=== PATIENT | female | born 1960 | race Caucasian/White ===

== ENCOUNTER 2017-02-09 02:59 | Inpatient (IN) | payer OTHER, SELFPAY ==
[2017-02-09] MEDS ORDERED: Iohexol 240 (50 ml) PO ONE (03:15)
--- NOTE | 2017-02-09 03:17 | ED PDOC ---
HPI: Abdomen Time Seen by Provider: 02/09/17 03:07 Chief Complaint (Nursing): Abdominal Pain Chief Complaint (Provider): abdominal pain History Per: Patient, Family History/Exam Limitations: no limitations Onset/Duration Of Symptoms: Days (2) Current Symptoms Are (Timing): Still Present Location Of Pain/Discomfort: Diffuse Quality Of Discomfort: Sharp, "Pain" Associated Symptoms: Nausea, Vomiting Additional History Per: Patient, Family Additional Complaint(s): 56 y/o female presents for eval of diffuse abdominal pain x 2 days. Associated nausea, vomiting, left lower back pain. Daughter notes pain to have worsened today, with bloating of stomach. Denies fever, chest pain, shortness of breath , palpitations, changes in bowel movements, dysuria, hematuria. Past Medical History Reviewed: Historical Data, Nursing Documentation, Vital Signs Vital Signs: Last Vital Signs Temp 98.1 F 02/09/17 03:05 Pulse 81 02/09/17 05:48 Resp 18 02/09/17 05:48 BP 101/59 L 02/09/17 05:48 Pulse Ox 99 02/09/17 05:53 - Medical History PMH: Asthma Denies: HIV, Chronic Kidney Disease - Family History Family History: States: Unknown Family Hx - Home Medications Home Medications: Ambulatory Orders Medication Instructions Recorded Ciprofloxacin HCl [Cipro] 500 mg PO Q12 #14 tablet 09/11/16 Levothyroxine [Synthroid] 25 mcg PO DAILY #30 tab 09/11/16 Metronidazole [Flagyl] 500 mg PO Q8 #21 tablet 09/11/16 - Allergies Allergies/Adverse Reactions: Allergies Allergy/AdvReac Type Severity Reaction Status Date / Time No Known Allergies Allergy Verified 09/07/15 15:13 Review of Systems ROS Statement: Except As Marked, All Systems Reviewed And Found Negative Gastrointestinal: Positive for: Nausea, Vomiting, Abdominal Pain Physical Exam - Reviewed Nursing Documentation Reviewed: Yes Vital Signs Reviewed: Yes - Physical Exam Appears: Positive for: Well, Non-toxic, No Acute Distress Head Exam: Positive for: ATRAUMATIC, NORMAL INSPECTION, NORMOCEPHALIC Skin: Positive for: Normal Color Eye Exam: Positive for: Normal appearance ENT: Positive for: Normal ENT Inspection Cardiovascular/Chest: Positive for: Regular Rate, Rhythm Respiratory: Positive for: Normal Breath Sounds Gastrointestinal/Abdominal: Positive for: Normal Exam, Bowel Sounds, Soft (firm) , Tenderness (diffuse), Distended, Guarding, Asicites Back: Positive for: L CVA Tenderness. Negative for: R CVA Tenderness, Vertebral Tenderness, Muscle Spasm Extremity: Positive for: Normal ROM Neurologic/Psych: Positive for: Alert, Oriented - Laboratory Results Result Diagrams: 02/09/17 03:24 02/09/17 03:24 - ECG O2 Sat by Pulse Oximetry: 99 - Radiology X-Ray: Viewed By Me X-Ray Interpretation: No Acute Disease - Progress ED Course And Treament: labs, urine, chest xray, CT abd/pelvis, IV morphine, IV zofran Patient given another zofran dose for persistent vomiting. 4:40 Patient unable to tolerate PO contrast. Will do CT abd/pelvis with IV contrast only EXAM: CT Abdomen and Pelvis With Intravenous Contrast CLINICAL HISTORY: 56 years old, female; Pain; Abdominal pain; Epigastric; Additional info: Abd pain, vomiting TECHNIQUE: Axial computed tomography images of the abdomen and pelvis with intravenous contrast. This CT exam was performed using one or more of the following dose reduction techniques : automated exposure control, adjustment of the mA and/or kV according to patient size, and/ or use of iterative reconstruction technique. Coronal and sagittal reformatted images were created and reviewed. CONTRAST: 100 mL of OMNIPAQUE 300 administered intravenously. EXAM DATE/TIME: 02/09/2017 4:41 AM COMPARISON: CT - ABD PELVIS PO IV CONTRAST 09/07/2015 9:15:08 PM FINDINGS: The liver is nodular supportive of cirrhosis similar to prior. There is slight mass effect on the right kidney by the enlarged liver. There is extensive ascites throughout the abdomen and pelvis since prior. There is nodular soft tissue density throughout the anterior abdomen new since prior study that could be related to edema. Omental caking would have a similar appearance. Primary mesenteric inflammatory process would be possible as well. Numerous small small periaortic lymph nodes are present. The spleen is normal. The pancreas is normal. No gallstones. Again seen is a large left renal cyst increased slightly in size now measuring 4.3 cm in diameter. There is mild left hydronephrosis and mild left hydroureter. There is a small amount of perinephric fluid most notably surrounding the pelvis. There is a 3 mm calculi along the posterior wall of the urinary bladder at the left UVJ. The wall of the transverse colon appears thickened and irregular however it is decompressed limiting evaluation. Heterogeneous calcification in the deep left pelvis similar to prior possibly ovarian in origin or possibly an exophytic uterine fibroid. IMPRESSION: Obstructing calculi left UVJ. Cirrhotic liver. Ascites. Nodular soft tissue density along the anterior abdominal wall as discussed above. Case discussed with ED attending Dr. Sanches; will admit for further evaluation of findings. IV fluids, PO flomax ordered CAse discussed with FP resident on-call for admission. Disposition - Clinical Impression Clinical Impression: Ascites, Cirrhosis, Ureteral calculus, left - Disposition Disposition Time: 05:58 Condition: FAIR - Pt Status Changed To: Hospital Disposition Of: Inpatient - Admit Certification Admit to Inpatient:: After my assessment, the patient will require hospitalization for at least two midnights. This is because of the severity of symptoms shown, intensity of services needed, and/or the medical risk in this patient being treated as an outpatient.
[2017-02-09] MEDS ORDERED: Iohexol 240 (50 ml) ONE (03:20)
[2017-02-09 03:36] LABS: ALKALINE PHOSPHATASE 92 U/L (38-126); ALT/SGPT 61 U/L (9-52); AST/SGOT 53 U/L (14-36); BILIRUBIN,TOTAL 0.8 mg/dl (0.2-1.3); BLOOD UREA NITROGEN 15 mg/dl (7-17); CALCIUM 8.4 mg/dL (8.4-10.2); CARBON DIOXIDE 26 mmol/L (22-30); CHLORIDE 106 mmol/L (98-107); GFR AFRICAN-AMERICAN > 60; GLUCOSE,RANDOM 120 mg/dL (65-105); LIPASE 261 U/L (23-300); POTASSIUM 3.6 MMOL/L (3.6-5.0); SODIUM 143 mmol/l (132-148); TOTAL PROTEIN 6.4 G/DL (6.3-8.2)
[2017-02-09 03:45] LABS: ALB/GLOB RATIO 0.9 (1.0-2.1)
[2017-02-09 03:52] LABS: BASO % 0.4 % (0.0-2.0); EOS # 0.3 K/uL (0.0-0.7); LYMPH # 3.3 K/uL (1.0-4.3); MEAN CELL VOLUME 85.5 fl (81.0-99.0); MEAN CORPUSCULAR HEMOGLOBIN 28.9 pg (27.0-31.0); MEAN CORPUSCULAR HGB CONC 33.8 g/dL (33.0-37.0); MEAN PLATELET VOLUME 9.1 fl (7.2-11.7); MONO # 0.9 K/uL (0.0-0.8); MONO % 11.2 % (0.0-10.0); NEUT # 3.8 K/uL (1.8-7.0); NEUT % 45.4 % (50.0-75.0); NRBC % 0.2 % (0.0-0.0); WHITE BLOOD COUNT 8.4 K/uL (4.8-10.8)
[2017-02-09] MEDS ORDERED: Iohexol 300 100 ML IJ ONE (04:42)
[2017-02-09] MEDS ORDERED: Sodium Chloride 0.9% 50 ML IV ONE (04:42)
[2017-02-09] MEDS ORDERED: Sodium Chloride 0.9% 1,000 ML IV STA (05:21)
--- NOTE | 2017-02-09 05:48 | CT ---
EXAM: CT Abdomen and Pelvis With Intravenous Contrast CLINICAL HISTORY: 56 years old, female; Pain; Abdominal pain; Epigastric; Additional info: Abd pain, vomiting TECHNIQUE: Axial computed tomography images of the abdomen and pelvis with intravenous contrast. This CT exam was performed using one or more of the following dose reduction techniques: automated exposure control, adjustment of the mA and/or kV according to patient size, and/or use of iterative reconstruction technique. Coronal and sagittal reformatted images were created and reviewed. CONTRAST: 100 mL of OMNIPAQUE 300 administered intravenously. EXAM DATE/TIME: 02/09/2017 4:41 AM COMPARISON: CT - ABD PELVIS PO IV CONTRAST 09/07/2015 9:15:08 PM FINDINGS: The liver is nodular supportive of cirrhosis similar to prior. There is slight mass effect on the right kidney by the enlarged liver. There is extensive ascites throughout the abdomen and pelvis since prior. There is nodular soft tissue density throughout the anterior abdomen new since prior study that could be related to edema. Omental caking would have a similar appearance. Primary mesenteric inflammatory process would be possible as well. Numerous small small periaortic lymph nodes are present. The spleen is normal. The pancreas is normal. No gallstones. Again seen is a large left renal cyst increased slightly in size now measuring 4.3 cm in diameter. There is mild left hydronephrosis and mild left hydroureter. There is a small amount of perinephric fluid most notably surrounding the pelvis. There is a 3 mm calculi along the posterior wall of the urinary bladder at the left UVJ. The wall of the transverse colon appears thickened and irregular however it is decompressed limiting evaluation. Heterogeneous calcification in the deep left pelvis similar to prior possibly ovarian in origin or possibly an exophytic uterine fibroid. IMPRESSION: Obstructing calculi left UVJ. Cirrhotic liver. Ascites. Nodular soft tissue density along the anterior abdominal wall as discussed above.
[2017-02-09] MEDS ORDERED: DiphenhydrAMINE 50 mg/ml Inj IV STA (06:18)
--- NOTE | 2017-02-09 08:56 | CP.PCM.HP ---
History of Present Illness - History of Present Illness History of Present Illness: CC: abdominal pain HPI: The patient is a 56 y/o woman w/ PMH of mild persistent asthma and hypothyroidism (diagnosed on 10/10/2016 but not currently taking any synthroid) presents with abdominal pain. The patient reports pain for the past 2 days with enlarging abdomen, 7-8 episodes of non-bloody/non-bilious vomit, and left lower back pain. The patient also reports dizziness and yellowing skin. The patient has been having neck pain for 1 week and dysuria without hematuria for the past 2-3 days. The daughter is at bedside for additional history. The patient denies chest pain, dyspnea, and diarrhea. The patient was last admitted in the hospital on 09/10/2016 and discharged on 09/11/2016 for colitis. Patient was last seen in the [facility] on 10/10/2016 with a follow up visit scheduled for 02/14/2017. The patient was found to be positive for Hepatitis C but patient and daughter are unaware. PMD: [facility] Allergies: NKDA Meds: salbutamol/beclomethasone inhaler prn PMH: mild persistent asthma, hypothyroidism (not taking synthroid), Hepatitis C (patient and family unaware) PSH: none Soc: denies smoking, alcohol, and drugs ROS: negative except HPI ED course vitals: 98.1 F, 79 beats/min, 122/69 mmHg, 16 breaths/min, O2 99% room air - CBC, coags, CMP, troponin, lipase, lactic acid - CXR, CT abdomen/pelvis / IV contrast (patient could not tolerate PO contrast) - given IV zofran, IV morphine, tamsulosin 0.4 mg and 0.8 mg PO, NS 1L, Benadryl 25 mg IV, and Promethazine 25 mg IV - admit Present on Admission - Present on Admission Any Indicators Present on Admission: No Review of Systems - Review of Systems All systems: reviewed and no additional remarkable complaints except Past Patient History - Past Medical History & Family History Past Medical History?: Yes - Past Social History Smoking Status: Never Smoked - CARDIAC Hx Cardiac Disorders: No - PULMONARY Hx Asthma: Yes - NEUROLOGICAL Hx Neurological Disorder: No - HEENT Hx HEENT Problems: No - RENAL Hx Chronic Kidney Disease: No - ENDOCRINE/METABOLIC Hx Endocrine Disorders: No - HEMATOLOGICAL/ONCOLOGICAL Hx Human Immunodeficiency Virus (HIV): No - INTEGUMENTARY Hx Dermatological Problems: No - MUSCULOSKELETAL/RHEUMATOLOGICAL Hx Musculoskeletal Disorders: No - GASTROINTESTINAL Hx Gastrointestinal Disorders: No - GENITOURINARY/GYNECOLOGICAL Hx Genitourinary Disorders: No - PSYCHIATRIC Hx Psychophysiologic Disorder: No Hx Substance Use: No - SURGICAL HISTORY Hx Surgeries: No Other/Comment: triconomas - ANESTHESIA Hx Anesthesia: No (unknown) Hx Anesthesia Reactions: No Hx Malignant Hyperthermia: No Meds Allergies/Adverse Reactions: Allergies Allergy/AdvReac Type Severity Reaction Status Date / Time No Known Allergies Allergy Verified 02/09/17 07:31 Physical Exam - Constitutional Appears: No Acute Distress - Head Exam Head Exam: ATRAUMATIC, NORMOCEPHALIC - Eye Exam Eye Exam: EOMI Pupil Exam: PERRL Additional comments: non-icteric sclera - ENT Exam ENT Exam: Mucous Membranes Dry - Respiratory Exam Respiratory Exam: Decreased Breath Sounds, Clear to Auscultation Bilateral. absent: Prolonged Expiratory Phase, Rales, Rhonchi, Wheezes, Respiratory Distress, Stridor - Cardiovascular Exam Cardiovascular Exam: REGULAR RHYTHM. absent: Tachycardia - GI/Abdominal Exam GI & Abdominal Exam: Distended, Firm, Normal Bowel Sounds. absent: Guarding, Rigid, Tenderness Additional comments: no fluid wave appreciated; however, remarkably distended abdomen with no abnormal skin lesions - Extremities Exam Extremities exam: Negative for: calf tenderness, pedal edema, tenderness - Neurological Exam Neurological exam: Alert, Oriented x3 - Skin Skin Exam: Dry, Intact, Pallor, Warm Additional comments: mild jaundice more noticeable on face, non-pruritic Results - Vital Signs Recent Vital Signs: Last Vital Signs Temp 98.1 F 02/09/17 03:05 Pulse 79 02/09/17 07:38 Resp 17 02/09/17 07:38 BP 114/83 02/09/17 07:38 Pulse Ox 98 02/09/17 07:38 - Labs Result Diagrams: 02/09/17 03:24 02/09/17 03:24 Assessment & Plan - Assessment and Plan (Free Text) Assessment: The patient is a 56 y/o woman w/ PMH of mild persistent asthma and hypothyroidism (diagnosed on 10/10/2016 but not currently taking any synthroid) presents with abdominal pain. Plan: 1. Abdominal pain - admit to [facility] - GI consulted, Dr. 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 Ascites - Hep C cirrhosis vs portal venous thrombosis vs Budd Chiari - spironolactone 50 mg PO BID - lasix 40 mg IV daily (hold if BP systolic <90) - Ultrasound doppler of portal vein - IR paracentesis (diagnostic and therapeutic) today in afternoon - follow up paracentesis fluid studies - follow up Hepatitis A, B, and C studies - follow up ammonia - strict I&Os - daily weights 3. Dysuria - no CVA tenderness - 3mm obstructing calculi in left UVJ - Ceftriaxone 1 gm IV daily - tamsulosin 0.4 mg PO daily - follow up UA and urine culture - 24 hour urine collection - urology consult, Dr. Teague 4. Mild persistent asthma - home medication: salbutamol/beclomethasone inhaler prn - duoneb 3 mL Inh Q6h prn 5. Hypothyroidism - not on medication (was started on synthroid 25 mcg PO daily but not taking) - TSH 10/10/2016: 13.40 6. DVT prophylaxis - lovenox 40 mg SC daily (on hold until after ultrasound)
[2017-02-09] MEDS ORDERED: Albuterol-Ipratrop 3 mg / 0.5 (3 ml) UD INH PRN (09:25)
[2017-02-09] MEDS ORDERED: cefTRIAXone 2 GM in Sodium Chloride 0.9% 100 ML IVPB SCH (09:30)
[2017-02-09] MEDS: Enoxaparin 40 mg Syringe SC SCH (09:55)
--- NOTE | 2017-02-09 10:44 | RAD ---
HISTORY: Abdominal pain COMPARISON: 09/10/2016 FINDINGS: LUNGS: The lungs are clear. PLEURA: No significant pleural effusion identified, no pneumothorax apparent. CARDIOVASCULAR: Normal. OSSEOUS STRUCTURES: No significant abnormalities. VISUALIZED UPPER ABDOMEN: Normal. OTHER FINDINGS: None. IMPRESSION: No active pulmonary disease.
--- NOTE | 2017-02-09 14:06 | US ---
HISTORY: Hepatitis C cirrhosis, ascites;r/o portal vein thrombus COMPARISON: None. TECHNIQUE: Grayscale and duplex Doppler imaging was performed. FINDINGS: LIVER: Measures 14.6 cm. Normal echogenicity of the liver parenchyma. The liver has nodular contour. . No intrahepatic bile duct dilatation. There is normal direction of flow in the hepatic vein, hepatic artery and portal vein. GALLBLADDER: Unremarkable. No gallstones. COMMON BILE DUCT: Measures 3.0 mm. No stones. No dilatation. PANCREAS: Unremarkable as visualized. No mass. No ductal dilatation. RIGHT KIDNEY: Measures 10.2cm. Normal echogenicity. No calculus, mass, or hydronephrosis. LEFT KIDNEY: Measures 11.6cm. Normal echogenicity. No calculus, mass, or hydronephrosis. There is a 4.7 x 4.1 x 4.9 cm simple cyst in the lower pole. SPLEEN: There is borderline splenomegaly. No mass. There is normal flow in the splenic vein. AORTA: No aneurysmal dilatation. IVC: Unremarkable. OTHER FINDINGS: Moderate abdominal ascites. IMPRESSION: 1. Cirrhosis of liver and borderline splenomegaly. 2. Normal direction of flow in the hepatic and portal veins. Patent splenic vein. 3. Moderate abdominal ascites.
[2017-02-09] MEDS ORDERED: Lidocaine 1% Inj (20ml) ONE (14:43)
--- NOTE | 2017-02-09 15:13 | PCM.SURG1 ---
Surgeon's Initial Post Op Note - Surgeon's Notes Surgeon: Jr Arango MD Bending Press Operator: NONE Type of Anesthesia: Local Pre-Operative Diagnosis: Ascites Operative Findings: US showed a moderate amount of fluid Post-Operative Diagnosis: Ascites Operation Performed: US guided paracentesis. Specimen/Specimens Removed: 2.8 liters of straw colored fluid Estimated Blood Loss: EBL {In ML}: 0 Blood Products Given: N/A Drains Used: No Drains Post-Op Condition: Fair Date of Surgery/Procedure: 02/09/17 Time of Surgery/Procedure: 15:05
--- NOTE | 2017-02-09 15:52 | US ---
Date of Procedure: 02/09/2017 PROCEDURE: Ultrasound-guided paracentesis, CPT 92622 Medications: 6 cc 1% Lidocaine HISTORY: Ascites, abdominal pain, cirrhosis TECHNIQUE: Following informed consent , the patient was placed supine on the stretcher and the site was marked. A limited abdominal ultrasound was performed that showed a large amount of intra-abdominal fluid. Procedural time out was called and the Pt's abdomen was marked and prepped and draped in the usual sterile fashion. Ultrasound-guided large volume paracentesis performed. A total of 2.8 liters of straw colored fluid was removed without complication. Fluid specimen was sent for culture, sensitivity, cytology and chemistries. IMPRESSION: Ultrasound-guided large volume paracentesis.
--- NOTE | 2017-02-09 16:32 | CT ---
PROCEDURE: CT scan of the brain dated 02/09/2017 HISTORY: headache x 1 month; confusion COMPARISON: No prior study available for comparison TECHNIQUE: Axial computed tomography images were obtained through the head/brain without intravenous contrast. Radiation dose: Total exam DLP = 769.52 mGy-cm. This CT exam was performed using one or more of the following dose reduction techniques: Automated exposure control, adjustment of the mA and/or kV according to patient size, and/or use of iterative reconstruction technique. FINDINGS: HEMORRHAGE: No acute parenchymal, subarachnoid or extra-axial . Questionable minimal chronic periventricular white matter ischemic changes. The ventricles are slightly prominent which could be due to central volume loss. Mild vascular calcifications are present. VENTRICLES: No evidence of obstructive hydrocephalus CALVARIUM: Calvarium appears unremarkable. PARANASAL SINUSES: Minor mucosal thickening noted within several ethmoid air cells. On mild mucosal thickening left chamber sphenoid sinus. Tiny fluid level not excluded. MASTOID AIR CELLS: Unremarkable as visualized. No inflammatory changes. OTHER FINDINGS: None. IMPRESSION: No acute intracranial hemorrhage. . Questionable minimal chronic periventricular white matter ischemic changes. Mildly prominent ventricles possibly due to central volume loss however there is no evidence of obstructive hydrocephalus.
--- NOTE | 2017-02-09 18:17 | CP.PCM.CON ---
History of Present Illness - History of Present Illness History of Present Illness: 56 yo female admitted with abdominal swelling and pain. Has h/o HCV but not under treatment. Also with hypothyroidism. Review of Systems - Constitutional Constitutional: absent: Chills - EENT Eyes: absent: Blurred Vision Ears: absent: Ear Discharge Nose/Mouth/Throat: absent: Epistaxis - Cardiovascular Cardiovascular: absent: Chest Pain - Respiratory Respiratory: absent: Cough - Gastrointestinal Gastrointestinal: As Per HPI Past Patient History - Past Medical History & Family History Past Medical History?: Yes - Past Social History Smoking Status: Never Smoked - CARDIAC Hx Cardiac Disorders: No - PULMONARY Hx Asthma: Yes - NEUROLOGICAL Hx Neurological Disorder: No - HEENT Hx HEENT Problems: No - RENAL Hx Chronic Kidney Disease: No - ENDOCRINE/METABOLIC Hx Endocrine Disorders: No - HEMATOLOGICAL/ONCOLOGICAL Hx Human Immunodeficiency Virus (HIV): No - INTEGUMENTARY Hx Dermatological Problems: No - MUSCULOSKELETAL/RHEUMATOLOGICAL Hx Musculoskeletal Disorders: No - GASTROINTESTINAL Hx Gastrointestinal Disorders: No - GENITOURINARY/GYNECOLOGICAL Hx Genitourinary Disorders: No - PSYCHIATRIC Hx Psychophysiologic Disorder: No Hx Substance Use: No - SURGICAL HISTORY Hx Surgeries: No Other/Comment: triconomas - ANESTHESIA Hx Anesthesia: No (unknown) Hx Anesthesia Reactions: No Hx Malignant Hyperthermia: No Meds Allergies/Adverse Reactions: Allergies Allergy/AdvReac Type Severity Reaction Status Date / Time No Known Allergies Allergy Verified 02/09/17 07:31 - Medications Medications: Current Medications Albuterol/Ipratropium (Duoneb 3 Mg/0.5 Mg (3 Ml) Ud) 3 ml INH RQ6 PRN PRN Reason: Shortness of Breath Enoxaparin Sodium (Lovenox) 40 mg SC DAILY [facility] PRN Reason: Protocol Last Admin: 02/09/17 09:55 Dose: Not Given Furosemide (Lasix) 40 mg IVP DAILY [facility] Last Admin: 02/09/17 11:14 Dose: 40 mg Ceftriaxone Sodium 1 gm/ (Sodium Chloride) 100 mls @ 100 mls/hr IVPB DAILY [facility] Morphine Sulfate (Morphine) 2 mg IVP Q4 PRN PRN Reason: Pain, moderate (4-7) Ondansetron HCl (Zofran Inj) 4 mg IVP Q4 PRN PRN Reason: Nausea/Vomiting Spironolactone (Aldactone) 50 mg PO BID [facility] Last Admin: 02/09/17 10:44 Dose: 50 mg Tamsulosin HCl (Flomax) 0.4 mg PO DAILY [facility] Physical Exam - Constitutional Appears: Chronically Ill - Head Exam Head Exam: ATRAUMATIC - Eye Exam Eye Exam: Normal appearance - Respiratory Exam Respiratory Exam: Clear to Auscultation Bilateral - Cardiovascular Exam Cardiovascular Exam: +S1, +S2 - GI/Abdominal Exam GI & Abdominal Exam: Distended, Normal Bowel Sounds, Soft. absent: Tenderness Results - Vital Signs Recent Vital Signs: Last Vital Signs Temp 99.1 F 02/09/17 14:57 Pulse 72 02/09/17 14:57 Resp 20 02/09/17 14:57 BP 117/59 L 02/09/17 14:57 Pulse Ox 96 02/09/17 14:57 - Labs Result Diagrams: 02/09/17 03:24 02/09/17 03:24 Labs: Laboratory Results - last 24 hr 02/09/17 02/09/17 15:25 16:50 Ammonia < 9 L Fluid Glucose 121 - Imaging and Cardiology CT scan - abdomen Status: Report reviewed by me Assessment & Plan (1) Cirrhosis Assessment and Plan: Patient despite ascites has relatively preserved liver synthetic function. Salt and water restriction and low dose diuretics as long as BP systolic above 95. Schistosoma serology. May stop antibiotics if parascentesis is negative. Possible upper endoscopy to evaluate for varices Sunday. Status: Acute
--- NOTE | 2017-02-09 19:36 | CON ---
DATE: 02/09/2017 TIME OF CONSULTATION: Roughly 6:35 p.m. BRIEF HISTORY: The patient is a 56-year-old female from [place] with a history of hepatitis C and liver cirrhosis with abdominal ascites, who presents to [facility] (Former[facility] ER with acute onset of abdominal pain which is now currently relieved, and was also found to have a 3 mm stone at the left UVJ with mild left hydroureter. The patient was started on IV Rocephin and is currently completely pain free. She does have abdominal distention secondary to the ascites. She denies any prior history of kidney stones or kidney disease. Her only past medical history is that of asthma, for which she uses an inhaler periodically, but not all the time. GYNECOLOGICAL HISTORY: She is 5, para 5, with no abortions, and all normal vaginal deliveries. No past surgical history. She has no known allergies to medications. She has no history of any alcohol or tobacco use. A followup ultrasound during this admission after the original CAT scan showed no kidney stones, hydronephrosis, or renal masses, indicating resolution of the original hydronephrosis and possible passage of the left UVJ stone since the patient is currently completely pain free at this time. PHYSICAL EXAMINATION: She is a well-developed, well-nourished female. HENT EXAMINATION: Grossly within normal limits. NECK: Supple. Thyroid not palpable. ABDOMEN: Currently soft, slightly distended. No CVA tenderness. No suprapubic tenderness. Her laboratory evaluation today, 02/09/2017, shows a CBC with a WBC count of 8.4 , hemoglobin of 12.8, and hematocrit of 38.0. Platelet count was 165,000. Her coag profile shows a PT of 12.4, INR of 1.19, and a PTT of 31.0. A chem profile shows a sodium of 143, potassium 3.6, chloride 106, CO2 of 26, BUN and creatinine of 15 and 0.7 respectively, with a GFR of greater than 60. A random glucose was 120. Lactic acid was 1.1, calcium 8.4, total bilirubin 0.8. AST was 53, ALT 61, alk phos 92, ammonia level was less than 9. Lipase was 261. The patient recently just started voiding large amounts of urine, and a urine analysis was just recently sent. Diagnostic impression for this patient is a 3 mm left ureterovesical junction stone with mild left hydronephrosis and hydroureter, which may be resolved at this time since a post-CT ultrasound shows no hydronephrosis, stones, or renal masses, and only a renal cyst. Plan for this patient is just observation at this time regarding urology, and the patient can be continued on her IV antibiotics, which currently include Rocephin IV, and also Flomax 0.4 mg daily. The patient can be seen in office followup in about 2 weeks. Derick Teague MD cc: [id number] TT: 02/09/2017 19:36:26 Confirmation # [id number] Dictation # [id number] MTDD
[2017-02-10 02:47] LABS: RBC URINE 26 /hpf (0-3); URINE BACTERIA RARE (<OCC); URINE BILIRUBIN NEGATIVE (NEGATIVE); URINE COLOR YELLOW (YELLOW); URINE GLUCOSE (UA) NEG (Normal); URINE KETONE NEGATIVE (NEGATIVE); URINE LEUKOCYTE ESTERASE NEG Leu/uL (Negative); URINE PROTEIN 30 mg/dL (NEGATIVE); URINE UROBILINOGEN 0.2-1.0 mg/dL (0.2-1.0); WBC URINE 3 /hpf (0-5)
[2017-02-10 02:48] LABS: URINE BLOOD LARGE (NEGATIVE)
[2017-02-10 07:37] LABS: ALB/GLOB RATIO 0.9 (1.0-2.1); ALKALINE PHOSPHATASE 70 U/L (38-126); ALT/SGPT 54 U/L (9-52); AST/SGOT 49 U/L (14-36); BILIRUBIN,TOTAL 0.5 mg/dl (0.2-1.3); BLOOD UREA NITROGEN 15 mg/dl (7-17); CALCIUM 8.1 mg/dL (8.4-10.2); CARBON DIOXIDE 25 mmol/L (22-30); CHLORIDE 109 mmol/L (98-107); GFR AFRICAN-AMERICAN > 60; GLUCOSE,RANDOM 89 mg/dL (65-105); POTASSIUM 3.7 MMOL/L (3.6-5.0); SODIUM 146 mmol/l (132-148); TOTAL PROTEIN 5.7 G/DL (6.3-8.2)
[2017-02-10 07:59] LABS: BASO % 0.6 % (0.0-2.0); EOS # 0.2 K/uL (0.0-0.7); EOS % 3.7 % (0.0-4.0); HEMATOCRIT 37.2 % (34.0-47.0); LYMPH # 1.6 K/uL (1.0-4.3); LYMPH % 32.8 % (20.0-40.0); MEAN CELL VOLUME 87.1 fl (81.0-99.0); MEAN CORPUSCULAR HEMOGLOBIN 29.2 pg (27.0-31.0); MEAN CORPUSCULAR HGB CONC 33.6 g/dL (33.0-37.0); MEAN PLATELET VOLUME 9.9 fl (7.2-11.7); MONO # 0.4 K/uL (0.0-0.8); MONO % 8.1 % (0.0-10.0); NEUT # 2.7 K/uL (1.8-7.0); NEUT % 54.8 % (50.0-75.0); NRBC % 0.2 % (0.0-0.0); RED CELL DISTRIBUTION WIDTH 13.3 % (11.5-14.5); WHITE BLOOD COUNT 4.9 K/uL (4.8-10.8)
[2017-02-10 08:06] LABS: THYROID STIMULATING HORMONE 4.25 mIU/ML (0.46-4.68)
[2017-02-10] MEDS: Enoxaparin 40 mg Syringe SC SCH (09:12)
--- NOTE | 2017-02-10 09:24 | CP.PCM.PN ---
Subjective - Date & Time of Evaluation Date of Evaluation: 02/10/17 Time of Evaluation: 08:15 - Subjective Subjective: The patient is a 56 y/o woman w/ PMH of mild persistent asthma and hypothyroidism (diagnosed on 10/10/2016 but not currently taking any synthroid) presents with abdominal pain. The patient was seen this morning. There are no acute events overnight. The patient is not in acute distress. The patient is laying in bed. The patient reports improvement of abdominal pain. The patient tolerated the paracentesis with no complications. The patient reported relief from the removal of fluid, which allowed her to have enough of an appetite to eat dinner. The patient reports that the dysuria is resolved but has hematuria. The patient report bilateral calf pain. The patient also reports that the dizziness is improved which now occurs if she is ambulating. The patient wanted to know about her current condition and was counseled about having Hepatitis C. Patient is aware of what Hep C is but unsure of how she contracted it; denied blood transfusion while in [place] and did not have it. Patient has good insight and asked appropriate questions regarding severity and treatment options. The patient appreciated the discussion. Objective - Vital Signs/Intake and Output Vital Signs (last 24 hours): Temp Pulse Resp BP Pulse Ox 98.5 F 69 20 103/65 94 L 02/10/17 08:09 02/10/17 08:09 02/10/17 08:09 02/10/17 08:09 02/10/17 08:09 Intake and Output: 02/10/17 02/10/17 06:59 18:59 Intake Total 50 Output Total 150 Balance -100 - Medications Medications: Current Medications Albuterol/Ipratropium (Duoneb 3 Mg/0.5 Mg (3 Ml) Ud) 3 ml INH RQ6 PRN PRN Reason: Shortness of Breath Enoxaparin Sodium (Lovenox) 40 mg SC DAILY [facility] PRN Reason: Protocol Last Admin: 02/09/17 09:55 Dose: Not Given Furosemide (Lasix) 40 mg IVP DAILY [facility] Ceftriaxone Sodium 1 gm/ (Sodium Chloride) 100 mls @ 100 mls/hr IVPB DAILY [facility] Last Admin: 02/10/17 09:08 Dose: 100 mls/hr Morphine Sulfate (Morphine) 2 mg IVP Q4 PRN PRN Reason: Pain, moderate (4-7) Ondansetron HCl (Zofran Inj) 4 mg IVP Q4 PRN PRN Reason: Nausea/Vomiting Spironolactone (Aldactone) 50 mg PO BID [facility] Last Admin: 02/10/17 09:08 Dose: 50 mg Tamsulosin HCl (Flomax) 0.4 mg PO DAILY [facility] - Labs Labs: 02/10/17 05:30 02/10/17 05:30 PT 12.0 SECONDS (9.6-11.2) H 02/10/17 05:30 INR 1.15 (0.92-1.08) H 02/10/17 05:30 APTT 31.0 SECONDS (23.3-32.5) 02/09/17 03:34 - Constitutional Appears: No Acute Distress - Head Exam Head Exam: ATRAUMATIC, NORMOCEPHALIC - ENT Exam ENT Exam: Mucous Membranes Moist - Respiratory Exam Respiratory Exam: Decreased Breath Sounds, Clear to Ausculation Bilateral. absent: Accessory Muscle Use, Chest Wall Tenderness, Prolonged Expiratory Phase , Rales, Rhonchi, Wheezes, Respiratory Distress, Stridor Additional comments: diffuse clear but decreased breaths sounds - Cardiovascular Exam Cardiovascular Exam: REGULAR RHYTHM. absent: Tachycardia - GI/Abdominal Exam GI & Abdominal Exam: Distended, Soft, Tenderness, Hyperactive Bowel Sounds Additional comments: Patient has mild diffuse tenderness on auscultation and palpation. Abdomen less tense and distended s/p paracentesis. Dressing in RLQ from paracentesis, clean dry, and intact. - Extremities Exam Extremities Exam: Calf Tenderness. absent: Pedal Edema Additional comments: patient reports bilateral calf pain and tenderness, no erythema, no edema, no warmth, negative Liam's sign - Neurological Exam Neurological Exam: Alert, Awake, Oriented x3 - Skin Skin Exam: Dry, Intact, Normal Color, Warm Assessment and Plan - Assessment and Plan (Free Text) Assessment: The patient is a 56 y/o woman w/ PMH of mild persistent asthma and hypothyroidism (diagnosed on 10/10/2016 but not currently taking any synthroid) presents with abdominal pain. Plan: 1. Abdominal pain - GI consulted, Dr. Love; recommendations appreciated - CT: obstructing 3 mm calculi in left UVJ, cirrhotic liver, extensive ascites throughout abdomen and pelvis, nodular soft tissue density along anterior abdominal wall - CBC: 4.9>12.5/37.2<135 - coags: PT 12.0, INR 1.15, aPTT 31.0 - CMP: 146/3.7, 109/25, 15/0.7, glucose 89, Ca2+ 8.1 (corrected Ca2+ 9.2), AST 49, ALT 54, alk phos 92, albumin 2.6 - troponin: negative <0.0120 - lipase: 261 - morphine 2 mg IV Q4h prn - follow up schistosoma serology - possible upper endoscopy to evaluate for varices on Sunday02/12/2017 - construction controller referral - soft, low fiber, 2g Na, 1500mL fluid restriction, 6 small meal, Halal diet 2. Ascites - Hep C cirrhosis vs portal venous thrombosis vs Budd Chiari - spironolactone 50 mg PO BID - lasix 40 mg IV daily (hold if BP systolic <90) - Ultrasound Abdomen 02/09/2017: normal direction of flow in hepatic and portal veins, patent splenic vein, liver cirrhosis, ascites - s/p IR paracentesis (diagnostic and therapeutic): 2.8 L straw colored fluid removed - follow up paracentesis fluid studies - follow up Hepatitis A, B, and C studies - Ammonia: <9 - AFP: 12.2 - follow up MRI abdomen w/wo contrast - strict I&Os: -100 mL - daily weights: 130 lb 3. Hematuria, resolution of Dysuria - no CVA tenderness - 3mm obstructing calculi in left UVJ - Ceftriaxone 1 gm IV daily - tamsulosin 0.4 mg PO daily - UA: negative nitrate and leukocyte esterase, rare bacteria, large blood - follow up urine culture - urology consult, Dr. Teague; recommendations appreciated (continue present management, see as outpatient) 4. Calf pain - negative Liam's sign, no erythema, no edema, no warmth - follow up bilateral venous duplex ultrasound 5. Mild persistent asthma - home medication: salbutamol/beclomethasone inhaler prn - duoneb 3 mL Inh Q6h prn 6. Hypothyroidism - not on medication (was started on synthroid 25 mcg PO daily but not taking) - TSH 4.25 7. DVT prophylaxis - lovenox 40 mg SC daily
--- NOTE | 2017-02-10 13:39 | US ---
PROCEDURE: Bilateral lower extremity venous duplex Doppler. HISTORY: Bilateral calf pain COMPARISON: None available. TECHNIQUE: Bilateral common femoral, superficial femoral, popliteal and posterior tibial veins were evaluated. Flow was assessed with color Doppler, compressibility, assessment of phasic flow and augmentation response. FINDINGS: COMMON FEMORAL VEIN: Right CFV: Normal color flow, compressibility and augmentation response. Left CFV: Normal color flow, compressibility and augmentation response. SUPERFICIAL FEMORAL VEIN: Right SFV: Normal color flow, compressibility and augmentation response. Left SFV: Normal color flow, compressibility and augmentation response. POPLITEAL VEIN: Right Popliteal: Normal color flow, compressibility and augmentation response. Left Popliteal: Normal color flow, compressibility and augmentation response. POSTERIOR TIBIAL VEIN: Right PTV: Normal color flow, compressibility and augmentation response. Left PTV: Normal color flow, compressibility and augmentation response. OTHER FINDINGS: None. IMPRESSION: No evidence of deep venous thrombosis.
[2017-02-11] MEDS: Enoxaparin 40 mg Syringe SC SCH (08:41)
--- NOTE | 2017-02-11 10:19 | CP.PCM.PN ---
Subjective - Date & Time of Evaluation Date of Evaluation: 02/11/17 Time of Evaluation: 08:15 - Subjective Subjective: Pt lying comfortably in bed. States that yesterday, later in the day, her urine had been more yellow/clear, however, upon waking this morning, noted to be red again. Denies dysuria, urinary frequency or urgency. Denies fever, chills, N/V/D. States appetite is slightly improved, but has generalized weakness. Reports abdominal pain has improved since yesterday. Pt asking if any results are back and asking severity of Hep C and when treatment will begin. Pt reports no recollection of exposure to Hep C. Denies tattoos or transfusions. Objective - Vital Signs/Intake and Output Vital Signs (last 24 hours): Temp Pulse Resp BP Pulse Ox 98.6 F 72 20 117/68 94 L 02/11/17 07:53 02/11/17 07:53 02/11/17 07:53 02/11/17 08:44 02/11/17 07:53 - Medications Medications: Current Medications Albuterol/Ipratropium (Duoneb 3 Mg/0.5 Mg (3 Ml) Ud) 3 ml INH RQ6 PRN PRN Reason: Shortness of Breath Enoxaparin Sodium (Lovenox) 40 mg SC DAILY [facility] PRN Reason: Protocol Last Admin: 02/11/17 08:41 Dose: 40 mg Furosemide (Lasix) 40 mg IVP DAILY [facility] Last Admin: 02/11/17 08:44 Dose: 40 mg Ceftriaxone Sodium 1 gm/ (Sodium Chloride) 100 mls @ 100 mls/hr IVPB DAILY [facility] Last Admin: 02/11/17 08:43 Dose: 100 mls/hr Morphine Sulfate (Morphine) 2 mg IVP Q4 PRN PRN Reason: Pain, moderate (4-7) Last Admin: 02/10/17 17:25 Dose: 2 mg Ondansetron HCl (Zofran Inj) 4 mg IVP Q4 PRN PRN Reason: Nausea/Vomiting Spironolactone (Aldactone) 50 mg PO BID [facility] Last Admin: 02/11/17 08:42 Dose: 50 mg Tamsulosin HCl (Flomax) 0.4 mg PO DAILY [facility] Last Admin: 02/11/17 08:42 Dose: 0.4 mg - Labs Labs: 02/10/17 05:30 02/10/17 05:30 PT 12.0 SECONDS (9.6-11.2) H 02/10/17 05:30 INR 1.15 (0.92-1.08) H 02/10/17 05:30 APTT 31.0 SECONDS (23.3-32.5) 02/09/17 03:34 - Constitutional Appears: No Acute Distress - Head Exam Head Exam: NORMAL INSPECTION - Eye Exam Eye Exam: Normal appearance - ENT Exam ENT Exam: Mucous Membranes Moist - Respiratory Exam Respiratory Exam: Decreased Breath Sounds (diffusely), Clear to Ausculation Bilateral, NORMAL BREATHING PATTERN. absent: Rales, Rhonchi, Wheezes, Respiratory Distress - Cardiovascular Exam Cardiovascular Exam: REGULAR RHYTHM, +S1, +S2 - GI/Abdominal Exam GI & Abdominal Exam: Distended, Soft, Normal Bowel Sounds. absent: Tenderness ( no tenderness on today's exam) Additional comments: dressing from paracentesis in Right mid/lower quad - C/D/I - Extremities Exam Extremities Exam: Full ROM. absent: Calf Tenderness, Pedal Edema - Back Exam Back Exam: absent: CVA tenderness (L), CVA tenderness (R) - Neurological Exam Neurological Exam: Alert, Oriented x3 - Skin Skin Exam: Dry, Intact, Normal Color, Warm Assessment and Plan - Assessment and Plan (Free Text) Assessment: 1. Ascites, likely 2/2 chronic Hepatitis C - s/p paracentesis by IR, with 2.8L of fluid removed - peritoneal fluid labs pending; called lab but was told this is a send out and may take 2-3 days from collection - follow up schistosoma serology - spironolactone 50 mg PO BID - lasix 40 mg IV daily (hold if BP systolic <90) - strict I&Os - daily weights - GI consulted, Dr. Love; recommendations appreciated - possible upper endoscopy to evaluate for varices on Sunday02/12/2017; attempted to call Dr. Love for clarification if EGD will happen tomorrow; message left - cut roll machine offbearer referral - SBP prophylaxis for now with IV ceftriaxone; may dc if peritoneal fluid cultures come back neg - soft, low fiber, 2g Na, 1500mL fluid restriction, 6 small meal, Halal diet - Ammonia: <9 - AFP: 12.2 (elevated) - follow up MRI abdomen w/wo contrast 2. Chronic Hep C - follow up Hepatitis A, B, and C studies - prior viral load: >2 million in 08/2016 - will need outpatient GI follow up 3. Nephrolithiasis - CT: obstructing 3 mm calculi in left UVJ, cirrhotic liver, extensive ascites throughout abdomen and pelvis, nodular soft tissue density along anterior abdominal wall - urology consult appreciated - flomax - strain urine - 24 hr urine collection for stone risk eval - pain control - urine culture shows no growth 4. Hematuria, resolution of Dysuria - no CVA tenderness - 3mm obstructing calculi in left UVJ - Ceftriaxone 1 gm IV daily - tamsulosin 0.4 mg PO daily - UA: negative nitrate and leukocyte esterase, rare bacteria, large blood - follow up urine culture - urology consult, Dr. Teague; recommendations appreciated (continue present management, see as outpatient) 5. Calf pain - resolved - Duplex negative for dvt b/l 6. Mild persistent asthma - home medication: salbutamol/beclomethasone inhaler prn - duoneb 3 mL Inh Q6h prn 7. Prior elevated TSH - not on medication (was started on synthroid 25 mcg PO daily but not taking) - TSH now normal 4.25 (previously elevated TSH's; pt with no symptoms) 8. DVT prophylaxis - lovenox 40 mg SC daily
[2017-02-11] MEDS: Docusate-Senna 50 mg-8.6 mg Tab PO SCH (21:30)
--- NOTE | 2017-02-12 07:43 | CP.PCM.PN ---
Subjective - Date & Time of Evaluation Date of Evaluation: 02/12/17 Time of Evaluation: 07:00 - Subjective Subjective: The patient is a 56 y/o woman w/ PMH of mild persistent asthma and hypothyroidism (diagnosed on 10/10/2016 but not currently taking any synthroid) presents with abdominal pain. The patient was seen this morning. There are no acute events overnight. The patient is not in acute distress. The patient is laying in bed. The patient reports similar previous mild epigastric abdominal pain and lower extremity weakness (bilateral LE ultrasound showed no DVT). Patient is NPO for endoscopy and MRI abdomen today. The patient has no other complaints, afebrile, and ambulating. Objective - Vital Signs/Intake and Output Vital Signs (last 24 hours): Temp Pulse Resp BP Pulse Ox 98.7 F 89 19 124/76 95 02/12/17 01:00 02/12/17 01:00 02/12/17 01:00 02/12/17 01:00 02/12/17 01:00 Intake and Output: 02/12/17 02/12/17 06:59 18:59 Intake Total 120 Balance 120 - Medications Medications: Current Medications Albuterol/Ipratropium (Duoneb 3 Mg/0.5 Mg (3 Ml) Ud) 3 ml INH RQ6 PRN PRN Reason: Shortness of Breath Docusate Sodium (Colace) 100 mg PO DAILY [facility] Last Admin: 02/11/17 17:15 Dose: 100 mg Enoxaparin Sodium (Lovenox) 40 mg SC DAILY [facility] PRN Reason: Protocol Last Admin: 02/11/17 08:41 Dose: 40 mg Furosemide (Lasix) 40 mg IVP DAILY [facility] Last Admin: 02/11/17 08:44 Dose: 40 mg Ceftriaxone Sodium 1 gm/ (Sodium Chloride) 100 mls @ 100 mls/hr IVPB DAILY [facility] Last Admin: 02/11/17 08:43 Dose: 100 mls/hr Morphine Sulfate (Morphine) 2 mg IVP Q4 PRN PRN Reason: Pain, moderate (4-7) Last Admin: 02/10/17 17:25 Dose: 2 mg Ondansetron HCl (Zofran Inj) 4 mg IVP Q4 PRN PRN Reason: Nausea/Vomiting Senna/Docusate Sodium (Senokot S 50 Mg-8.6 Mg) 2 tab PO [facility] Last Admin: 02/11/17 21:30 Dose: 2 tab Spironolactone (Aldactone) 50 mg PO BID [facility] Last Admin: 02/11/17 17:15 Dose: 50 mg Tamsulosin HCl (Flomax) 0.4 mg PO DAILY [facility] Last Admin: 02/11/17 08:42 Dose: 0.4 mg - Labs Labs: 02/10/17 05:30 02/10/17 05:30 PT 12.0 SECONDS (9.6-11.2) H 02/10/17 05:30 INR 1.15 (0.92-1.08) H 02/10/17 05:30 APTT 31.0 SECONDS (23.3-32.5) 02/09/17 03:34 - Constitutional Appears: No Acute Distress - Head Exam Head Exam: ATRAUMATIC, NORMOCEPHALIC - ENT Exam ENT Exam: Mucous Membranes Moist - Respiratory Exam Respiratory Exam: Decreased Breath Sounds, Clear to Ausculation Bilateral. absent: Accessory Muscle Use, Chest Wall Tenderness, Prolonged Expiratory Phase , Rales, Rhonchi, Wheezes, Respiratory Distress, Stridor Additional comments: diffuse clear but decreased breaths sounds - Cardiovascular Exam Cardiovascular Exam: REGULAR RHYTHM. absent: Tachycardia - GI/Abdominal Exam GI & Abdominal Exam: Distended, Soft, Tenderness, Hyperactive Bowel Sounds Additional comments: Patient has mild epigastric tenderness on palpation. Abdomen less tense and distended. Dressing in RLQ from paracentesis, clean dry, and intact. - Extremities Exam Extremities Exam: Calf Tenderness, Normal Inspection, Tenderness. absent: Pedal Edema Additional comments: patient reports bilateral calf pain and tenderness, no erythema, no edema, no warmth, negative Liam's sign - Neurological Exam Neurological Exam: Alert, Awake, Oriented x3 - Skin Skin Exam: Dry, Intact, Normal Color, Warm Assessment and Plan - Assessment and Plan (Free Text) Assessment: The patient is a 56 y/o woman w/ PMH of mild persistent asthma and hypothyroidism (diagnosed on 10/10/2016 but not currently taking any synthroid) presents with abdominal pain. Plan: 1. Abdominal pain - GI consulted, Dr. Love; recommendations appreciated - CT: obstructing 3 mm calculi in left UVJ, cirrhotic liver, extensive ascites throughout abdomen and pelvis, nodular soft tissue density along anterior abdominal wall - morphine 2 mg IV Q4h prn - Pepcid 20 mg PO BID - follow up schistosoma serology - upper endoscopy to evaluate for varices on Sunday02/12/2017 @ noon - soft, low fiber, 2g Na, 1500mL fluid restriction, 6 small meal, Halal diet - SBP prophylaxis for now with IV ceftriaxone; may DC if peritoneal fluid cultures come back neg - follow up MRI abdomen w/wo contrast 2. Ascites - most likely Hep C cirrhosis - spironolactone 50 mg PO BID - lasix 40 mg IV daily (hold if BP systolic <90) - Ultrasound Abdomen 02/09/2017: normal direction of flow in hepatic and portal veins, patent splenic vein, liver cirrhosis, ascites - s/p IR paracentesis (diagnostic and therapeutic): 2.8 L straw colored fluid removed - follow up paracentesis fluid studies - follow up Hepatitis C studies - Ammonia: <9 - AFP: 12.2 - follow up MRI abdomen w/wo contrast - strict I&Os: -160 mL - daily weights: 128 lb 6.4 oz 3. Chronic Hep C - follow up Hepatitis C studies - prior viral load: >2 million in 08/2016 - Hep A and B negative - will need outpatient GI follow up 4. Nephrolithiasis - no CVA tenderness - CT: obstructing 3 mm calculi in left UVJ, cirrhotic liver, extensive ascites throughout abdomen and pelvis, nodular soft tissue density along anterior abdominal wall - urology consult, Dr. Teague; recommendations appreciated (continue present management, see as outpatient) - tamsulosin 0.4 mg PO daily - strain urine - 24 hr urine collection for stone risk eval - UA: negative nitrate and leukocyte esterase, rare bacteria, large blood - pain control - urine culture shows no growth 5. Calf pain - negative Liam's sign, no erythema, no edema, no warmth - bilateral venous duplex ultrasound: negative for DVT - on lovenox 40 mg SC daily 6. Mild persistent asthma - home medication: salbutamol/beclomethasone inhaler prn - duoneb 3 mL Inh Q6h prn 7. Hypothyroidism - not on medication (was started on synthroid 25 mcg PO daily but not taking) - TSH 4.25 8. DVT prophylaxis - lovenox 40 mg SC daily
[2017-02-12] MEDS ORDERED: Lactated Ringer's 500 ML IV ONE (12:06)
[2017-02-12] MEDS ORDERED: Propofol 10 mg/ml Inj (20 ML) ONE (12:56)
[2017-02-12] MEDS ORDERED: Gadodiamide 287 MG/ML VIAL (15ML) IV ONE (16:37)
[2017-02-12] MEDS ORDERED: Sodium Chloride 0.9% 50 ML IV ONE (16:38)
--- NOTE | 2017-02-12 19:35 | MRI ---
EXAM: MR Abdomen Without and With Intravenous Contrast CLINICAL HISTORY: 56 years old, female; Signs and symptoms; Other: Hep c/corrhosis; Additional info: Hep c cirrhosis, elevated afp, rule out hcc TECHNIQUE: Multiplanar magnetic resonance images of the abdomen without and with intravenous contrast. CONTRAST: 13 mL of omniscan administered intravenously. EXAM DATE/TIME: 02/12/2017 11:35 AM COMPARISON: Prior CT abdomen and pelvis of 02/09/2017 FINDINGS: LIMITATIONS: Exam is limited by moderate streak/motion artifact. LIVER: Liver is cirrhotic in appearance. Multiple abdominal collateral vessels are seen, compatible with portal hypertension due to chronic liver disease. No liver lesions are visualized. Specifically, there are no hypervascular lesions seen to suggest hepatocellular carcinoma, allowing for motion artifact. GALLBLADDER AND BILE DUCTS: No gallstones seen. No evidence of significant biliary ductal dilatation. PANCREAS: No pancreatic lesions visualized. No evidence of pancreatitis. SPLEEN: Spleen is enlarged, measuring 13 cm in length. ADRENALS: No focal adrenal lesions visualized. KIDNEYS AND URETERS: 5 cm simple-appearing cystic lesion in the left kidney. INTRAPERITONEAL SPACE: Moderate amount of abdominal free fluid, also seen on the recent abdominal CT. As seen on the recent abdominal CT, there is enhancing, infiltrative soft tissue in the omentum. IMPRESSION: - Cirrhotic liver. No focal liver lesions seen, allowing for motion artifact. - Enhancing, infiltrative soft tissue in the omentum, also seen on a recent abdominal CT. This finding can be seen with chronic liver disease, however, it can also be a sign of omental/peritoneal metastases. - Moderate to large amount of abdominal and pelvic free fluid/ascites. - Mild splenomegaly. - See above for remaining findings.
[2017-02-12] MEDS: Docusate-Senna 50 mg-8.6 mg Tab PO SCH (21:29)
--- NOTE | 2017-02-13 08:25 | CP.PCM.PN ---
Subjective - Date & Time of Evaluation Date of Evaluation: 02/13/17 Time of Evaluation: 07:35 - Subjective Subjective: The patient is a 56 y/o woman w/ PMH of mild persistent asthma and hypothyroidism (diagnosed on 10/10/2016 but not currently taking any synthroid) presents with abdominal pain. The patient was seen this morning. There are no acute events overnight. The patient is not in acute distress. The patient is laying in bed. The patient reports that the abdominal pain is better. The patient still reports bilateral leg pain while in bed but improves when ambulating. Patient tolerated sodium restricted, heart healthy, Halal diet yesterday. The patient has no other complaints, afebrile, and ambulating. Objective - Vital Signs/Intake and Output Vital Signs (last 24 hours): Temp Pulse Resp BP Pulse Ox 98.6 F 78 18 95/64 L 97 02/13/17 07:48 02/13/17 07:48 02/13/17 07:48 02/13/17 07:48 02/13/17 07:48 Intake and Output: 02/13/17 02/13/17 06:59 18:59 Intake Total 200 Balance 200 - Medications Medications: Current Medications Albuterol/Ipratropium (Duoneb 3 Mg/0.5 Mg (3 Ml) Ud) 3 ml INH RQ6 PRN PRN Reason: Shortness of Breath Docusate Sodium (Colace) 100 mg PO DAILY [facility] Last Admin: 02/12/17 12:00 Dose: 100 mg Enoxaparin Sodium (Lovenox) 40 mg SC DAILY [facility] PRN Reason: Protocol Last Admin: 02/11/17 08:41 Dose: 40 mg Famotidine (Pepcid) 20 mg PO BID [facility] Last Admin: 02/12/17 14:00 Dose: 20 mg Furosemide (Lasix) 40 mg IVP DAILY [facility] Last Admin: 02/12/17 09:00 Dose: Not Given Ceftriaxone Sodium 1 gm/ (Sodium Chloride) 100 mls @ 100 mls/hr IVPB DAILY [facility] Last Admin: 02/12/17 09:00 Dose: 100 mls/hr Lactulose (Enulose) 20 gm PO DAILY [facility] Last Admin: 02/12/17 18:03 Dose: 20 gm Morphine Sulfate (Morphine) 2 mg IVP Q4 PRN PRN Reason: Pain, moderate (4-7) Last Admin: 02/12/17 09:07 Dose: 2 mg Ondansetron HCl (Zofran Inj) 4 mg IVP Q4 PRN PRN Reason: Nausea/Vomiting Last Admin: 02/12/17 18:54 Dose: 4 mg Senna/Docusate Sodium (Senokot S 50 Mg-8.6 Mg) 2 tab PO HS [facility] Last Admin: 02/12/17 21:29 Dose: Not Given Spironolactone (Aldactone) 50 mg PO BID [facility] Last Admin: 02/12/17 18:06 Dose: 50 mg Tamsulosin HCl (Flomax) 0.4 mg PO DAILY [facility] Last Admin: 02/12/17 12:00 Dose: 0.4 mg - Labs Labs: 02/10/17 05:30 02/10/17 05:30 PT 11.7 SECONDS (9.6-11.2) H 02/12/17 05:30 INR 1.13 (0.92-1.08) H 02/12/17 05:30 APTT 31.0 SECONDS (23.3-32.5) 02/09/17 03:34 - Constitutional Appears: No Acute Distress, Older Than Stated Age - Head Exam Head Exam: ATRAUMATIC, NORMOCEPHALIC - ENT Exam ENT Exam: Mucous Membranes Moist - Respiratory Exam Respiratory Exam: Decreased Breath Sounds, Clear to Ausculation Bilateral. absent: Accessory Muscle Use, Chest Wall Tenderness, Prolonged Expiratory Phase , Rales, Rhonchi, Wheezes, Respiratory Distress, Stridor Additional comments: breath sounds more audible, not as decreased - Cardiovascular Exam Cardiovascular Exam: REGULAR RHYTHM. absent: Tachycardia - GI/Abdominal Exam GI & Abdominal Exam: Distended, Soft, Hyperactive Bowel Sounds. absent: Guarding, Rigid, Tenderness, Rebound Additional comments: The patient had no tenderness on palpation, abdomen softer as well - Extremities Exam Extremities Exam: Calf Tenderness, Tenderness Additional comments: patient reports the same calf tenderness but is improved with ambulation - Neurological Exam Neurological Exam: Alert, Awake, Oriented x3 - Skin Skin Exam: Dry, Intact, Normal Color, Warm Assessment and Plan - Assessment and Plan (Free Text) Assessment: The patient is a 56 y/o woman w/ PMH of mild persistent asthma and hypothyroidism (diagnosed on 10/10/2016 but not currently taking any synthroid) presents with abdominal pain. Plan: 1. Abdominal pain - CBC: 5.1>12.9/38.3<141 - CMP: 140/4.1, 101/28, 17/0.7, glucose 139, Ca2+ 8.2 (corrected Ca2+ 9.1), AST 47, ALT 45, albumin 2.9 - PTH: 54 - GI consulted, Dr. Love; recommendations appreciated - CT: obstructing 3 mm calculi in left UVJ, cirrhotic liver, extensive ascites throughout abdomen and pelvis, nodular soft tissue density along anterior abdominal wall - morphine 2 mg IV Q4h prn - Pepcid 20 mg PO BID - follow up schistosoma serology - soft, low fiber, 2g Na, 1500mL fluid restriction, 6 small meal, Halal diet - SBP prophylaxis for now with IV ceftriaxone; may DC if peritoneal fluid cultures come back neg - MRI abdomen w/wo contrast: cirrhotic liver, no focal liver lesion; infiltrative soft tissue in omentum; moderate to large amount of abdominal and pelvic fluid/ascites; mild splenomegaly - follow up upper endoscopy results 2. Ascites - most likely Hep C cirrhosis - spironolactone 50 mg PO BID - lasix 40 mg IV daily (hold if BP systolic <90) - Ultrasound Abdomen 02/09/2017: normal direction of flow in hepatic and portal veins, patent splenic vein, liver cirrhosis, ascites - s/p IR paracentesis (diagnostic and therapeutic): 2.8 L straw colored fluid removed - follow up paracentesis fluid studies - follow up Hepatitis C studies - Ammonia: <9 - AFP: 12.2 - follow up MRI abdomen w/wo contrast - strict I&Os: +30 mL - daily weights: 128 lb 6.4 oz 3. Chronic Hep C - follow up Hepatitis C studies - prior viral load: >2 million in 08/2016 - Hep A and B negative - will need outpatient GI follow up 4. Nephrolithiasis - no CVA tenderness - CT: obstructing 3 mm calculi in left UVJ, cirrhotic liver, extensive ascites throughout abdomen and pelvis, nodular soft tissue density along anterior abdominal wall - urology consult, Dr. Teague; recommendations appreciated (continue present management, see as outpatient) - tamsulosin 0.4 mg PO daily - strain urine - 24 hr urine collection for stone risk eval - UA: negative nitrate and leukocyte esterase, rare bacteria, large blood - pain control - urine culture shows no growth 5. Calf pain - negative Liam's sign, no erythema, no edema, no warmth - bilateral venous duplex ultrasound: negative for DVT - improved with ambulation - seen by PT yesterday - on lovenox 40 mg SC daily 6. Mild persistent asthma - home medication: salbutamol/beclomethasone inhaler prn - duoneb 3 mL Inh Q6h prn 7. Hypothyroidism - not on medication (was started on synthroid 25 mcg PO daily but not taking) - TSH 4.25 8. DVT prophylaxis - lovenox 40 mg SC daily
[2017-02-13 09:39] LABS: BODY FLUID TYPE PERITONEAL/ASCITES
[2017-02-13 10:13] LABS: HEMATOCRIT 38.3 % (34.0-47.0); MEAN CELL VOLUME 87.1 fl (81.0-99.0); MEAN CORPUSCULAR HEMOGLOBIN 29.4 pg (27.0-31.0); MEAN CORPUSCULAR HGB CONC 33.8 g/dL (33.0-37.0); WHITE BLOOD COUNT 5.1 K/uL (4.8-10.8)
[2017-02-13 10:26] LABS: ALB/GLOB RATIO 0.9 (1.0-2.1); ALKALINE PHOSPHATASE 59 U/L (38-126); ALT/SGPT 45 U/L (9-52); AST/SGOT 47 U/L (14-36); BILIRUBIN,TOTAL 0.7 mg/dl (0.2-1.3); BLOOD UREA NITROGEN 17 mg/dl (7-17); CALCIUM 8.2 mg/dL (8.4-10.2); CARBON DIOXIDE 28 mmol/L (22-30); CHLORIDE 101 mmol/L (98-107); GFR AFRICAN-AMERICAN > 60; GLUCOSE,RANDOM 139 mg/dL (65-105); POTASSIUM 4.1 MMOL/L (3.6-5.0); SODIUM 140 mmol/l (132-148); TOTAL PROTEIN 6.1 G/DL (6.3-8.2)
[2017-02-13 11:44] LABS: BF GROSS APPEARANCE CLEAR (CLEAR); BODY FLUID TOTAL COUNT 100 (0-0)
[2017-02-13] MEDS: Docusate-Senna 50 mg-8.6 mg Tab PO SCH (21:24)
[2017-02-14 00:42] LABS: SCHISTOSOMA AB <1.00
--- NOTE | 2017-02-14 08:09 | CP.PCM.PN ---
Subjective - Date & Time of Evaluation Date of Evaluation: 02/14/17 Time of Evaluation: 07:15 - Subjective Subjective: The patient is a 56 y/o woman w/ PMH of mild persistent asthma and hypothyroidism (diagnosed on 10/10/2016 but not currently taking any synthroid) presents with abdominal pain. The patient was seen this morning. There are no acute events overnight. The patient is not in acute distress. The patient is laying in bed. The patient reports that the abdominal pain is much improved. The patient denies leg pain and is ambulating without problem. Patient tolerated sodium restricted, heart healthy, Halal diet yesterday. The patient has no other complaints, afebrile, and ambulating. Objective - Vital Signs/Intake and Output Vital Signs (last 24 hours): Temp Pulse Resp BP Pulse Ox 98.1 F 68 18 108/69 95 02/14/17 08:00 02/14/17 08:00 02/14/17 08:00 02/14/17 08:00 02/14/17 08:00 Intake and Output: 02/14/17 02/14/17 06:59 18:59 Intake Total 100 Balance 100 - Medications Medications: Current Medications Albuterol/Ipratropium (Duoneb 3 Mg/0.5 Mg (3 Ml) Ud) 3 ml INH RQ6 PRN PRN Reason: Shortness of Breath Docusate Sodium (Colace) 100 mg PO DAILY [facility] Last Admin: 02/13/17 08:24 Dose: 100 mg Enoxaparin Sodium (Lovenox) 40 mg SC DAILY [facility] PRN Reason: Protocol Last Admin: 02/11/17 08:41 Dose: 40 mg Famotidine (Pepcid) 20 mg PO BID [facility] Last Admin: 02/13/17 17:28 Dose: 20 mg Furosemide (Lasix) 40 mg IVP DAILY [facility] Last Admin: 02/13/17 08:26 Dose: Not Given Ceftriaxone Sodium 1 gm/ (Sodium Chloride) 100 mls @ 100 mls/hr IVPB DAILY [facility] Last Admin: 02/13/17 08:22 Dose: 100 mls/hr Lactulose (Enulose) 20 gm PO DAILY [facility] Last Admin: 02/13/17 08:23 Dose: 20 gm Morphine Sulfate (Morphine) 2 mg IVP Q4 PRN PRN Reason: Pain, moderate (4-7) Last Admin: 02/12/17 09:07 Dose: 2 mg Ondansetron HCl (Zofran Inj) 4 mg IVP Q4 PRN PRN Reason: Nausea/Vomiting Last Admin: 02/12/17 18:54 Dose: 4 mg Senna/Docusate Sodium (Senokot S 50 Mg-8.6 Mg) 2 tab PO HS [facility] Last Admin: 02/13/17 21:24 Dose: 2 tab Spironolactone (Aldactone) 50 mg PO BID [facility] Last Admin: 02/13/17 17:28 Dose: 50 mg Tamsulosin HCl (Flomax) 0.4 mg PO DAILY [facility] Last Admin: 02/13/17 08:24 Dose: 0.4 mg - Labs Labs: 02/13/17 10:09 02/13/17 10:09 PT 11.7 SECONDS (9.6-11.2) H 02/12/17 05:30 INR 1.13 (0.92-1.08) H 02/12/17 05:30 APTT 31.0 SECONDS (23.3-32.5) 02/09/17 03:34 - Constitutional Appears: No Acute Distress, Older Than Stated Age - Head Exam Head Exam: ATRAUMATIC, NORMOCEPHALIC - ENT Exam ENT Exam: Mucous Membranes Moist - Respiratory Exam Respiratory Exam: Decreased Breath Sounds, Clear to Ausculation Bilateral. absent: Accessory Muscle Use, Chest Wall Tenderness, Prolonged Expiratory Phase , Rales, Rhonchi, Wheezes, Respiratory Distress, Stridor - Cardiovascular Exam Cardiovascular Exam: REGULAR RHYTHM. absent: Tachycardia - GI/Abdominal Exam GI & Abdominal Exam: Distended, Soft, Normal Bowel Sounds. absent: Firm, Guarding, Rigid, Tenderness, Rebound Additional comments: softer abdomen compared to previous, non-tender in all quadrants, no rebound, not rigid - Extremities Exam Extremities Exam: absent: Calf Tenderness, Pedal Edema, Tenderness - Neurological Exam Neurological Exam: Alert, Awake, Oriented x3 - Skin Skin Exam: Dry, Intact, Normal Color, Warm Assessment and Plan - Assessment and Plan (Free Text) Assessment: The patient is a 56 y/o woman w/ PMH of mild persistent asthma and hypothyroidism (diagnosed on 10/10/2016 but not currently taking any synthroid) presents with abdominal pain. Plan: 1. Abdominal pain - CBC: 5.1>12.9/38.3<141 - CMP: 140/4.1, 101/28, 17/0.7, glucose 139, Ca2+ 8.2 (corrected Ca2+ 9.1), AST 47, ALT 45, albumin 2.9 - PTH: 54 - Vitamin B12: 323 - folate: pending - follow up Vitamin D 25-OH - GI consulted, Dr. Love on board - CT: obstructing 3 mm calculi in left UVJ, cirrhotic liver, extensive ascites throughout abdomen and pelvis, nodular soft tissue density along anterior abdominal wall - Day 5: Ceftriaxone 1 gm IV daily - morphine 2 mg IV Q4h prn - Pepcid 20 mg PO BID - schistosoma serology: negative - soft, low fiber, 2g Na, 1500mL fluid restriction, 6 small meal, Halal diet - SBP prophylaxis for now with IV ceftriaxone; may DC if peritoneal fluid cultures come back neg - MRI abdomen w/wo contrast 02/12/2017: cirrhotic liver, no focal liver lesion; infiltrative soft tissue in omentum; moderate to large amount of abdominal and pelvic fluid/ascites; mild splenomegaly - Upper GI Endoscopy 02/12/2017: small hiatus hernia, small (<5mm) varices found in lower third of esophagus, largest was 3mm in diameter; normal duodenum and stomach; recommendations include resuming previous diet and repeat endoscopy in 1 year - consulted General Surgery, Dr. Matthew - consulted Hematology/Oncology, Dr. Magana - follow up serum CEA 2. Ascites - most likely Hep C cirrhosis - spironolactone 50 mg PO BID - lasix 40 mg IV daily (hold if BP systolic <90) - Ultrasound Abdomen 02/09/2017: normal direction of flow in hepatic and portal veins, patent splenic vein, liver cirrhosis, ascites - s/p IR paracentesis (diagnostic and therapeutic): 2.8 L straw colored fluid removed - follow up paracentesis fluid studies - clear, yellow - WBC 305 - RBC 366 - Total cell count 100 - Neutrophils 23.0 - Lymphocytes 71.0 - Monocyte/Macrophage 6 - Glucose 121 - Total Protein 3.2 - Triglycerides 23 - follow up Hepatitis C studies - Ammonia: <9 - AFP: 12.2 - MRI abdomen w/wo contrast 02/12/2017: cirrhotic liver, no focal liver lesion; infiltrative soft tissue in omentum; moderate to large amount of abdominal and pelvic fluid/ascites; mild splenomegaly - MELD score: 8 (1.9% 3-month mortality) 3. Chronic Hep C - follow up Hepatitis C studies - prior viral load: >2 million in 08/2016 - Hep A and B negative - will need outpatient GI follow up 4. Calf pain - resolved - negative Liam's sign, no erythema, no edema, no warmth - bilateral venous duplex ultrasound: negative for DVT - improved with ambulation - seen by PT yesterday afternoon - on lovenox 40 mg SC daily 5. Mild persistent asthma - home medication: salbutamol/beclomethasone inhaler prn - duoneb 3 mL Inh Q6h prn 6. Hypothyroidism - not on medication (was started on synthroid 25 mcg PO daily but not taking) - TSH 4.25 7. DVT prophylaxis - lovenox 40 mg SC daily
[2017-02-14] MEDS: Enoxaparin 40 mg Syringe SC SCH (09:22)
--- NOTE | 2017-02-14 11:51 | CP.PCM.CON ---
<Nickolas Weaver - Last Filed: 02/14/17 11:35> History of Present Illness - History of Present Illness History of Present Illness: GENERAL SURGERY CONSULT NOTE- Dr. Matthew 56 y/o female w/ PMH of mild persistent asthma, hypothyroidism, & Hep C for abdominal concerns. Patient was seen this morning, reporting no abdominal pain, or flank pain. Reports 1 bout of vomiting prior to arrival this morning. Pt reports no current nausea, and is denying anti-nausea medication. Pt is POD#5 for paracentesis for ascities. There are no acute events overnight. The patient is not in acute distress. The patient is laying in bed. The patient reports that the abdominal pain is much improved. Review of Systems - Review of Systems All systems: reviewed and no additional remarkable complaints except - Genitourinary Genitourinary: Hematuria (Hematouria ) Past Patient History - Past Medical History & Family History Past Medical History?: Yes - Past Social History Smoking Status: Never Smoked - CARDIAC Hx Cardiac Disorders: No - PULMONARY Hx Asthma: Yes - NEUROLOGICAL Hx Neurological Disorder: No - HEENT Hx HEENT Problems: No - RENAL Hx Chronic Kidney Disease: No - ENDOCRINE/METABOLIC Hx Endocrine Disorders: No - HEMATOLOGICAL/ONCOLOGICAL Hx Human Immunodeficiency Virus (HIV): No - INTEGUMENTARY Hx Dermatological Problems: No - MUSCULOSKELETAL/RHEUMATOLOGICAL Hx Musculoskeletal Disorders: No - GASTROINTESTINAL Hx Gastrointestinal Disorders: No - GENITOURINARY/GYNECOLOGICAL Hx Genitourinary Disorders: No - PSYCHIATRIC Hx Psychophysiologic Disorder: No Hx Substance Use: No - SURGICAL HISTORY Hx Surgeries: No Other/Comment: triconomas - ANESTHESIA Hx Anesthesia: No (unknown) Hx Anesthesia Reactions: No Hx Malignant Hyperthermia: No Meds Allergies/Adverse Reactions: Allergies Allergy/AdvReac Type Severity Reaction Status Date / Time No Known Allergies Allergy Verified 02/09/17 07:31 - Medications Medications: Current Medications Albuterol/Ipratropium (Duoneb 3 Mg/0.5 Mg (3 Ml) Ud) 3 ml INH RQ6 PRN PRN Reason: Shortness of Breath Docusate Sodium (Colace) 100 mg PO DAILY [facility] Last Admin: 02/14/17 09:21 Dose: 100 mg Enoxaparin Sodium (Lovenox) 40 mg SC DAILY [facility] PRN Reason: Protocol Last Admin: 02/14/17 09:22 Dose: 40 mg Famotidine (Pepcid) 20 mg PO BID [facility] Last Admin: 02/14/17 09:22 Dose: 20 mg Furosemide (Lasix) 40 mg IVP DAILY [facility] Last Admin: 02/14/17 09:22 Dose: 40 mg Ceftriaxone Sodium 1 gm/ (Sodium Chloride) 100 mls @ 100 mls/hr IVPB DAILY [facility] Last Admin: 02/14/17 09:23 Dose: 100 mls/hr Lactulose (Enulose) 20 gm PO DAILY [facility] Last Admin: 02/14/17 09:21 Dose: 20 gm Morphine Sulfate (Morphine) 2 mg IVP Q4 PRN PRN Reason: Pain, moderate (4-7) Last Admin: 02/12/17 09:07 Dose: 2 mg Ondansetron HCl (Zofran Inj) 4 mg IVP Q4 PRN PRN Reason: Nausea/Vomiting Last Admin: 02/12/17 18:54 Dose: 4 mg Senna/Docusate Sodium (Senokot S 50 Mg-8.6 Mg) 2 tab PO HS [facility] Last Admin: 02/13/17 21:24 Dose: 2 tab Spironolactone (Aldactone) 50 mg PO BID [facility] Last Admin: 02/14/17 09:21 Dose: 50 mg Tamsulosin HCl (Flomax) 0.4 mg PO DAILY [facility] Last Admin: 02/14/17 09:21 Dose: 0.4 mg Physical Exam - Constitutional Appears: Non-toxic, No Acute Distress - Head Exam Head Exam: ATRAUMATIC, NORMAL INSPECTION - Eye Exam Eye Exam: EOMI, Normal appearance - ENT Exam ENT Exam: Mucous Membranes Moist, Normal Exam - Neck Exam Neck exam: Positive for: Normal Inspection. Negative for: Tenderness - Respiratory Exam Respiratory Exam: NORMAL BREATHING PATTERN. absent: Chest Wall Tenderness, Decreased Breath Sounds - GI/Abdominal Exam GI & Abdominal Exam: Distended, Soft. absent: Firm, Guarding, Rebound, Rigid, Tenderness - Extremities Exam Extremities exam: Positive for: normal inspection. Negative for: calf tenderness, pedal edema, tenderness - Back Exam Back exam: NORMAL INSPECTION. absent: tenderness, vertebral tenderness - Neurological Exam Neurological exam: Alert, Oriented x3 - Psychiatric Exam Psychiatric exam: Normal Affect, Normal Mood - Skin Skin Exam: Intact, Normal Color, Warm Results - Vital Signs Recent Vital Signs: Last Vital Signs Temp 98.1 F 02/14/17 08:00 Pulse 68 02/14/17 08:00 Resp 18 02/14/17 08:00 BP 108/69 02/14/17 09:22 Pulse Ox 95 02/14/17 08:00 - Labs Result Diagrams: 02/13/17 10:09 02/13/17 10:09 Labs: Laboratory Results - last 24 hr 02/09/17 02/09/17 02/10/17 13:29 15:25 05:30 Vitamin B12 Fluid Appearance Clear Fluid WBC 305.0 H Fluid RBC 366.0 H Fluid Tot Cell Count 100 H Fluid Neutrophils 23.0 H Fluid Lymphocytes 71.0 H Fld Monocyte/Macrophag 6 H Fluid Comment Yellow Hepatitis C RNA [id number] H HCV RNA Quant (PCR) 6.14 H Schistosoma Detection <1.00 02/14/17 05:40 Vitamin B12 323 Fluid Appearance Fluid WBC Fluid RBC Fluid Tot Cell Count Fluid Neutrophils Fluid Lymphocytes Fld Monocyte/Macrophag Fluid Comment Hepatitis C RNA HCV RNA Quant (PCR) Schistosoma Detection Assessment & Plan - Assessment and Plan (Free Text) Assessment: 56 year old female with ascites and potential infiltrative mass of omentum Plan: Pt S&E. Charts labs and vitals reviewed. -Discussed with IR for potential biopsy and intervention. Radiology recommends repeat CT scan to r/o potential artifact. -CT scan w/ PO & IV contrast ordered. -f/u scan Will follow patient Discussed w/ Dr. Matthew. - Date & Time Date: 02/14/17 Time: 11:45 <Jeremi Matthew - Last Filed: 02/15/17 14:02> History of Present Illness - History of Present Illness History of Present Illness: Patient was seen and examined at the bedside. Agree with resident's note above. Meds - Medications Medications: Current Medications Albuterol/Ipratropium (Duoneb 3 Mg/0.5 Mg (3 Ml) Ud) 3 ml INH RQ6 PRN PRN Reason: Shortness of Breath Cholecalciferol (Vitamin D) 2,000 iu PO DAILY [facility] Last Admin: 02/15/17 09:11 Dose: 2,000 iu Enoxaparin Sodium (Lovenox) 40 mg SC DAILY [facility] PRN Reason: Protocol Last Admin: 02/15/17 09:12 Dose: 40 mg Famotidine (Pepcid) 20 mg PO BID [facility] Last Admin: 02/15/17 09:06 Dose: 20 mg Furosemide (Lasix) 40 mg PO DAILY [facility] Last Admin: 02/15/17 11:05 Dose: 40 mg Morphine Sulfate (Morphine) 2 mg IVP Q4 PRN PRN Reason: Pain, moderate (4-7) Last Admin: 02/12/17 09:07 Dose: 2 mg Ondansetron HCl (Zofran Inj) 4 mg IVP Q4 PRN PRN Reason: Nausea/Vomiting Last Admin: 02/12/17 18:54 Dose: 4 mg Senna/Docusate Sodium (Senokot S 50 Mg-8.6 Mg) 2 tab PO HS [facility] Last Admin: 02/14/17 21:24 Dose: 2 tab Spironolactone (Aldactone) 50 mg PO BID [facility] Last Admin: 02/15/17 09:16 Dose: 50 mg Tamsulosin HCl (Flomax) 0.4 mg PO DAILY [facility] Last Admin: 02/15/17 09:10 Dose: 0.4 mg Results - Vital Signs Recent Vital Signs: Last Vital Signs Temp 98 F 02/15/17 07:59 Pulse 77 02/15/17 10:33 Resp 20 02/15/17 07:59 BP 108/64 02/15/17 11:05 Pulse Ox 98 02/15/17 10:33 - Labs Result Diagrams: 02/13/17 10:09 02/13/17 10:09 Labs: Laboratory Results - last 24 hr 02/14/17 02/14/17 05:40 05:40 25-OH Vitamin D Total < 12.8 L Folate 12.2 - Imaging and Cardiology CT scan - abdomen Status: Image reviewed by me, Report reviewed by me
[2017-02-14] MEDS ORDERED: Diatriz Meglumine/Diatriz Sod 30 ML BOTTLE PO ONE (12:30)
[2017-02-14] MEDS ORDERED: Iohexol 240 (50 ml) PO ONE (13:45)
[2017-02-14 16:40] VITALS: RESP 20
[2017-02-14 17:36] LABS: FOLATE 12.2 ng/mL
[2017-02-14] MEDS ORDERED: Iohexol 300 100 ML IJ ONE (20:36)
[2017-02-14] MEDS ORDERED: Sodium Chloride 0.9% 50 ML IV ONE (20:36)
[2017-02-14] MEDS: Docusate-Senna 50 mg-8.6 mg Tab PO SCH (21:24)
--- NOTE | 2017-02-14 23:21 | CP.PCM.CON ---
History of Present Illness - History of Present Illness History of Present Illness: 56 year old female with hep c cirrhosis, admitted with increasing abdominal distention secondary to ascites, with imaging concerning for omental mass. Denies fevers and chills. Feels weak and is losing weight. Has poor appetite and energy level for several months. She report she has not had regular medication f/u and has not done her age recommended cancer surveillance. Past medical history: Hep c liver cirrhosis Past surgical history: None Family history: Denies hematologic and oncologic problems Social history: Denies tobacco, alcohol and illicit drug use. All: NKA Review of systems: All remaining review of systems including HEENT, cardiovascular, respiratory, gastrointestinal, genitourinary, musculoskeletal, dermatologic, neurologic, and psychiatric are negative unless mentioned in the HPI. Past Patient History - Past Medical History & Family History Past Medical History?: Yes - Past Social History Smoking Status: Never Smoked - CARDIAC Hx Cardiac Disorders: No - PULMONARY Hx Asthma: Yes - NEUROLOGICAL Hx Neurological Disorder: No - HEENT Hx HEENT Problems: No - RENAL Hx Chronic Kidney Disease: No - ENDOCRINE/METABOLIC Hx Endocrine Disorders: No - HEMATOLOGICAL/ONCOLOGICAL Hx Human Immunodeficiency Virus (HIV): No - INTEGUMENTARY Hx Dermatological Problems: No - MUSCULOSKELETAL/RHEUMATOLOGICAL Hx Musculoskeletal Disorders: No - GASTROINTESTINAL Hx Gastrointestinal Disorders: No - GENITOURINARY/GYNECOLOGICAL Hx Genitourinary Disorders: No - PSYCHIATRIC Hx Psychophysiologic Disorder: No Hx Substance Use: No - SURGICAL HISTORY Hx Surgeries: No Other/Comment: triconomas - ANESTHESIA Hx Anesthesia: No (unknown) Hx Anesthesia Reactions: No Hx Malignant Hyperthermia: No Meds Allergies/Adverse Reactions: Allergies Allergy/AdvReac Type Severity Reaction Status Date / Time No Known Allergies Allergy Verified 02/09/17 07:31 - Medications Medications: Current Medications Albuterol/Ipratropium (Duoneb 3 Mg/0.5 Mg (3 Ml) Ud) 3 ml INH RQ6 PRN PRN Reason: Shortness of Breath Cholecalciferol (Vitamin D) 2,000 iu PO DAILY [facility] Docusate Sodium (Colace) 100 mg PO DAILY [facility] Last Admin: 02/14/17 09:21 Dose: 100 mg Enoxaparin Sodium (Lovenox) 40 mg SC DAILY [facility] PRN Reason: Protocol Last Admin: 02/14/17 09:22 Dose: 40 mg Famotidine (Pepcid) 20 mg PO BID [facility] Last Admin: 02/14/17 21:24 Dose: 20 mg Furosemide (Lasix) 40 mg IVP DAILY [facility] Last Admin: 02/14/17 09:22 Dose: 40 mg Ceftriaxone Sodium 1 gm/ (Sodium Chloride) 100 mls @ 100 mls/hr IVPB DAILY [facility] Last Admin: 02/14/17 09:23 Dose: 100 mls/hr Lactulose (Enulose) 20 gm PO DAILY [facility] Last Admin: 02/14/17 09:21 Dose: 20 gm Morphine Sulfate (Morphine) 2 mg IVP Q4 PRN PRN Reason: Pain, moderate (4-7) Last Admin: 02/12/17 09:07 Dose: 2 mg Ondansetron HCl (Zofran Inj) 4 mg IVP Q4 PRN PRN Reason: Nausea/Vomiting Last Admin: 02/12/17 18:54 Dose: 4 mg Senna/Docusate Sodium (Senokot S 50 Mg-8.6 Mg) 2 tab PO [facility] Last Admin: 02/14/17 21:24 Dose: 2 tab Spironolactone (Aldactone) 50 mg PO BID [facility] Last Admin: 02/14/17 21:25 Dose: 50 mg Tamsulosin HCl (Flomax) 0.4 mg PO DAILY [facility] Last Admin: 02/14/17 09:21 Dose: 0.4 mg Physical Exam - Head Exam Head Exam: ATRAUMATIC - Eye Exam Eye Exam: Normal appearance - ENT Exam ENT Exam: Mucous Membranes Dry - Respiratory Exam Respiratory Exam: NORMAL BREATHING PATTERN - Cardiovascular Exam Cardiovascular Exam: +S1, +S2 - GI/Abdominal Exam GI & Abdominal Exam: Distended - Extremities Exam Extremities exam: Positive for: pedal edema - Neurological Exam Neurological exam: Oriented x3 - Psychiatric Exam Psychiatric exam: Normal Affect, Normal Mood - Skin Skin Exam: Warm Results - Vital Signs Recent Vital Signs: Last Vital Signs Temp 99.3 F 02/14/17 21:07 Pulse 84 02/14/17 21:07 Resp 20 02/14/17 21:07 BP 103/69 02/14/17 21:07 Pulse Ox 98 02/14/17 21:07 - Labs Result Diagrams: 02/13/17 10:09 02/13/17 10:09 Labs: Laboratory Results - last 24 hr 02/09/17 02/10/1702/14/17 13:29 05:30 05:40 Carcinoembryonic Ag Vitamin B12 323 25-OH Vitamin D Total Folate 12.2 Hepatitis C RNA [id number] H HCV RNA Quant (PCR) 6.14 H Schistosoma Detection <1.00 02/14/17 02/14/17 05:40 11:50 Carcinoembryonic Ag 1.0 Vitamin B12 25-OH Vitamin D Total < 12.8 L Folate Hepatitis C RNA HCV RNA Quant (PCR) Schistosoma Detection Assessment & Plan (1) Omental mass Assessment and Plan: For CT scan and possible biopsy may be related to cirrhosis Status: Acute (2) Splenomegaly Assessment and Plan: secondary to portal hypertension Thank you for this interesting consult. Status: Acute
--- NOTE | 2017-02-15 08:27 | CT ---
PROCEDURE: CT Chest without contrast HISTORY: omental nodularity; r/o lung nodule/mass COMPARISON: None. TECHNIQUE: Contiguous axial images were obtained through the chest without intravenous contrast enhancement. Sagittal and coronal reconstructions were performed. Radiation dose (DLP): 232.3 mGy-cm. This CT exam was performed using one or more of the following dose reduction techniques: Automated exposure control, adjustment of the mA and/or kV according to patient size, and/or use of iterative reconstruction technique. FINDINGS: LUNGS: There is 5 millimeter calcified nodule at the left lung base likely benign calcified granuloma. No evidence of suspicious nodule or mass in the lungs. Linear opacity seen at the right middle lobe and along the right lesser fissure likely atelectasis or scar tissue. Small linear opacities at the lung apices are also seen likely scar tissue. MEDIASTINUM: Mild aneurysmal changes at the origin and ascending thoracic aorta. Aortic arch is ectatic. Normal sized heart. Main pulmonary artery is slightly prominent. Slightly prominent mediastinal lymph nodes are seen. No evidence of axillary lymphadenopathy PLEURA: No pleural fluid. No pneumothorax. BONES: No fracture. No destructive lesion. UPPER ABDOMEN: Ascites is again noted in the upper abdomen. Cirrhotic changes of the liver are also seen. OTHER FINDINGS: None. IMPRESSION: No evidence of lung metastasis or lung mass. 5 millimeter calcified nodule at the left lung base likely calcified granuloma. Ectatic/mildly aneurysmal changes of the ascending thoracic aorta.
[2017-02-15] MEDS: Enoxaparin 40 mg Syringe SC SCH (09:12)
--- NOTE | 2017-02-15 09:24 | CT ---
PROCEDURE: CT Abdomen and Pelvis with contrast HISTORY: R/O Omentum mass COMPARISON: None. TECHNIQUE: Contrast dose: 80 mL Omnipaque 300 Radiation dose: Total exam DLP = 774.36 mGy-cm. This CT exam was performed using one or more of the following dose reduction techniques: Automated exposure control, adjustment of the mA and/or kV according to patient size, and/or use of iterative reconstruction technique. FINDINGS: LOWER THORAX: There is linear atelectasis/scarring in the right middle lobe and lingula. There is a calcified granuloma in the left lung base. LIVER: There is redemonstration of a nodular cirrhotic fatty liver. There is no intrahepatic biliary ductal dilatation. GALLBLADDER AND BILE DUCTS: There are no calcified gallstones. PANCREAS: The pancreas is normal in size and there is homogeneous enhancement without ductal dilatation or calcifications. SPLEEN: There is mild splenomegaly. No focal lesion. ADRENALS: Both adrenal glands are normal in size without discrete nodule. KIDNEYS AND URETERS: Both kidneys are normal in size and there is homogeneous enhancement without hydronephrosis or focal mass. There is a 4 cm simple cyst in the lower pole of the left kidney. VASCULATURE: No aortic aneurysm. There are large splenic, gastric and splenorenal varices. BOWEL: There is a small sliding hiatal hernia. There is mild mural thickening at the gastroesophageal junction and in the stomach wall. The small bowel loops are normal in caliber. There is mild circumferential mural thickening in the left hemicolon and rectum APPENDIX: Normal appendix. PERITONEUM: There is redemonstration of ill-defined enhancing soft tissue in the left mid abdomen mesentery not changed since the prior examination. There is large abdominal and pelvic ascites. LYMPH NODES: No enlarged lymph nodes. BLADDER: Decompressed. REPRODUCTIVE: The uterus is normal in size. There is redemonstration of 3.4 cm the cyst with coarse eccentric calcification in the left ovary. BONES: No acute fracture. OTHER FINDINGS: None. IMPRESSION: 1. Cirrhosis of liver, mild splenomegaly and large abdominal and pelvic ascites. 2. Abnormal ill-defined enhancing soft tissue in the left mid abdomen not significantly changed since the prior examination. Findings could be related to mesenteric panniculitis in the setting of chronic ascites. Neoplasm is a less likely consideration. 3. Apparent moderate mural thickening of the left hemicolon is nonspecific and could be related to wall edema however nonspecific colitis cannot be excluded. Clinical follow-up is advised. 4. 3.4 mm left ovarian cyst with eccentric coarse calcification. Further characterization with pelvic ultrasound would be helpful.
--- NOTE | 2017-02-15 10:41 | CP.PCM.PN ---
Subjective - Date & Time of Evaluation Date of Evaluation: 02/15/17 Time of Evaluation: 07:00 - Subjective Subjective: The patient is a 56 y/o woman w/ PMH of mild persistent asthma and hypothyroidism (diagnosed on 10/10/2016 but not currently taking any synthroid) presents with abdominal pain. The patient was seen this morning. There are no acute events overnight. The patient is not in acute distress. The patient is laying in bed. The patient reports that the abdominal pain is much improved. The patient denies leg pain and is ambulating without problem. Patient tolerated sodium restricted, heart healthy, Halal diet. The patient complained of x1 episode of non-bloody/non- bilious vomit after taking PO contrast yesterday but resolved with zofran. The patient also reported 3-4 loose stools s/p lactulose. The patient has no other complaints, afebrile, and ambulating. Objective - Vital Signs/Intake and Output Vital Signs (last 24 hours): Temp Pulse Resp BP Pulse Ox 98 F 63 20 103/66 95 02/15/17 07:59 02/15/17 07:59 02/15/17 07:59 02/15/17 07:59 02/15/17 07:59 Intake and Output: 02/15/17 02/15/17 06:59 18:59 Intake Total 100 Balance 100 - Medications Medications: Current Medications Albuterol/Ipratropium (Duoneb 3 Mg/0.5 Mg (3 Ml) Ud) 3 ml INH RQ6 PRN PRN Reason: Shortness of Breath Cholecalciferol (Vitamin D) 2,000 iu PO DAILY [facility] Last Admin: 02/15/17 09:11 Dose: 2,000 iu Enoxaparin Sodium (Lovenox) 40 mg SC DAILY [facility] PRN Reason: Protocol Last Admin: 02/15/17 09:12 Dose: 40 mg Famotidine (Pepcid) 20 mg PO BID [facility] Last Admin: 02/15/17 09:06 Dose: 20 mg Furosemide (Lasix) 40 mg IVP DAILY [facility] Last Admin: 02/15/17 09:10 Dose: Not Given Ceftriaxone Sodium 1 gm/ (Sodium Chloride) 100 mls @ 100 mls/hr IVPB DAILY [facility] Last Admin: 02/15/17 09:11 Dose: 100 mls/hr Lactulose (Enulose) 20 gm PO DAILY [facility] PRN Reason: Constipation Morphine Sulfate (Morphine) 2 mg IVP Q4 PRN PRN Reason: Pain, moderate (4-7) Last Admin: 02/12/17 09:07 Dose: 2 mg Ondansetron HCl (Zofran Inj) 4 mg IVP Q4 PRN PRN Reason: Nausea/Vomiting Last Admin: 02/12/17 18:54 Dose: 4 mg Senna/Docusate Sodium (Senokot S 50 Mg-8.6 Mg) 2 tab PO HS [facility] Last Admin: 02/14/17 21:24 Dose: 2 tab Spironolactone (Aldactone) 50 mg PO BID [facility] Last Admin: 02/15/17 09:16 Dose: 50 mg Tamsulosin HCl (Flomax) 0.4 mg PO DAILY [facility] Last Admin: 02/15/17 09:10 Dose: 0.4 mg - Labs Labs: 02/13/17 10:09 02/13/17 10:09 PT 11.7 SECONDS (9.6-11.2) H 02/12/17 05:30 INR 1.13 (0.92-1.08) H 02/12/17 05:30 APTT 31.0 SECONDS (23.3-32.5) 02/09/17 03:34 - Constitutional Appears: No Acute Distress - Head Exam Head Exam: ATRAUMATIC, NORMOCEPHALIC - ENT Exam ENT Exam: Mucous Membranes Moist - Respiratory Exam Respiratory Exam: Clear to Ausculation Bilateral. absent: Accessory Muscle Use , Chest Wall Tenderness, Decreased Breath Sounds, Prolonged Expiratory Phase, Rales, Rhonchi, Wheezes, Respiratory Distress, Stridor Additional comments: breath sounds are clear and not decreased sounding today - Cardiovascular Exam Cardiovascular Exam: REGULAR RHYTHM. absent: Tachycardia - GI/Abdominal Exam GI & Abdominal Exam: Distended, Soft, Tenderness, Normal Bowel Sounds. absent: Firm, Guarding, Rigid Additional comments: mildly distended, non-tender, no rebound, not rigid, no guarding - Extremities Exam Extremities Exam: absent: Calf Tenderness, Tenderness - Neurological Exam Neurological Exam: Alert, Awake, Oriented x3 - Skin Skin Exam: Dry, Intact, Normal Color, Warm Assessment and Plan - Assessment and Plan (Free Text) Assessment: The patient is a 56 y/o woman w/ PMH of mild persistent asthma and hypothyroidism (diagnosed on 10/10/2016 but not currently taking any synthroid) presents with abdominal pain. Plan: 1. Hep C cirrhosis - CEA: 1.0 - CBC: 5.1>12.9/38.3<141 - CMP: 140/4.1, 101/28, 17/0.7, glucose 139, Ca2+ 8.2 (corrected Ca2+ 9.1), AST 47, ALT 45, albumin 2.9 - PTH: 54 - Vitamin B12: 323 - folate: 12.2 - Vitamin D 25-OH: <12.8 - GI consulted, Dr. Love on board - Day 6: Ceftriaxone 1 gm IV daily - morphine 2 mg IV Q4h prn - Pepcid 20 mg PO BID - cholecalciferol 2000 IU PO daily - schistosoma serology: negative - soft, low fiber, 2g Na, 1500mL fluid restriction, 6 small meal, Halal diet - SBP prophylaxis for now with IV ceftriaxone; may DC if peritoneal fluid cultures come back neg - MRI abdomen w/wo contrast 02/12/2017: cirrhotic liver, no focal liver lesion; infiltrative soft tissue in omentum; moderate to large amount of abdominal and pelvic fluid/ascites; mild splenomegaly - Upper GI Endoscopy 02/12/2017: small hiatus hernia, small (<5mm) varices found in lower third of esophagus, largest was 3mm in diameter; normal duodenum and stomach; recommendations include resuming previous diet and repeat endoscopy in 1 year - Chest CT w/o Contrast 02/14/2017: no evidence of lung metastasis or lung mass , 5 mm calcified nodule at left lung base likely calcified granuloma. Ectatic/ mildly aneurysmal changes of the ascending thoracic aorta - Abdomen/Pelvis w/ PO and IV Contrast 02/14/2017: Liver cirrhosis, mild spelnomegaly, large abdominal and pelvic ascites; abnormal ill-defined enhancing soft tissue in left mid-abdomen not significantly changed since prior examination. Findings could be related to mesenteric panniculitis from chronic ascites. Neoplasm less likely consideration. - consulted General Surgery, Dr. Matthew; recommendations appreciated - consulted Hematology/Oncology, Dr. Magana; recommendations appreciated - Ascitic fluid cultures: (prelim) no growth, no fungal elements - follow up albumin, LDH, 2. Ascites - most likely Hep C cirrhosis - spironolactone 50 mg PO BID - lasix 40 mg IV daily (hold if BP systolic <90) - Ultrasound Abdomen 02/09/2017: normal direction of flow in hepatic and portal veins, patent splenic vein, liver cirrhosis, ascites - s/p IR paracentesis (diagnostic and therapeutic): 2.8 L straw colored fluid removed - follow up paracentesis fluid studies - clear, yellow - WBC 305 - RBC 366 - Total cell count 100 - Neutrophils 23.0 - Lymphocytes 71.0 - Monocyte/Macrophage 6 - Glucose 121 - Total Protein 3.2 - Triglycerides 23 - follow up Hepatitis C studies - Ammonia: <9 - AFP: 12.2 - MRI abdomen w/wo contrast 02/12/2017: cirrhotic liver, no focal liver lesion; infiltrative soft tissue in omentum; moderate to large amount of abdominal and pelvic fluid/ascites; mild splenomegaly - MELD score: 8 (1.9% 3-month mortality) 3. Chronic Hep C - Hep C viral load: [id number] - prior viral load: >2 million in 08/2016 - Hep A and B negative - will need outpatient GI follow up 4. Calf pain - resolved - negative Liam's sign, no erythema, no edema, no warmth - bilateral venous duplex ultrasound: negative for DVT - improved with ambulation - seen by PT yesterday afternoon - on lovenox 40 mg SC daily 5. Mild persistent asthma - home medication: salbutamol/beclomethasone inhaler prn - duoneb 3 mL Inh Q6h prn 6. Hypothyroidism - not on medication (was started on synthroid 25 mcg PO daily but not taking) - TSH 4.25 7. DVT prophylaxis - lovenox 40 mg SC daily
--- NOTE | 2017-02-15 12:30 | CP.PCM.PN ---
<Julisa Case - Last Filed: 02/15/17 12:30> Subjective - Date & Time of Evaluation Date of Evaluation: 02/15/17 Time of Evaluation: 12:28 - Subjective Subjective: General Surgery - Dr. Matthew Pt S&ERuth ROCHA. Pt denies any abdominal pain this morning. She is tolerating regular diet. She denies any complaints. No N/V, F/C, SOB/Cp. Objective - Vital Signs/Intake and Output Vital Signs (last 24 hours): Temp Pulse Resp BP Pulse Ox 98 F 77 20 108/64 98 02/15/17 07:59 02/15/17 10:33 02/15/17 07:59 02/15/17 11:05 02/15/17 10:33 Intake and Output: 02/15/17 02/15/17 06:59 18:59 Intake Total 100 Balance 100 - Medications Medications: Current Medications Albuterol/Ipratropium (Duoneb 3 Mg/0.5 Mg (3 Ml) Ud) 3 ml INH RQ6 PRN PRN Reason: Shortness of Breath Cholecalciferol (Vitamin D) 2,000 iu PO DAILY [facility] Last Admin: 02/15/17 09:11 Dose: 2,000 iu Enoxaparin Sodium (Lovenox) 40 mg SC DAILY [facility] PRN Reason: Protocol Last Admin: 02/15/17 09:12 Dose: 40 mg Famotidine (Pepcid) 20 mg PO BID [facility] Last Admin: 02/15/17 09:06 Dose: 20 mg Furosemide (Lasix) 40 mg PO DAILY [facility] Last Admin: 02/15/17 11:05 Dose: 40 mg Morphine Sulfate (Morphine) 2 mg IVP Q4 PRN PRN Reason: Pain, moderate (4-7) Last Admin: 02/12/17 09:07 Dose: 2 mg Ondansetron HCl (Zofran Inj) 4 mg IVP Q4 PRN PRN Reason: Nausea/Vomiting Last Admin: 02/12/17 18:54 Dose: 4 mg Senna/Docusate Sodium (Senokot S 50 Mg-8.6 Mg) 2 tab PO HS [facility] Last Admin: 02/14/17 21:24 Dose: 2 tab Spironolactone (Aldactone) 50 mg PO BID [facility] Last Admin: 02/15/17 09:16 Dose: 50 mg Tamsulosin HCl (Flomax) 0.4 mg PO DAILY [facility] Last Admin: 02/15/17 09:10 Dose: 0.4 mg - Labs Labs: 02/13/17 10:09 02/13/17 10:09 PT 11.7 SECONDS (9.6-11.2) H 02/12/17 05:30 INR 1.13 (0.92-1.08) H 02/12/17 05:30 APTT 31.0 SECONDS (23.3-32.5) 02/09/17 03:34 - Constitutional Appears: No Acute Distress - Head Exam Head Exam: ATRAUMATIC, NORMAL INSPECTION, NORMOCEPHALIC - Eye Exam Eye Exam: Normal appearance - Respiratory Exam Respiratory Exam: NORMAL BREATHING PATTERN. absent: Respiratory Distress - GI/Abdominal Exam GI & Abdominal Exam: Distended (baseline), Soft. absent: Guarding, Rigid, Tenderness, Rebound Additional comments: dressing from paracentesis, C/d/i - Neurological Exam Neurological Exam: Alert, Oriented x3 - Psychiatric Exam Psychiatric exam: Normal Affect, Normal Mood - Skin Skin Exam: Dry, Intact Assessment and Plan - Assessment and Plan (Free Text) Assessment: 56F w/ ascites and CT finding of questionable mass within the omentum Plan: -Repeat CT unchanged from prior DW Dr Tiff Case PGY2 <Jeremi Matthew - Last Filed: 02/15/17 14:19> Subjective - Subjective Subjective: Patient was seen and examined at the bedside. Agree with resident's note above. Objective - Vital Signs/Intake and Output Vital Signs (last 24 hours): Temp Pulse Resp BP Pulse Ox 98 F 77 20 108/64 98 02/15/17 07:59 02/15/17 10:33 02/15/17 07:59 02/15/17 11:05 02/15/17 10:33 Intake and Output: 02/15/17 02/15/17 06:59 18:59 Intake Total 100 Balance 100 - Medications Medications: Current Medications Albuterol/Ipratropium (Duoneb 3 Mg/0.5 Mg (3 Ml) Ud) 3 ml INH RQ6 PRN PRN Reason: Shortness of Breath Cholecalciferol (Vitamin D) 2,000 iu PO DAILY [facility] Last Admin: 02/15/17 09:11 Dose: 2,000 iu Enoxaparin Sodium (Lovenox) 40 mg SC DAILY [facility] PRN Reason: Protocol Last Admin: 02/15/17 09:12 Dose: 40 mg Famotidine (Pepcid) 20 mg PO BID [facility] Last Admin: 02/15/17 09:06 Dose: 20 mg Furosemide (Lasix) 40 mg PO DAILY [facility] Last Admin: 02/15/17 11:05 Dose: 40 mg Morphine Sulfate (Morphine) 2 mg IVP Q4 PRN PRN Reason: Pain, moderate (4-7) Last Admin: 02/12/17 09:07 Dose: 2 mg Ondansetron HCl (Zofran Inj) 4 mg IVP Q4 PRN PRN Reason: Nausea/Vomiting Last Admin: 02/12/17 18:54 Dose: 4 mg Senna/Docusate Sodium (Senokot S 50 Mg-8.6 Mg) 2 tab PO HS [facility] Last Admin: 02/14/17 21:24 Dose: 2 tab Spironolactone (Aldactone) 50 mg PO BID [facility] Last Admin: 02/15/17 09:16 Dose: 50 mg Tamsulosin HCl (Flomax) 0.4 mg PO DAILY [facility] Last Admin: 02/15/17 09:10 Dose: 0.4 mg - Labs Labs: 02/13/17 10:09 02/13/17 10:09 PT 11.7 SECONDS (9.6-11.2) H 02/12/17 05:30 INR 1.13 (0.92-1.08) H 02/12/17 05:30 APTT 31.0 SECONDS (23.3-32.5) 02/09/17 03:34 Assessment and Plan - Assessment and Plan (Free Text) Plan: - I had a discussion with a radiologist and the possibility of malignancy is very umlikely and likely the appearance of omentum on the CT scan is related to extensive ascites - No general surgery intervention at present time - Continue care as per medical team - No general surgery intervention at present time - Will sign off - Please re-consult as needed
--- NOTE | 2017-02-15 15:24 | CP.PCM.DIS ---
Provider - Provider Date of Admission: 02/09/17 05:53 Attending physician: Ivelisse Ramon MD Primary care physician: Marleen Sy MD Time Spent in preparation of Discharge (in minutes): 30 Diagnosis - Discharge Diagnosis (1) Hepatic cirrhosis due to chronic hepatitis C infection Status: Acute Hospital Course - Lab Results Lab Results: Micro Results 02/09/17 15:25 Ascitic Fluid Gram Stain - Final 02/09/17 15:25 Ascitic Fluid Anaerobic Culture - Final NO ANAEROBES ISOLATED. 02/09/17 15:25 Ascitic Fluid Body Fluid Culture - Final No growth. 02/09/17 15:25 Ascitic Fluid Fungal Culture - Preliminary 02/09/17 23:50 Urine,Clean Catch Urine Culture - Final No Growth (<1,000 CFU/ML) Most Recent Lab Values WBC 5.1 K/uL (4.8-10.8) 02/13/17 10:09 RBC 4.40 Mil/uL (3.80-5.20) 02/13/17 10:09 Hgb 12.9 g/dL (12.0-16.0) 02/13/17 10:09 Hct 38.3 % (34.0-47.0) 02/13/17 10:09 MCV 87.1 fl (81.0-99.0) 02/13/17 10:09 MCH 29.4 pg (27.0-31.0) 02/13/17 10:09 MCHC 33.8 g/dL (33.0-37.0) 02/13/17 10:09 RDW 13.0 % (11.5-14.5) 02/13/17 10:09 Plt Count 141 K/uL (130-400) 02/13/17 10:09 MPV 9.9 fl (7.2-11.7) 02/10/17 05:30 Neut % (Auto) 54.8 % (50.0-75.0) 02/10/17 05:30 Lymph % (Auto) 32.8 % (20.0-40.0) 02/10/17 05:30 [place] % (Auto) 8.1 % (0.0-10.0) 02/10/17 05:30 Eos % (Auto) 3.7 % (0.0-4.0) 02/10/17 05:30 Baso % (Auto) 0.6 % (0.0-2.0) 02/10/17 05:30 Neut # 2.7 K/uL (1.8-7.0) 02/10/17 05:30 Lymph # 1.6 K/uL (1.0-4.3) 02/10/17 05:30 [place] # 0.4 K/uL (0.0-0.8) 02/10/17 05:30 Eos # 0.2 K/uL (0.0-0.7) 02/10/17 05:30 Baso # 0.0 K/uL (0.0-0.2) 02/10/17 05:30 PT 11.7 SECONDS (9.6-11.2) H 02/12/17 05:30 INR 1.13 (0.92-1.08) H 02/12/17 05:30 APTT 31.0 SECONDS (23.3-32.5) 02/09/17 03:34 Sodium 140 mmol/l (132-148) 02/13/17 10:09 Potassium 4.1 MMOL/L (3.6-5.0) 02/13/17 10:09 Chloride 101 mmol/L (98-107) 02/13/17 10:09 Carbon Dioxide 28 mmol/L (22-30) 02/13/17 10:09 Anion Gap 15 (10-20) 02/13/17 10:09 BUN 17 mg/dl (7-17) 02/13/17 10:09 Creatinine 0.7 mg/dL (0.7-1.2) 02/13/17 10:09 Est GFR ( Amer) > 60 02/13/17 10:09 Est GFR (Non-Af Amer) > 60 02/13/17 10:09 Random Glucose 139 mg/dL (65-105) H 02/13/17 10:09 Lactic Acid 1.1 MMOL/L (0.7-2.1) 02/09/17 03:24 Calcium 8.2 mg/dL (8.4-10.2) L 02/13/17 10:09 Total Bilirubin 0.7 mg/dl (0.2-1.3) 02/13/17 10:09 AST 47 U/L (14-36) H 02/13/17 10:09 ALT 45 U/L (9-52) 02/13/17 10:09 Alkaline Phosphatase 59 U/L (38-126) 02/13/17 10:09 Ammonia < 9 umo/L (11-51) L 02/09/17 16:50 Troponin I < 0.0120 ng/mL (0.00-0.120) 02/09/17 03:24 Total Protein 6.1 G/DL (6.3-8.2) L 02/13/17 10:09 Albumin 2.9 g/dL (3.5-5.0) L 02/13/17 10:09 Globulin 3.2 gm/dL (2.2-3.9) 02/13/17 10:09 Albumin/Globulin Ratio 0.9 (1.0-2.1) L 02/13/17 10:09 Lipase 261 U/L (23-300) 02/09/17 03:24 Alpha Fetoprotein 12.2 IU/mL (0.0-7.22) H 02/10/17 05:30 Carcinoembryonic Ag 1.0 ng/mL (0-3.0) 02/14/17 11:50 Vitamin B12 323 pg/mL (239-931) 02/14/17 05:40 25-OH Vitamin D Total < 12.8 NG/ML (30.0-100.0) L 02/14/17 05:40 Folate 12.2 ng/mL 02/14/17 05:40 TSH 3rd Generation 4.25 mIU/ML (0.46-4.68) 02/10/17 05:30 PTH Intact Whole Molec 54 pg/mL (14-64) 02/10/17 11:53 Urine Color Yellow (YELLOW) 02/10/17 02:25 Urine Clarity Clear (Clear) 02/10/17 02:25 Urine pH 6.0 (5.0-8.0) 02/10/17 02:25 Ur Specific [place] 1.057 (1.003-1.030) H 02/10/17 02:25 Urine Protein 30 mg/dL (NEGATIVE) 02/10/17 02:25 Urine Glucose (UA) Neg mg/dL (Normal) 02/10/17 02:25 Urine Ketones Negative mg/dL (NEGATIVE) 02/10/17 02:25 Urine Blood Large (NEGATIVE) 02/10/17 02:25 Urine Nitrate Negative (NEGATIVE) 02/10/17 02:25 Urine Bilirubin Negative (NEGATIVE) 02/10/17 02:25 Urine Urobilinogen 0.2-1.0 mg/dL (0.2-1.0) 02/10/17 02:25 Ur Leukocyte Esterase Neg [place]irti/uL (Negative) 02/10/17 02:25 Urine RBC (Auto) 26 /hpf (0-3) H 02/10/17 02:25 Urine Microscopic WBC 3 /hpf (0-5) 02/10/17 02:25 Ur Squamous Epith Cells < 1 /hpf (0-5) 02/10/17 02:25 Urine Bacteria Rare (<OCC) 02/10/17 02:25 Fluid Source Peritoneal/ascites 02/09/17 15:25 Fluid Appearance Clear (CLEAR) 02/09/17 15:25 Fluid WBC 305.0 /mm3 (0.0-300.0) H 02/09/17 15:25 Fluid RBC 366.0 /mm3 (0.0-0.0) H 02/09/17 15:25 Fluid Tot Cell Count 100 (0-0) H 02/09/17 15:25 Fluid Neutrophils 23.0 % (0-0) H 02/09/17 15:25 Fluid Lymphocytes 71.0 % (0-0) H 02/09/17 15:25 Fld Monocyte/Macrophag 6 % (0-0) H 02/09/17 15:25 Fluid Glucose 121 mg/dL (NONE ESTABLISHED) 02/09/17 15:25 Fluid Total Protein 3.2 g/dL (NONE ESTABLISHED) 02/09/17 15:25 Fluid Triglycerides 23 mg/dL (NONE ESTABLISHED) 02/09/17 15:25 Fluid Comment Yellow 02/09/17 15:25 Hepatitis A IgM Ab Negative (NEGATIVE) 02/10/17 05:30 Hep Bs Antigen Negative (NEGATIVE) 02/10/17 05:30 Hep Bs Antibody Negative (NEGATIVE) 02/10/17 05:30 Hepatitis C RNA 3504137 IU/mL (<15) H 02/10/17 05:30 HCV RNA Quant (PCR) 6.14 log IU/mL (<1.18) H 02/10/17 05:30 Schistosoma Detection <1.00 02/09/17 13:29 - Hospital Course Hospital Course: The patient is a 56 y/o woman w/ PMH of mild persistent asthma and hypothyroidism (diagnosed on 10/10/2016 but not currently taking any synthroid) presents with abdominal pain. The patient went to ED due to worsening abdominal pain, nausea, vomiting, dysuria, and enlarging abdomen. The patient was given zofran, morphine, flomax, NS bolus, and benadryl. The patient was also started on IV rocephin for spontaneous bacterial peritonitis prophylaxis and possible UTI. The patient had CXR that was WNL. The CT abdomen obstructing 3 mm calculi in left UVJ, cirrhotic liver, extensive ascites throughout abdomen and pelvis, nodular soft tissue density along anterior abdominal wall. CBC, troponin, lipase, and lactic acid were WNL. The coags were slightly elevated and the CMP showed very slightly elevated liver enzymes but otherwise WNL. The patient had paracentesis which removed 2.8 L straw colored fluid, which was exudate. The patient was seen by GI, urology, general surgery, and hematology/oncology. The patient's kidney stone passed and dysuria and hematuria have resolved with flomax. The patient upper GI endoscopy which showed small hiatus hernia, small (<5mm) varices found in lower third of esophagus, largest was 3mm in diameter; normal duodenum and stomach. The patient had MRI abdomen which showed cirrhotic liver, no focal liver lesion ; infiltrative soft tissue in omentum; moderate to large amount of abdominal and pelvic fluid/ascites; mild splenomegaly. The patient had repeat CT abdomen which showed Liver cirrhosis, mild spelnomegaly, large abdominal and pelvic ascites; abnormal ill-defined enhancing soft tissue in left mid-abdomen not significantly changed since prior examination; findings could be related to mesenteric panniculitis from chronic ascites, neoplasm less likely consideration. The patient had additional studies which showed normal PTH, folate, Vitamin B12, and ammonia levels. The AFP was slightly elevated at 12.2 with a calculated MELD score of 8 and a Child-Spencer score of 8. The patient's hepatitis C was re-evaluated and was continued to be found positive for Hep C infection. The patient was counseled regarding Hep C infection and it's relation to the liver cirrhosis and ascites. The patient reported that she was unaware of having Hep C. The patient has improved each day. The patient is able to tolerate regular diet consisting of small meals. The patient has been seen, examined, anddeemed medically fit with no contraindication for discharge home. The patient is to follow up with Dr. Bhavesh PATINO in specialty clinic in [facility] on 02/26/2017 at 13:[address] Tomas in [facility] on 02/28/2017 at 09:00. The patient will be discharged on furosemide 20 mg PO daily and spironolactone 50 mg PO daily. The patient has been counseled to skip medication if feeling dizzy or faint. Discharge Exam - Head Exam Head Exam: ATRAUMATIC, NORMAL INSPECTION, NORMOCEPHALIC - Eye Exam Eye Exam: EOMI Pupil Exam: PERRL - ENT Exam ENT Exam: Mucous Membranes Moist - Respiratory Exam Respiratory Exam: Clear to PA & Lateral. absent: Accessory Muscle Use, Chest Wall Tenderness, Decreased Breath Sounds, Prolonged Expiratory Phase, Rales, Rhonchi, Wheezes, Respiratory Distress, Stridor - Cardiovascular Exam Cardiovascular Exam: REGULAR RHYTHM. absent: Tachycardia - GI/Abdominal Exam GI & Abdominal Exam: Distended, Normal Bowel Sounds, Soft. absent: Tenderness Additional comments: mildly distended, non-tender, no rebound, not rigid, no guarding - Extremities Exam Extremities exam: normal inspection, pedal pulses present - Neurological Exam Neurological exam: Alert, Oriented x3 - Skin Skin Exam: Dry, Intact, Normal Color, Warm Discharge Plan - Discharge Medications Prescriptions: Furosemide [Lasix] 20 mg PO DAILY #30 tablet Spironolactone [Aldactone] 50 mg PO DAILY #30 tablet - Follow Up Plan Condition: FAIR Disposition: HOME/ ROUTINE Additional Instructions: please follow up with Dr. Bhavesh PATINO in specialty clinic in [facility] on 02/26/2017 at 13:[address] up [address] Tomas in [facility] on 02/28/2017 at 09:00 If you feel dizzy or faint please skip furosemide and spironolactone dose for that day please maintain low sodium diet Referrals: Marleen Sy MD [Primary Care Provider] -
[2017-02-15 15:40] VITALS: BP 93/61; PULSE 90; TEMP 98.5; O2SAT 97
[2017-02-16 13:37] LABS: CEA PERITONEAL FLUID <2 ng/mL (<2.0)
== END 2017-02-15 19:30 | disposition home or self-care (01) | DRG 202 ==
LOC: H.ER 02:59 → H.ERHOLD 05:53 → H.MEDSURG1 08:52
PROVIDERS: ADMIT Family Medicine Geriatric Medicine; ATTEND Family Medicine Geriatric Medicine
PROC: 0W9G3ZZ Drainage of Peritoneal Cavity, Percutaneous Approach (ICD-10-PCS; principal; 2017-02-09)
PROC: 0DJ08ZZ Inspection of Upper Intestinal Tract, Via Natural or Artificial Opening Endoscopic (ICD-10-PCS; 2017-02-12)
DX: K74.60 Unspecified cirrhosis of liver (principal); R18.8 Other ascites; I85.10 Secondary esophageal varices without bleeding; B18.2 Chronic viral hepatitis C; N13.2 Hydronephrosis with renal and ureteral calculous obstruction; K76.6 Portal hypertension; E03.9 Hypothyroidism, unspecified; J45.30 Mild persistent asthma, uncomplicated; K44.9 Diaphragmatic hernia without obstruction or gangrene; R41.0 Disorientation, unspecified; R30.0 Dysuria; R31.9 Hematuria, unspecified; M79.662 Pain in left lower leg; M79.661 Pain in right lower leg; R19.00 Intra-abdominal and pelvic swelling, mass and lump, unspecified site; R16.1 Splenomegaly, not elsewhere classified

== ENCOUNTER 2017-03-09 15:11 | Inpatient (IN) | payer SELFPAY ==
[2017-03-09 17:08] LABS: BASO % 0.6 % (0.0-2.0); EOS # 0.3 K/uL (0.0-0.7); EOS % 3.2 % (0.0-4.0); LYMPH # 2.2 K/uL (1.0-4.3); LYMPH % 27.9 % (20.0-40.0); MEAN CELL VOLUME 86.7 fl (81.0-99.0); MEAN CORPUSCULAR HEMOGLOBIN 27.9 pg (27.0-31.0); MEAN CORPUSCULAR HGB CONC 32.3 g/dL (33.0-37.0); MEAN PLATELET VOLUME 9.3 fl (7.2-11.7); MONO # 0.9 K/uL (0.0-0.8); MONO % 11.2 % (0.0-10.0); NEUT # 4.4 K/uL (1.8-7.0); NEUT % 57.1 % (50.0-75.0); NRBC % 0.1 % (0.0-0.0); RED CELL DISTRIBUTION WIDTH 12.9 % (11.5-14.5); WHITE BLOOD COUNT 7.8 K/uL (4.8-10.8)
[2017-03-09 17:16] LABS: PARTIAL THROMBOPLASTIN TIME 33.3 SECONDS (23.3-32.5)
[2017-03-09 17:18] LABS: ALKALINE PHOSPHATASE 74 U/L (38-126); ALT/SGPT 43 U/L (9-52); AST/SGOT 42 U/L (14-36); BILIRUBIN,TOTAL 0.7 mg/dl (0.2-1.3); BLOOD UREA NITROGEN 16 mg/dl (7-17); CALCIUM 8.8 mg/dL (8.4-10.2); CARBON DIOXIDE 24 mmol/L (22-30); CHLORIDE 101 mmol/L (98-107); GFR AFRICAN-AMERICAN > 60; GLUCOSE,RANDOM 101 mg/dL (65-105); LIPASE 201 U/L (23-300); POTASSIUM 4.2 MMOL/L (3.6-5.0); SODIUM 135 mmol/l (132-148); TOTAL PROTEIN 7.4 G/DL (6.3-8.2)
--- NOTE | 2017-03-09 18:46 | US ---
PROCEDURE: HISTORY: ascites COMPARISON: TECHNIQUE: FINDINGS: Targeted imaging of the abdomen demonstrates abundant ascites for peritoneal drainage. IMPRESSION: As above.
--- NOTE | 2017-03-09 19:40 | ED PDOC ---
HPI: Abdomen Time Seen by Provider: 03/09/17 15:53 Chief Complaint (Nursing): Abdominal Pain Chief Complaint (Provider): Abdominal swelling - Sent by PMD for ascites History Per: Patient History/Exam Limitations: no limitations Onset/Duration Of Symptoms: Days (3 weeks ) Additional Complaint(s): Pt was seen by family clinic earlier today, was sent to ED for evaluation of worsening ascites. Past Medical History Vital Signs: Last Vital Signs Temp 99.6 F 03/12/17 12:50 Pulse 100 H 03/12/17 12:50 Resp 20 03/12/17 14:25 BP 110/78 03/12/17 14:25 Pulse Ox 99 03/12/17 12:50 - Medical History PMH: Asthma, Hepatitis (Hepatitis C) Denies: HIV, Chronic Kidney Disease - Family History Family History: States: Unknown Family Hx - Home Medications Home Medications: Ambulatory Orders Medication Instructions Recorded Levothyroxine [Synthroid] 25 mcg PO DAILY 03/09/17 Furosemide [Lasix] 40 mg PO DAILY #30 tablet 03/12/17 Spironolactone [Aldactone] 100 mg PO DAILY #30 tablet 03/12/17 - Allergies Allergies/Adverse Reactions: Allergies Allergy/AdvReac Type Severity Reaction Status Date / Time No Known Allergies Allergy Verified 02/09/17 07:31 Review of Systems Gastrointestinal: Positive for: Abdominal Pain (abdominal swelling due to worsening ascites) Physical Exam - Reviewed Nursing Documentation Reviewed: Yes Vital Signs Reviewed: Yes - Physical Exam Appears: Positive for: Non-toxic, No Acute Distress Head Exam: Positive for: ATRAUMATIC, NORMOCEPHALIC Skin: Positive for: Normal Color, Warm Eye Exam: Positive for: Normal appearance, EOMI, PERRL Neurologic/Psych: Positive for: Alert, Oriented - Laboratory Results Result Diagrams: 03/11/17 05:30 03/11/17 05:30 - ECG O2 Sat by Pulse Oximetry: 98 (RA) Pulse Ox Interpretation: Normal Medical Decision Making Medical Decision Making: Patient is to be admitted. Disposition - Clinical Impression Clinical Impression: Ascites - Patient ED Disposition Is Patient to be Admitted: Yes - Disposition Disposition Time: 19:39 Condition: GOOD
--- NOTE | 2017-03-09 20:21 | CP.PCM.HP ---
<Demetria Bishop - Last Filed: 03/10/17 05:56> History of Present Illness - History of Present Illness History of Present Illness: 56yo F with PMHx HepC, asthma, and hypothyroidism admitted for ascites. c/o abd distension x3 weeks, worse in the last few days after pt forgot to take her meds. Follows with GI Dr. Khan and last endosocpy 1 month ago WNL. Otherwise compliant with meds including lasix 20 daily and spironolactone 50mg daily. Denies fever, chills, nausea, vomiting, SOB, hematochezia, weakness, falls. No other complaints at this time. Denies chest pain, abd pain, LE edema. Pt evaluated in [facility] today and sent to ED for evaluation. chart review indicates the following on last admission: 02/09/17 paracentesis: 2.8 L exudate 02/13/17 endoscopy: small hiatus hernia, small (<5mm) varices found in lower third of esophagus, largest was 3mm in diameter PCP: Dr. Horton PMHx: as above FHx: denies SHx: denies Social hx: daughter lives with her, going overseas, and son will be nearby. Denies smoking, EtOH, drugs Allergies: NKDA Meds: reviewed with pt and ECW ED course: HR, otherwise VSS, afebrile CBC, no leukocytosis CMP lipase neg CXR EKG US abd: abundant ascites Present on Admission - Present on Admission Any Indicators Present on Admission: No Review of Systems - Constitutional Constitutional: absent: Chills, Fever - Cardiovascular Cardiovascular: absent: Chest Pain - Respiratory Respiratory: absent: Dyspnea - Gastrointestinal Gastrointestinal: Bloating. absent: Abdominal Pain, Diarrhea, Nausea, Vomiting - Genitourinary Genitourinary: absent: Dysuria, Hematuria - Musculoskeletal Musculoskeletal: absent: Back Pain - Neurological Neurological: absent: Headaches Past Patient History - Past Medical History & Family History Past Medical History?: Yes - Past Social History Smoking Status: Never Smoked Alcohol: None Drugs: Denies Home Situation {Lives}: With Family - CARDIAC Hx Cardiac Disorders: No - PULMONARY Hx Asthma: Yes - NEUROLOGICAL Hx Neurological Disorder: No - HEENT Hx HEENT Problems: No - RENAL Hx Chronic Kidney Disease: No - ENDOCRINE/METABOLIC Hx Endocrine Disorders: No - HEMATOLOGICAL/ONCOLOGICAL Hx Human Immunodeficiency Virus (HIV): No - INTEGUMENTARY Hx Dermatological Problems: No - MUSCULOSKELETAL/RHEUMATOLOGICAL Hx Musculoskeletal Disorders: No - GASTROINTESTINAL Hx Gastrointestinal Disorders: No Other/Comment: ascites - GENITOURINARY/GYNECOLOGICAL Hx Genitourinary Disorders: No - PSYCHIATRIC Hx Psychophysiologic Disorder: No Hx Substance Use: No - SURGICAL HISTORY Hx Surgeries: No Other/Comment: triconomas - ANESTHESIA Hx Anesthesia: No (unknown) Hx Anesthesia Reactions: No Hx Malignant Hyperthermia: No Meds Allergies/Adverse Reactions: Allergies Allergy/AdvReac Type Severity Reaction Status Date / Time No Known Allergies Allergy Verified 02/09/17 07:31 Physical Exam - Head Exam Head Exam: ATRAUMATIC, NORMAL INSPECTION - Eye Exam Eye Exam: Normal appearance - ENT Exam ENT Exam: Mucous Membranes Moist - Neck Exam Neck exam: Positive for: Normal Inspection - Respiratory Exam Respiratory Exam: Clear to Auscultation Bilateral - Cardiovascular Exam Cardiovascular Exam: REGULAR RHYTHM - GI/Abdominal Exam GI & Abdominal Exam: Distended, Soft, Tenderness. absent: Firm, Guarding - Extremities Exam Extremities exam: Positive for: normal inspection. Negative for: pedal edema, tenderness - Back Exam Back exam: NORMAL INSPECTION - Neurological Exam Neurological exam: Alert, Oriented x3 - Skin Skin Exam: Dry, Warm Results - Vital Signs Recent Vital Signs: Last Vital Signs Temp 98.3 F 03/09/17 15:41 Pulse 101 H 03/09/17 15:41 Resp 20 03/09/17 15:41 BP 134/81 03/09/17 15:41 Pulse Ox 98 03/09/17 19:39 - Labs Result Diagrams: 03/09/17 16:50 03/09/17 16:50 Labs: Laboratory Results - last 24 hr 03/09/17 03/09/17 03/09/17 16:50 16:50 16:50 WBC 7.8 RBC 4.84 Hgb 13.5 Hct 42.0 MCV 86.7 MCH 27.9 MCHC 32.3 L RDW 12.9 Plt Count 203 MPV 9.3 Neut % (Auto) 57.1 Lymph % (Auto) 27.9 [place] % (Auto) 11.2 H Eos % (Auto) 3.2 Baso % (Auto) 0.6 Neut # 4.4 Lymph # 2.2 Sac # 0.9 H Eos # 0.3 Baso # 0.0 PT 11.7 H INR 1.13 H APTT 33.3 H Sodium 135 Potassium 4.2 Chloride 101 Carbon Dioxide 24 Anion Gap 14 BUN 16 Creatinine 0.7 Est GFR ( Amer) > 60 Est GFR (Non-Af Amer) > 60 Random Glucose 101 Calcium 8.8 Total Bilirubin 0.7 AST 42 H ALT 43 Alkaline Phosphatase 74 Total Protein 7.4 Albumin 3.8 Globulin 3.6 Albumin/Globulin Ratio 1.0 Lipase 201 Assessment & Plan - Assessment and Plan (Free Text) Assessment: 56yo F with PMHx HepC and hypothyroidism admitted for ascites. ascites with h/o HepC and cirrhosis -MELD score: 8, 1.9% 3 month mortality -Child-Spencer score: 7, class B -afebrile, no leukocytosis -US abd: abundant ascites -02/09/17 paracentesis: 2.8 L exudate -02/13/17 endoscopy: small hiatus hernia, small (<5mm) varices found in lower third of esophagus, largest was 3mm in diameter -lasix 20mg PO daily -spironolactone 50mg PO daily -c/s IR or GI for therapeautic paracentesis hypothyroidism -synthroid asthma -albuterol prn DVT ppx -lovenox Decision To Admit - Pt Status Changed To: Hospital Disposition Of: Observation - . Bed Request Type: Med/Surg Admitting Physician: Audrey Zavala <Audrey Zavala - Last Filed: 03/10/17 09:18> Results - Vital Signs Recent Vital Signs: Last Vital Signs Temp 97.8 F 03/10/17 08:39 Pulse 79 03/10/17 08:39 Resp 20 03/10/17 08:39 BP 118/76 03/10/17 08:53 Pulse Ox 97 03/10/17 08:39 - Labs Result Diagrams: 03/10/17 05:30 03/10/17 05:30 Labs: Laboratory Results - last 24 hr 03/10/17 03/10/17 05:30 05:30 WBC 7.1 RBC 4.43 Hgb 12.7 Hct 37.9 MCV 85.6 MCH 28.7 MCHC 33.5 RDW 12.4 Plt Count 173 Sodium 138 Potassium 4.0 Chloride 102 Carbon Dioxide 27 Anion Gap 13 BUN 14 Creatinine 0.7 Est GFR ( Amer) > 60 Est GFR (Non-Af Amer) > 60 Random Glucose 102 Calcium 8.5 Total Bilirubin 0.8 AST 39 H ALT 32 Alkaline Phosphatase 62 Total Protein 6.4 Albumin 3.1 L Globulin 3.3 Albumin/Globulin Ratio 0.9 L Assessment & Plan - Assessment and Plan (Free Text) Assessment: ATTENDING NOTE/ATTESTATION STATEMENT Case discussed with resident. Chart reviewed. Admitted to [facility] status for treatment of increased ascites. Agree with plan.
[2017-03-09] MEDS ORDERED: Albuterol 0.083% Inhal Sol (2.5 mg/3 mL) UD INH PRN (20:53)
--- NOTE | 2017-03-09 22:33 | RAD ---
HISTORY: admission COMPARISON: Chest x-ray performed 02/09/17 CT chest without IV contrast performed 02/14/17 TECHNIQUE: Chest PA and lateral FINDINGS: LUNGS: No focal consolidation. Please note that chest x-ray has limited sensitivity for the detection of pulmonary masses. PLEURA: No significant pleural effusion identified. No definite pneumothorax . CARDIOVASCULAR: Heart size appears within normal limits. Ectatic aorta/aneurysmal dilatation as seen on CT of the chest without contrast performed 02/14/17. OSSEOUS STRUCTURES: No acute osseous abnormality identified. VISUALIZED UPPER ABDOMEN: Unremarkable. OTHER FINDINGS: None. IMPRESSION: No significant interval change ; findings as above.
[2017-03-10] MEDS: Levothyroxine 25 MCG TAB PO SCH (05:46)
[2017-03-10 08:10] LABS: HEMATOCRIT 37.9 % (34.0-47.0); MEAN CELL VOLUME 85.6 fl (81.0-99.0); MEAN CORPUSCULAR HEMOGLOBIN 28.7 pg (27.0-31.0); MEAN CORPUSCULAR HGB CONC 33.5 g/dL (33.0-37.0); RED CELL DISTRIBUTION WIDTH 12.4 % (11.5-14.5); WHITE BLOOD COUNT 7.1 K/uL (4.8-10.8)
[2017-03-10 08:26] LABS: ALB/GLOB RATIO 0.9 (1.0-2.1); ALKALINE PHOSPHATASE 62 U/L (38-126); ALT/SGPT 32 U/L (9-52); AST/SGOT 39 U/L (14-36); BILIRUBIN,TOTAL 0.8 mg/dl (0.2-1.3); BLOOD UREA NITROGEN 14 mg/dl (7-17); CALCIUM 8.5 mg/dL (8.4-10.2); CARBON DIOXIDE 27 mmol/L (22-30); CHLORIDE 102 mmol/L (98-107); GFR AFRICAN-AMERICAN > 60; GLUCOSE,RANDOM 102 mg/dL (65-105); SODIUM 138 mmol/l (132-148); TOTAL PROTEIN 6.4 G/DL (6.3-8.2)
[2017-03-10] MEDS: Enoxaparin 40 mg Syringe SC SCH (08:54)
[2017-03-10] MEDS ORDERED: Iohexol 300 100 ML IJ ONE (09:25)
[2017-03-10] MEDS ORDERED: Sodium Chloride 0.9% 50 ML IV ONE (09:26)
--- NOTE | 2017-03-10 11:56 | CP.PCM.CON ---
<Jose Stafford - Last Filed: 03/10/17 12:03> History of Present Illness - History of Present Illness History of Present Illness: PGY4 GI Fellow Consult Note Patient is a 56yo Kinyarwanda speaking female with PMHx significant for decompensated HCV cirrhosis [Treatment naive, GT 3, Viral load (02/10/17) 1,378,544] with prior episodes of ascites and known small esophageal varices, who presented to the ED with complaint of abdominal distention. Kinyarwanda historic interpreter via traffic enumerator phone utilized to obtain history, assist with physical examination and explain our plan. Two days prior to admission the patient began to notice worsening abdominal distention and increased abdominal girth. She saw her PCP who referred her to the ED for further evaluation and treatment. Patient states she has been adherent to medical therapy as prescribed as outpatient (PO Lasix/ Aldactone). She admits to RLQ abdominal pain and is very tender with palpation of the abdomen. Patient denies any fever, chills, SOB, nausea, vomiting, confusion, sleep/wake alteration, jaundice. She does not have a history of any EtOH use/abuse and continues to abstain from use. PMHx: See HPI PSHx: Denies FHx: Discussed with patient and denies any significant family history Social: Denies EtOH, tobacco or illicit drug use Endo: EGD - 02/13/17 - Small esophageal varices noted Review of Systems - Constitutional Constitutional: absent: Anorexia, Chills, Fever - EENT Eyes: absent: Change in Vision Nose/Mouth/Throat: absent: Sore Throat - Cardiovascular Cardiovascular: absent: Chest Pain, Diaphoresis, Dyspnea - Respiratory Respiratory: absent: Cough, Dyspnea, Excessive Mucous Production - Gastrointestinal Gastrointestinal: Abdominal Pain. absent: Constipation, Cramping, Diarrhea, Dyspepsia, Dysphagia, Hematemesis, Hematochezia, Loose Stools, Melena, Nausea, Vomiting - Genitourinary Genitourinary: absent: Dysuria, Urinary Frequency, Urinary Urgency - Musculoskeletal Musculoskeletal: absent: Back Pain, Neck Pain - Integumentary Integumentary: absent: New Lesions, Rash - Neurological Neurological: absent: Dizziness, Numbness, Focal Weakness - Psychiatric Psychiatric: absent: Anxiety, Depression - Endocrine Endocrine: absent: Polydipsia, Polyphagia, Polyuria - Hematologic/Lymphatic Hematologic: absent: Easy Bleeding, Easy Bruising, Lymphadenopathy Past Patient History - Past Medical History & Family History Past Medical History?: Yes - Past Social History Smoking Status: Never Smoked Alcohol: None Drugs: Denies Home Situation {Lives}: With Family - CARDIAC Hx Cardiac Disorders: No - PULMONARY Hx Asthma: Yes - NEUROLOGICAL Hx Neurological Disorder: No - HEENT Hx HEENT Problems: No - RENAL Hx Chronic Kidney Disease: No - ENDOCRINE/METABOLIC Hx Endocrine Disorders: No - HEMATOLOGICAL/ONCOLOGICAL Hx Human Immunodeficiency Virus (HIV): No - INTEGUMENTARY Hx Dermatological Problems: No - MUSCULOSKELETAL/RHEUMATOLOGICAL Hx Musculoskeletal Disorders: No - GASTROINTESTINAL Hx Gastrointestinal Disorders: No Other/Comment: ascites - GENITOURINARY/GYNECOLOGICAL Hx Genitourinary Disorders: No - PSYCHIATRIC Hx Psychophysiologic Disorder: No Hx Substance Use: No - SURGICAL HISTORY Hx Surgeries: No Other/Comment: triconomas - ANESTHESIA Hx Anesthesia: No (unknown) Hx Anesthesia Reactions: No Hx Malignant Hyperthermia: No Meds Allergies/Adverse Reactions: Allergies Allergy/AdvReac Type Severity Reaction Status Date / Time No Known Allergies Allergy Verified 02/09/17 07:31 - Medications Medications: Current Medications Albuterol Sulfate (Albuterol 0.083% Inhal Rosa (2.5 Mg/3 Ml) Ud) 2.5 mg INH RQ6 PRN PRN Reason: Shortness of Breath Enoxaparin Sodium (Lovenox) 40 mg SC DAILY [facility] PRN Reason: Protocol Last Admin: 03/10/17 08:54 Dose: 40 mg Furosemide (Lasix) 40 mg PO DAILY [facility] Levothyroxine Sodium (Synthroid) 25 mcg PO DAILY@0630 [facility] Last Admin: 03/10/17 05:46 Dose: 25 mcg Spironolactone (Aldactone) 100 mg PO DAILY [facility] Last Admin: 03/10/17 10:32 Dose: 100 mg Physical Exam - Constitutional Appears: No Acute Distress - Eye Exam Eye Exam: EOMI, PERRL - ENT Exam ENT Exam: Mucous Membranes Moist - Respiratory Exam Respiratory Exam: Clear to Auscultation Bilateral. absent: Rales, Rhonchi, Wheezes - Cardiovascular Exam Cardiovascular Exam: RRR, +S1, +S2 - GI/Abdominal Exam GI & Abdominal Exam: Distended, Normal Bowel Sounds, Soft, Tenderness. absent: Firm, Guarding, Organomegaly - Extremities Exam Extremities exam: Positive for: normal inspection. Negative for: pedal edema - Neurological Exam Neurological exam: Alert, Oriented x3 - Psychiatric Exam Psychiatric exam: Normal Affect, Normal Mood - Skin Skin Exam: Dry, Warm Results - Vital Signs Recent Vital Signs: Last Vital Signs Temp 97.8 F 03/10/17 08:39 Pulse 79 03/10/17 08:39 Resp 20 03/10/17 08:39 BP 118/76 03/10/17 08:53 Pulse Ox 97 03/10/17 08:39 - Labs Result Diagrams: 03/10/17 05:30 03/10/17 05:30 Labs: Laboratory Results - last 24 hr 03/10/17 03/10/17 05:30 05:30 WBC 7.1 RBC 4.43 Hgb 12.7 Hct 37.9 MCV 85.6 MCH 28.7 MCHC 33.5 RDW 12.4 Plt Count 173 Sodium 138 Potassium 4.0 Chloride 102 Carbon Dioxide 27 Anion Gap 13 BUN 14 Creatinine 0.7 Est GFR ( Amer) > 60 Est GFR (Non-Af Amer) > 60 Random Glucose 102 Calcium 8.5 Total Bilirubin 0.8 AST 39 H ALT 32 Alkaline Phosphatase 62 Total Protein 6.4 Albumin 3.1 L Globulin 3.3 Albumin/Globulin Ratio 0.9 L Assessment & Plan - Assessment and Plan (Free Text) Assessment: Patient is a 56yo Kinyarwanda speaking female with PMHx significant for decompensated HCV cirrhosis [GT 3, Viral load (02/10/17) 1,378,544] with prior episodes of ascites and known small esophageal varices, who presented to the ED with complaint of abdominal distention. -Decompensated cirrhosis 2/2 HCV -Ascites -HCV infection Plan: -Recommend paracentesis -Send fluid for analysis; Cell count, Culture -Patient has recently had MRI abdomen, does not require repeat liver imaging, thus order for triple phase CT was cancelled -Lasix 40mg PO QD -Aldactone 100mg PO QD -Monitor BMP, consider increasing diuretics if patient can tolerate -2g Na diet -Avoid maintenance IVF - Date & Time Date: 03/10/17 Time: 08:30 <Michoacano Brooks - Last Filed: 03/10/17 12:22> Meds - Medications Medications: Current Medications Albuterol Sulfate (Albuterol 0.083% Inhal Rosa (2.5 Mg/3 Ml) Ud) 2.5 mg INH RQ6 PRN PRN Reason: Shortness of Breath Enoxaparin Sodium (Lovenox) 40 mg SC DAILY [facility] PRN Reason: Protocol Last Admin: 03/10/17 08:54 Dose: 40 mg Furosemide (Lasix) 40 mg PO DAILY [facility] Levothyroxine Sodium (Synthroid) 25 mcg PO DAILY@0630 [facility] Last Admin: 03/10/17 05:46 Dose: 25 mcg Spironolactone (Aldactone) 100 mg PO DAILY [facility] Last Admin: 03/10/17 10:32 Dose: 100 mg Results - Vital Signs Recent Vital Signs: Last Vital Signs Temp 97.8 F 03/10/17 08:39 Pulse 79 03/10/17 08:39 Resp 20 03/10/17 08:39 BP 118/76 03/10/17 08:53 Pulse Ox 97 03/10/17 08:39 - Labs Result Diagrams: 03/10/17 05:30 03/10/17 05:30 Labs: Laboratory Results - last 24 hr 03/10/17 03/10/17 05:30 05:30 WBC 7.1 RBC 4.43 Hgb 12.7 Hct 37.9 MCV 85.6 MCH 28.7 MCHC 33.5 RDW 12.4 Plt Count 173 Sodium 138 Potassium 4.0 Chloride 102 Carbon Dioxide 27 Anion Gap 13 BUN 14 Creatinine 0.7 Est GFR ( Amer) > 60 Est GFR (Non-Af Amer) > 60 Random Glucose 102 Calcium 8.5 Total Bilirubin 0.8 AST 39 H ALT 32 Alkaline Phosphatase 62 Total Protein 6.4 Albumin 3.1 L Globulin 3.3 Albumin/Globulin Ratio 0.9 L Attending/Attestation - Attestation I have personally seen and examined this patient.: Yes I have fully participated in the care of the patient.: Yes I have reviewed all pertinent clinical information: Yes Notes (Text): Patient seen and examined with GI fellow. Agree with his note as documented above with the following additions/exceptions. This is a 56 year old female with h/o HCV cirrhosis (complicated by small esophageal varices, recurrent ascites) who presents with abdominal pain/increasing abdominal distension over the past several days. Last paracentesis ~1 mo ago, no SBP. She will need repeat paracentesis, r/o SBP, also resend fluid albumin (this was pending from last paracentesis). Her home diuretic regimen is lasix 40mg/aldactone 100mg, which will likely need to be increased after paracentesis. She is up to date with varices and HCC screening. She will ultimately need to follow up with Dr. Bhavesh howard: possible treatment of HCV. Continue low salt diet as tolerated. 03/10/17 12:19
--- NOTE | 2017-03-10 13:23 | CT ---
CT abdomen and pelvis without/with IV contrast Indication: cirrhosis, r/o HCC Technique: Contiguous axial images of the abdomen and pelvis without & with IV contrast utilizing liver protocol. Coronal and Sagittal reformats generated and reviewed. This CT exam was performed using 1 or more of the falling dose reduction techniques: Automated exposure control, adjustment of the MAA and/or kV according to patient size, and/or use of iterative reconstruction technique. Contrast:80 mL Omnipaque 300. Radiation dose: Total exam DLP = 1328.43 MGy-cm. Comparison CT abdomen and pelvis with contrast performed 02/14/17 Findings: 4 mm left lower lobe calcified granuloma. No visible consolidation, pleural effusion, or pneumothorax. Small hiatal hernia/distal esophageal wall thickening. Nodular hepatic contour. Hypoattenuation of the liver compatible with hepatic steatosis. No focal enhancing mass identified. 5.2 x 4.0 cm low-density lesion, left mid/ lower pole kidney compatible with a cyst. The kidneys enhance symmetrically. No hydronephrosis or obstructing calculus identified. Distended gallbladder. No calcified gallstones identified. Splenomegaly. The pancreas, and adrenal glands appear unremarkable. Re-identified nonspecific left abdominal soft tissue densities ; omental disease/metastases not excluded. Moderate abdominal and pelvic ascites. The stomach is nondistended. Lack of oral contrast limits evaluation for bowel pathology. The bowel loops appear within normal limits of caliber without evidence of intestinal obstruction. There is no definite free air. Uterus is present. Marked increased in left adnexal cystic lesion now measuring approximately 3.8 x 6.1 cm with associated calcification. The urinary bladder appears unremarkable. No acute osseous abnormality is detected. Impression: Nodular hepatic contour. Hepatic steatosis. No focal enhancing mass identified. Splenomegaly. Moderate abdominal and pelvis ascites. 5.2 x 4.0 cm left mid/ lower pole renal cyst. Distended gallbladder. No calcified gallstones identified. Re-identified nonspecific soft tissue densities ; omental disease/ metastases is not excluded. Correlate clinically. Increased size of left adnexal cystic lesion now measuring approximately 3.8 x 6.1 cm with associated calcification. Pelvic ultrasound may be considered for further evaluation. Additional findings as above.
--- NOTE | 2017-03-10 13:24 | CARD ---
APPROVED REPORT EKG Measurement Heart [id number] KS [id number] <Conclusion> Normal sinus rhythm Nonspecific T wave abnormality Prolonged QT Abnormal ECG
--- NOTE | 2017-03-10 14:51 | CP.PCM.PN ---
<Amber Olivares - Last Filed: 03/10/17 14:57> Subjective - Date & Time of Evaluation Date of Evaluation: 03/10/17 Time of Evaluation: 08:50 - Subjective Subjective: Patient was seen and examined at bedside this morning. Still complaining of mild diffuse abdominal pain, but denies chest pain, SOB, chills, nausea, vomiting or other complains. Denies Hematemesis or blood in stools. Objective - Vital Signs/Intake and Output Vital Signs (last 24 hours): Temp Pulse Resp BP Pulse Ox 97.8 F 79 20 118/76 97 03/10/17 08:39 03/10/17 08:39 03/10/17 08:39 03/10/17 08:53 03/10/17 08:39 - Medications Medications: Current Medications Albuterol Sulfate (Albuterol 0.083% Inhal Rosa (2.5 Mg/3 Ml) Ud) 2.5 mg INH RQ6 PRN PRN Reason: Shortness of Breath Enoxaparin Sodium (Lovenox) 40 mg SC DAILY [facility] PRN Reason: Protocol Last Admin: 03/10/17 08:54 Dose: 40 mg Furosemide (Lasix) 40 mg PO DAILY [facility] Levothyroxine Sodium (Synthroid) 25 mcg PO DAILY@0630 [facility] Last Admin: 03/10/17 05:46 Dose: 25 mcg Spironolactone (Aldactone) 100 mg PO DAILY [facility] Last Admin: 03/10/17 10:32 Dose: 100 mg - Labs Labs: PT 11.7 SECONDS (9.6-11.2) H 03/09/17 16:50 INR 1.13 (0.92-1.08) H 03/09/17 16:50 APTT 33.3 SECONDS (23.3-32.5) H 03/09/17 16:50 - Constitutional Appears: Non-toxic, No Acute Distress - ENT Exam ENT Exam: Mucous Membranes Moist - Respiratory Exam Respiratory Exam: Clear to Ausculation Bilateral, NORMAL BREATHING PATTERN - Cardiovascular Exam Cardiovascular Exam: REGULAR RHYTHM, +S1, +S2 - GI/Abdominal Exam GI & Abdominal Exam: Soft, Tenderness (mild tender to palpation, but no rebound tenderness, no rigidity or guarding), Normal Bowel Sounds. absent: Guarding, Rigid, Rebound - Extremities Exam Extremities Exam: Normal Inspection. absent: Calf Tenderness, Pedal Edema - Neurological Exam Neurological Exam: Alert, Awake, Oriented x3 - Psychiatric Exam Psychiatric exam: Normal Affect, Normal Mood - Skin Skin Exam: Dry, Intact, Normal Color Assessment and Plan - Assessment and Plan (Free Text) Assessment: 56yo F with PMHx HepC and hypothyroidism admitted for ascites. Plan: Ascites with h/o HepC and cirrhosis -MELD score: 8, 1.9% 3 month mortality -Child-Spencer score: 7, class B -afebrile, no leukocytosis -US abd: abundant ascites -02/09/17 paracentesis: 2.8 L exudate -02/13/17 endoscopy: small hiatus hernia, small (<5mm) varices found in lower third of esophagus, largest was 3mm in diameter -Increased Lasix to 40 mg daily PO -Lasix 40 mg IV once -spironolactone 50mg PO daily -CBC: WNL -CMP:unremarkable - IR for therapeautic paracentesis -Consider GI consult Hypothyroidism -synthroid Asthma -albuterol prn DVT ppx -lovenox 40 mg SC daily <Audrey Zavala - Last Filed: 03/11/17 08:30> Objective - Vital Signs/Intake and Output Vital Signs (last 24 hours): Temp Pulse Resp BP Pulse Ox 98.4 F 80 20 113/75 95 03/11/17 08:14 03/11/17 08:14 03/11/17 08:14 03/11/17 08:14 03/11/17 08:14 - Medications Medications: Current Medications Albuterol Sulfate (Albuterol 0.083% Inhal Rosa (2.5 Mg/3 Ml) Ud) 2.5 mg INH RQ6 PRN PRN Reason: Shortness of Breath Benzocaine/Menthol (Cepacol Sore Throat) 1 frederick PO Q2 PRN PRN Reason: Sore Throat Enoxaparin Sodium (Lovenox) 40 mg SC DAILY [facility] PRN Reason: Protocol Last Admin: 03/10/17 08:54 Dose: 40 mg Furosemide (Lasix) 40 mg PO DAILY [facility] Levothyroxine Sodium (Synthroid) 25 mcg PO DAILY@0630 [facility] Last Admin: 03/11/17 06:56 Dose: 25 mcg Spironolactone (Aldactone) 100 mg PO DAILY [facility] Last Admin: 03/10/17 10:32 Dose: 100 mg - Labs Labs: 03/11/17 05:30 03/11/17 05:30 PT 11.9 SECONDS (9.6-11.2) H 03/11/17 05:30 INR 1.14 (0.92-1.08) H 03/11/17 05:30 APTT 33.3 SECONDS (23.3-32.5) H 03/09/17 16:50 Assessment and Plan - Assessment and Plan (Free Text) Assessment: Patient seen and examined. Case discussed with resident. GI consult noted. Agree with plan.
[2017-03-10] MEDS ORDERED: Benzocaine/Menthol (Cepacol) Lozenge PO PRN (15:20)
[2017-03-11] MEDS: Levothyroxine 25 MCG TAB PO SCH (06:56)
[2017-03-11 07:47] LABS: BASO % 0.6 % (0.0-2.0); EOS # 0.4 K/uL (0.0-0.7); HEMATOCRIT 40.1 % (34.0-47.0); LYMPH # 2.1 K/uL (1.0-4.3); LYMPH % 26.8 % (20.0-40.0); MEAN CELL VOLUME 85.3 fl (81.0-99.0); MEAN CORPUSCULAR HEMOGLOBIN 28.6 pg (27.0-31.0); MEAN CORPUSCULAR HGB CONC 33.5 g/dL (33.0-37.0); MONO # 0.9 K/uL (0.0-0.8); MONO % 10.9 % (0.0-10.0); NEUT # 4.5 K/uL (1.8-7.0); NEUT % 56.7 % (50.0-75.0); RED CELL DISTRIBUTION WIDTH 12.5 % (11.5-14.5); WHITE BLOOD COUNT 7.9 K/uL (4.8-10.8)
[2017-03-11 07:58] LABS: ALB/GLOB RATIO 0.9 (1.0-2.1); ALKALINE PHOSPHATASE 65 U/L (38-126); ALT/SGPT 31 U/L (9-52); AST/SGOT 35 U/L (14-36); BILIRUBIN,TOTAL 0.7 mg/dl (0.2-1.3); BLOOD UREA NITROGEN 16 mg/dl (7-17); CALCIUM 8.6 mg/dL (8.4-10.2); CARBON DIOXIDE 28 mmol/L (22-30); CHLORIDE 100 mmol/L (98-107); GFR AFRICAN-AMERICAN > 60; GLUCOSE,RANDOM 109 mg/dL (65-105); SODIUM 137 mmol/l (132-148); TOTAL PROTEIN 6.9 G/DL (6.3-8.2)
[2017-03-11] MEDS: Enoxaparin 40 mg Syringe SC SCH (08:51)
--- NOTE | 2017-03-11 11:09 | CP.PCM.PN ---
<Jose Stafford - Last Filed: 03/11/17 11:07> Subjective - Date & Time of Evaluation Date of Evaluation: 03/11/17 Time of Evaluation: 10:45 - Subjective Subjective: PGY4 GI Fellow Progress Note Patient seen and examined bedside this morning. The patient complains of increased abdominal distention and continued RLQ abdominal pain. No nausea, vomiting. Tolerating diet though admits to early satiety, suspected related to ascites. No events overnight. 12 system ROS performed and negative except where stated. Objective - Vital Signs/Intake and Output Vital Signs (last 24 hours): Temp Pulse Resp BP Pulse Ox 98.4 F 80 20 113/75 95 03/11/17 08:14 03/11/17 08:14 03/11/17 08:14 03/11/17 08:50 03/11/17 08:14 - Medications Medications: Current Medications Albuterol Sulfate (Albuterol 0.083% Inhal Rosa (2.5 Mg/3 Ml) Ud) 2.5 mg INH RQ6 PRN PRN Reason: Shortness of Breath Benzocaine/Menthol (Cepacol Sore Throat) 1 frederick PO Q2 PRN PRN Reason: Sore Throat Last Admin: 03/11/17 09:20 Dose: 1 frederick Enoxaparin Sodium (Lovenox) 40 mg SC DAILY [facility] PRN Reason: Protocol Last Admin: 03/11/17 08:51 Dose: 40 mg Furosemide (Lasix) 40 mg PO DAILY [facility] Last Admin: 03/11/17 08:50 Dose: 40 mg Levothyroxine Sodium (Synthroid) 25 mcg PO DAILY@0630 [facility] Last Admin: 03/11/17 06:56 Dose: 25 mcg Spironolactone (Aldactone) 100 mg PO DAILY [facility] Last Admin: 03/10/17 10:32 Dose: 100 mg - Labs Labs: 03/11/17 05:30 03/11/17 05:30 PT 11.9 SECONDS (9.6-11.2) H 03/11/17 05:30 INR 1.14 (0.92-1.08) H 03/11/17 05:30 APTT 33.3 SECONDS (23.3-32.5) H 03/09/17 16:50 - Constitutional Appears: Non-toxic, No Acute Distress - Eye Exam Eye Exam: EOMI, PERRL - ENT Exam ENT Exam: Mucous Membranes Dry - Respiratory Exam Respiratory Exam: Clear to Ausculation Bilateral. absent: Rales, Rhonchi, Wheezes - Cardiovascular Exam Cardiovascular Exam: RRR, +S1, +S2 - GI/Abdominal Exam GI & Abdominal Exam: Distended, Soft, Tenderness (RLQ), Normal Bowel Sounds. absent: Firm, Guarding, Rigid, Organomegaly - Extremities Exam Extremities Exam: Normal Inspection. absent: Pedal Edema - Neurological Exam Neurological Exam: Alert, Awake, Oriented x3 - Psychiatric Exam Psychiatric exam: Normal Affect, Normal Mood - Skin Skin Exam: Dry, Warm Assessment and Plan - Assessment and Plan (Free Text) Assessment: Patient is a 56yo Tajik speaking female with PMHx significant for decompensated HCV cirrhosis [GT 3, Viral load (02/10/17) 1,378,544] with prior episodes of ascites and known small esophageal varices, who presented to the ED with complaint of abdominal distention. -Decompensated cirrhosis 2/2 HCV -Ascites -HCV infection Plan: -Recommend paracentesis, consult Dr Castro (IR) -Send fluid for analysis; Cell count, culture, albumin, cytology -Triple phase CT performed despite cancelling order; nodular liver with hepatic steatosis; no liver masses noted -Large left adnexal cystic lesion noted; consider BAR PILOT consultation -Can likely increase diuretic therapy to Lasix/Aldactone of 80/200mg as BUN/Cr stable; however as patient will have paracentesis tomorrow, will hold off on increase for now -2g Na diet <Michoacano Brooks - Last Filed: 03/11/17 13:27> Objective - Vital Signs/Intake and Output Vital Signs (last 24 hours): Temp Pulse Resp BP Pulse Ox 98.4 F 80 20 113/75 95 03/11/17 08:14 03/11/17 08:14 03/11/17 08:14 03/11/17 08:50 03/11/17 08:14 - Medications Medications: Current Medications Albuterol Sulfate (Albuterol 0.083% Inhal Rosa (2.5 Mg/3 Ml) Ud) 2.5 mg INH RQ6 PRN PRN Reason: Shortness of Breath Benzocaine/Menthol (Cepacol Sore Throat) 1 frederick PO Q2 PRN PRN Reason: Sore Throat Last Admin: 03/11/17 09:20 Dose: 1 frederick Enoxaparin Sodium (Lovenox) 40 mg SC DAILY [facility] PRN Reason: Protocol Last Admin: 03/11/17 08:51 Dose: 40 mg Furosemide (Lasix) 40 mg PO DAILY [facility] Last Admin: 03/11/17 08:50 Dose: 40 mg Levothyroxine Sodium (Synthroid) 25 mcg PO DAILY@0630 [facility] Last Admin: 03/11/17 06:56 Dose: 25 mcg Spironolactone (Aldactone) 100 mg PO DAILY [facility] Last Admin: 03/11/17 13:09 Dose: 100 mg - Labs Labs: 03/11/17 05:30 03/11/17 05:30 PT 11.9 SECONDS (9.6-11.2) H 03/11/17 05:30 INR 1.14 (0.92-1.08) H 03/11/17 05:30 APTT 33.3 SECONDS (23.3-32.5) H 03/09/17 16:50 Attending/Attestation - Attestation I have personally seen and examined this patient.: Yes I have fully participated in the care of the patient.: Yes I have reviewed all pertinent clinical information, including history, physical exam and plan: Yes Notes (Text): Patient seen and examined with GI fellow. Agree with his note as documented with the following additions/exceptions. This is a 56 year old female with h/o HCV cirrhosis complicated by small EV, recurrent ascites who is admitted with increasing abdominal distension. Triple phase CT with cirrhotic liver, enlarging L adnexal mass. She will need repeat paracentesis, IR consulted, send for cell count, cytology and albumin. Low salt diet as tolerated. Recommend BAR PILOT consultation and TVUS for evaluation of adnexal cyst/mass. 03/11/17 13:25
--- NOTE | 2017-03-11 12:07 | CP.PCM.PN ---
<Miriam Palm - Last Filed: 03/11/17 20:30> Subjective - Date & Time of Evaluation Date of Evaluation: 03/11/17 Time of Evaluation: 10:45 - Subjective Subjective: Patient seen and examined at bedside, feeling better, no overnight issues. Family at bedside. Afebrile, good appetite, no nauseas or vomiting. No signs of bleeding. No abdominal pain at this time. Objective - Vital Signs/Intake and Output Vital Signs (last 24 hours): Temp Pulse Resp BP Pulse Ox 98.4 F 80 20 113/75 95 03/11/17 08:14 03/11/17 08:14 03/11/17 08:14 03/11/17 08:50 03/11/17 08:14 - Medications Medications: Current Medications Albuterol Sulfate (Albuterol 0.083% Inhal Rosa (2.5 Mg/3 Ml) Ud) 2.5 mg INH RQ6 PRN PRN Reason: Shortness of Breath Benzocaine/Menthol (Cepacol Sore Throat) 1 frederick PO Q2 PRN PRN Reason: Sore Throat Last Admin: 03/11/17 09:20 Dose: 1 frederick Enoxaparin Sodium (Lovenox) 40 mg SC DAILY [facility] PRN Reason: Protocol Last Admin: 03/11/17 08:51 Dose: 40 mg Furosemide (Lasix) 40 mg PO DAILY [facility] Last Admin: 03/11/17 08:50 Dose: 40 mg Levothyroxine Sodium (Synthroid) 25 mcg PO DAILY@0630 [facility] Last Admin: 03/11/17 06:56 Dose: 25 mcg Spironolactone (Aldactone) 100 mg PO DAILY [facility] Last Admin: 03/10/17 10:32 Dose: 100 mg - Labs Labs: 03/11/17 05:30 03/11/17 05:30 PT 11.9 SECONDS (9.6-11.2) H 03/11/17 05:30 INR 1.14 (0.92-1.08) H 03/11/17 05:30 APTT 33.3 SECONDS (23.3-32.5) H 03/09/17 16:50 - Additional Findings Additional findings: Appears: Non-toxic, No Acute Distress - ENT Exam ENT Exam: Mucous Membranes Moist - Respiratory Exam Respiratory Exam: Clear to Ausculation Bilateral, NORMAL BREATHING PATTERN - Cardiovascular Exam Cardiovascular Exam: REGULAR RHYTHM, +S1, +S2 - GI/Abdominal Exam GI & Abdominal Exam: Soft, + fluid wave, mild diffuse Tenderness, Normal Bowel Sounds. absent: Guarding, Rigid, Rebound - Extremities Exam Extremities Exam: Normal Inspection. absent: Calf Tenderness, Pedal Edema - Neurological Exam Neurological Exam: Alert, Awake, Oriented x3 - Psychiatric Exam Psychiatric exam: Normal Affect, Normal Mood - Skin Skin Exam: Dry, Intact, Normal Color Assessment and Plan - Assessment and Plan (Free Text) Plan: 56 yo F with PMHx HepC and hypothyroidism admitted for ascites. Ascitis/Liver Cirrhosis etiology 2/2 hep C -MELD score: 8, 1.9% 3 month mortality -Child-Spencer score: 7, class B -afebrile, no leukocytosis -c/w Lasix to 40 mg daily PO -spironolactone 100mg PO daily -US abd: abundant ascites -02/13/17 endoscopy: small hiatus hernia, small (<5mm) varices found in lower third of esophagus, largest was 3mm in diameter abd CT: Nodular hepatic contour. Hepatic steatosis. No focal enhancing mass identified. - IR for therapeautic paracentesis for tomorrow - GI Dr. Ospina on Board. Hypothyroidism -c/w synthroid Asthma -albuterol prn DVT ppx -lovenox 40 mg SC daily will hold lovenox tomorrow for paracentesis <Audrey Zavala - Last Filed: 03/12/17 11:16> Subjective - Subjective Subjective: ATTENDING NOTE/ ATTESTATION PATIENT SEEN AND EXAMINED. COMPLAINED TO ME OF GENERALIZED ABDOMINAL PAIN. SEEN BY GI. LIVER CT ORDERED. DISCUSSED WITH RESIDENT. AGREE WITH PLAN OR PARACENTESIS TO BE DONE. Objective - Vital Signs/Intake and Output Vital Signs (last 24 hours): Temp Pulse Resp BP Pulse Ox 98.5 F 94 H 17 108/73 92 L 03/12/17 08:04 03/12/17 08:04 03/12/17 08:04 03/12/17 08:04 03/12/17 08:04 - Medications Medications: Current Medications Albuterol Sulfate (Albuterol 0.083% Inhal Rosa (2.5 Mg/3 Ml) Ud) 2.5 mg INH RQ6 PRN PRN Reason: Shortness of Breath Benzocaine/Menthol (Cepacol Sore Throat) 1 frederick PO Q2 PRN PRN Reason: Sore Throat Last Admin: 03/11/17 09:20 Dose: 1 frederick Furosemide (Lasix) 40 mg PO DAILY [facility] Last Admin: 03/11/17 08:50 Dose: 40 mg Levothyroxine Sodium (Synthroid) 25 mcg PO DAILY@0630 [facility] Last Admin: 03/12/17 06:26 Dose: Not Given Spironolactone (Aldactone) 100 mg PO DAILY [facility] Last Admin: 03/12/17 08:42 Dose: 100 mg - Labs Labs: 03/11/17 05:30 03/11/17 05:30 PT 11.9 SECONDS (9.6-11.2) H 03/11/17 05:30 INR 1.14 (0.92-1.08) H 03/11/17 05:30 APTT 33.3 SECONDS (23.3-32.5) H 03/09/17 16:50
[2017-03-12] MEDS: Levothyroxine 25 MCG TAB PO SCH (06:26)
--- NOTE | 2017-03-12 10:42 | CP.PCM.PN ---
Subjective - Date & Time of Evaluation Date of Evaluation: 03/12/17 Time of Evaluation: 08:00 - Subjective Subjective: Patient was seen and examined at bedside this morning. Patient had an eventful night. Still complaining of diffuse mild abdominal pain. Voiding well, and had a non blood bowel movement this morning. Denies chest pain, SOB, hematemesis, nausea, vomiting, diarrhea, or other complains. Objective - Vital Signs/Intake and Output Vital Signs (last 24 hours): Temp Pulse Resp BP Pulse Ox 98.5 F 94 H 17 108/73 92 L 03/12/17 08:04 03/12/17 08:04 03/12/17 08:04 03/12/17 08:04 03/12/17 08:04 - Medications Medications: Current Medications Albuterol Sulfate (Albuterol 0.083% Inhal Rosa (2.5 Mg/3 Ml) Ud) 2.5 mg INH RQ6 PRN PRN Reason: Shortness of Breath Benzocaine/Menthol (Cepacol Sore Throat) 1 frederick PO Q2 PRN PRN Reason: Sore Throat Last Admin: 03/11/17 09:20 Dose: 1 frederick Furosemide (Lasix) 40 mg PO DAILY [facility] Last Admin: 03/11/17 08:50 Dose: 40 mg Levothyroxine Sodium (Synthroid) 25 mcg PO DAILY@0630 [facility] Last Admin: 03/12/17 06:26 Dose: Not Given Spironolactone (Aldactone) 100 mg PO DAILY [facility] Last Admin: 03/12/17 08:42 Dose: 100 mg - Labs Labs: 03/11/17 05:30 03/11/17 05:30 PT 11.9 SECONDS (9.6-11.2) H 03/11/17 05:30 INR 1.14 (0.92-1.08) H 03/11/17 05:30 APTT 33.3 SECONDS (23.3-32.5) H 03/09/17 16:50 - Constitutional Appears: Non-toxic, No Acute Distress - ENT Exam ENT Exam: Mucous Membranes Moist - Respiratory Exam Respiratory Exam: Clear to Ausculation Bilateral, NORMAL BREATHING PATTERN - Cardiovascular Exam Cardiovascular Exam: REGULAR RHYTHM, +S1, +S2 - GI/Abdominal Exam GI & Abdominal Exam: Soft, Tenderness (diffuse, mild tender to palpation, but no rebound tenderness, no rigidity or guarding noted.), Diminished Bowel Sounds - Extremities Exam Extremities Exam: Normal Inspection. absent: Calf Tenderness, Pedal Edema - Neurological Exam Neurological Exam: Alert, Awake, Oriented x3 - Skin Skin Exam: Dry, Intact, Normal Color Assessment and Plan - Assessment and Plan (Free Text) Assessment: 56 yo F with PMHx HepC and hypothyroidism admitted for ascites. Plan: Ascitis/Liver Cirrhosis etiology 2/2 hep C -MELD score: 8, 1.9% 3 month mortality -Child-Spencer score: 7, class B -afebrile, no leukocytosis -c/w Lasix to 40 mg daily PO -spironolactone 100mg PO daily -US abd: abundant ascites -02/13/17 endoscopy: small hiatus hernia, small (<5mm) varices found in lower third of esophagus, largest was 3mm in diameter abd CT: Nodular hepatic contour. Hepatic steatosis. No focal enhancing mass identified. - IR for therapeautic paracentesis for today - GI Dr. Ospina on Board: - Will need albumin replacement if >5L removed (6-8g/L) -Pt can possibly be D/C pending results of paracentesis/cell count to rule out SBP -Please send fluid for analysis; Cell count, culture, albumin, cytology -Large left adnexal cystic lesion noted; consider LAYER OUT PLATE GLASS consultation -Eventually increase diuretic therapy to Lasix/Aldactone 80mg/200mg following paracentesis -2g Na diet Hypothyroidism -c/w synthroid Asthma -albuterol prn DVT ppx -Lovenox 40 mg SC daily Held Lovenox for paracentesis
--- NOTE | 2017-03-12 11:33 | CP.PCM.PN ---
<Jose Stafford - Last Filed: 03/12/17 16:44> Subjective - Date & Time of Evaluation Date of Evaluation: 03/12/17 Time of Evaluation: 12:00 - Subjective Subjective: PGY4 GI Fellow Progress Note Patient seen and examined bedside this afternoon. Patient's daughter at bedside to assist with translation. Patient denies any new complaints at this time. Persistent RLQ abdominal pain, now somewhat more diffuse with worsening ascites. No nausea, vomiting, fever, chills. 12 system ROS performed and negative except where stated. Objective - Vital Signs/Intake and Output Vital Signs (last 24 hours): Temp Pulse Resp BP Pulse Ox 98.5 F 94 H 17 108/73 92 L 03/12/17 08:04 03/12/17 08:04 03/12/17 08:04 03/12/17 08:04 03/12/17 08:04 - Medications Medications: Current Medications Albuterol Sulfate (Albuterol 0.083% Inhal Rosa (2.5 Mg/3 Ml) Ud) 2.5 mg INH RQ6 PRN PRN Reason: Shortness of Breath Benzocaine/Menthol (Cepacol Sore Throat) 1 frederick PO Q2 PRN PRN Reason: Sore Throat Last Admin: 03/11/17 09:20 Dose: 1 frederick Furosemide (Lasix) 40 mg PO DAILY [facility] Last Admin: 03/11/17 08:50 Dose: 40 mg Levothyroxine Sodium (Synthroid) 25 mcg PO DAILY@0630 [facility] Last Admin: 03/12/17 06:26 Dose: Not Given Spironolactone (Aldactone) 100 mg PO DAILY [facility] Last Admin: 03/12/17 08:42 Dose: 100 mg - Labs Labs: 03/11/17 05:30 03/11/17 05:30 PT 11.9 SECONDS (9.6-11.2) H 03/11/17 05:30 INR 1.14 (0.92-1.08) H 03/11/17 05:30 APTT 33.3 SECONDS (23.3-32.5) H 03/09/17 16:50 - Constitutional Appears: Non-toxic, No Acute Distress - Eye Exam Eye Exam: EOMI, PERRL - ENT Exam ENT Exam: Mucous Membranes Moist - Respiratory Exam Respiratory Exam: Clear to Ausculation Bilateral. absent: Rales, Rhonchi, Wheezes - Cardiovascular Exam Cardiovascular Exam: RRR, +S1, +S2 - GI/Abdominal Exam GI & Abdominal Exam: Distended, Soft, Tenderness (RLQ), Normal Bowel Sounds. absent: Firm, Guarding, Rigid, Organomegaly - Extremities Exam Extremities Exam: Normal Inspection. absent: Pedal Edema - Neurological Exam Neurological Exam: Alert, Awake, Oriented x3 - Psychiatric Exam Psychiatric exam: Normal Affect, Normal Mood - Skin Skin Exam: Dry, Warm Assessment and Plan - Assessment and Plan (Free Text) Assessment: Patient is a 56yo Setsw[place] speaking female with PMHx significant for decompensated HCV cirrhosis [GT 3, Viral load (02/10/17) 1,378,544] with prior episodes of ascites and known small esophageal varices, who presented to the ED with complaint of abdominal distention. -Decompensated cirrhosis 2/2 HCV -Ascites -HCV infection Plan: -Awaiting paracentesis -Will need albumin replacement if >5L removed (6-8g/L) -Pt can possibly be D/C pending results of paracentesis/cell count to rule out SBP -Please send fluid for analysis; Cell count, culture, albumin, cytology -Large left adnexal cystic lesion noted; consider FISHERIES MANAGER consultation -Continue on Lasix/Aldactone 40/100mg as patient was having cramping and do not wish to increase at this time -2g Na diet <Mary Kate Ospina MD - Last Filed: 03/12/17 17:05> Objective - Vital Signs/Intake and Output Vital Signs (last 24 hours): Temp Pulse Resp BP Pulse Ox 99.6 F 100 H 20 110/78 99 03/12/17 12:50 03/12/17 12:50 03/12/17 14:25 03/12/17 14:25 03/12/17 12:50 - Labs Labs: 03/11/17 05:30 03/11/17 05:30 PT 11.9 SECONDS (9.6-11.2) H 03/11/17 05:30 INR 1.14 (0.92-1.08) H 03/11/17 05:30 APTT 33.3 SECONDS (23.3-32.5) H 03/09/17 16:50 Attending/Attestation - Attestation I have personally seen and examined this patient.: Yes I have fully participated in the care of the patient.: Yes I have reviewed all pertinent clinical information, including history, physical exam and plan: Yes Notes (Text): 03/12/17 17:01 Patient seen at bedside with GI fellow. This is a 56yo Setsw[place] speaking female with PMHx significant for decompensated HCV cirrhosis [GT 3, Viral load (02/10/17 ) 1,378,544] with prior episodes of ascites and known small esophageal varices, who presented to the ED with complaint of abdominal distention and pain. Abdominal paracentesis shows SBP. Ascitic fluid culture pending. Needs IV albumin for SBP on day one and day three for HRS prevention and IV antibiotics. Also needs Surveillance Agent consult for large adnexal mass. Discussed with team
[2017-03-12] MEDS ORDERED: Lidocaine 1% Inj (20ml) ONE (12:42)
[2017-03-12 12:51] VITALS: PULSE 100; TEMP 99.6
--- NOTE | 2017-03-12 14:25 | PCM.SURG1 ---
Surgeon's Initial Post Op Note - Surgeon's Notes Surgeon: Jr Arango MD Business Center Representative: NONE Type of Anesthesia: Local Pre-Operative Diagnosis: Ascites Operative Findings: US showed a moderate amount of ascites Post-Operative Diagnosis: Ascites Operation Performed: US guided paracentesis. Specimen/Specimens Removed: 3800 cc of yellow fluid Estimated Blood Loss: EBL {In ML}: 0 Blood Products Given: N/A Drains Used: No Drains Post-Op Condition: Fair Date of Surgery/Procedure: 03/12/17 Time of Surgery/Procedure: 14:20
[2017-03-12 14:26] VITALS: BP 110/78; RESP 20
[2017-03-12 15:00] LABS: BODY FLUID TYPE PERITONEAL/ASCITES
[2017-03-12 16:03] LABS: BF GROSS APPEARANCE CLEAR (CLEAR); BODY FLUID TOTAL COUNT 100 (0-0)
--- NOTE | 2017-03-12 16:21 | CP.PCM.DIS ---
Provider - Provider Date of Admission: 03/10/17 13:11 Attending physician: Audrey Zavala MD Time Spent in preparation of Discharge (in minutes): 30 Diagnosis - Discharge Diagnosis (1) Ascites Status: Acute Priority: High Comment: Secondary to liver cirrhosis most likely secondary to Hepatitis C infection. Paracentesis done during admission. F/U removed fluid analysis. (2) Hepatic cirrhosis due to chronic hepatitis C infection Status: Chronic Priority: High Comment: F/U with GIDr. Ospina. (3) Hypothyroidism Status: Chronic Priority: Medium Comment: c/w with home medications. F/U with PMD. Hospital Course - Lab Results Lab Results: Most Recent Lab Values WBC 7.9 K/uL (4.8-10.8) 03/11/17 05:30 RBC 4.71 Mil/uL (3.80-5.20) 03/11/17 05:30 Hgb 13.4 g/dL (12.0-16.0) 03/11/17 05:30 Hct 40.1 % (34.0-47.0) 03/11/17 05:30 MCV 85.3 fl (81.0-99.0) 03/11/17 05:30 MCH 28.6 pg (27.0-31.0) 03/11/17 05:30 MCHC 33.5 g/dL (33.0-37.0) 03/11/17 05:30 RDW 12.5 % (11.5-14.5) 03/11/17 05:30 Plt Count 183 K/uL (130-400) 03/11/17 05:30 MPV 9.0 fl (7.2-11.7) 03/11/17 05:30 Neut % (Auto) 56.7 % (50.0-75.0) 03/11/17 05:30 Lymph % (Auto) 26.8 % (20.0-40.0) 03/11/17 05:30 Calloway % (Auto) 10.9 % (0.0-10.0) H 03/11/17 05:30 Eos % (Auto) 5.0 % (0.0-4.0) H 03/11/17 05:30 Baso % (Auto) 0.6 % (0.0-2.0) 03/11/17 05:30 Neut # 4.5 K/uL (1.8-7.0) 03/11/17 05:30 Lymph # 2.1 K/uL (1.0-4.3) 03/11/17 05:30 Calloway # 0.9 K/uL (0.0-0.8) H 03/11/17 05:30 Eos # 0.4 K/uL (0.0-0.7) 03/11/17 05:30 Baso # 0.0 K/uL (0.0-0.2) 03/11/17 05:30 PT 11.9 SECONDS (9.6-11.2) H 03/11/17 05:30 INR 1.14 (0.92-1.08) H 03/11/17 05:30 APTT 33.3 SECONDS (23.3-32.5) H 03/09/17 16:50 Sodium 137 mmol/l (132-148) 03/11/17 05:30 Potassium 4.0 MMOL/L (3.6-5.0) 03/11/17 05:30 Chloride 100 mmol/L (98-107) 03/11/17 05:30 Carbon Dioxide 28 mmol/L (22-30) 03/11/17 05:30 Anion Gap 12 (10-20) 03/11/17 05:30 BUN 16 mg/dl (7-17) 03/11/17 05:30 Creatinine 0.7 mg/dL (0.7-1.2) 03/11/17 05:30 Est GFR ( Amer) > 60 03/11/17 05:30 Est GFR (Non-Af Amer) > 60 03/11/17 05:30 Random Glucose 109 mg/dL (65-105) H 03/11/17 05:30 Calcium 8.6 mg/dL (8.4-10.2) 03/11/17 05:30 Total Bilirubin 0.7 mg/dl (0.2-1.3) 03/11/17 05:30 AST 35 U/L (14-36) 03/11/17 05:30 ALT 31 U/L (9-52) 03/11/17 05:30 Alkaline Phosphatase 65 U/L (38-126) 03/11/17 05:30 Total Protein 6.9 G/DL (6.3-8.2) 03/11/17 05:30 Albumin 3.3 g/dL (3.5-5.0) L 03/11/17 05:30 Globulin 3.6 gm/dL (2.2-3.9) 03/11/17 05:30 Albumin/Globulin Ratio 0.9 (1.0-2.1) L 03/11/17 05:30 Lipase 201 U/L (23-300) 03/09/17 16:50 Fluid Source Peritoneal/ascites 03/12/17 14:30 Fluid Appearance Clear (CLEAR) 03/12/17 14:30 Fluid WBC 837.0 /mm3 (0.0-300.0) H 03/12/17 14:30 Fluid RBC 1044.0 /mm3 (0.0-0.0) H 03/12/17 14:30 Fluid Tot Cell Count 100 (0-0) H 03/12/17 14:30 Fluid Neutrophils 51.0 % (0-0) H 03/12/17 14:30 Fluid Lymphocytes 39.0 % (0-0) H 03/12/17 14:30 Fld Monocyte/Macrophag 10 % (0-0) H 03/12/17 14:30 Fluid Comment Yellow 03/12/17 14:30 - Hospital Course Hospital Course: 56 yo F with PMHx HepC, asthma, and hypothyroidism, now complaining of abd distension x3 weeks,worsening in the last few days after patient forgot to take her meds admitted for ascitis. During admission patient was afebrile, with no leukocytosis in series CBC. GI was consulted and recommended paracentesis. IR was consulted and paracentesis was done today, 3800 cc of yellow fluid was removed and sent for analysis. Patient tolerated procedure well with stable vital signs. Patient will be discharge home and will follow up as outpatient with GI, Dr. Ospina in 2 weeks and PMD, Dr. Sales at [facility]. Will follow up paracentesis fluid analysis: cell count, cytology, albumin results. F/U BMP prescribed as outpatient. Home medications: Furosemide 40 mg daily PO Spironolactone 100 mg daily PO Synthroid 25 mcg daily PO - Date & Time of H&P Date of H&P: 03/10/17 Time of H&P: 00:20 Discharge Exam - Head Exam Head Exam: ATRAUMATIC, NORMAL INSPECTION - Additional Findings Additional findings: Constitutional Appears: Non-toxic, No Acute Distress - ENT Exam ENT Exam: Mucous Membranes Moist - Respiratory Exam Respiratory Exam: Clear to Ausculation Bilateral, NORMAL BREATHING PATTERN - Cardiovascular Exam Cardiovascular Exam: REGULAR RHYTHM, +S1, +S2 - GI/Abdominal Exam GI & Abdominal Exam: Soft, Tenderness (diffuse, mild tender to palpation, but no rebound tenderness, no rigidity or guarding noted.), Diminished Bowel Sounds - Extremities Exam Extremities Exam: Normal Inspection. absent: Calf Tenderness, Pedal Edema - Neurological Exam Neurological Exam: Alert, Awake, Oriented x3 - Skin Skin Exam: Dry, Intact, Normal Color Discharge Plan - Discharge Medications Prescriptions: Furosemide [Lasix] 40 mg PO DAILY #30 tablet Spironolactone [Aldactone] 100 mg PO DAILY #30 tablet - Follow Up Plan Condition: GOOD Disposition: HOME/ ROUTINE Instructions: Cirrhosis (DC), Abdominal Paracentesis (DC), Ascites (DC) Additional Instructions: No strenuous activity. Daily weight. Inform MD for weight gain or shortness of breath. follow up with Dr Ospina in 2 weeks. Follow up with Dr. Chery. Low sodium diet.
[2017-03-13 13:36] VITALS: O2SAT 98
--- NOTE | 2017-03-22 15:13 | US ---
Date of Procedure: 03/12/2017 PROCEDURE: Ultrasound-guided paracentesis, CPT 83150 Medications: 1% Lidocaine HISTORY: Ascites, abdominal pain, TECHNIQUE: Following informed consent , the patient was placed supine on the stretcher and the site was marked. A limited abdominal ultrasound was performed that showed a large amount of intra-abdominal fluid. Procedural time out was called and the Pt's abdomen was marked and prepped and draped in the usual sterile fashion. Ultrasound-guided large volume paracentesis performed. A total of 3.8 liters of straw colored fluid was removed without complication. Fluid specimen was sent for culture, sensitivity, cytology and chemistries. IMPRESSION: Ultrasound-guided large volume paracentesis.
== END 2017-03-12 16:15 | disposition home or self-care (01) | DRG 202 ==
LOC: H.ER 15:11 → H.ERHOLD 19:53 → H.MEDSURG1 22:00 → OBSVTOIN 03-10 13:11
PROVIDERS: ADMIT Emergency Medicine; ATTEND Emergency Medicine
PROC: 0W9G3ZZ Drainage of Peritoneal Cavity, Percutaneous Approach (ICD-10-PCS; principal; 2017-03-12)
DX: K74.60 Unspecified cirrhosis of liver (principal); R18.8 Other ascites; I85.00 Esophageal varices without bleeding; B18.2 Chronic viral hepatitis C; E03.9 Hypothyroidism, unspecified; J45.909 Unspecified asthma, uncomplicated; K44.9 Diaphragmatic hernia without obstruction or gangrene

== ENCOUNTER 2017-03-12 22:07 | Inpatient (IN) | payer SELFPAY ==
[2017-03-12] MEDS ORDERED: Cefepime 2 GM in Sodium Chloride 0.9% 100 ML IVPB STA (22:56)
[2017-03-12 23:00] LABS: BASO % 0.4 % (0.0-2.0); EOS # 0.1 K/uL (0.0-0.7); HEMATOCRIT 44.2 % (34.0-47.0); LYMPH # 2.2 K/uL (1.0-4.3); LYMPH % 22.6 % (20.0-40.0); MEAN CELL VOLUME 85.7 fl (81.0-99.0); MEAN CORPUSCULAR HEMOGLOBIN 28.3 pg (27.0-31.0); MEAN PLATELET VOLUME 8.7 fl (7.2-11.7); MONO # 0.8 K/uL (0.0-0.8); MONO % 8.8 % (0.0-10.0); NEUT # 6.4 K/uL (1.8-7.0); NEUT % 67.2 % (50.0-75.0); RED CELL DISTRIBUTION WIDTH 12.6 % (11.5-14.5); WHITE BLOOD COUNT 9.5 K/uL (4.8-10.8)
--- NOTE | 2017-03-12 23:00 | ED PDOC ---
HPI: Abdomen Time Seen by Provider: 03/12/17 22:28 Chief Complaint (Nursing): Abdominal Pain Chief Complaint (Provider): Referred for admission History Per: Patient History/Exam Limitations: no limitations Onset/Duration Of Symptoms: Hrs Outside of [place] travel?: No Current Symptoms Are (Timing): Still Present Associated Symptoms: denies: Fever, Nausea, Vomiting, Diarrhea Additional Complaint(s): Dilma Blake, [facility] 56 [facility], with a PMHx of liver cirrhosis and hepatitis C cirrhosis ascites is being referred to the ED for admission. The patient who was discharged a few hours prior to arrival was admitted for treatment of ascites. Upon discharge, she was called back by Dr. Ospina and informed that she should return and be admitted for spontaneous bacterial peritonitis, as was indicated by cell count ascitic fluid. The patient admits to generalized abdominal pain and complains of generalized weakness. Denies associated fever, nausea, vomiting and diarrhea. Past Medical History Reviewed: Historical Data (Liver Cirrhosis; Hepatitis C cirrhosis), Nursing Documentation, Vital Signs Vital Signs: Last Vital Signs Temp 99 F 03/13/17 00:55 Pulse 100 H 03/13/17 00:55 Resp 20 03/13/17 00:55 BP 114/76 03/13/17 00:55 Pulse Ox 100 03/13/17 01:14 - Medical History PMH: Asthma, Hyperthyroidism Denies: HIV, Chronic Kidney Disease - Family History Family History: States: Unknown Family Hx - Social History Current smoker - smoking cessation education provided: No Ex-Smoker (has not smoked in the last 12 months): No Alcohol: None Drugs: Denies - Home Medications Home Medications: Ambulatory Orders Medication Instructions Recorded Levothyroxine [Synthroid] 25 mcg PO DAILY 03/09/17 Furosemide [Lasix] 40 mg PO DAILY #30 tablet 03/12/17 Spironolactone [Aldactone] 100 mg PO DAILY #30 tablet 03/12/17 - Allergies Allergies/Adverse Reactions: Allergies Allergy/AdvReac Type Severity Reaction Status Date / Time No Known Allergies Allergy Verified 02/09/17 07:31 Review of Systems ROS Statement: Except As Marked, All Systems Reviewed And Found Negative Constitutional: Positive for: Weakness (Generalized weakness.). Negative for: Fever Gastrointestinal: Negative for: Nausea, Vomiting, Abdominal Pain (Generalized abdominal pain.) Physical Exam - Reviewed Nursing Documentation Reviewed: Yes Vital Signs Reviewed: Yes - Physical Exam Appears: Positive for: Non-toxic, No Acute Distress Head Exam: Positive for: ATRAUMATIC, NORMOCEPHALIC Skin: Positive for: Normal Color, Warm, Dry Eye Exam: Positive for: Normal appearance, EOMI, PERRL ENT: Positive for: Normal ENT Inspection Neck: Positive for: Normal, Painless ROM, Supple Cardiovascular/Chest: Positive for: Regular Rate, Rhythm, Chest Non Tender. Negative for: Tachycardia Respiratory: Positive for: Normal Breath Sounds. Negative for: Wheezing, Respiratory Distress Gastrointestinal/Abdominal: Positive for: Tenderness (diffuse abdominal tenderness.), Other (Mild ascites.) Back: Positive for: Normal Inspection. Negative for: L CVA Tenderness, R CVA Tenderness Extremity: Positive for: Normal ROM. Negative for: Tenderness, Deformity, Swelling Neurologic/Psych: Positive for: Alert, Oriented - Laboratory Results Result Diagrams: 03/12/17 22:58 03/12/17 22:58 - ECG O2 Sat by Pulse Oximetry: 100 (RA) Pulse Ox Interpretation: Normal Medical Decision Making Medical Decision Makin:28 Initial Impression: 56 female presenting with admission for spontaneous bacterial peritonitis. Initial Plan: * EKG * Ammonia * CMP * Lactic acid * CBC * PTT * Prothrombin time * Maxipime 2 gm NS 100ml * Blood culture * Admit 22:[address] Shaw who is covering Dr. Ospina. 22:58 Patient is to be admitted and started on IV cefepime. Case was referred to Dr. Silva family practice resident lion tamer. Condition: Fair Scribe Attestation Documented by Zabrina Reagan acting as a scribe for Dominguez Sanches MD. Provider Attestation All medical record entries made by the Scribe were at my direction and personally dictated by me. I have reviewed the chart and agree that the record accurately reflects my personal performance of the history, physical exam, medical decision making, and the department course for this patient. I have also personally directed, reviewed, and agree with the discharge instructions and disposition. Disposition - Clinical Impression Clinical Impression: Spontaneous bacterial peritonitis - Patient ED Disposition Is Patient to be Admitted: Yes Discussed With : Blanquita Gramajo Counseled Patient/Family Regarding: Studies Performed, Diagnosis - Disposition Disposition Time: 22:58 Condition: FAIR - Pt Status Changed To: Hospital Disposition Of: Observation
--- NOTE | 2017-03-12 23:19 | CP.PCM.HP ---
History of Present Illness - History of Present Illness History of Present Illness: 56yo F with PMHx HepC, asthma, and hypothyroidism being re-admitted for treatment for SBP and albumin replacement, pt was discharged earlier today prior to the results of paracentesis that was done during her last admission this past weekend (03/10/17). On 03/10/17 pt presented with c/o abd distension x3 weeks, worse in the last few days after pt forgot to take her meds. Follows with GI Dr. Khan and last endosocpy 1 month ago WNL. Denies fever, chills, nausea, vomiting, SOB, hematochezia, weakness, falls. No other complaints at this time. Denies chest pain, abd pain, LE edema. chart review indicates the following on last admission before the 03/10/17 admission was on 02/09/17. 02/09/17 paracentesis: 2.8 L exudate 02/13/17 endoscopy: small hiatus hernia, small (<5mm) varices found in lower third of esophagus, largest was 3mm in diameter PCP: Dr. Horton PMHx: as above FHx: denies SHx: denies Social hx: daughter lives with her, Denies smoking, EtOH, drugs Allergies: NKDA Meds: reviewed with pt and ECW Present on Admission - Present on Admission Any Indicators Present on Admission: No Review of Systems - Review of Systems All systems: reviewed and no additional remarkable complaints except Review of Systems: Per HPI Past Patient History - Past Medical History & Family History Past Medical History?: Yes - Past Social History Smoking Status: Never Smoked - CARDIAC Hx Cardiac Disorders: No - PULMONARY Hx Asthma: Yes - NEUROLOGICAL Hx Neurological Disorder: No - HEENT Hx HEENT Problems: No - RENAL Hx Chronic Kidney Disease: No - ENDOCRINE/METABOLIC Hx Hyperthyroidism: Yes - HEMATOLOGICAL/ONCOLOGICAL Hx Human Immunodeficiency Virus (HIV): No - INTEGUMENTARY Hx Dermatological Problems: No - MUSCULOSKELETAL/RHEUMATOLOGICAL Hx Musculoskeletal Disorders: No - GASTROINTESTINAL Hx Gastrointestinal Disorders: No Other/Comment: ascites - GENITOURINARY/GYNECOLOGICAL Hx Genitourinary Disorders: No - PSYCHIATRIC Hx Psychophysiologic Disorder: No Hx Substance Use: No - SURGICAL HISTORY Hx Surgeries: No Other/Comment: triconomas - ANESTHESIA Hx Anesthesia: No (unknown) Hx Anesthesia Reactions: No Hx Malignant Hyperthermia: No Meds Allergies/Adverse Reactions: Allergies Allergy/AdvReac Type Severity Reaction Status Date / Time No Known Allergies Allergy Verified 02/09/17 07:31 Physical Exam - Constitutional Appears: No Acute Distress - Head Exam Head Exam: NORMOCEPHALIC - ENT Exam ENT Exam: Mucous Membranes Moist - Respiratory Exam Respiratory Exam: Clear to Auscultation Bilateral, NORMAL BREATHING PATTERN. absent: Wheezes - Cardiovascular Exam Cardiovascular Exam: REGULAR RHYTHM, +S1, +S2 - GI/Abdominal Exam GI & Abdominal Exam: Normal Bowel Sounds, Soft. absent: Distended, Tenderness - Extremities Exam Extremities exam: Negative for: calf tenderness, pedal edema - Neurological Exam Neurological exam: Alert, CN II-XII Intact, Oriented x3 Results - Vital Signs Recent Vital Signs: Last Vital Signs Temp 98.2 F 03/12/17 22:19 Pulse 105 H 03/12/17 22:19 Resp 18 03/12/17 22:19 BP 128/83 03/12/17 22:19 Pulse Ox 100 03/12/17 23:00 - Labs Result Diagrams: 03/12/17 22:58 Assessment & Plan - Assessment and Plan (Free Text) Assessment: 56yo F with PMHx HepC, asthma, and hypothyroidism discharged earlier today being re-admitted for treatment SBP and albumin replacement. 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
[2017-03-12 23:23] LABS: ALKALINE PHOSPHATASE 77 U/L (38-126); ALT/SGPT 35 U/L (9-52); AST/SGOT 39 U/L (14-36); BILIRUBIN,TOTAL 1.2 mg/dl (0.2-1.3); BLOOD UREA NITROGEN 20 mg/dl (7-17); CALCIUM 9.2 mg/dL (8.4-10.2); CARBON DIOXIDE 28 mmol/L (22-30); CHLORIDE 94 mmol/L (98-107); GFR AFRICAN-AMERICAN > 60; GLUCOSE,RANDOM 115 mg/dL (65-105); POTASSIUM 4.1 MMOL/L (3.6-5.0); SODIUM 134 mmol/l (132-148); TOTAL PROTEIN 8.2 G/DL (6.3-8.2)
[2017-03-12 23:36] LABS: PARTIAL THROMBOPLASTIN TIME 31.2 SECONDS (23.3-32.5)
[2017-03-12] MEDS ORDERED: Albumin Human 25% (12.5 gm/50 ml) IV ONE (23:40)
[2017-03-13] MEDS: Levothyroxine 25 MCG TAB PO SCH (06:56)
[2017-03-13] MEDS: Cefepime 2 GM in Sodium Chloride 0.9% 100 ML IVPB SCH ×2 (09:23→20:52)
[2017-03-13] MEDS: Enoxaparin 40 mg Syringe SC SCH (09:25)
--- NOTE | 2017-03-13 09:39 | CP.PCM.PN ---
Subjective - Date & Time of Evaluation Date of Evaluation: 03/13/17 Time of Evaluation: 07:55 - Subjective Subjective: Patient was seen and examined at bedside this morning. Patient reports that diffuse abdominal pain has been improved since yesterday after paracentesis. Denies chills, chest pain, SOB, nausea, vomiting, diarrhea, blood in urine or stools. Patient had an uneventful night. Objective - Vital Signs/Intake and Output Vital Signs (last 24 hours): Temp Pulse Resp BP Pulse Ox 98.5 F 96 H 17 100/65 100 03/13/17 07:42 03/13/17 07:42 03/13/17 07:42 03/13/17 09:24 03/13/17 07:42 - Medications Medications: Current Medications Enoxaparin Sodium (Lovenox) 40 mg SC DAILY [facility] PRN Reason: Protocol Last Admin: 03/13/17 09:25 Dose: 40 mg Furosemide (Lasix) 40 mg PO DAILY [facility] Last Admin: 03/13/17 09:24 Dose: 40 mg Cefepime HCl 2 gm/ Sodium (Chloride) 100 mls @ 100 mls/hr IVPB Q12 [facility] Last Admin: 03/13/17 09:23 Dose: 100 mls/hr Levothyroxine Sodium (Synthroid) 25 mcg PO DAILY@0630 [facility] Last Admin: 03/13/17 06:56 Dose: 25 mcg Spironolactone (Aldactone) 100 mg PO DAILY [facility] Last Admin: 03/13/17 09:24 Dose: 100 mg - Labs Labs: PT 11.4 SECONDS (9.6-11.2) H 03/12/17 22:58 INR 1.10 (0.92-1.08) H 03/12/17 22:58 APTT 31.2 SECONDS (23.3-32.5) 03/12/17 22:58 - Constitutional Appears: Non-toxic, No Acute Distress - Eye Exam Eye Exam: Normal appearance. absent: Scleral icterus - ENT Exam ENT Exam: Mucous Membranes Moist - Respiratory Exam Respiratory Exam: Clear to Ausculation Bilateral, NORMAL BREATHING PATTERN - Cardiovascular Exam Cardiovascular Exam: RRR, +S1, +S2 - GI/Abdominal Exam GI & Abdominal Exam: Distended, Soft, Diminished Bowel Sounds. absent: Guarding , Rigid, Tenderness, Rebound Additional comments: Noted fluid wave, but improved - Extremities Exam Extremities Exam: Normal Inspection. absent: Calf Tenderness, Pedal Edema - Neurological Exam Neurological Exam: Alert, Awake, Oriented x3 - Psychiatric Exam Psychiatric exam: Normal Affect, Normal Mood - Skin Skin Exam: Dry, Intact, Normal Color Assessment and Plan - Assessment and Plan (Free Text) Assessment: 56 yo F with PMHx HepC, asthma, and hypothyroidism discharged earlier today being re-admitted for treatment SBP and albumin replacement. Plan: Spontaneous Bacterial peritonitis -Afebrile, improving -Started on Cefepime 2g Q12 day #1 (per GI fellow recommendation) -F/U peritoneal cultures. pending -F/U Peritoneal analysis: cell count, cytology, albumin -Monitor clinical status -GI consult appreciated. F/U GI recommendations S/P Paracentesis on Day 1 -Albumin WNL : 4.1 -Albumin 50 grams on day 1 -Repeat albumin level on day 3 Cirrhosis secondary to Hep C -C/w Lasix 40mg daily PO -C/w Spirinolactone 100 mg daily PO Hypothryoidism Synthroid Asthma (Mild Intermittent) -Controlled -C/w + Albuterol PRN Diet -2g Na restriction (Renal diet) DVT prophylaxis Lovenox 40 mg SC daily
[2017-03-13] MEDS ORDERED: Albuterol 0.083% Inhal Sol (2.5 mg/3 mL) UD INH PRN (09:52)
--- NOTE | 2017-03-13 20:09 | CP.PCM.CON ---
History of Present Illness - History of Present Illness History of Present Illness: Patient seen on request of FP physician- This is a 56 yo Georgian speaking female with PMHx significant for decompensated HCV cirrhosis [Treatment naive, GT 3, Viral load (02/10/17) [id number]] with prior episodes of ascites and known small esophageal varices, who presented to the ED with complaint of abdominal distention and was admitted for worsening ascites and readjusted diuretics. She had 3.5 lts ascitic fluid therapeutic tap 2 days ago that showed SBP. Patient states she has been adherent to medical therapy as prescribed as outpatient (PO Lasix/Aldactone). She admits to RLQ abdominal pain and is very tender with palpation of the abdomen. Patient denies any fever, chills, SOB, nausea, vomiting, confusion, sleep/wake alteration, jaundice. She does not have a history of any EtOH use/abuse and continues to abstain from use. Review of Systems - Review of Systems Review of Systems: 12 point ROS unremarkable except that documented in HPI Past Patient History - Past Medical History & Family History Past Medical History?: Yes - Past Social History Smoking Status: Never Smoked - CARDIAC Hx Cardiac Disorders: No - PULMONARY Hx Asthma: Yes - NEUROLOGICAL Hx Neurological Disorder: No - HEENT Hx HEENT Problems: No - RENAL Hx Chronic Kidney Disease: No - ENDOCRINE/METABOLIC Hx Hypothyroidism: Yes - HEMATOLOGICAL/ONCOLOGICAL Hx Hepatitis C: Yes Hx Human Immunodeficiency Virus (HIV): No - INTEGUMENTARY Hx Dermatological Problems: No - MUSCULOSKELETAL/RHEUMATOLOGICAL Hx Falls: No - GASTROINTESTINAL Hx Gastrointestinal Disorders: No Other/Comment: ascites - GENITOURINARY/GYNECOLOGICAL Hx Genitourinary Disorders: No - PSYCHIATRIC Hx Substance Use: No - SURGICAL HISTORY Hx Surgeries: No Other/Comment: triconomas - ANESTHESIA Hx Anesthesia: No (unknown) Hx Anesthesia Reactions: No Hx Malignant Hyperthermia: No Meds Allergies/Adverse Reactions: Allergies Allergy/AdvReac Type Severity Reaction Status Date / Time No Known Allergies Allergy Verified 02/09/17 07:31 - Medications Medications: Current Medications Albuterol Sulfate (Albuterol 0.083% Inhal Rosa (2.5 Mg/3 Ml) Ud) 2.5 mg INH RQ6 PRN PRN Reason: Shortness of Breath Enoxaparin Sodium (Lovenox) 40 mg SC DAILY [facility] PRN Reason: Protocol Last Admin: 03/13/17 09:25 Dose: 40 mg Furosemide (Lasix) 40 mg PO DAILY [facility] Last Admin: 03/13/17 09:24 Dose: 40 mg Cefepime HCl 2 gm/ Sodium (Chloride) 100 mls @ 100 mls/hr IVPB Q12 [facility] Last Admin: 03/13/17 09:23 Dose: 100 mls/hr Levothyroxine Sodium (Synthroid) 25 mcg PO DAILY@0630 [facility] Last Admin: 03/13/17 06:56 Dose: 25 mcg Spironolactone (Aldactone) 100 mg PO DAILY [facility] Last Admin: 03/13/17 09:24 Dose: 100 mg Physical Exam - Constitutional Appears: Non-toxic, No Acute Distress, Cachectic, Chronically Ill - Head Exam Head Exam: ATRAUMATIC, NORMAL INSPECTION, NORMOCEPHALIC Additional comments: Anicteric sclera - Eye Exam Eye Exam: EOMI, Normal appearance, PERRL - ENT Exam ENT Exam: Mucous Membranes Moist, Normal Exam - Respiratory Exam Respiratory Exam: Decreased Breath Sounds, Clear to Auscultation Bilateral, NORMAL BREATHING PATTERN - Cardiovascular Exam Cardiovascular Exam: REGULAR RHYTHM - GI/Abdominal Exam GI & Abdominal Exam: Distended, Normal Bowel Sounds, Soft. absent: Tenderness - Neurological Exam Neurological exam: Alert, CN II-XII Intact, Normal Gait, Oriented x3, Reflexes Normal - Psychiatric Exam Psychiatric exam: Normal Affect, Normal Mood - Skin Skin Exam: Dry, Intact, Normal Color, Warm Results - Vital Signs Recent Vital Signs: Last Vital Signs Temp 99.4 F 03/13/17 16:32 Pulse 90 03/13/17 16:32 Resp 20 03/13/17 16:32 BP 103/70 03/13/17 16:32 Pulse Ox 95 03/13/17 16:32 - Labs Result Diagrams: 03/12/17 22:58 03/12/17 22:58 Assessment & Plan - Assessment and Plan (Free Text) Assessment: This is a 56 year old female with h/o HCV cirrhosis (complicated by small esophageal varices, recurrent ascites) who presents with abdominal pain/ increasing abdominal distension over the past several days. Last paracentesis ~ 1 mo ago, no SBP. Her home diuretic regimen is lasix 40mg/aldactone 100mg, which will likely need to be increased after paracentesis. She is up to date with varices and HCC screening. Now she has SBP culture pending. Will need albumin 1gm/kg on day 1 of SBP and day 3. Discussed at length with son at bedside. Continue low salt diet as tolerated. Plan: - Continue antibiotic - Continue albumin for 72 hours - Low salt diet - high caloric diet, high protein - Continue lasix/ aldactone- 40/10 mgg daily - Will hold off on incraesing diuretics ins etting of SBP and high risk of HRS - Daily BMP, coag and CBC - Avoid PPI- high risk of infection in setting of ascites and SBP - Strict I/O - Will follow
[2017-03-14] MEDS: Levothyroxine 25 MCG TAB PO SCH (06:36)
[2017-03-14 07:48] LABS: HEMATOCRIT 39.7 % (34.0-47.0); MEAN CELL VOLUME 85.4 fl (81.0-99.0); MEAN CORPUSCULAR HEMOGLOBIN 28.6 pg (27.0-31.0); MEAN CORPUSCULAR HGB CONC 33.5 g/dL (33.0-37.0); RED CELL DISTRIBUTION WIDTH 12.2 % (11.5-14.5); WHITE BLOOD COUNT 7.6 K/uL (4.8-10.8)
[2017-03-14 08:05] LABS: ALB/GLOB RATIO 1.2 (1.0-2.1); ALKALINE PHOSPHATASE 51 U/L (38-126); ALT/SGPT 28 U/L (9-52); AST/SGOT 30 U/L (14-36); BILIRUBIN,TOTAL 1.1 mg/dl (0.2-1.3); BLOOD UREA NITROGEN 20 mg/dl (7-17); CALCIUM 8.7 mg/dL (8.4-10.2); CARBON DIOXIDE 27 mmol/L (22-30); CHLORIDE 98 mmol/L (98-107); GFR AFRICAN-AMERICAN > 60; GLUCOSE,RANDOM 106 mg/dL (65-105); POTASSIUM 3.8 MMOL/L (3.6-5.0); SODIUM 136 mmol/l (132-148); TOTAL PROTEIN 7.2 G/DL (6.3-8.2)
[2017-03-14] MEDS: Cefepime 2 GM in Sodium Chloride 0.9% 100 ML IVPB SCH ×2 (08:44→20:11)
[2017-03-14] MEDS: Enoxaparin 40 mg Syringe SC SCH (08:45)
--- NOTE | 2017-03-14 11:27 | CP.PCM.PN ---
Subjective - Date & Time of Evaluation Date of Evaluation: 03/14/17 Time of Evaluation: 07:15 - Subjective Subjective: Patient was seen and examined at bedside. Patient had an uneventful night. Denies nausea, vomiting, abdominal pain or diarrhea at this evaluation. Denies chest pain, SOB, cough, blood in urine or stools. Objective - Vital Signs/Intake and Output Vital Signs (last 24 hours): Temp Pulse Resp BP Pulse Ox 98.4 F 91 H 17 104/72 95 03/14/17 07:40 03/14/17 07:40 03/14/17 07:40 03/14/17 08:45 03/14/17 07:40 - Medications Medications: Current Medications Albuterol Sulfate (Albuterol 0.083% Inhal Rosa (2.5 Mg/3 Ml) Ud) 2.5 mg INH RQ6 PRN PRN Reason: Shortness of Breath Enoxaparin Sodium (Lovenox) 40 mg SC DAILY [facility] PRN Reason: Protocol Last Admin: 03/14/17 08:45 Dose: 40 mg Furosemide (Lasix) 40 mg PO DAILY [facility] Last Admin: 03/14/17 08:45 Dose: 40 mg Cefepime HCl 2 gm/ Sodium (Chloride) 100 mls @ 100 mls/hr IVPB Q12 [facility] Last Admin: 03/14/17 08:44 Dose: 100 mls/hr Levothyroxine Sodium (Synthroid) 25 mcg PO DAILY@0630 [facility] Last Admin: 03/14/17 06:36 Dose: 25 mcg Spironolactone (Aldactone) 100 mg PO DAILY [facility] Last Admin: 03/14/17 08:45 Dose: 100 mg - Labs Labs: 03/14/17 06:15 03/14/17 04:00 PT 11.4 SECONDS (9.6-11.2) H 03/12/17 22:58 INR 1.10 (0.92-1.08) H 03/12/17 22:58 APTT 31.2 SECONDS (23.3-32.5) 03/12/17 22:58 - Additional Findings Additional findings: Constitutional Appears: Non-toxic, No Acute Distress - Eye Exam Eye Exam: Normal appearance. absent: Scleral icterus - ENT Exam ENT Exam: Mucous Membranes Moist - Respiratory Exam Respiratory Exam: Clear to Ausculation Bilateral, NORMAL BREATHING PATTERN - Cardiovascular Exam Cardiovascular Exam: RRR, +S1, +S2 - GI/Abdominal Exam GI & Abdominal Exam: Distended, Soft, Diminished Bowel Sounds. absent: Guarding , Rigid, Tenderness, Rebound Additional comments: Noted fluid wave, but improved - Extremities Exam Extremities Exam: Normal Inspection. absent: Calf Tenderness, Pedal Edema - Neurological Exam Neurological Exam: Alert, Awake, Oriented x3 - Psychiatric Exam Psychiatric exam: Normal Affect, Normal Mood - Skin Skin Exam: Dry, Intact, Normal Color Assessment and Plan - Assessment and Plan (Free Text) Assessment: 56 yo F with PMHx HepC, asthma, and hypothyroidism discharged earlier today being re-admitted for treatment SBP and albumin replacement. Plan: Spontaneous Bacterial peritonitis -Afebrile, improving -Started on Cefepime 2g Q12 day #2 (per GI fellow recommendation) -F/U peritoneal cultures. pending -F/U Peritoneal analysis: cell count, cytology, albumin -Monitor clinical status -GI consult appreciated. F/U GI recommendations. Recommended lifelong SBP prophylaxis after completion of therapy for acute infection -Blood culture showed no growth for 24 hours S/P Paracentesis on Day 2 -Albumin WNL : 4.1 -s/p Albumin 1mg/kg (50 grams on day 1 ) as per GI recommendation -Albumin level on day 3 today Cirrhosis secondary to Hep C -C/w Lasix 40mg daily PO -C/w Spirinolactone 100 mg daily PO -c/w Low sodium diet Hypothryoidism Synthroid Asthma (Mild Intermittent) -Controlled -C/w + Albuterol PRN Diet -2g Na restriction (Renal diet) DVT prophylaxis Lovenox 40 mg SC daily
[2017-03-14] MEDS ORDERED: Albumin Human 25% (12.5 gm/50 ml) IV ONE (13:23)
--- NOTE | 2017-03-14 13:26 | CP.PCM.PN ---
Subjective - Date & Time of Evaluation Date of Evaluation: 03/14/17 Time of Evaluation: 13:21 - Subjective Subjective: RFV: SBP S: No acute events. Stable. Tolerating diet. Afebrile. Objective - Vital Signs/Intake and Output Vital Signs (last 24 hours): Temp Pulse Resp BP Pulse Ox 98.4 F 91 H 17 104/72 95 03/14/17 07:40 03/14/17 07:40 03/14/17 07:40 03/14/17 08:45 03/14/17 07:40 - Medications Medications: Current Medications Albuterol Sulfate (Albuterol 0.083% Inhal Rosa (2.5 Mg/3 Ml) Ud) 2.5 mg INH RQ6 PRN PRN Reason: Shortness of Breath Enoxaparin Sodium (Lovenox) 40 mg SC DAILY [facility] PRN Reason: Protocol Last Admin: 03/14/17 08:45 Dose: 40 mg Furosemide (Lasix) 40 mg PO DAILY [facility] Last Admin: 03/14/17 08:45 Dose: 40 mg Cefepime HCl 2 gm/ Sodium (Chloride) 100 mls @ 100 mls/hr IVPB Q12 [facility] Last Admin: 03/14/17 08:44 Dose: 100 mls/hr Levothyroxine Sodium (Synthroid) 25 mcg PO DAILY@0630 [facility] Last Admin: 03/14/17 06:36 Dose: 25 mcg Spironolactone (Aldactone) 100 mg PO DAILY [facility] Last Admin: 03/14/17 08:45 Dose: 100 mg - Labs Labs: 03/14/17 06:15 03/14/17 04:00 PT 11.4 SECONDS (9.6-11.2) H 03/12/17 22:58 INR 1.10 (0.92-1.08) H 03/12/17 22:58 APTT 31.2 SECONDS (23.3-32.5) 03/12/17 22:58 - Constitutional Appears: No Acute Distress - Head Exam Head Exam: ATRAUMATIC, NORMOCEPHALIC - Eye Exam Eye Exam: Normal appearance. absent: Scleral icterus - Respiratory Exam Respiratory Exam: NORMAL BREATHING PATTERN - Cardiovascular Exam Cardiovascular Exam: +S1, +S2 - GI/Abdominal Exam GI & Abdominal Exam: Soft. absent: Distended, Tenderness - Neurological Exam Neurological Exam: Alert, Oriented x3 - Skin Skin Exam: Dry, Warm Assessment and Plan - Assessment and Plan (Free Text) Assessment: 56 year old female with h/o HCV cirrhosis (complicated by small esophageal varices, recurrent ascites) admitted with SBP. 1. SBP 2. Hepatitis C cirrhosis 3. Ascites Plan: - Continue antibiotics - recommend albumin 1mg/kg today D#3 of sbp therapy - Low sodium diet - Continue lasix/ aldactone - Will follow - will need lifelong sbp prophylaxis after completion of therapy for acute infection
[2017-03-15] MEDS: Levothyroxine 25 MCG TAB PO SCH (05:36)
[2017-03-15 07:32] VITALS: BP 114/74; PULSE 108; RESP 19; TEMP 98.4; O2SAT 95
[2017-03-15 07:55] LABS: HEMATOCRIT 37.9 % (34.0-47.0); MEAN CELL VOLUME 84.6 fl (81.0-99.0); MEAN CORPUSCULAR HEMOGLOBIN 28.7 pg (27.0-31.0); MEAN CORPUSCULAR HGB CONC 33.9 g/dL (33.0-37.0); RED CELL DISTRIBUTION WIDTH 12.4 % (11.5-14.5); WHITE BLOOD COUNT 6.3 K/uL (4.8-10.8)
[2017-03-15 08:05] LABS: ALB/GLOB RATIO 1.5 (1.0-2.1); ALKALINE PHOSPHATASE 46 U/L (38-126); ALT/SGPT 33 U/L (9-52); AST/SGOT 39 U/L (14-36); BILIRUBIN,TOTAL 0.8 mg/dl (0.2-1.3); BLOOD UREA NITROGEN 21 mg/dl (7-17); CALCIUM 9.2 mg/dL (8.4-10.2); CARBON DIOXIDE 28 mmol/L (22-30); CHLORIDE 97 mmol/L (98-107); GFR AFRICAN-AMERICAN > 60; GLUCOSE,RANDOM 107 mg/dL (65-105); POTASSIUM 3.9 MMOL/L (3.6-5.0); SODIUM 137 mmol/l (132-148); TOTAL PROTEIN 7.6 G/DL (6.3-8.2)
[2017-03-15 08:26] LABS: PARTIAL THROMBOPLASTIN TIME 33.1 SECONDS (23.3-32.5)
[2017-03-15] MEDS: Enoxaparin 40 mg Syringe SC SCH (08:38)
[2017-03-15] MEDS: Cefepime 2 GM in Sodium Chloride 0.9% 100 ML IVPB SCH (08:38)
--- NOTE | 2017-03-15 10:36 | CP.PCM.PN ---
Subjective - Date & Time of Evaluation Date of Evaluation: 03/15/17 Time of Evaluation: 09:00 - Subjective Subjective: Denies abdominal pain, nausea, vomiting, and fever. Alert, oriented. No fever. Tolerating low salt diet Objective - Vital Signs/Intake and Output Vital Signs (last 24 hours): Temp Pulse Resp BP Pulse Ox 98.4 F 108 H 19 114/74 95 03/15/17 07:31 03/15/17 07:31 03/15/17 07:31 03/15/17 08:37 03/15/17 07:31 - Medications Medications: Current Medications Albuterol Sulfate (Albuterol 0.083% Inhal Rosa (2.5 Mg/3 Ml) Ud) 2.5 mg INH RQ6 PRN PRN Reason: Shortness of Breath Enoxaparin Sodium (Lovenox) 40 mg SC DAILY [facility] PRN Reason: Protocol Last Admin: 03/15/17 08:38 Dose: 40 mg Furosemide (Lasix) 40 mg PO DAILY [facility] Last Admin: 03/15/17 08:37 Dose: 40 mg Cefepime HCl 2 gm/ Sodium (Chloride) 100 mls @ 100 mls/hr IVPB Q12 [facility] Last Admin: 03/15/17 08:38 Dose: 100 mls/hr Levothyroxine Sodium (Synthroid) 25 mcg PO DAILY@0630 [facility] Last Admin: 03/15/17 05:36 Dose: 25 mcg Spironolactone (Aldactone) 100 mg PO DAILY [facility] Last Admin: 03/15/17 08:37 Dose: 100 mg - Labs Labs: 03/15/17 07:20 03/15/17 07:20 PT 11.8 SECONDS (9.6-11.2) H 03/15/17 07:20 INR 1.13 (0.92-1.08) H 03/15/17 07:20 APTT 33.1 SECONDS (23.3-32.5) H 03/15/17 07:20 - Constitutional Appears: Well, Non-toxic, No Acute Distress, Cachectic - Head Exam Head Exam: ATRAUMATIC, NORMAL INSPECTION, NORMOCEPHALIC - Eye Exam Eye Exam: EOMI, Normal appearance, PERRL - Neck Exam Neck Exam: Full ROM, Normal Inspection. absent: Lymphadenopathy - Cardiovascular Exam Cardiovascular Exam: REGULAR RHYTHM, RRR, +S1, +S2. absent: Murmur - GI/Abdominal Exam GI & Abdominal Exam: Distended, Soft, Normal Bowel Sounds. absent: Tenderness - Extremities Exam Extremities Exam: Full ROM, Normal Capillary Refill, Normal Inspection. absent : Joint Swelling, Pedal Edema - Neurological Exam Neurological Exam: Alert, Awake, CN II-XII Intact, Normal Gait, Oriented x3 Assessment and Plan - Assessment and Plan (Free Text) Assessment: 56 year old female with h/o HCV cirrhosis (complicated by small esophageal varices, recurrent ascites) admitted with SBP. 1. SBP 2. Hepatitis C cirrhosis 3. Ascites Plan: - Continue antibiotics - tranistion to po to complete two week course - recieved albumin 1mg/kg for 72 hours - discontinue albumin - Low sodium diet - Continue lasix/ aldactone - Will follow in GI clinic with me in 2 weeks - will need lifelong sbp prophylaxis after completion of therapy for acute infection - Discussed with hospitalist- can be discharged to home
--- NOTE | 2017-03-15 14:36 | CP.PCM.DIS ---
Provider - Provider Date of Admission: 03/12/17 22:58 Attending physician: Ivelisse Ramon MD Time Spent in preparation of Discharge (in minutes): 30 Diagnosis - Discharge Diagnosis (1) Spontaneous bacterial peritonitis Status: Acute Priority: High Comment: Improved. Asymptomatic and afebrile. C/W antibiotics PO. F/U with GI in 2 weeks. (2) Hepatic cirrhosis due to chronic hepatitis C infection Status: Chronic Priority: High Comment: f/u with GI as outpatient (3) Ascites Status: Acute Priority: High (4) Hypothyroidism Status: Chronic Priority: Medium Comment: c/w with home medications. F/U with PMD. Hospital Course - Lab Results Lab Results: Most Recent Lab Values WBC 6.3 K/uL (4.8-10.8) 03/15/17 07:20 RBC 4.47 Mil/uL (3.80-5.20) 03/15/17 07:20 Hgb 12.8 g/dL (12.0-16.0) 03/15/17 07:20 Hct 37.9 % (34.0-47.0) 03/15/17 07:20 MCV 84.6 fl (81.0-99.0) 03/15/17 07:20 MCH 28.7 pg (27.0-31.0) 03/15/17 07:20 MCHC 33.9 g/dL (33.0-37.0) 03/15/17 07:20 RDW 12.4 % (11.5-14.5) 03/15/17 07:20 Plt Count 172 K/uL (130-400) 03/15/17 07:20 MPV 8.7 fl (7.2-11.7) 03/12/17 22:58 Neut % (Auto) 67.2 % (50.0-75.0) 03/12/17 22:58 Lymph % (Auto) 22.6 % (20.0-40.0) 03/12/17 22:58 [place] % (Auto) 8.8 % (0.0-10.0) 03/12/17 22:58 Eos % (Auto) 1.0 % (0.0-4.0) 03/12/17 22:58 Baso % (Auto) 0.4 % (0.0-2.0) 03/12/17 22:58 Neut # 6.4 K/uL (1.8-7.0) 03/12/17 22:58 Lymph # 2.2 K/uL (1.0-4.3) 03/12/17 22:58 [place] # 0.8 K/uL (0.0-0.8) 03/12/17 22:58 Eos # 0.1 K/uL (0.0-0.7) 03/12/17 22:58 Baso # 0.0 K/uL (0.0-0.2) 03/12/17 22:58 PT 11.8 SECONDS (9.6-11.2) H 03/15/17 07:20 INR 1.13 (0.92-1.08) H 03/15/17 07:20 APTT 33.1 SECONDS (23.3-32.5) H 03/15/17 07:20 Sodium 137 mmol/l (132-148) 03/15/17 07:20 Potassium 3.9 MMOL/L (3.6-5.0) 03/15/17 07:20 Chloride 97 mmol/L (98-107) L 03/15/17 07:20 Carbon Dioxide 28 mmol/L (22-30) 03/15/17 07:20 Anion Gap 16 (10-20) 03/15/17 07:20 BUN 21 mg/dl (7-17) H 03/15/17 07:20 Creatinine 0.7 mg/dL (0.7-1.2) 03/15/17 07:20 Est GFR ( Amer) > 60 03/15/17 07:20 Est GFR (Non-Af Amer) > 60 03/15/17 07:20 Random Glucose 107 mg/dL (65-105) H 03/15/17 07:20 Lactic Acid 1.3 MMOL/L (0.7-2.1) 03/12/17 22:58 Calcium 9.2 mg/dL (8.4-10.2) 03/15/17 07:20 Total Bilirubin 0.8 mg/dl (0.2-1.3) 03/15/17 07:20 AST 39 U/L (14-36) H D 03/15/17 07:20 ALT 33 U/L (9-52) 03/15/17 07:20 Alkaline Phosphatase 46 U/L (38-126) 03/15/17 07:20 Ammonia < 9 umo/L (11-51) L 03/12/17 22:58 Total Protein 7.6 G/DL (6.3-8.2) 03/15/17 07:20 Albumin 4.5 g/dL (3.5-5.0) 03/15/17 07:20 Globulin 3.1 gm/dL (2.2-3.9) 03/15/17 07:20 Albumin/Globulin Ratio 1.5 (1.0-2.1) 03/15/17 07:20 - Hospital Course Hospital Course: 56 yo F with PMHx HepC with associated Cirrhosis s/p paracentesis, asthma, and hypothyroidism, who was re-admitted for treatment for SBP and albumin replacement. During admission patient was afebrile, vital sign stable, and with significant improvement of clinical status. Patient was managed with Cefepime IV , Furosemide, and Spirinolactone. GI was consulted, Dr. Ospina, and recommendations for SBP treatment and prophylaxis were follow up. Patient was seen and examined this morning at bedside, asymptomatic, denying pain, N/V, chills, or other complains. Patient is stable to be discharged home in PO antibiotics and diuretics. Patient will follow up with PMD, Dr. Sales, and GI f/ u in 2 weeks for evaluation and possible SBP prophylaxis. Home medications: Bactrim DS 1 tab daily for 14 days Furosemide 40 mg daily PO Spironolactone 100 mg daily PO Synthroid 25 mcg daily PO - Date & Time of H&P Date of H&P: 03/12/17 Time of H&P: 23:15 Discharge Exam - Head Exam Head Exam: ATRAUMATIC, NORMAL INSPECTION, NORMOCEPHALIC - Additional Findings Additional findings: Constitutional Appears: Non-toxic, No Acute Distress - Eye Exam Eye Exam: Normal appearance. absent: Scleral icterus - ENT Exam ENT Exam: Mucous Membranes Moist - Respiratory Exam Respiratory Exam: Clear to Ausculation Bilateral, NORMAL BREATHING PATTERN - Cardiovascular Exam Cardiovascular Exam: RRR, +S1, +S2 - GI/Abdominal Exam GI & Abdominal Exam: Distended, Soft, Diminished Bowel Sounds. absent: Guarding , Rigid, Tenderness, Rebound Additional comments: Noted fluid wave, but improved - Extremities Exam Extremities Exam: Normal Inspection. absent: Calf Tenderness, Pedal Edema - Neurological Exam Neurological Exam: Alert, Awake, Oriented x3 - Psychiatric Exam Psychiatric exam: Normal Affect, Normal Mood - Skin Skin Exam: Dry, Intact, Normal Color Discharge Plan - Follow Up Plan Condition: GOOD Disposition: HOME/ ROUTINE Instructions: Ascites (DC) Additional Instructions: F/U in [address]Sandu EDDI F/U in 2 weeks with Gi, Dr. Ospina ER precautions given
--- NOTE | 2017-03-16 19:13 | CARD ---
APPROVED REPORT EKG Measurement Heart [id number] <Conclusion> Normal sinus rhythm Normal ECG
== END 2017-03-15 14:05 | disposition home or self-care (01) | DRG 895 ==
LOC: H.ER 22:07 → H.ERHOLD 22:58 → H.MEDSURG1 03-13 00:49
PROVIDERS: ADMIT Family Medicine Geriatric Medicine; ATTEND Family Medicine Geriatric Medicine
DX: K65.2 Spontaneous bacterial peritonitis (principal); I85.10 Secondary esophageal varices without bleeding; R18.8 Other ascites; K74.60 Unspecified cirrhosis of liver; B18.2 Chronic viral hepatitis C; E03.9 Hypothyroidism, unspecified; J45.909 Unspecified asthma, uncomplicated; J45.20 Mild intermittent asthma, uncomplicated; E88.09 Other disorders of plasma-protein metabolism, not elsewhere classified

== ENCOUNTER 2017-05-08 11:11 | Observation (INO) | payer SELFPAY ==
--- NOTE | 2017-05-08 11:40 | ED PDOC ---
HPI: General Adult Time Seen by Provider: 05/08/17 11:18 Chief Complaint (Nursing): GI Problem Chief Complaint (Provider): abdominal fluid History Per: Family (son ) History/Exam Limitations: no limitations Onset/Duration Of Symptoms: Gradual Additional History Per: Patient Additional Complaint(s): Dilma Blake is a 56 year old female, with a previous medical history of asthma and hepatitis, who was sent to the ED by her GI specialist to undergo her colonoscopy. GI Dr. Ospina could not perform the procedure due to ascites. Patient denies any chest pain, shortness of breath, abdominal pain or leg pain. No weakness, dizziness. Worsening ascites for some time. PMD: [facility] GI specialist: Dr. Ospina Past Medical History Reviewed: Historical Data, Nursing Documentation, Vital Signs Vital Signs: Last Vital Signs Temp 98.2 F 05/08/17 11:23 Pulse 79 05/08/17 11:23 Resp 18 05/08/17 11:23 BP 141/100 H 05/08/17 11:23 Pulse Ox 100 05/08/17 11:51 - Medical History PMH: Asthma, Hyperthyroidism, Hypothyroidism Denies: HIV, Chronic Kidney Disease - Family History Family History: States: Unknown Family Hx - Living Arrangements Living Arrangements: With Family - Social History Alcohol: None Drugs: Denies - Home Medications Home Medications: Ambulatory Orders Medication Instructions Recorded Levothyroxine [Synthroid] 25 mcg PO DAILY 03/09/17 Furosemide [Lasix] 40 mg PO DAILY 05/08/17 Spironolactone [Aldactone] 100 mg PO DAILY 05/08/17 Sulfamethoxazole/Trimethoprim 1 tab PO DAILY 05/08/17 [Bactrim DS Tab] - Allergies Allergies/Adverse Reactions: Allergies Allergy/AdvReac Type Severity Reaction Status Date / Time No Known Allergies Allergy Verified 05/08/17 10:32 Review of Systems ROS Statement: Except As Marked, All Systems Reviewed And Found Negative Cardiovascular: Negative for: Chest Pain Respiratory: Negative for: Shortness of Breath Gastrointestinal: Negative for: Nausea, Vomiting, Abdominal Pain, Diarrhea Musculoskeletal: Negative for: Leg Pain Neurological: Negative for: Headache Physical Exam - Reviewed Nursing Documentation Reviewed: Yes Vital Signs Reviewed: Yes - Physical Exam Appears: Positive for: Non-toxic, No Acute Distress Head Exam: Positive for: ATRAUMATIC, NORMAL INSPECTION, NORMOCEPHALIC Skin: Positive for: Normal Color, Warm, Dry Eye Exam: Positive for: EOMI, Normal appearance, PERRL ENT: Positive for: Normal ENT Inspection Neck: Positive for: Normal, Painless ROM Cardiovascular/Chest: Positive for: Regular Rate, Rhythm Respiratory: Positive for: CNT, Normal Breath Sounds Gastrointestinal/Abdominal: Positive for: Soft, Distended (ascites). Negative for: Tenderness Back: Positive for: Normal Inspection. Negative for: L CVA Tenderness, R CVA Tenderness Extremity: Positive for: Normal ROM. Negative for: Tenderness, Pedal Edema Neurologic/Psych: Positive for: Alert, Oriented - Laboratory Results Result Diagrams: 05/08/17 11:30 05/08/17 11:30 Interpretation Of Abn Labs: no acute - ECG ECG: Positive for: Interpreted By Me, Viewed By Me ECG Rhythm: Positive for: Normal QRS, Normal ST Segment, Sinus Rhythm O2 Sat by Pulse Oximetry: 100 (RA) Pulse Ox Interpretation: Normal - Progress ED Course And Treament: 1233: Stable. AAOx3. Pain free. Worsening ascites. Will admit to [facility] and will admit. Medical Decision Making Medical Decision Making: Initial Plan: * EKG * labs * Troponin I * PTT * PT * IV NS 500 ml at 100 ml/hr * reevaluation 11:[address] Ospina who wants patient to get an IR tube, tap of her ascites and admission under family practice for further evaluation. Scribe Attestation: Documented by Azeb Soliman, acting as a scribe for Artur Gamez MD Provider Scribe Attestation: All medical record entries made by the Scribe were at my direction and personally dictated by me. I have reviewed the chart and agree that the record accurately reflects my personal performance of the history, physical exam, medical decision making, and the department course for this patient. I have also personally directed, reviewed, and agree with the discharge instructions and disposition. Disposition - Clinical Impression Clinical Impression: Ascites - Patient ED Disposition Is Patient to be Admitted: Yes Counseled Patient/Family Regarding: Studies Performed, Diagnosis - Disposition Disposition Time: 12:00 Condition: FAIR - Pt Status Changed To: Hospital Disposition Of: Observation - POA Present On Arrival: None
[2017-05-08] MEDS ORDERED: Sodium Chloride 0.9% 500 ML IV STA (11:42)
[2017-05-08 11:54] LABS: BASO % 0.8 % (0.0-2.0); EOS # 0.2 K/uL (0.0-0.7); HEMOGLOBIN 12.7 g/dL (12.0-16.0); LYMPH # 1.2 K/uL (1.0-4.3); LYMPH % 24.1 % (20.0-40.0); MEAN CORPUSCULAR HEMOGLOBIN 28.3 pg (27.0-31.0); MEAN CORPUSCULAR HGB CONC 32.9 g/dL (33.0-37.0); MEAN PLATELET VOLUME 8.5 fl (7.2-11.7); MONO # 0.5 K/uL (0.0-0.8); MONO % 10.6 % (0.0-10.0); NEUT # 2.9 K/uL (1.8-7.0); NEUT % 60.5 % (50.0-75.0); NRBC % 0.2 % (0.0-0.0); RBC 4.48 Mil/uL (3.80-5.20); RED CELL DISTRIBUTION WIDTH 14.7 % (11.5-14.5); WHITE BLOOD COUNT 4.8 K/uL (4.8-10.8)
[2017-05-08 12:02] LABS: ALB/GLOB RATIO 0.9 (1.0-2.1); ALBUMIN 3.7 g/dL (3.5-5.0); ALT/SGPT 43 U/L (9-52); AST/SGOT 37 U/L (14-36); BLOOD UREA NITROGEN 19 mg/dl (7-17); CALCIUM 8.7 mg/dL (8.4-10.2); GFR AFRICAN-AMERICAN > 60; GFR NON-AFRICAN AMERICAN > 60
[2017-05-08 12:10] LABS: INR 1.2 (0.9-1.2); PARTIAL THROMBOPLASTIN TIME 37.3 Seconds (25.6-37.1)
--- NOTE | 2017-05-08 16:00 | CP.PCM.HP ---
History of Present Illness - History of Present Illness History of Present Illness: Patient is a 56 yo F with PMH chronic hepatitis C, hypothyroidism, esophageal varices, ascites, SPB, asthma, delayed colonic transit presented today to the hospital to get a colonoscopy done by Dr. Ospina. Patient was found to have ascites, and colonoscopy could not be performed; as per Dr. Ospina's instructions, pt was admitted to inpatient service in order to get paracentesis done today, with colonoscopy rescheduled for tomorrow. Pt had paracentesis performed in January 2017, and her abdomen has not been distended until 2-3 days ago. Present on Admission - Present on Admission Any Indicators Present on Admission: No Review of Systems - Review of Systems All systems: reviewed and no additional remarkable complaints except - Gastrointestinal Gastrointestinal: Bloating Past Patient History - Past Medical History & Family History Past Medical History?: Yes Past Family History: Reviewed and not pertinent - Past Social History Alcohol: None Drugs: Denies Home Situation {Lives}: With Family - CARDIAC Hx Cardiac Disorders: No - PULMONARY Hx Respiratory Disorders: Yes (asthma) - NEUROLOGICAL Hx Neurological Disorder: No - HEENT Hx HEENT Problems: No - RENAL Hx Chronic Kidney Disease: No - ENDOCRINE/METABOLIC Hx Hyperthyroidism: Yes Hx Hypothyroidism: Yes - HEMATOLOGICAL/ONCOLOGICAL Hx Blood Disorders: Yes (hepatitis) Hx Hepatitis C: Yes - INTEGUMENTARY Hx Dermatological Problems: No - MUSCULOSKELETAL/RHEUMATOLOGICAL Hx Falls: No - GASTROINTESTINAL Hx Gastrointestinal Disorders: No Other/Comment: ascites - GENITOURINARY/GYNECOLOGICAL Hx Genitourinary Disorders: No - PSYCHIATRIC Hx Psychophysiologic Disorder: No Hx Substance Use: No - SURGICAL HISTORY Hx Surgeries: No - ANESTHESIA Hx Anesthesia: No (unknown) Meds Allergies/Adverse Reactions: Allergies Allergy/AdvReac Type Severity Reaction Status Date / Time No Known Allergies Allergy Verified 05/08/17 10:32 Physical Exam - Constitutional Appears: No Acute Distress - Head Exam Head Exam: ATRAUMATIC - Eye Exam Eye Exam: EOMI, Normal appearance - ENT Exam ENT Exam: Mucous Membranes Moist - Neck Exam Neck exam: Positive for: Normal Inspection - Respiratory Exam Respiratory Exam: Clear to Auscultation Bilateral, NORMAL BREATHING PATTERN. absent: Respiratory Distress - Cardiovascular Exam Cardiovascular Exam: REGULAR RHYTHM, +S1, +S2 - GI/Abdominal Exam GI & Abdominal Exam: Distended, Normal Bowel Sounds Additional comments: shifting dullness - Rectal Exam Rectal Exam: Deferred - Extremities Exam Extremities exam: Positive for: normal capillary refill, normal inspection, pedal pulses present. Negative for: calf tenderness, joint swelling, pedal edema, tenderness - Neurological Exam Neurological exam: Alert, Oriented x3 - Skin Skin Exam: Dry, Intact, Normal Color, Warm Results - Vital Signs Recent Vital Signs: Last Vital Signs Temp 98.2 F 05/08/17 12:36 Pulse 82 05/08/17 13:06 Resp 18 05/08/17 12:36 BP 110/73 05/08/17 13:06 Pulse Ox 100 05/08/17 12:34 - Labs Result Diagrams: 05/08/17 11:30 05/08/17 11:30 Labs: Laboratory Results - last 24 hr 05/08/17 05/08/17 05/08/17 11:30 11:30 11:30 WBC 4.8 RBC 4.48 Hgb 12.7 Hct 38.5 MCV 86.0 MCH 28.3 MCHC 32.9 L RDW 14.7 H Plt Count 181 MPV 8.5 Neut % (Auto) 60.5 Lymph % (Auto) 24.1 [place] % (Auto) 10.6 H Eos % (Auto) 4.0 Baso % (Auto) 0.8 Neut # 2.9 Lymph # 1.2 [place] # 0.5 Eos # 0.2 Baso # 0.0 PT 13.0 INR 1.2 APTT 37.3 H Sodium 134 Potassium 3.9 Chloride 100 Carbon Dioxide 25 Anion Gap 13 BUN 19 H Creatinine 0.7 Est GFR ( Amer) > 60 Est GFR (Non-Af Amer) > 60 Random Glucose 105 Calcium 8.7 Total Bilirubin 0.7 AST 37 H ALT 43 Alkaline Phosphatase 76 Troponin I < 0.0120 Total Protein 7.7 Albumin 3.7 Globulin 4.0 H Albumin/Globulin Ratio 0.9 L Assessment & Plan - Assessment and Plan (Free Text) Assessment: 56 yo F with PMH hep c, ascites, esophageal varices, SBP, hypothyroidism, asthma admitted to inpatient to undergo paracentesis today and colonoscopy tomorrow Plan: 1) Ascites due to cirrhosis from underlying Hepatitis C, with esophageal varices and SBP -IR consult for paracentesis -NPO -continue with medication -INR 1.2, PT: 13.0, PTT: 37.3 -following up with primary care physician and GI physician for management of Hep C -IV hydration NS @ 80mL/hr 2) Colon Cancer Screening -plan for colonoscopy after paracentesis -consult placed GI: Dr. Ospina 3)Hypothyroidism -continue Levothyroxine 25mcg 4) Mild Intermittent Asthma -controlled -Duonebs Q6H PRN 5) DVT prophylaxis -SCD
[2017-05-08] MEDS: Sodium Chloride 0.9% 1,000 ML IV SCH (16:11)
[2017-05-09] MEDS: Sodium Chloride 0.9% 1,000 ML IV SCH (05:07)
[2017-05-09] MEDS ORDERED: Levothyroxine 25 MCG TAB PO SCH (06:45)
[2017-05-09] MEDS: Tmp-Smz 800 mg-160 mg DS Tab PO SCH ×2 (08:16→09:09)
--- NOTE | 2017-05-09 11:14 | CP.PCM.CON ---
<Jose Stafford - Last Filed: 05/09/17 11:15> History of Present Illness - History of Present Illness History of Present Illness: PGY5 GI Fellow Kali Note Patient is a 56yo Divehi speaking female with PMHx significant for decompensated HCV cirrhosis [Treatment naive, GT 3, Viral load (02/10/17) 1,378,544] with prior episodes of ascites/SBP and known small esophageal varices, who was referred to the ED by our service for worsening abdominal distention and suspicion of recurrent ascites. The patient's son is at bedside to assist with translation and HPI. The patient was scheduled for routine colonoscopy yesterday and upon arrival was noted to have significant abdominal distention and given her history, suspicion for recurrent large volume ascites; patient was therefore sent to the ED without undergoing procedure. She admits to compliance with all her medications (Lasix 40mg PO QD, Sprionolactone 100mg PO QD and prophylactic Bactrim daily) as well as a low sodium diet. Denies any recent illnesses. Currently, she has abdominal pain in the upper quadrants and admits to constipation but denies any fever, chills, SOB. The patient does have a history of SBP. PMHx: See HPI PSHx: Denies FHx: Discussed with patient and denies any significant family history Social: Denies EtOH, tobacco or illicit drug use Endo: EGD - 02/13/17 - Small esophageal varices noted ROS: A comprehensive review of systems was performed and was negative except per HPI Past Patient History - Past Medical History & Family History Past Medical History?: Yes Past Family History: Reviewed and not pertinent - Past Social History Alcohol: None Drugs: Denies Home Situation {Lives}: With Family - CARDIAC Hx Cardiac Disorders: No - PULMONARY Hx Respiratory Disorders: Yes (asthma) - NEUROLOGICAL Hx Neurological Disorder: No - HEENT Hx HEENT Problems: No - RENAL Hx Chronic Kidney Disease: No - ENDOCRINE/METABOLIC Hx Hyperthyroidism: Yes Hx Hypothyroidism: Yes - HEMATOLOGICAL/ONCOLOGICAL Hx Blood Disorders: Yes (hepatitis) Hx Hepatitis C: Yes - INTEGUMENTARY Hx Dermatological Problems: No - MUSCULOSKELETAL/RHEUMATOLOGICAL Hx Falls: No - GASTROINTESTINAL Hx Gastrointestinal Disorders: No Other/Comment: ascites - GENITOURINARY/GYNECOLOGICAL Hx Genitourinary Disorders: No - PSYCHIATRIC Hx Psychophysiologic Disorder: No Hx Substance Use: No - SURGICAL HISTORY Hx Surgeries: No - ANESTHESIA Hx Anesthesia: No (unknown) Meds Allergies/Adverse Reactions: Allergies Allergy/AdvReac Type Severity Reaction Status Date / Time No Known Allergies Allergy Verified 05/08/17 10:32 - Medications Medications: Current Medications Furosemide (Lasix) 40 mg PO DAILY [facility] Last Admin: 05/09/17 09:09 Dose: 40 mg Sodium Chloride (Sodium Chloride 0.9%) 1,000 mls @ 80 mls/hr IV .[id number] [facility] Stop: 05/09/17 15:39 Last Admin: 05/09/17 05:07 Dose: 80 mls/hr Levothyroxine Sodium (Synthroid) 25 mcg PO DAILY@0630 [facility] Last Admin: 05/09/17 06:56 Dose: 25 mcg Spironolactone (Aldactone) 100 mg PO DAILY [facility] Last Admin: 05/09/17 09:09 Dose: 100 mg Trimethoprim/Sulfamethoxazole (Bactrim Ds Tab) 1 tab PO DAILY [facility] Last Admin: 05/09/17 09:09 Dose: 1 tab Physical Exam - Constitutional Appears: No Acute Distress, Chronically Ill - Eye Exam Eye Exam: EOMI, PERRL - ENT Exam ENT Exam: Mucous Membranes Dry - Respiratory Exam Respiratory Exam: Clear to Auscultation Bilateral. absent: Rales, Rhonchi, Wheezes - Cardiovascular Exam Cardiovascular Exam: RRR, +S1, +S2 - GI/Abdominal Exam GI & Abdominal Exam: Distended, Normal Bowel Sounds, Soft, Tenderness. absent: Firm, Guarding, Organomegaly, Rigid - Extremities Exam Extremities exam: Positive for: normal inspection. Negative for: pedal edema - Neurological Exam Neurological exam: Alert, Oriented x3 - Psychiatric Exam Psychiatric exam: Normal Affect, Normal Mood - Skin Skin Exam: Dry, Warm Results - Vital Signs Recent Vital Signs: Last Vital Signs Temp 98.1 F 05/09/17 08:19 Pulse 80 05/09/17 08:19 Resp 18 05/09/17 08:19 BP 122/76 05/09/17 09:09 Pulse Ox 97 05/09/17 08:19 - Labs Result Diagrams: 05/08/17 11:30 05/08/17 11:30 Assessment & Plan - Assessment and Plan (Free Text) Assessment: Patient is a 56yo Divehi speaking female with PMHx significant for decompensated HCV cirrhosis [Treatment naive, GT 3, Viral load (02/10/17) 1,378,544] with prior episodes of ascites/SBP and known small esophageal varices, who was referred to the ED by our service for worsening abdominal distention and suspicion of recurrent ascites. -Recurrent abdominal ascites, R/O SBP -Decompensated cirrhosis 2/2 chronic HCV infection -HCV infection, treatment naive -H/O SBP -Constipation Plan: -Recommend diagnostic and therapeutic paracentesis -Please send ascitic fluid for analysis: Cell count, culture R/O SBP -If >5L removed during paracentesis; replace albumin at 8g/L removed above 5L -If fluid + for SBP, recommend albumin protocol on D1 and D3 following paracentesis and antibiotics -Pt to continue daily prophylactic Bactrim as ordered -Continue Lasix/Aldactone 40/100mg PO QD - will likely benefit from increase in dosage to 80/200mg - kidney function stable -Miralax 17g PO QD, titrate to one BM/day -Plan per findings - Date & Time Date: 05/09/17 Time: 10:15 <Mary Kate Ospina MD - Last Filed: 05/09/17 13:00> Meds - Medications Medications: Current Medications Furosemide (Lasix) 40 mg PO DAILY [facility] Last Admin: 05/09/17 09:09 Dose: 40 mg Sodium Chloride (Sodium Chloride 0.9%) 1,000 mls @ 80 mls/hr IV .[id number] [facility] Stop: 05/09/17 15:39 Last Admin: 05/09/17 05:07 Dose: 80 mls/hr Levothyroxine Sodium (Synthroid) 25 mcg PO DAILY@0630 [facility] Last Admin: 05/09/17 06:56 Dose: 25 mcg Polyethylene Glycol (Miralax) 17 gm PO DAILY [facility] Spironolactone (Aldactone) 100 mg PO DAILY [facility] Last Admin: 05/09/17 09:09 Dose: 100 mg Trimethoprim/Sulfamethoxazole (Bactrim Ds Tab) 1 tab PO DAILY [facility] Last Admin: 05/09/17 09:09 Dose: 1 tab Results - Vital Signs Recent Vital Signs: Last Vital Signs Temp 97.6 F 05/09/17 12:31 Pulse 70 05/09/17 12:31 Resp 18 05/09/17 12:31 BP 121/83 05/09/17 12:31 Pulse Ox 97 05/09/17 12:31 - Labs Result Diagrams: 05/08/17 11:30 05/08/17 11:30 Attending/Attestation - Attestation I have personally seen and examined this patient.: Yes I have fully participated in the care of the patient.: Yes I have reviewed all pertinent clinical information: Yes Notes (Text): 05/09/17 12:56 Patient seen with GI fellow on rounds this am. This is a 56 yr old palauan F with HCV GT 3 treatment naive with end stage liver disease decompensated in setting of LE edema, ascites on diuretics, hyponatremia and SBP. She was seen in clinic last month and was given outpatient colonoscopy date for which she arrived yesterday without drinking the prep. She was admitted for SOB with large ascites for diagnostic and therapeutic tap. Current MELD- 13. Will send cytology, culture on ascitic fluid and increase diuretics. Low sodium diet as tolerated. Patient has appointment to see me in the clinic on May 14.
[2017-05-09] MEDS ORDERED: POLYETHYLENE GLYCOL 3350 17 GM/Dose PACKET PO SCH (11:30)
[2017-05-09] MEDS ORDERED: Lidocaine 1% Inj (20ml) ONE (14:25)
[2017-05-09 14:53] LABS: BODY FLUID TYPE PERITONEAL/ASCITES
--- NOTE | 2017-05-09 15:38 | PCM.SURG1 ---
Surgeon's Initial Post Op Note - Surgeon's Notes Surgeon: Jr Arango MD [employer] Technician: None Type of Anesthesia: Local Pre-Operative Diagnosis: Ascites, cirrhosis Operative Findings: US showed a large amount of ascites Post-Operative Diagnosis: Ascites, cirrhosis Operation Performed: US guided paracentesis. Specimen/Specimens Removed: 6 liters of straw colored fluid Estimated Blood Loss: EBL {In ML}: 0 Blood Products Given: N/A Drains Used: No Drains Post-Op Condition: Fair Date of Surgery/Procedure: 05/09/17 Time of Surgery/Procedure: 15:35
[2017-05-09 16:06] VITALS: O2SAT 98
[2017-05-09] MEDS ORDERED: Albumin Human 25% (12.5 gm/50 ml) IV ONE (16:30)
--- NOTE | 2017-05-09 16:38 | US ---
Date of Procedure: 05/09/2017 PROCEDURE: Ultrasound-guided paracentesis, CPT 92607 Medications: 7 cc 1% Lidocaine HISTORY: Ascites, abdominal pain, cirrhosis TECHNIQUE: Following informed consent , the patient was placed supine on the stretcher and the site was marked. A limited abdominal ultrasound was performed that showed a large amount of intra-abdominal fluid. Procedural time out was called and the Pt's abdomen was marked and prepped and draped in the usual sterile fashion. Ultrasound-guided large volume paracentesis performed. A total of 6 liters of straw colored fluid was removed without complication. Fluid specimen was sent for culture, sensitivity, cytology and chemistries. IMPRESSION: Ultrasound-guided large volume paracentesis.
[2017-05-09 16:55] LABS: BF GROSS APPEARANCE SL CLOUDY (CLEAR)
[2017-05-09 17:29] LABS: BODY FLUID MONO/MACROPHAGE 33 % (0-0); BODY FLUID TOTAL COUNT 100 (0-0)
--- NOTE | 2017-05-09 17:40 | CP.PCM.DIS ---
Provider - Provider Date of Admission: 05/08/17 15:29 Attending physician: Ivelisse Ramon MD Primary care physician: Dr. Tomas Time Spent in preparation of Discharge (in minutes): 30 Diagnosis - Discharge Diagnosis (1) Ascites Status: Chronic Hospital Course - Lab Results Lab Results: Most Recent Lab Values WBC 4.8 K/uL (4.8-10.8) 05/08/17 11:30 RBC 4.48 Mil/uL (3.80-5.20) 05/08/17 11:30 Hgb 12.7 g/dL (12.0-16.0) 05/08/17 11:30 Hct 38.5 % (34.0-47.0) 05/08/17 11:30 MCV 86.0 fl (81.0-99.0) 05/08/17 11:30 MCH 28.3 pg (27.0-31.0) 05/08/17 11:30 MCHC 32.9 g/dL (33.0-37.0) L 05/08/17 11:30 RDW 14.7 % (11.5-14.5) H 05/08/17 11:30 Plt Count 181 K/uL (130-400) 05/08/17 11:30 MPV 8.5 fl (7.2-11.7) 05/08/17 11:30 Neut % (Auto) 60.5 % (50.0-75.0) 05/08/17 11:30 Lymph % (Auto) 24.1 % (20.0-40.0) 05/08/17 11:30 Weber % (Auto) 10.6 % (0.0-10.0) H 05/08/17 11:30 Eos % (Auto) 4.0 % (0.0-4.0) 05/08/17 11:30 Baso % (Auto) 0.8 % (0.0-2.0) 05/08/17 11:30 Neut # 2.9 K/uL (1.8-7.0) 05/08/17 11:30 Lymph # 1.2 K/uL (1.0-4.3) 05/08/17 11:30 Weber # 0.5 K/uL (0.0-0.8) 05/08/17 11:30 Eos # 0.2 K/uL (0.0-0.7) 05/08/17 11:30 Baso # 0.0 K/uL (0.0-0.2) 05/08/17 11:30 PT 13.0 Seconds (9.8-13.1) 05/08/17 11:30 INR 1.2 (0.9-1.2) 05/08/17 11:30 APTT 37.3 Seconds (25.6-37.1) H 05/08/17 11:30 Sodium 134 mmol/l (132-148) 05/08/17 11:30 Potassium 3.9 MMOL/L (3.6-5.0) 05/08/17 11:30 Chloride 100 mmol/L (98-107) 05/08/17 11:30 Carbon Dioxide 25 mmol/L (22-30) 05/08/17 11:30 Anion Gap 13 (10-20) 05/08/17 11:30 BUN 19 mg/dl (7-17) H 05/08/17 11:30 Creatinine 0.7 mg/dL (0.7-1.2) 05/08/17 11:30 Est GFR ( Amer) > 60 05/08/17 11:30 Est GFR (Non-Af Amer) > 60 05/08/17 11:30 Random Glucose 105 mg/dL (65-105) 05/08/17 11:30 Calcium 8.7 mg/dL (8.4-10.2) 05/08/17 11:30 Total Bilirubin 0.7 mg/dl (0.2-1.3) 05/08/17 11:30 AST 37 U/L (14-36) H 05/08/17 11:30 ALT 43 U/L (9-52) 05/08/17 11:30 Alkaline Phosphatase 76 U/L (38-126) 05/08/17 11:30 Troponin I < 0.0120 ng/mL (0.00-0.120) 05/08/17 11:30 Total Protein 7.7 G/DL (6.3-8.2) 05/08/17 11:30 Albumin 3.7 g/dL (3.5-5.0) 05/08/17 11:30 Globulin 4.0 gm/dL (2.2-3.9) H 05/08/17 11:30 Albumin/Globulin Ratio 0.9 (1.0-2.1) L 05/08/17 11:30 Fluid Source Peritoneal/ascites 05/09/17 14:30 Fluid Appearance Sl cloudy (CLEAR) 05/09/17 14:30 Fluid WBC 444.0 /mm3 (0.0-300.0) H 05/09/17 14:30 Fluid RBC 440.0 /mm3 (0.0-0.0) H 05/09/17 14:30 Fluid Tot Cell Count 100 (0-0) H 05/09/17 14:30 Fluid Neutrophils 19.0 % (0-0) H 05/09/17 14:30 Fluid Lymphocytes 48.0 % (0-0) H 05/09/17 14:30 Fld Monocyte/Macrophag 33 % (0-0) H 05/09/17 14:30 Fluid Comment Yellowish 05/09/17 14:30 - Hospital Course Hospital Course: Pt presented yesterday to get colonoscopy, but was found to have ascites and was referred to ED, after which pt was admitted to inpatient service. Patient had paracentesis performed today, with 6L of fluid removed, and as per GI instructions, 8g albumin ordered to be given prior to discharge. Discharge Exam - Head Exam Head Exam: ATRAUMATIC - Eye Exam Eye Exam: EOMI, Normal appearance, PERRL - ENT Exam ENT Exam: Mucous Membranes Moist - Respiratory Exam Respiratory Exam: Clear to PA & Lateral, NORMAL BREATHING PATTERN - Cardiovascular Exam Cardiovascular Exam: REGULAR RHYTHM, +S1, +S2 - GI/Abdominal Exam GI & Abdominal Exam: Normal Bowel Sounds. absent: Distended - Extremities Exam Extremities exam: normal capillary refill, normal inspection - Back Exam Back exam: NORMAL INSPECTION - Neurological Exam Neurological exam: Alert, CN II-XII Intact, Oriented x3 - Psychiatric Exam Psychiatric exam: Normal Mood - Skin Skin Exam: Dry, Intact, Normal Color, Warm Discharge Plan - Follow Up Plan Condition: FAIR Disposition: HOME/ ROUTINE Instructions: Ascites (DC) Additional Instructions: Please make sure you go appointment with Dr. Ospina on SundayMay 14. Please continue to take home medications as prescribed. Referrals: Bhavesh LEA,MD Mary Kate [Medical Doctor] -
[2017-05-09 19:28] VITALS: BP 108/72; PULSE 80; RESP 18; TEMP 97.9
== END 2017-05-09 20:10 | disposition home or self-care (01) ==
LOC: CANPREER → H.ER 11:11 → H.ERHOLD 15:29 → INTOOBSV 15:29 → H.TEL 16:36
PROVIDERS: ADMIT Family Medicine Geriatric Medicine; ATTEND Family Medicine Geriatric Medicine
DX: K71.51 Toxic liver disease with chronic active hepatitis with ascites (principal); E03.9 Hypothyroidism, unspecified; B18.2 Chronic viral hepatitis C; E87.1 Hypo-osmolality and hyponatremia; K72.90 Hepatic failure, unspecified without coma; I85.00 Esophageal varices without bleeding; J45.909 Unspecified asthma, uncomplicated; K59.00 Constipation, unspecified; K74.60 Unspecified cirrhosis of liver

== ENCOUNTER 2017-05-18 06:35 | Inpatient (IN) | payer SELFPAY ==
--- NOTE | 2017-05-18 07:24 | ED PDOC ---
HPI: Abdomen Time Seen by Provider: 05/18/17 06:58 Chief Complaint (Nursing): Abdominal Pain Chief Complaint (Provider): Abdominal Pain History Per: Patient History/Exam Limitations: no limitations Onset/Duration Of Symptoms: Days Current Symptoms Are (Timing): Still Present Additional Complaint(s): Pt is a 53 y/o female with a past medical history of ascites, liver disease ( hepatitis C), s/p paracentesis earlier this month who presents to the emergency department with a complaint of diffuse abdominal pain, loss of sleep, eating poorly, generalized weakness, and no bowel movement x4 days. Associated with vomiting since this morning. As per history from son, patient has been taking lactulose without improvement of symptoms. Pt w/ poor PO intact. Patient underwent paracentesis surgical procedure for ascites treatment about 1 week ago. Denies any further medical complaint at this time. Of note, patient has an appointment today at 9:30 am to review over laboratory work up with our [facility] but is unable to make it because of current hospital visit. PMD: Dr. Bhavesh Hartmann MD Past Medical History Reviewed: Historical Data, Nursing Documentation, Vital Signs Vital Signs: Last Vital Signs Temp 98.8 F 05/21/17 16:04 Pulse 75 05/21/17 16:04 Resp 20 05/21/17 16:04 BP 115/75 05/21/17 16:04 Pulse Ox 95 05/21/17 16:04 - Medical History PMH: Asthma, Hepatitis (C, Symptoms are not improving with lactulose), Hyperthyroidism, Hypothyroidism Denies: HIV, Chronic Kidney Disease - Surgical History Other surgeries: Paracentesis surgical procedure for ascites treatment - Family History Family History: States: Unknown Family Hx - Social History Current smoker - smoking cessation education provided: No Alcohol: None Drugs: Denies - Home Medications Home Medications: Ambulatory Orders Medication Instructions Recorded Levothyroxine [Synthroid] 25 mcg PO DAILY 03/09/17 Docusate [Colace] 100 mg PO DAILY PRN 05/08/17 Furosemide [Lasix] 40 mg PO DAILY 05/08/17 Spironolactone [Aldactone] 100 mg PO DAILY 05/08/17 Sulfamethoxazole/Trimethoprim 1 tab PO DAILY 05/08/17 [Bactrim DS Tab] Lactulose [Enulose] 30 ml PO DAILY 05/18/17 Bisacodyl [Dulcolax] 5 mg PO DAILY #30 05/21/17 Levothyroxine [Synthroid] 50 mcg PO DAILY@0630 #30 tab 05/21/17 Polyethylene Glycol 3350 [Miralax] 17 gm PO QID #30 packet 05/21/17 - Allergies Allergies/Adverse Reactions: Allergies Allergy/AdvReac Type Severity Reaction Status Date / Time No Known Allergies Allergy Verified 05/08/17 10:32 Review of Systems ROS Statement: Except As Marked, All Systems Reviewed And Found Negative Constitutional: Positive for: Weakness (Generalized), Other (Eating poorly and loss of sleep) Gastrointestinal: Positive for: Vomiting (x1 day), Abdominal Pain (Diffuse), Constipation (No bowel movement for 4 days) Neurological: Positive for: Weakness Physical Exam - Reviewed Nursing Documentation Reviewed: Yes Vital Signs Reviewed: Yes - Physical Exam Appears: Positive for: Non-toxic Head Exam: Positive for: ATRAUMATIC, NORMOCEPHALIC Skin: Positive for: Normal Color (Frail appearing), Warm, Dry Eye Exam: Positive for: Normal appearance ENT: Positive for: Normal ENT Inspection, Other (Dry mucous membranes) Neck: Positive for: Normal Cardiovascular/Chest: Positive for: Regular Rate, Rhythm. Negative for: Murmur Respiratory: Positive for: Normal Breath Sounds. Negative for: Accessory Muscle Use, Respiratory Distress Gastrointestinal/Abdominal: Positive for: Bowel Sounds (Positive bowel sounds but slightly diminished), Tenderness (Protuberant abdomen with generalized tenderness. ). Negative for: Normal Exam Back: Positive for: Normal Inspection Rectal: Positive for: Rectal Tone Is: (good. ). Negative for: Other (No stool noted. ) Extremity: Positive for: Normal ROM. Negative for: Pedal Edema Lymphatic: Positive for: Deferred Neurologic/Psych: Positive for: Alert, Oriented. Negative for: Motor/Sensory Deficits - Laboratory Results Result Diagrams: 05/19/17 11:30 05/20/17 06:00 - ECG O2 Sat by Pulse Oximetry: 100 (RA) Pulse Ox Interpretation: Normal Medical Decision Making Medical Decision Making: Time: 06:58 Initial impression: Abdominal pain and vomiting Initial plan: --Labs --EKG --Urinalysis --Obstructive Series (RAD) --Reevaluation Time: 08:08 --Abd pelvis PO & IV CT --Pepcid 20 mg IVP --Omnipaque 240 (10 ml) Time: 08:28 --Zofran 4 mg IV Time: 08:59 --Occult Blood, Stool --Admit to hospital routine: On observation for Undifferentiated abdominal pain. 12:37 PM- Case d/w Dr. Khan (GI) and she will come to ED to evaluate the pt. She recommends admission to r/o SBP (pt will need paracentesis). She also recommend [employer] consult regarding the adnexal mass. Case handed off to the vice president of talent management. Scribe Attestation: Documented by Shanel Luna, acting as a scribe for Zackery Beltran MD. Provider Scribe Attestation: All medical record entries made by the Scribe were at my direction and personally dictated by me. I have reviewed the chart and agree that the record accurately reflects my personal performance of the history, physical exam, medical decision making, and the department course for this patient. I have also personally directed, reviewed, and agree with the discharge instructions and disposition. ED OBSERVATION Date of observation admission: 05/18/17 Time of observation admission: 09:01 - Observation admission statement Patient is being placed in observation because:: Pt with continued abd pain. Will get CT - Goals of Observation Goals of observation are:: Improvement of symptoms - Progress Note Progress Note: 05/18/17 09:15 ----Occult Blood, Stool: NEGATIVE 05/18/17 10:30 --Upon reevaluation, patient does feel better and nausea with vomiting has improved. Pending CT Scan. 05/18/17 12:00 --Patient resting and pending for CT scan results and reassessment. 05/18/17 12:[address] FINDINGS: LOWER THORAX: No evidence of acute pathology at the lung bases. No evidence of pleural effusion. LIVER: Heterogeneous diffuse low-attenuation of the liver is again noted. Irregular border of the liver is again noted suggestive of cirrhosis. There is relatively mild enlargement of the left liver lobe comparing to the right also suggestive of cirrhosis. There is re- cannulization of the paraumbilical vein in between the left and right liver lobe suggestive of portal hypertension. GALLBLADDER AND BILE DUCTS: The gallbladder is mildly to moderately distended. PANCREAS: Unremarkable. No gross lesion or ductal dilatation. SPLEEN: The spleen is mildly enlarged. ADRENALS: Unremarkable. No mass. KIDNEYS AND URETERS: Unremarkable. No hydronephrosis. No solid mass. Again seen is cystic lesion exophytic from the midpole left kidney measures 4.6 centimeter. VASCULATURE: Unremarkable. No aortic aneurysm. BOWEL: Mildly dilated large bowel loops. No evidence of small bowel obstruction. Mildly dilated small bowel loops are also seen associated with mild wall thickening could be due tooth edema. APPENDIX: Normal appendix. PERITONEUM: Interval worsening of ascites since the previous study. No evidence of free air. Re- demonstration of omental thickening and nodular density at the anterior aspect of the abdomen left more than right. The possibility of malignant neoplasm and omental caking should be considered. LYMPH NODES: Unremarkable. No enlarged lymph nodes. BLADDER: Unremarkable. REPRODUCTIVE: The uterus is heterogeneous and mildly enlarged. There is interval significant increase in the size of complex cystic lesion at the left adnexa since the previous study. The current study demonstrate 7 x 4.9 centimeter complex cystic mass lesion at the left adnexa contains peripheral calcification. There is also cystic lesion at the right adnexa measures 3.1 centimeter. BONES: No acute fracture. OTHER FINDINGS: None. IMPRESSION: Interval significant increase in the size of cystic lesion at the left adnexa since the previous study measures 7 x 4.9 centimeter. The possibility of ovarian neoplasm should be excluded. Re- demonstration of moderate ascites in the abdomen and pelvis slightly increased since the previous exam. Re- demonstration of omental thickening and nodular density. The possibility of omental caking and metastasis from presumed ovarian neoplasm should be excluded. Cirrhotic changes again noted associated with findings suggestive of portal hypertension. Mildly dilated small and large bowel loops without evidence of bowel obstruction. 05/18/17 12:36 --Admit to hospital routine: as Inpatient in Med/Surg for 1) Worsening abdominal pain, 2) Adnexal mass, 3) Constipatoin, 4) Consider recurrent SBP after case was discussed with Dr. Dee Beckford MD Disposition - Clinical Impression Clinical Impression: Abdominal pain - Disposition Disposition Time: 12:40 Condition: FAIR
[2017-05-18 07:41] LABS: BASO % 0.7 % (0.0-2.0); EOS # 0.3 K/uL (0.0-0.7); EOS % 5.5 % (0.0-4.0); HEMATOCRIT 41.5 % (34.0-47.0); LYMPH # 1.9 K/uL (1.0-4.3); MEAN CELL VOLUME 87.5 fl (81.0-99.0); MEAN CORPUSCULAR HEMOGLOBIN 28.6 pg (27.0-31.0); MEAN CORPUSCULAR HGB CONC 32.7 g/dL (33.0-37.0); MEAN PLATELET VOLUME 8.5 fl (7.2-11.7); MONO # 0.7 K/uL (0.0-0.8); MONO % 11.6 % (0.0-10.0); NEUT # 3.2 K/uL (1.8-7.0); NEUT % 51.2 % (50.0-75.0); NRBC % 0.1 % (0.0-0.0); RED CELL DISTRIBUTION WIDTH 15.4 % (11.5-14.5); WHITE BLOOD COUNT 6.2 K/uL (4.8-10.8)
[2017-05-18 07:44] LABS: ALKALINE PHOSPHATASE 75 U/L (38-126); ALT/SGPT 49 U/L (9-52); AST/SGOT 52 U/L (14-36); BLOOD UREA NITROGEN 19 mg/dl (7-17); CALCIUM 8.8 mg/dL (8.4-10.2); CARBON DIOXIDE 27 mmol/L (22-30); CHLORIDE 97 mmol/L (98-107); GFR AFRICAN-AMERICAN > 60; GLUCOSE,RANDOM 118 mg/dL (65-105); LIPASE 225 U/L (23-300); POTASSIUM 4.5 MMOL/L (3.6-5.0); SODIUM 133 mmol/l (132-148); TOTAL PROTEIN 7.3 G/DL (6.3-8.2)
[2017-05-18] MEDS ORDERED: Sodium Chloride 0.9% 1,000 ML IV SCH (07:45)
[2017-05-18] MEDS ORDERED: Iohexol 240 (50 ml) PO ONE (08:08)
[2017-05-18] MEDS ORDERED: Iohexol 240 (50 ml) ONE (08:43)
[2017-05-18 11:52] LABS: RBC URINE 29 /hpf (0-3); URINE BACTERIA RARE (<OCC); URINE BILIRUBIN NEGATIVE (NEGATIVE); URINE BLOOD NEGATIVE (NEGATIVE); URINE COLOR YELLOW (YELLOW); URINE GLUCOSE (UA) NEG (Normal); URINE KETONE NEGATIVE (NEGATIVE); URINE LEUKOCYTE ESTERASE NEG Leu/uL (Negative); URINE PROTEIN NEGATIVE (NEGATIVE); URINE UROBILINOGEN 0.2-1.0 mg/dL (0.2-1.0); WBC URINE 5 /hpf (0-5)
--- NOTE | 2017-05-18 12:14 | CT ---
PROCEDURE: CT Abdomen and Pelvis with contrast HISTORY: abd pain COMPARISON: Comparison is made to the previous study dated 02/14/2017 TECHNIQUE: Contrast dose: 95 cc of Omnipaque 300. Axial and reformatted coronal and sagittal CT images of the abdomen and pelvis were obtained after IV and oral contrast administration. Radiation dose: Total exam DLP = 414.37 mGy-cm. This CT exam was performed using one or more of the following dose reduction techniques: Automated exposure control, adjustment of the mA and/or kV according to patient size, and/or use of iterative reconstruction technique. FINDINGS: LOWER THORAX: No evidence of acute pathology at the lung bases. No evidence of pleural effusion. LIVER: Heterogeneous diffuse low-attenuation of the liver is again noted. Irregular border of the liver is again noted suggestive of cirrhosis. There is relatively mild enlargement of the left liver lobe comparing to the right also suggestive of cirrhosis. There is re- cannulization of the paraumbilical vein in between the left and right liver lobe suggestive of portal hypertension. GALLBLADDER AND BILE DUCTS: The gallbladder is mildly to moderately distended. PANCREAS: Unremarkable. No gross lesion or ductal dilatation. SPLEEN: The spleen is mildly enlarged. ADRENALS: Unremarkable. No mass. KIDNEYS AND URETERS: Unremarkable. No hydronephrosis. No solid mass. Again seen is cystic lesion exophytic from the midpole left kidney measures 4.6 centimeter. VASCULATURE: Unremarkable. No aortic aneurysm. BOWEL: Mildly dilated large bowel loops. No evidence of small bowel obstruction. Mildly dilated small bowel loops are also seen associated with mild wall thickening could be due tooth edema. APPENDIX: Normal appendix. PERITONEUM: Interval worsening of ascites since the previous study. No evidence of free air. Re- demonstration of omental thickening and nodular density at the anterior aspect of the abdomen left more than right. The possibility of malignant neoplasm and omental caking should be considered. LYMPH NODES: Unremarkable. No enlarged lymph nodes. BLADDER: Unremarkable. REPRODUCTIVE: The uterus is heterogeneous and mildly enlarged. There is interval significant increase in the size of complex cystic lesion at the left adnexa since the previous study. The current study demonstrate 7 x 4.9 centimeter complex cystic mass lesion at the left adnexa contains peripheral calcification. There is also cystic lesion at the right adnexa measures 3.1 centimeter. BONES: No acute fracture. OTHER FINDINGS: None. IMPRESSION: Interval significant increase in the size of cystic lesion at the left adnexa since the previous study measures 7 x 4.9 centimeter. The possibility of ovarian neoplasm should be excluded. Re- demonstration of moderate ascites in the abdomen and pelvis slightly increased since the previous exam. Re- demonstration of omental thickening and nodular density. The possibility of omental caking and metastasis from presumed ovarian neoplasm should be excluded. Cirrhotic changes again noted associated with findings suggestive of portal hypertension. Mildly dilated small and large bowel loops without evidence of bowel obstruction.
--- NOTE | 2017-05-18 12:40 | RAD ---
PROCEDURE: Radiographs of the chest and abdomen (obstructive series) HISTORY: abd pain COMPARISON: Comparison is made to the previous CT dated 02/14/2017 TECHNIQUE: AP radiograph of the chest, with upright and supine radiographs of the abdomen. FINDINGS: CHEST: Lungs: Clear. Cardiovascular: Normal size heart. No pulmonary vascular congestion. Pleura: No pleural fluid. No pneumothorax. Other findings: None. ABDOMEN AND PELVIS: Bowel: Mildly dilated small and large bowel loops. Distended transverse colon filled with gas is seen at the mid abdomen. Free air: None. Bones: Unremarkable. Other findings: None. IMPRESSION: Mildly distended small and large bowel loops without radiographic evidence of high-grade bowel obstruction. No evidence of acute pathology in the chest or free air
--- NOTE | 2017-05-18 14:08 | CP.PCM.CON ---
<Hiwot Moreno - Last Filed: 05/18/17 14:27> History of Present Illness - History of Present Illness History of Present Illness: GI Fellow PGY4 Consult Note This is a 56yF with PMHx significant for decompensated HCV cirrhosis [Treatment naive, genotype 3, Viral load (02/10/17) 1,378,544] with prior episodes of hepatic encephalopathy, ascites and SBP on po Bactrim. Pt was just discharged from the hospital on 05/09/17 with ascites s/p paracentesis with 6L peritoneal fluid removed, no SBP. Pt now presenting to ER with complaints of abdominal distention and no BM despite increased intake of lactulose. She admits to compliance with all her medications (Lasix 40mg PO QD, Spironolactone 100mg PO QD and prophylactic Bactrim daily) as well as a low sodium diet. She has abdominal discomfort and is concerned about severe constipation with no BM in 4 days but denies any fever, chills, SOB. EGD on 02/13/17 showed small esophageal varices. In the ER, pt had a CTA/P done which showed moderate ascites, no SBO, concern of omental thickening consider malignant neoplasm/omental caking. Increased size of complex adenexal lesion 7x4.9cm r/o ovarian neoplasm. ROS: A 12pt ROS was obtained and was negative except as above. PMHx: As stated in HPI PSHx: Denies FHx: Discussed with patient and denies any significant family history SHx: Denies EtOH, tobacco or illicit drug use Past Patient History - Past Medical History & Family History Past Medical History?: Yes - Past Social History Alcohol: None Drugs: Denies - CARDIAC Hx Cardiac Disorders: No - PULMONARY Hx Asthma: Yes - NEUROLOGICAL Hx Neurological Disorder: No - HEENT Hx HEENT Problems: No - RENAL Hx Chronic Kidney Disease: No - ENDOCRINE/METABOLIC Hx Hyperthyroidism: Yes Hx Hypothyroidism: Yes - HEMATOLOGICAL/ONCOLOGICAL Hx Human Immunodeficiency Virus (HIV): No - INTEGUMENTARY Hx Dermatological Problems: No - MUSCULOSKELETAL/RHEUMATOLOGICAL Hx Falls: No - GASTROINTESTINAL Hx Gastrointestinal Disorders: No Other/Comment: ascites - GENITOURINARY/GYNECOLOGICAL Hx Genitourinary Disorders: No - PSYCHIATRIC Hx Psychophysiologic Disorder: No Hx Substance Use: No - SURGICAL HISTORY Hx Surgeries: No - ANESTHESIA Hx Anesthesia: No (unknown) Meds Allergies/Adverse Reactions: Allergies Allergy/AdvReac Type Severity Reaction Status Date / Time No Known Allergies Allergy Verified 05/08/17 10:32 - Medications Medications: Current Medications Docusate Sodium (Colace) 100 mg PO DAILY PRN PRN Reason: Constipation Furosemide (Lasix) 40 mg PO DAILY [facility] Lactulose (Generlac) 200 gm NH Q1 [facility] Levothyroxine Sodium (Synthroid) 25 mcg PO DAILY@0630 [facility] Senna/Docusate Sodium (Senokot S 50 Mg-8.6 Mg) 2 tab PO HS [facility] Spironolactone (Aldactone) 100 mg PO DAILY [facility] Trimethoprim/Sulfamethoxazole (Bactrim Ds Tab) 1 tab PO DAILY [facility] Physical Exam - Constitutional Appears: No Acute Distress, Older Than Stated Age, Cachectic, Chronically Ill - Head Exam Head Exam: ATRAUMATIC, NORMAL INSPECTION, NORMOCEPHALIC - Eye Exam Eye Exam: EOMI, Normal appearance, PERRL Pupil Exam: PERRL - ENT Exam ENT Exam: Mucous Membranes Moist, Normal Exam - Neck Exam Neck exam: Positive for: Normal Inspection - Respiratory Exam Respiratory Exam: Decreased Breath Sounds, NORMAL BREATHING PATTERN - Cardiovascular Exam Cardiovascular Exam: RRR, +S1, +S2 - GI/Abdominal Exam GI & Abdominal Exam: Diminished Bowel Sounds, Distended, Soft, Tenderness Additional comments: ascites - Rectal Exam Rectal Exam: Deferred - Extremities Exam Extremities exam: Positive for: full ROM, normal inspection. Negative for: joint swelling, pedal edema - Back Exam Back exam: NORMAL INSPECTION - Neurological Exam Neurological exam: Alert, Oriented x3 - Psychiatric Exam Psychiatric exam: Normal Affect, Normal Mood - Skin Skin Exam: Dry, Intact, Normal Color, Warm Results - Vital Signs Recent Vital Signs: Last Vital Signs Temp 97.7 F 05/18/17 13:57 Pulse 78 05/18/17 13:57 Resp 19 05/18/17 13:55 BP 117/75 05/18/17 13:55 Pulse Ox 100 05/18/17 13:55 - Labs Result Diagrams: 05/18/17 07:19 05/18/17 07:19 Assessment & Plan - Assessment and Plan (Free Text) Assessment: This is a 56yF with hx of Cirrhosis from HCV, ascites with SBP, hepatic encephalopathy pw co of no BM in 4days despite lactulose intake. 1. Decompensated cirrhosis 2/2 chronic HCV infection 2. Ascites, hx SBP 3. Adenexal Mass with omental caking 4. Constipation Plan: -Diagnostic and therapeutic paracentesis -Ascitic fluid for analysis: Albumin, TP, Cell count, culture R/O SBP -If >5L removed during paracentesis; replace albumin at 6-8g/L removed above 5L -Continue daily prophylactic Bactrim as ordered -Continue Lasix/Aldactone 40/100mg PO QD -Lactulose Enema q1hr until at least 2 BM -Recommend STAT GANG BOSS consult for possible ovarian neoplasm with omental caking -Order Pelvic Ultrasound -High protein, high calorie,Low sodium diet -Will continue to follow pt closely <Mary Kate Ospina MD - Last Filed: 05/19/17 09:13> Meds - Medications Medications: Current Medications Furosemide (Lasix) 40 mg PO DAILY [facility] Sodium Chloride (Sodium Chloride 0.9%) 1,000 mls @ 80 mls/hr IV .[id number] [facility] Stop: 05/19/17 16:57 Last Admin: 05/19/17 06:17 Dose: 80 mls/hr Lactulose (Generlac) 200 gm NH Q1 [facility] Last Admin: 05/19/17 06:50 Dose: Not Given Levothyroxine Sodium (Synthroid) 25 mcg PO DAILY@0630 [facility] Last Admin: 05/19/17 06:14 Dose: 25 mcg Ondansetron HCl (Zofran Inj) 4 mg IVP Q4 PRN PRN Reason: Nausea/Vomiting Spironolactone (Aldactone) 100 mg PO DAILY [facility] Trimethoprim/Sulfamethoxazole (Bactrim Ds Tab) 1 tab PO DAILY [facility] Results - Vital Signs Recent Vital Signs: Last Vital Signs Temp 97.8 F 05/19/17 08:02 Pulse 70 05/19/17 08:02 Resp 20 05/19/17 08:02 BP 106/72 05/19/17 08:02 Pulse Ox 96 05/19/17 08:02 - Labs Result Diagrams: 05/18/17 07:19 05/18/17 07:19 Labs: Laboratory Results - last 24 hr 05/18/17 05/18/17 15:00 15:00 Fluid Source Peritoneal/ascites Cancelled Fluid Appearance Sl cloudy Cancelled Fluid WBC 180.0 Cancelled Fluid RBC 2830.0 H Cancelled Fluid Tot Cell Count 100 H Cancelled Fluid Neutrophils 31.0 H Cancelled Fluid Lymphocytes 47.0 H Cancelled Fld Monocyte/Macrophag 22 H Cancelled Fluid Total Protein 3.5 Fluid Comment Yellow Cancelled Attending/Attestation - Attestation I have personally seen and examined this patient.: Yes I have fully participated in the care of the patient.: Yes I have reviewed all pertinent clinical information: Yes Notes (Text): 05/19/17 09:09 Patient seen in ER with GI fellow. This is a 56 yr old F well known to me from [facility] with multiple admissions and outpatient follow ups for HCv cirrhosis decompensated due to ascites, SBP and HE. She is admitted for diffuse abdominal pain with constipation x 4 days on lactulose. Concerning on CT scan is increase in size of adnexal lesion since January. Will be prudent to get STAT obgyn consult and pelvic sonogram. Plan: -Diagnostic and therapeutic paracentesis -Ascitic fluid for analysis: Albumin, TP, Cell count, culture R/O SBP -If >5L removed during paracentesis; replace albumin at 6-8g/L removed above 5L -Continue daily prophylactic Bactrim as ordered -Continue Lasix/Aldactone 40/100mg PO QD -Lactulose Enema q1hr until at least 2 BM -Recommend STAT GANG BOSS consult for possible ovarian neoplasm with omental caking -Order Pelvic Ultrasound -High protein, high calorie,Low sodium diet -Will continue to follow pt closely
[2017-05-18] MEDS ORDERED: Lidocaine 1% Inj (20ml) ONE (15:08)
--- NOTE | 2017-05-18 15:29 | PCM.SURG1 ---
Surgeon's Initial Post Op Note - Surgeon's Notes Surgeon: Jr Arango MD Timber Hewer: None Type of Anesthesia: Local Pre-Operative Diagnosis: Ascites Operative Findings: US showed ascites Post-Operative Diagnosis: Ascites Operation Performed: US guided paracentesis. Specimen/Specimens Removed: 2.5 liters of jose colored fluid Estimated Blood Loss: EBL {In ML}: 0 Blood Products Given: N/A Drains Used: No Drains Post-Op Condition: Fair Date of Surgery/Procedure: 05/18/17 Time of Surgery/Procedure: 15:25
[2017-05-18 15:36] LABS: BODY FLUID TYPE PERITONEAL/ASCITES
[2017-05-18 16:04] LABS: BF GROSS APPEARANCE SL CLOUDY (CLEAR)
[2017-05-18 16:57] LABS: BODY FLUID TOTAL COUNT 100 (0-0)
[2017-05-18] MEDS: Lactulose 10 gm/15 ml (Rectal Use) PR SCH ×8 (17:33→23:37)
[2017-05-18] MEDS: Sodium Chloride 0.9% 1,000 ML IV SCH (17:45)
--- NOTE | 2017-05-18 18:51 | CP.PCM.HP ---
History of Present Illness - History of Present Illness History of Present Illness: Pt is a 56yo F with PMH HepC, esophageal varices, ascites, SPB, hypothyroidism delayed colonic transit who presented to the ED today due to having mildly distended abdomen and abdominal pain since last night, non-radiating, rated 8/10 , described as constant. Associated with 3 episodes of clear, non-bilious, non- bloody vomiting since this morning, and constipation (last BM 4 days ago as per pt). No aggravating/alleviating factors. Pt's son reports that she has been taking lactulose but it has not been helping. Pt reports compliance with all medications. States that she has poor PO intake due to pain, but not due to loss of appetite. Pt had recent admission to [facility] on 05/08 after being sent from the GI clinic by GI Dr. Ospina after pt was found to have very distended abdomen, had paracentesis done on that admission where 6L of fluid were removed. This was the second paracentesis the pt underwent; the first paracentesis pt had was in January 2017. As per pt and her family, pt's abdomen was not distended since January until most recent admission. ROS: positive for weakness, fatigue, nausea, vomiting, constipation. Denies fevers, chills, loss of appetite, shortness of breath, cough, chest pain, issues urinating, blood in the stool, muscle aches/pains. PMD: Dr. Tomas at [facility] PMH: Hep C, esophageal varices, SBP, hypothyroid, delayed colonic transit Medications: levothyroxine 25 mcg po daily, docusate 100mg po daily, furosemide 40mg po daily, spirinolactone 100mg po daily, bactrim DS tab, 1 tab po daily, lactulose 30ml po daily. Allergies: NKDA Past Surg Hx: no surgeries, 2x paracentesis Social Hx: denies x3, lives at home with family Family Hx: no known medical issues in the family ED course: vitals stable, on admission to ED BP 110/69, HR 82, SpO2 100n on RA, RR 16, T 98.8 EKG- NSR, unremarkable Labs-AST mildly elevated, chronic. Urinalysis: 29 rbc/hpf, blood (-) Obstructive series: mildly distended small and large bowel loops without radiographic evidence of high grade bowel obstruction. Abd/pelvis CT w/ contrast: interval difference from previous study, increase in size of cystic lesion at left adnexa- ovarian neoplasm should be excluded. Re- demonstration of moderate ascites in abdomen and pelvis. Re-demonstration of omental thickening and nodular density; possibility of omental caking and mets from presumed ovarian neoplasm should be excluded. Cirrhotic changes noted suggestive of portal hypertension. Mildly dilated small and large bowel loops, no evidence of obstruction. Zofran 4mg x1 Pepcid 20mg x1 FOBT- negative ED discussed case with Dr. Ospina, who recommended admission to r/o SBP, and CASH PERSON consult. Pt had not eaten or drank since arrival to ED in [employer]; was able to get paracentesis. -2.5 L of fluid removed -Fluid analysis: cloudy, WBC 180, RBC 2830, total cell count 100, neutrophils 21 , lymphocytes 47, monocyte/macrophage 22, total protein 3.5 Present on Admission - Present on Admission Any Indicators Present on Admission: No Review of Systems - Review of Systems Review of Systems: please see HPI - Constitutional Constitutional: As Per HPI - EENT Eyes: As Per HPI - Cardiovascular Cardiovascular: As Per HPI - Respiratory Respiratory: As Per HPI - Gastrointestinal Gastrointestinal: As Per HPI - Genitourinary Genitourinary: As Per HPI - Musculoskeletal Musculoskeletal: As Per HPI - Integumentary Integumentary: As Per HPI - Neurological Neurological: As Per HPI - Endocrine Endocrine: As Per HPI - Hematologic/Lymphatic Hematologic: As Per HPI Past Patient History - Past Medical History & Family History Past Medical History?: Yes - Past Social History Smoking Status: Never Smoked Alcohol: None Drugs: Denies - CARDIAC Hx Cardiac Disorders: No - PULMONARY Hx Respiratory Disorders: Yes Hx Asthma: Yes - NEUROLOGICAL Hx Neurological Disorder: No - HEENT Hx HEENT Problems: No - RENAL Hx Chronic Kidney Disease: No - ENDOCRINE/METABOLIC Hx Endocrine Disorders: Yes Hx Hypothyroidism: Yes - HEMATOLOGICAL/ONCOLOGICAL Hx Blood Disorders: Yes Hx Hepatitis C: Yes - INTEGUMENTARY Hx Dermatological Problems: No - MUSCULOSKELETAL/RHEUMATOLOGICAL Hx Musculoskeletal Disorders: No Hx Falls: No - GASTROINTESTINAL Hx Gastrointestinal Disorders: Yes Hx Esophageal Varices: Yes Other/Comment: ascites - GENITOURINARY/GYNECOLOGICAL Hx Genitourinary Disorders: No - PSYCHIATRIC Hx Psychophysiologic Disorder: No Hx Substance Use: No - SURGICAL HISTORY Hx Surgeries: No - ANESTHESIA Hx Anesthesia: No Meds Allergies/Adverse Reactions: Allergies Allergy/AdvReac Type Severity Reaction Status Date / Time No Known Allergies Allergy Verified 05/08/17 10:32 Physical Exam - Constitutional Appears: Non-toxic - Head Exam Head Exam: NORMAL INSPECTION - Eye Exam Eye Exam: EOMI, Normal appearance, PERRL - Respiratory Exam Respiratory Exam: Clear to Auscultation Bilateral, NORMAL BREATHING PATTERN - Cardiovascular Exam Cardiovascular Exam: REGULAR RHYTHM, +S1, +S2 - GI/Abdominal Exam GI & Abdominal Exam: Distended (mildly), Normal Bowel Sounds Additional comments: shifting dullness to percussion - Extremities Exam Extremities exam: Positive for: normal inspection. Negative for: calf tenderness, pedal edema, tenderness Results - Vital Signs Recent Vital Signs: Last Vital Signs Temp 97.8 F 05/18/17 16:27 Pulse 67 05/18/17 16:27 Resp 18 05/18/17 16:27 BP 104/70 05/18/17 16:27 Pulse Ox 96 05/18/17 16:27 - Labs Result Diagrams: 05/18/17 07:19 05/18/17 07:19 Labs: Laboratory Results - last 24 hr 05/18/17 05/18/17 15:00 15:00 Fluid Source Peritoneal/ascites Cancelled Fluid Appearance Sl cloudy Cancelled Fluid WBC 180.0 Cancelled Fluid RBC 2830.0 H Cancelled Fluid Tot Cell Count 100 H Cancelled Fluid Neutrophils 31.0 H Cancelled Fluid Lymphocytes 47.0 H Cancelled Fld Monocyte/Macrophag 22 H Cancelled Fluid Total Protein 3.5 Fluid Comment Yellow Cancelled Assessment & Plan - Assessment and Plan (Free Text) Assessment: 56 yo F with PMH hep c, ascites, esophageal varices, SBP, hypothyroidism, asthma s/p paracentesis today to r/o SBP. Plan: 1) Ascites due to cirrhosis from underlying Hepatitis C, with esophageal varices and possible SBP -S/p paracentesis -2.5 L of fluid removed -Fluid analysis: cloudy, WBC 180, RBC 2830, total cell count 100, neutrophils 21, lymphocytes 47, monocyte/macrophage 22, total protein 3.5 -Continue with home meds furosemide, spirinolactone, bactrim -INR 1.1, PT: 12.9, PTT: 36.0 -GI consult -therapeutic and diagnostic paracentesis (performed), continue with home meds , low sodium high protein diet -Following up with primary care physician and GI physician for management of Hep C -IV hydration NS @ 80mL/hr 2) Adnexal mass -Found on CT, r/o neoplasm -CASH PERSON consult -Pelvic u/s 3) Nausea/Vomiting -Zofran 4mg Q4 PRN 4) Constipation -as per GI consult, lactulose enema Q1H until at least 2 BM 5) Hematuria -Urinalysis showed 29 rbc/hpf but negative for blood -F/u with primary care for further evaluation 6) Hypothyroidism -Continue Levothyroxine 25mcg 7) Mild Intermittent Asthma -Controlled 8) DVT prophylaxis -SCD
[2017-05-18] MEDS ORDERED: Docusate-Senna 50 mg-8.6 mg Tab PO SCH (22:00)
[2017-05-19] MEDS: Lactulose 10 gm/15 ml (Rectal Use) PR SCH ×6 (04:48→08:09)
[2017-05-19] MEDS: Levothyroxine 25 MCG TAB PO SCH (06:14)
[2017-05-19] MEDS: Sodium Chloride 0.9% 1,000 ML IV SCH (06:17)
[2017-05-19] MEDS: Tmp-Smz 800 mg-160 mg DS Tab PO SCH (09:10)
--- NOTE | 2017-05-19 10:35 | CARD ---
APPROVED REPORT EKG Measurement Heart [id number] <Conclusion> Normal sinus rhythm Normal ECG
[2017-05-19 12:00] LABS: HEMATOCRIT 39.9 % (34.0-47.0); MEAN CORPUSCULAR HGB CONC 33.3 g/dL (33.0-37.0); RED CELL DISTRIBUTION WIDTH 15.2 % (11.5-14.5); WHITE BLOOD COUNT 7.1 K/uL (4.8-10.8)
[2017-05-19 12:05] LABS: ALKALINE PHOSPHATASE 62 U/L (38-126); ALT/SGPT 41 U/L (9-52); AST/SGOT 38 U/L (14-36); BILIRUBIN,TOTAL 0.9 mg/dl (0.2-1.3); BLOOD UREA NITROGEN 18 mg/dl (7-17); CALCIUM 8.2 mg/dL (8.4-10.2); CARBON DIOXIDE 19 mmol/L (22-30); CHLORIDE 104 mmol/L (98-107); GFR AFRICAN-AMERICAN > 60; GLUCOSE,RANDOM 92 mg/dL (65-105); POTASSIUM 4.1 MMOL/L (3.6-5.0); SODIUM 131 mmol/l (132-148); TOTAL PROTEIN 6.2 G/DL (6.3-8.2)
[2017-05-19] MEDS ORDERED: Lactulose 10 gm/15 ml (Rectal Use) PR ONE ×2 (14:00→21:00)
--- NOTE | 2017-05-19 14:11 | CP.PCM.PN ---
Subjective - Date & Time of Evaluation Date of Evaluation: 05/19/17 Time of Evaluation: 09:25 - Subjective Subjective: Pt seen and examined at bedside, reports still having abdominal pain, has not had a bowel movement yet. nausea has improved, Nurses notes reviewed. overnight events noted Objective - Vital Signs/Intake and Output Vital Signs (last 24 hours): Temp Pulse Resp BP Pulse Ox 97.8 F 70 20 157/66 H 96 05/19/17 08:02 05/19/17 08:02 05/19/17 08:02 05/19/17 09:09 05/19/17 08:02 - Medications Medications: Current Medications Furosemide (Lasix) 40 mg PO DAILY [facility] Last Admin: 05/19/17 09:09 Dose: 40 mg Sodium Chloride (Sodium Chloride 0.9%) 1,000 mls @ 80 mls/hr IV .[id number] [facility] Stop: 05/19/17 16:57 Last Admin: 05/19/17 06:17 Dose: 80 mls/hr Lactulose (Enulose) 30 gm PO TID [facility] Last Admin: 05/19/17 13:23 Dose: 30 gm Levothyroxine Sodium (Synthroid) 25 mcg PO DAILY@0630 [facility] Last Admin: 05/19/17 06:14 Dose: 25 mcg Ondansetron HCl (Zofran Inj) 4 mg IVP Q4 PRN PRN Reason: Nausea/Vomiting Spironolactone (Aldactone) 100 mg PO DAILY [facility] Last Admin: 05/19/17 09:09 Dose: 100 mg Trimethoprim/Sulfamethoxazole (Bactrim Ds Tab) 1 tab PO DAILY [facility] Last Admin: 05/19/17 09:10 Dose: 1 tab - Labs Labs: 05/19/17 11:30 05/19/17 11:30 PT 12.9 Seconds (9.8-13.1) 05/18/17 07:19 INR 1.1 (0.9-1.2) 05/18/17 07:19 APTT 36.0 Seconds (25.6-37.1) 05/18/17 07:19 - Constitutional Appears: Non-toxic, No Acute Distress - Eye Exam Eye Exam: EOMI - ENT Exam ENT Exam: Mucous Membranes Dry - Respiratory Exam Respiratory Exam: Clear to Ausculation Bilateral, NORMAL BREATHING PATTERN. absent: Wheezes - Cardiovascular Exam Cardiovascular Exam: REGULAR RHYTHM, +S1, +S2 - GI/Abdominal Exam GI & Abdominal Exam: Soft, Tenderness, Hyperactive Bowel Sounds Additional comments: There is a palpable hardened area around the epigastric to RUQ area, possibly due to pt change in anatomy could be enlarge liver or shift organs. CT does not show any evidence of anything abnormal in that area except kidney cyst - Extremities Exam Extremities Exam: absent: Calf Tenderness, Pedal Edema - Neurological Exam Neurological Exam: Alert, Awake Assessment and Plan - Assessment and Plan (Free Text) Assessment: 56 yo F with PMH hep c, ascites, esophageal varices, on prophylaxis for SBP, hypothyroidism, asthma s/p Paracentesis today to r/o SBP. Plan: 1) Ascites due to cirrhosis from underlying Hepatitis C, with esophageal varices and possible SBP -S/p paracentesis -2.5 L of fluid removed -Fluid analysis: cloudy, WBC 180, RBC 2830, total cell count 100, neutrophils 21, lymphocytes 47, monocyte/macrophage 22, total protein 3.5 -Continue with home meds furosemide, spirinolactone, bactrim -INR 1.1, PT: 12.9, PTT: 36.0 -GI consult -therapeutic and diagnostic paracentesis (performed), continue with home meds , low sodium high protein diet -Following up with primary care physician and GI physician for management of Hep C -IV hydration NS @ 80mL/hr 2) Adnexal mass (found on CT) -FACE BOSS consult - recommendation pending -Pelvic u/s ordered stat while Pt was in ED, still has not been done- called placed to ultrasound department, no response 3) Nausea/Vomiting -Zofran 4mg Q4 PRN 4) Constipation -as per GI consult, lactulose enema Q1H until at least 2 BM -per nurses note, pt refuse lactulose enema last night -enema reordered for this morning 5) Hematuria -Urinalysis showed 29 rbc/hpf but negative for blood -F/u with primary care for further evaluation 6) Hypothyroidism -Continue Levothyroxine 25mcg 7) Mild Intermittent Asthma -Controlled 8) DVT prophylaxis -SCD
--- NOTE | 2017-05-19 14:46 | CP.PCM.PN ---
<LakeishaaylinJose mercer - Last Filed: 05/19/17 14:51> Subjective - Date & Time of Evaluation Date of Evaluation: 05/19/17 Time of Evaluation: 13:15 - Subjective Subjective: PGY5 GI Fellow Progress Note Patient seen and examined bedside this afternoon. The patient states that she still has not had a BM despite two lactulose enemas last night. She denies any nausea, vomiting, pain at this time. No new events overnight. 12 system ROS performed and negative except where stated. Objective - Vital Signs/Intake and Output Vital Signs (last 24 hours): Temp Pulse Resp BP Pulse Ox 97.8 F 70 20 157/66 H 96 05/19/17 08:02 05/19/17 08:02 05/19/17 08:02 05/19/17 09:09 05/19/17 08:02 - Medications Medications: Current Medications Furosemide (Lasix) 40 mg PO DAILY [facility] Last Admin: 05/19/17 09:09 Dose: 40 mg Sodium Chloride (Sodium Chloride 0.9%) 1,000 mls @ 80 mls/hr IV .[id number] [facility] Stop: 05/19/17 16:57 Last Admin: 05/19/17 06:17 Dose: 80 mls/hr Lactulose (Enulose) 30 gm PO TID [facility] Last Admin: 05/19/17 13:23 Dose: 30 gm Levothyroxine Sodium (Synthroid) 25 mcg PO DAILY@0630 [facility] Last Admin: 05/19/17 06:14 Dose: 25 mcg Ondansetron HCl (Zofran Inj) 4 mg IVP Q4 PRN PRN Reason: Nausea/Vomiting Spironolactone (Aldactone) 100 mg PO DAILY [facility] Last Admin: 05/19/17 09:09 Dose: 100 mg Trimethoprim/Sulfamethoxazole (Bactrim Ds Tab) 1 tab PO DAILY [facility] Last Admin: 05/19/17 09:10 Dose: 1 tab - Labs Labs: 05/19/17 11:30 05/19/17 11:30 PT 12.9 Seconds (9.8-13.1) 05/18/17 07:19 INR 1.1 (0.9-1.2) 05/18/17 07:19 APTT 36.0 Seconds (25.6-37.1) 05/18/17 07:19 - Constitutional Appears: Non-toxic, No Acute Distress - Eye Exam Eye Exam: EOMI, PERRL - ENT Exam ENT Exam: Mucous Membranes Moist - Respiratory Exam Respiratory Exam: Clear to Ausculation Bilateral. absent: Rales, Rhonchi, Wheezes - Cardiovascular Exam Cardiovascular Exam: RRR, +S1, +S2 - GI/Abdominal Exam GI & Abdominal Exam: Distended, Soft, Normal Bowel Sounds. absent: Firm, Guarding, Rigid, Tenderness, Organomegaly - Extremities Exam Extremities Exam: Normal Inspection. absent: Pedal Edema - Neurological Exam Neurological Exam: Alert, Awake, Oriented x3 - Psychiatric Exam Psychiatric exam: Normal Affect, Normal Mood - Skin Skin Exam: Dry, Warm Assessment and Plan - Assessment and Plan (Free Text) Assessment: Patient is a 56yo Wolof speaking female with PMHx significant for decompensated HCV cirrhosis [Treatment naive, GT 3, Viral load (02/10/17) [id number]] with prior episodes of ascites/SBP and known small esophageal varices, who was referred to the ED by our service for worsening abdominal distention and suspicion of recurrent ascites. -Large adnexal mass -Constipation -Recurrent abdominal ascites -Decompensated cirrhosis 2/2 chronic HCV infection -HCV infection, treatment naive -H/O SBP Plan: -Omental thickening/caking noted along with interval growth of left adnexal mass -Recommend OBGYN consultation -Pelvic U/S ordered, awaiting test -Lactulose [place] not given Q1H as ordered last night; recommend one dose now -Initiate Lactulsoe 30g PO TID, titrate to 2-3 BM/day -Continue diruetic therapy at home dose Lasix/Aldactone 80/200mg -Diet as tolerated, 2g Na -OK for D/C from GI standpoint once pt has BM, and OBGYN eval <Mary Kate Ospina MD - Last Filed: 05/19/17 16:27> Objective - Vital Signs/Intake and Output Vital Signs (last 24 hours): Temp Pulse Resp BP Pulse Ox 97.7 F 83 20 125/85 94 L 05/19/17 16:07 05/19/17 16:07 05/19/17 16:07 05/19/17 16:07 05/19/17 16:07 - Medications Medications: Current Medications Furosemide (Lasix) 40 mg PO DAILY [facility] Last Admin: 05/19/17 09:09 Dose: 40 mg Sodium Chloride (Sodium Chloride 0.9%) 1,000 mls @ 80 mls/hr IV .[id number] [facility] Stop: 05/19/17 16:57 Last Admin: 05/19/17 06:17 Dose: 80 mls/hr Lactulose (Enulose) 30 gm PO TID [facility] Last Admin: 05/19/17 13:23 Dose: 30 gm Levothyroxine Sodium (Synthroid) 25 mcg PO DAILY@0630 [facility] Last Admin: 05/19/17 06:14 Dose: 25 mcg Ondansetron HCl (Zofran Inj) 4 mg IVP Q4 PRN PRN Reason: Nausea/Vomiting Last Admin: 05/19/17 15:43 Dose: 4 mg Spironolactone (Aldactone) 100 mg PO DAILY [facility] Last Admin: 05/19/17 09:09 Dose: 100 mg Trimethoprim/Sulfamethoxazole (Bactrim Ds Tab) 1 tab PO DAILY [facility] Last Admin: 05/19/17 09:10 Dose: 1 tab - Labs Labs: 05/19/17 11:30 05/19/17 11:30 PT 12.9 Seconds (9.8-13.1) 05/18/17 07:19 INR 1.1 (0.9-1.2) 05/18/17 07:19 APTT 36.0 Seconds (25.6-37.1) 05/18/17 07:19 Attending/Attestation - Attestation I have personally seen and examined this patient.: Yes I have fully participated in the care of the patient.: Yes I have reviewed all pertinent clinical information, including history, physical exam and plan: Yes Notes (Text): 05/19/17 16:25 Patient seen with GI fellow. Spoke to patient in occitan. This is a 56 yr old F well known to me from [facility] with multiple admissions and outpatient follow ups for HCv cirrhosis decompensated due to ascites, SBP and HE. She is admitted for diffuse abdominal pain with constipation x 4 days on lactulose. Concerning on CT scan is increase in size of adnexal lesion. Pending Gynae consult and pelvic sonogram prior to discharge for concerning growing adnexal mass. High protein, high calorie, Low sodium diet
--- NOTE | 2017-05-19 18:18 | CP.PCM.CON ---
<Sultan Van - Last Filed: 05/19/17 19:04> History of Present Illness - History of Present Illness History of Present Illness: HPI: 56 yo female w/ PMH Cirrhosis from chronic hepatitis C, ascites w/ SBP , esophageal varices, hypothyroidism and delayed colonic transit presents to ED on 05/18/17 w/ complaints of abdominal pain, distension and constipation for few days. Pt had CT abdomen and pelvis on 05/18/17 which shows complex cystic lesion ( 7x 4.9 cm) at the left adnexa. Pt denies any pelvic pain, vaginal bleeding or vaginal discharge. Pt denies any family hx cervical/ovarian/breast cancer. Pt is unable to recall her age of menarche and states she reached menopause in her late 20's. OBHx: , 1 miscarriage GyneHx: PAP done in 2014 was negative for HPV and cytology. Never had breast mammogram as per pt. LMP: usure(almost 30 yrs ago). Had regular menses regularly lasting for 5 days PMHx: Cirrhosis from Chronic hepatitis C, ascites, SBP, hypothyroidism and constipation. Review of Systems - Constitutional Constitutional: As Per HPI - Cardiovascular Cardiovascular: absent: Chest Pain, Dyspnea - Respiratory Respiratory: absent: Cough - Gastrointestinal Gastrointestinal: Abdominal Pain, Constipation - Genitourinary Genitourinary: As Per HPI. absent: Dysuria, Hematuria - Reproductive: Female Reproductive:Female: absent: Abnormal Vaginal Bleeding, Pelvic Pain, Vaginal Discharge Past Patient History - Past Medical History & Family History Past Medical History?: Yes - Past Social History Smoking Status: Never Smoked Alcohol: None Drugs: Denies - CARDIAC Hx Cardiac Disorders: No - PULMONARY Hx Respiratory Disorders: Yes Hx Asthma: Yes - NEUROLOGICAL Hx Neurological Disorder: No - HEENT Hx HEENT Problems: No - RENAL Hx Chronic Kidney Disease: No - ENDOCRINE/METABOLIC Hx Endocrine Disorders: Yes Hx Hypothyroidism: Yes - HEMATOLOGICAL/ONCOLOGICAL Hx Blood Disorders: Yes Hx Hepatitis C: Yes - INTEGUMENTARY Hx Dermatological Problems: No - MUSCULOSKELETAL/RHEUMATOLOGICAL Hx Musculoskeletal Disorders: No Hx Falls: No - GASTROINTESTINAL Hx Gastrointestinal Disorders: Yes Hx Esophageal Varices: Yes Other/Comment: ascites - GENITOURINARY/GYNECOLOGICAL Hx Genitourinary Disorders: No - PSYCHIATRIC Hx Psychophysiologic Disorder: No Hx Substance Use: No - SURGICAL HISTORY Hx Surgeries: No - ANESTHESIA Hx Anesthesia: No Meds Allergies/Adverse Reactions: Allergies Allergy/AdvReac Type Severity Reaction Status Date / Time No Known Allergies Allergy Verified 05/08/17 10:32 - Medications Medications: Current Medications Furosemide (Lasix) 40 mg PO DAILY [facility] Last Admin: 05/19/17 09:09 Dose: 40 mg Lactulose (Enulose) 30 gm PO TID [facility] Last Admin: 05/19/17 13:23 Dose: 30 gm Lactulose (Generlac) 200 gm UT ONCE ONE Stop: 05/19/17 21:01 Levothyroxine Sodium (Synthroid) 25 mcg PO DAILY@0630 [facility] Last Admin: 05/19/17 06:14 Dose: 25 mcg Ondansetron HCl (Zofran Inj) 4 mg IVP Q4 PRN PRN Reason: Nausea/Vomiting Last Admin: 05/19/17 15:43 Dose: 4 mg Spironolactone (Aldactone) 100 mg PO DAILY [facility] Last Admin: 05/19/17 09:09 Dose: 100 mg Trimethoprim/Sulfamethoxazole (Bactrim Ds Tab) 1 tab PO DAILY [facility] Last Admin: 05/19/17 09:10 Dose: 1 tab Physical Exam - Constitutional Appears: No Acute Distress - Head Exam Head Exam: ATRAUMATIC, NORMOCEPHALIC - Respiratory Exam Respiratory Exam: Clear to Auscultation Bilateral, NORMAL BREATHING PATTERN. absent: Wheezes - Cardiovascular Exam Cardiovascular Exam: REGULAR RHYTHM, RRR - GI/Abdominal Exam GI & Abdominal Exam: Distended, Normal Bowel Sounds. absent: Guarding Results - Vital Signs Recent Vital Signs: Last Vital Signs Temp 97.7 F 05/19/17 16:07 Pulse 83 05/19/17 16:07 Resp 20 05/19/17 16:07 BP 125/85 05/19/17 16:07 Pulse Ox 94 L 05/19/17 16:07 - Labs Result Diagrams: 05/19/17 11:30 05/19/17 11:30 Labs: Laboratory Results - last 24 hr 05/19/17 05/19/17 11:30 11:30 WBC 7.1 RBC 4.59 Hgb 13.3 Hct 39.9 MCV 87.0 MCH 29.0 MCHC 33.3 RDW 15.2 H Plt Count 179 Sodium 131 L Potassium 4.1 Chloride 104 Carbon Dioxide 19 L Anion Gap 12 BUN 18 H Creatinine 0.7 Est GFR ( Amer) > 60 Est GFR (Non-Af Amer) > 60 Random Glucose 92 Calcium 8.2 L Total Bilirubin 0.9 AST 38 H D ALT 41 Alkaline Phosphatase 62 Total Protein 6.2 L Albumin 3.1 L Globulin 3.2 Albumin/Globulin Ratio 1.0 Assessment & Plan - Assessment and Plan (Free Text) Assessment: 56 yo female w/ PMH Cirrhosis from chronic hepatitis C, ascites w/ SBP, esophageal varices, hypothyroidism and delayed colonic transit presents to ED for abdominal pain, distension and constipation. CT abdomen and pelvis show left sided complex adnexal mass. Plan: Follow up on Pelvic US for adnexal mass Consider tumor markers Refer to [facility] oncology for follow-up. Case presented and discussed with on-call OB hospitalist Dr. Neri - Date & Time Date: 05/19/17 Time: 15:15 <Benigno Neri - Last Filed: 05/20/17 08:39> Meds - Medications Medications: Current Medications Furosemide (Lasix) 40 mg PO DAILY [facility] Last Admin: 05/19/17 09:09 Dose: 40 mg Lactulose (Enulose) 30 gm PO TID [facility] Last Admin: 05/19/17 18:26 Dose: 30 gm Levothyroxine Sodium (Synthroid) 25 mcg PO DAILY@0630 [facility] Last Admin: 05/20/17 06:36 Dose: 25 mcg Metoclopramide HCl (Reglan) 10 mg IVP Q6 PRN PRN Reason: Nausea/Vomiting Ondansetron HCl (Zofran Inj) 4 mg IVP Q4 PRN PRN Reason: Nausea/Vomiting Last Admin: 05/19/17 22:57 Dose: 4 mg Spironolactone (Aldactone) 100 mg PO DAILY [facility] Last Admin: 05/19/17 09:09 Dose: 100 mg Trimethoprim/Sulfamethoxazole (Bactrim Ds Tab) 1 tab PO DAILY [facility] Last Admin: 05/19/17 09:10 Dose: 1 tab Results - Vital Signs Recent Vital Signs: Last Vital Signs Temp 98.6 F 05/20/17 00:27 Pulse 90 05/20/17 00:27 Resp 20 05/20/17 00:27 BP 102/68 05/20/17 00:27 Pulse Ox 96 05/20/17 00:27 - Labs Result Diagrams: 05/19/17 11:30 05/20/17 06:00 Labs: Laboratory Results - last 24 hr 05/19/17 05/19/17 05/20/17 11:30 11:30 06:00 WBC 7.1 RBC 4.59 Hgb 13.3 Hct 39.9 MCV 87.0 MCH 29.0 MCHC 33.3 RDW 15.2 H Plt Count 179 Sodium 131 L 135 Potassium 4.1 4.2 Chloride 104 100 Carbon Dioxide 19 L 22 Anion Gap 12 17 BUN 18 H 19 H Creatinine 0.7 0.9 Est GFR ( Amer) > 60 > 60 Est GFR (Non-Af Amer) > 60 > 60 Random Glucose 92 114 H Calcium 8.2 L 8.9 Total Bilirubin 0.9 0.8 AST 38 H D 46 H D ALT 41 45 Alkaline Phosphatase 62 66 Total Protein 6.2 L 6.8 Albumin 3.1 L 3.4 L Globulin 3.2 3.4 Albumin/Globulin Ratio 1.0 1.0 Carcinoembryonic Ag 1.2 TSH 3rd Generation 26.90 H Assessment & Plan - Assessment and Plan (Free Text) Plan: Late entry...this pt was seen and examined by me with PGY1...Agree with note...Communicated with Dr Tomas(her resident physicain); declined pelvic exam...refer to [facility] upon discharge.
[2017-05-20] MEDS: Levothyroxine 25 MCG TAB PO SCH (06:36)
[2017-05-20 07:48] LABS: ALKALINE PHOSPHATASE 66 U/L (38-126); ALT/SGPT 45 U/L (9-52); AST/SGOT 46 U/L (14-36); BILIRUBIN,TOTAL 0.8 mg/dl (0.2-1.3); BLOOD UREA NITROGEN 19 mg/dl (7-17); CALCIUM 8.9 mg/dL (8.4-10.2); CARBON DIOXIDE 22 mmol/L (22-30); CHLORIDE 100 mmol/L (98-107); GFR AFRICAN-AMERICAN > 60; GLUCOSE,RANDOM 114 mg/dL (65-105); POTASSIUM 4.2 MMOL/L (3.6-5.0); SODIUM 135 mmol/l (132-148); TOTAL PROTEIN 6.8 G/DL (6.3-8.2)
[2017-05-20 08:16] LABS: CARCINOEMBRYONIC ANTIGEN 1.2 ng/mL (0-3.0)
[2017-05-20] MEDS: Tmp-Smz 800 mg-160 mg DS Tab PO SCH (08:58)
[2017-05-20] MEDS ORDERED: Levothyroxine 25 MCG TAB PO ONE (11:19)
[2017-05-20] MEDS ORDERED: Levothyroxine 25 MCG TAB PO SCH (11:20)
--- NOTE | 2017-05-20 13:22 | US ---
PROCEDURE: HISTORY: adnexa mass COMPARISON: Ct 05/19/17 TECHNIQUE: FINDINGS: The uterus and ovaries are not identifiable. There is abundant free fluid in the pelvis. Previously noted sis of the ovary and not readily identified on the current exam. IMPRESSION: As above. Malignancy is not excluded. Cannot exclude peritoneal carcinomatosis.
--- NOTE | 2017-05-20 16:28 | CP.PCM.PN ---
Subjective - Date & Time of Evaluation Date of Evaluation: 05/20/17 Time of Evaluation: 09:00 - Subjective Subjective: Pt was seen and evaluated at bedside, reports that abdominal pain has much improved since paracentesis was done. As per nurse's notes, pt had liquid BM last night, and vomited clear fluid overnight. Pt had transvaginal ultrasound done earlier today. Denied chest pain, shortness of breath, increased or worsening abdominal pain, calf/leg pain/swelling. Objective - Vital Signs/Intake and Output Vital Signs (last 24 hours): Temp Pulse Resp BP Pulse Ox 98.2 F 59 L 20 132/70 100 05/20/17 09:24 05/20/17 09:24 05/20/17 09:24 05/20/17 11:05 05/20/17 09:24 - Medications Medications: Current Medications Furosemide (Lasix) 40 mg PO DAILY [facility] Last Admin: 05/20/17 11:05 Dose: 40 mg Lactulose (Enulose) 30 gm PO TID [facility] Last Admin: 05/19/17 18:26 Dose: 30 gm Levothyroxine Sodium (Synthroid) 50 mcg PO DAILY@30 [facility] Metoclopramide HCl (Reglan) 10 mg IVP Q6 PRN PRN Reason: Nausea/Vomiting Ondansetron HCl (Zofran Inj) 4 mg IVP Q4 PRN PRN Reason: Nausea/Vomiting Last Admin: 05/19/17 22:57 Dose: 4 mg Spironolactone (Aldactone) 100 mg PO DAILY [facility] Last Admin: 05/20/17 08:55 Dose: 100 mg Trimethoprim/Sulfamethoxazole (Bactrim Ds Tab) 1 tab PO DAILY [facility] Last Admin: 05/20/17 08:58 Dose: 1 tab - Labs Labs: 05/19/17 11:30 05/20/17 06:00 PT 12.9 Seconds (9.8-13.1) 05/18/17 07:19 INR 1.1 (0.9-1.2) 05/18/17 07:19 APTT 36.0 Seconds (25.6-37.1) 05/18/17 07:19 - Constitutional Appears: No Acute Distress - Head Exam Head Exam: NORMAL INSPECTION - Eye Exam Eye Exam: EOMI - ENT Exam ENT Exam: Mucous Membranes Moist - Respiratory Exam Respiratory Exam: Clear to Ausculation Bilateral, NORMAL BREATHING PATTERN - Cardiovascular Exam Cardiovascular Exam: REGULAR RHYTHM, +S1, +S2 - GI/Abdominal Exam GI & Abdominal Exam: Tenderness (mild diffuse tenderness), Normal Bowel Sounds Assessment and Plan - Assessment and Plan (Free Text) Assessment: 56 yo F with PMH hep c, ascites, esophageal varices, on prophylaxis for SBP, hypothyroidism, asthma s/p paracentesis to r/o SBP. Had adnexal mass found on CT , pelvic u/s performed. Plan: ) Ascites due to cirrhosis from underlying Hepatitis C, with esophageal varices and possible SBP -S/p paracentesis -2.5 L of fluid removed -Fluid analysis: cloudy, WBC 180, RBC 2830, total cell count 100, neutrophils 21, lymphocytes 47, monocyte/macrophage 22, total protein 3.5 -Continue with home meds furosemide, spirinolactone, bactrim -INR 1.1, PT: 12.9, PTT: 36.0 -GI consult -therapeutic and diagnostic paracentesis (performed), continue with home meds , low sodium high protein diet -Following up with primary care physician and GI physician for management of Hep C 2) Adnexal mass (found on CT) -[facility] consult -consider tumor markers -refer to [facility] onc for f/u -Pelvic u/s -uterus and ovaries are not identifiable; abundant free fluid in the pelvis. Malignancy not excluded, cannot exclude peritoneal carcinomatosis. -Tumor markers ordered -CA125, HE4 pending -CEA 1.2 WNL 3) Nausea/Vomiting -Zofran 4mg Q4 PRN 4) Constipation -as per GI consult, lactulose enema Q1H until at least 2 BM -per nurses note, pt intermittently refuses enemas last night -liquid BM last night 5) Hematuria -Urinalysis showed 29 rbc/hpf but negative for blood -F/u with primary care for further evaluation 6) Hypothyroidism -TSH: 26.9 -Increase Levothyroxine 50 mcg po daily 7) Mild Intermittent Asthma -Controlled 8) DVT prophylaxis -SCD
[2017-05-21 00:58] VITALS: RESP 20
[2017-05-21] MEDS ORDERED: Levothyroxine 50 MCG TAB PO SCH (06:30)
[2017-05-21] MEDS: Tmp-Smz 800 mg-160 mg DS Tab PO SCH (08:45)
--- NOTE | 2017-05-21 12:25 | CP.PCM.PN ---
<Hiwot Moreno - Last Filed: 05/21/17 14:34> Subjective - Date & Time of Evaluation Date of Evaluation: 05/21/17 Time of Evaluation: 11:30 - Subjective Subjective: GI Fellow PGY4 Progress Note Pt seen and evaluated at bedside, pt reports abdominal pain is a little better after paracentesis but still having periumbilical discomfort. Per nursing pt has been refusing lactulose for 2 days. Pt reports having nausea and vomiting every time she drinks lactulose and is refusing it, requesting something else for BM. Pt had one small liquid BM yesterday. Pt denies fevers, chills, SOB, or chest pain. ROS: A 12pt ROS was obtained and was negative except as above. Objective - Vital Signs/Intake and Output Vital Signs (last 24 hours): Temp Pulse Resp BP Pulse Ox 97.8 F 72 20 106/69 97 05/21/17 07:45 05/21/17 07:45 05/21/17 07:45 05/21/17 08:44 05/21/17 07:45 - Medications Medications: Current Medications Bisacodyl (Dulcolax) 5 mg PO DAILY [facility] Furosemide (Lasix) 40 mg PO DAILY [facility] Last Admin: 05/21/17 08:44 Dose: 40 mg Lactulose (Enulose) 30 gm PO TID [facility] Levothyroxine Sodium (Synthroid) 50 mcg PO DAILY@0630 [facility] Last Admin: 05/21/17 06:46 Dose: 50 mcg Metoclopramide HCl (Reglan) 10 mg IVP Q6 PRN PRN Reason: Nausea/Vomiting Ondansetron HCl (Zofran Inj) 4 mg IVP Q4 PRN PRN Reason: Nausea/Vomiting Last Admin: 05/19/17 22:57 Dose: 4 mg Polyethylene Glycol (Miralax) 17 gm PO QID [facility] Spironolactone (Aldactone) 100 mg PO DAILY [facility] Last Admin: 05/21/17 08:44 Dose: 100 mg Trimethoprim/Sulfamethoxazole (Bactrim Ds Tab) 1 tab PO DAILY [facility] Last Admin: 05/21/17 08:45 Dose: 1 tab - Labs Labs: 05/19/17 11:30 05/20/17 06:00 PT 12.9 Seconds (9.8-13.1) 05/18/17 07:19 INR 1.1 (0.9-1.2) 05/18/17 07:19 APTT 36.0 Seconds (25.6-37.1) 05/18/17 07:19 - Constitutional Appears: No Acute Distress, Older Than Stated Age, Cachectic, Chronically Ill - Eye Exam Eye Exam: EOMI, Normal appearance, Scleral icterus Pupil Exam: PERRL - ENT Exam ENT Exam: Mucous Membranes Moist, Normal Exam - Neck Exam Neck Exam: Full ROM, Normal Inspection - Respiratory Exam Respiratory Exam: Decreased Breath Sounds, NORMAL BREATHING PATTERN - Cardiovascular Exam Cardiovascular Exam: RRR, +S1, +S2 - GI/Abdominal Exam GI & Abdominal Exam: Distended, Soft, Tenderness, Normal Bowel Sounds, Organomegaly Additional comments: Ascites, distended - Rectal Exam Rectal Exam: Deferred - Extremities Exam Extremities Exam: Full ROM, Normal Inspection. absent: Pedal Edema - Back Exam Back Exam: NORMAL INSPECTION - Neurological Exam Neurological Exam: Alert, Awake, Oriented x3 - Psychiatric Exam Psychiatric exam: Normal Affect, Normal Mood - Skin Skin Exam: Dry, Intact, Warm Additional comments: Jaundice Assessment and Plan - Assessment and Plan (Free Text) Assessment: This is a 56yF with hx of Cirrhosis from HCV, ascites with SBP, hepatic encephalopathy pw co of no BM in 4days despite lactulose intake. 1. Decompensated cirrhosis 2/2 chronic HCV infection 2. Ascites, hx SBP 3. Adenexal Mass with omental caking 4. Constipation Plan: -s/p paracentesis 2.5L removed, no SBP -Continue daily prophylactic Bactrim as ordered -Increase Lasix/Aldactone 80/200mg PO QD -Pt refusing Lactulose, will start Miralax QID and Dulcolox daily -Constipation maybe multifactorial, pt with hypothyroidism and high TSH, recommend Endo c/s and increase dose of Levothyroxine -Pt to follow up with [facility] as an outpt, concern for malignancy, pelvic US unable to visualize ovaries/uterus -High protein, high calorie,Low sodium diet -If pt still in the hospital, will plan colonoscopy for Sunday and start prep tomorrow -Monitor electrolytes, will order CMP and CBC for am -Will continue to follow pt closely <Mary Kate Ospina MD - Last Filed: 05/21/17 19:52> Objective - Vital Signs/Intake and Output Vital Signs (last 24 hours): Temp Pulse Resp BP Pulse Ox 98.8 F 75 20 115/75 95 05/21/17 16:04 05/21/17 16:04 05/21/17 16:04 05/21/17 16:04 05/21/17 16:04 - Labs Labs: 05/19/17 11:30 05/20/17 06:00 PT 12.9 Seconds (9.8-13.1) 05/18/17 07:19 INR 1.1 (0.9-1.2) 05/18/17 07:19 APTT 36.0 Seconds (25.6-37.1) 05/18/17 07:19 Attending/Attestation - Attestation I have personally seen and examined this patient.: Yes I have fully participated in the care of the patient.: Yes I have reviewed all pertinent clinical information, including history, physical exam and plan: Yes Notes (Text): 05/21/17 19:49 Patient seen with GI fellow. This is a 56 yr old F with hx of HCV cirrhosis decompensated due to ascites, SBP, HE and now new growing adnexal mass and omental caking and constipation. TSH elevated and dose of levothyroxine adjusted by team. s/p paracentesis of 2.5 lts with no SBP. Will discharge on diuretics and low salt diet to follow in clinic for outpatient colonoscopy
[2017-05-21] MEDS ORDERED: Bisacodyl 5mg EC Tab PO SCH (12:30)
[2017-05-21] MEDS ORDERED: Lactulose 10 gm/15 ml Syrup PO SCH (13:00)
[2017-05-21] MEDS ORDERED: POLYETHYLENE GLYCOL 3350 17 GM/Dose PACKET PO SCH (13:00)
--- NOTE | 2017-05-21 13:25 | US ---
Date of Procedure: 05/18/2017 PROCEDURE: Ultrasound-guided paracentesis, CPT 22249 Medications: 7 cc 1% Lidocaine HISTORY: Ascites, abdominal pain, cirrhosis TECHNIQUE: Following informed consent , the patient was placed supine on the stretcher and the site was marked. A limited abdominal ultrasound was performed that showed a large amount of intra-abdominal fluid. Procedural time out was called and the Pt's abdomen was marked and prepped and draped in the usual sterile fashion. Ultrasound-guided large volume paracentesis performed. A total of 4 liters of straw colored fluid was removed without complication. IMPRESSION: Ultrasound-guided large volume paracentesis.
[2017-05-21 16:05] VITALS: BP 115/75; PULSE 75; TEMP 98.8
--- NOTE | 2017-05-21 16:05 | CP.PCM.DIS ---
Provider - Provider Date of Admission: 05/18/17 12:36 Attending physician: Dee Beckford MD Primary care physician: Mary Kate Ospina MD Consults: OBGYN Gastroenterology Time Spent in preparation of Discharge (in minutes): 35 Diagnosis - Discharge Diagnosis (1) Ascites Status: Chronic Priority: High Hospital Course - Lab Results Lab Results: Micro Results 05/18/17 15:00 Ascitic Fluid Gram Stain - Final 05/18/17 15:00 Ascitic Fluid Body Fluid Culture - Preliminary NO GROWTH AFTER 3 DAYS Most Recent Lab Values WBC 7.1 K/uL (4.8-10.8) 05/19/17 11:30 RBC 4.59 Mil/uL (3.80-5.20) 05/19/17 11:30 Hgb 13.3 g/dL (12.0-16.0) 05/19/17 11:30 Hct 39.9 % (34.0-47.0) 05/19/17 11:30 MCV 87.0 fl (81.0-99.0) 05/19/17 11:30 MCH 29.0 pg (27.0-31.0) 05/19/17 11:30 MCHC 33.3 g/dL (33.0-37.0) 05/19/17 11:30 RDW 15.2 % (11.5-14.5) H 05/19/17 11:30 Plt Count 179 K/uL (130-400) 05/19/17 11:30 MPV 8.5 fl (7.2-11.7) 05/18/17 07:19 Neut % (Auto) 51.2 % (50.0-75.0) 05/18/17 07:19 Lymph % (Auto) 31.0 % (20.0-40.0) 05/18/17 07:19 Miner % (Auto) 11.6 % (0.0-10.0) H 05/18/17 07:19 Eos % (Auto) 5.5 % (0.0-4.0) H 05/18/17 07:19 Baso % (Auto) 0.7 % (0.0-2.0) 05/18/17 07:19 Neut # 3.2 K/uL (1.8-7.0) 05/18/17 07:19 Lymph # 1.9 K/uL (1.0-4.3) 05/18/17 07:19 Miner # 0.7 K/uL (0.0-0.8) 05/18/17 07:19 Eos # 0.3 K/uL (0.0-0.7) 05/18/17 07:19 Baso # 0.0 K/uL (0.0-0.2) 05/18/17 07:19 PT 12.9 Seconds (9.8-13.1) 05/18/17 07:19 INR 1.1 (0.9-1.2) 05/18/17 07:19 APTT 36.0 Seconds (25.6-37.1) 05/18/17 07:19 Sodium 135 mmol/l (132-148) 05/20/17 06:00 Potassium 4.2 MMOL/L (3.6-5.0) 05/20/17 06:00 Chloride 100 mmol/L (98-107) 05/20/17 06:00 Carbon Dioxide 22 mmol/L (22-30) 05/20/17 06:00 Anion Gap 17 (10-20) 05/20/17 06:00 BUN 19 mg/dl (7-17) H 05/20/17 06:00 Creatinine 0.9 mg/dL (0.7-1.2) 05/20/17 06:00 Est GFR ( Amer) > 60 05/20/17 06:00 Est GFR (Non-Af Amer) > 60 05/20/17 06:00 Random Glucose 114 mg/dL (65-105) H 05/20/17 06:00 Calcium 8.9 mg/dL (8.4-10.2) 05/20/17 06:00 Total Bilirubin 0.8 mg/dl (0.2-1.3) 05/20/17 06:00 AST 46 U/L (14-36) H D 05/20/17 06:00 ALT 45 U/L (9-52) 05/20/17 06:00 Alkaline Phosphatase 66 U/L (38-126) 05/20/17 06:00 Troponin I < 0.0120 ng/mL (0.00-0.120) 05/18/17 07:19 Total Protein 6.8 G/DL (6.3-8.2) 05/20/17 06:00 Albumin 3.4 g/dL (3.5-5.0) L 05/20/17 06:00 Globulin 3.4 gm/dL (2.2-3.9) 05/20/17 06:00 Albumin/Globulin Ratio 1.0 (1.0-2.1) 05/20/17 06:00 Lipase 225 U/L (23-300) 05/18/17 07:19 Carcinoembryonic Ag 1.2 ng/mL (0-3.0) 05/20/17 06:00 CA 125 Antigen 228 U/mL (0-35) H 05/20/17 06:00 Free T4 1.03 ng/dL (0.78-2.19) 05/20/17 10:00 TSH 3rd Generation 26.90 mIU/ML (0.46-4.68) H 05/20/17 06:00 Urine Color Yellow (YELLOW) 05/18/17 11:35 Urine Clarity Slighty-cloudy (Clear) 05/18/17 11:35 Urine pH 5.0 (5.0-8.0) 05/18/17 11:35 Ur Specific Neeses 1.058 (1.003-1.030) H 05/18/17 11:35 Urine Protein Negative mg/dL (NEGATIVE) 05/18/17 11:35 Urine Glucose (UA) Neg mg/dL (Normal) 05/18/17 11:35 Urine Ketones Negative mg/dL (NEGATIVE) 05/18/17 11:35 Urine Blood Negative (NEGATIVE) 05/18/17 11:35 Urine Nitrate Negative (NEGATIVE) 05/18/17 11:35 Urine Bilirubin Negative (NEGATIVE) 05/18/17 11:35 Urine Urobilinogen 0.2-1.0 mg/dL (0.2-1.0) 05/18/17 11:35 Ur Leukocyte Esterase Neg Kirti/uL (Negative) 05/18/17 11:35 Urine RBC (Auto) 29 /hpf (0-3) H 05/18/17 11:35 Urine Microscopic WBC 5 /hpf (0-5) 05/18/17 11:35 Ur Squamous Epith Cells 1 /hpf (0-5) 05/18/17 11:35 Urine Bacteria Rare (<OCC) 05/18/17 11:35 Fluid Source Peritoneal/ascites 05/18/17 15:00 Fluid Appearance Sl cloudy (CLEAR) 05/18/17 15:00 Fluid WBC 180.0 /mm3 (0.0-300.0) 05/18/17 15:00 Fluid RBC 2830.0 /mm3 (0.0-0.0) H 05/18/17 15:00 Fluid Tot Cell Count 100 (0-0) H 05/18/17 15:00 Fluid Neutrophils 31.0 % (0-0) H 05/18/17 15:00 Fluid Lymphocytes 47.0 % (0-0) H 05/18/17 15:00 Fld Monocyte/Macrophag 22 % (0-0) H 05/18/17 15:00 Fluid Total Protein 3.5 g/dL (NONE ESTABLISHED) 05/18/17 15:00 Fluid Comment Yellow 05/18/17 15:00 Stool Occult Blood Negative (NEGATIVE) 05/18/17 09:15 Blood Type Cancelled 05/18/17 07:19 Antibody Screen Cancelled 05/18/17 07:19 BBK History Checked Cancelled 05/18/17 07:19 - Hospital Course Hospital Course: Patient is a 56 y F with pmh hep c, ascites, sbp, esophageal varices, hypothyroidism delayed colonic transit who was admitted due to having a distended abdomen that required paracentesis to r/o SBP (diagnostic and therapeutic, as per GI), and constipation x4 days. Paracentesis was done and 2.5 L were removed, no SBP. Pt was also received enemas to aid with bowel movements; had two liquid BM, and several outputs of stool when enemas administered. Abdominal pain subsided after paracentesis, and vomiting subsided as well- patient attributes the lack of vomiting to her not taking lactulose anymore, so as per GI, she is to discontinue it and take miralax and dulcolax, as well as other prescribed medications (spirinolactone, furosemine, bactrim). TSH was found to be elevated, so patient's dose of levothyroxine was increased from 25mcg to 50 mcg- to be f/u outpatient with PCP. On abdominal CT in the ED, adnexal mass was visualized, but transvaginal u/s was inconclusive- both studies stated that malignancy could not be ruled out. Upon discharge, pt and her son were given instructions on how to obtain joselin care at [facility], and given referral to Certified Drug Counselor onc physician at [facility] that accepts joselin care. - Date & Time of H&P Date of H&P: 05/18/17 Time of H&P: 17:51 Discharge Exam - Head Exam Head Exam: NORMAL INSPECTION - Eye Exam Eye Exam: EOMI - ENT Exam ENT Exam: Mucous Membranes Moist - Respiratory Exam Respiratory Exam: Clear to PA & Lateral, NORMAL BREATHING PATTERN - Cardiovascular Exam Cardiovascular Exam: REGULAR RHYTHM, +S1, +S2 - GI/Abdominal Exam GI & Abdominal Exam: Normal Bowel Sounds Additional comments: mildly distended, chronic - Neurological Exam Neurological exam: Alert, Oriented x3 - Psychiatric Exam Psychiatric exam: Normal Mood - Skin Skin Exam: Dry, Intact, Normal Color, Warm Discharge Plan - Discharge Medications Prescriptions: Bisacodyl [Dulcolax] 5 mg PO DAILY #30 Levothyroxine [Synthroid] 50 mcg PO DAILY@0630 #30 tab Polyethylene Glycol 3350 [Miralax] 17 gm PO QID #30 packet - Follow Up Plan Condition: FAIR Disposition: HOME/ ROUTINE Instructions: Acute Abdominal Pain (DC), Abdominal Paracentesis (DC) Additional Instructions: Please follow up Dr. Loretta Bailey at [facility] Gynecologic Oncology department regarding the adnexa mass increasing in size concerning for malignancy In order to be evaluated by Dr. Bailey, you will need to first obtain Joselin Care at [facility] the address is below Financial Counseling Department [address] [place] [address] Appointments only [phone] You can also contact Snehal Denny at [phone] or Radha Fenton at [phone] Bailey office number is [phone] Also please follow up with Dr. Ospina as schedule with your prior to hospitalization Also follow up with your PCP Dr. Toams on June 07 at 11am. Take all medications as prescribed Please note your Synthroid dose was changed from 25mcg to 50mcg daily Medications e-prescribed to [facility] on [facility] Referrals: Bhavesh LEA,MD Mary Kate [Primary Care Provider] - Loretta Bailey MD [Medical Doctor] -
[2017-05-22] MEDS ORDERED: Bisacodyl 5mg EC Tab PO SCH (09:00)
[2017-05-23 11:07] VITALS: O2SAT 100
== END 2017-05-21 17:14 | disposition home or self-care (01) | DRG 202 ==
LOC: H.ER 06:35 → H.EROBSV 09:00 → OBSVTOIN 12:36 → H.ERHOLD 12:36 → H.MEDSURG1 15:40
PROVIDERS: ADMIT Family Medicine; ATTEND Family Medicine
PROC: 0W9G3ZZ Drainage of Peritoneal Cavity, Percutaneous Approach (ICD-10-PCS; principal; 2017-05-18)
DX: K74.60 Unspecified cirrhosis of liver (principal); R18.8 Other ascites; I85.10 Secondary esophageal varices without bleeding; B18.2 Chronic viral hepatitis C; E03.9 Hypothyroidism, unspecified; K59.00 Constipation, unspecified; J45.20 Mild intermittent asthma, uncomplicated; N83.9 Noninflammatory disorder of ovary, fallopian tube and broad ligament, unspecified; R31.9 Hematuria, unspecified

== ENCOUNTER 2017-05-24 19:56 | Inpatient (IN) | payer SELFPAY ==
[2017-05-24] MEDS ORDERED: Sodium Chloride 0.9% 500 ML IV STA (20:25)
--- NOTE | 2017-05-24 20:28 | ED PDOC ---
HPI: Abdomen Time Seen by Provider: 05/24/17 20:16 Chief Complaint (Nursing): Abdominal Pain Chief Complaint (Provider): Abd pain History Per: Patient History/Exam Limitations: no limitations Outside of [place] travel?: No Additional Complaint(s): Pt. with abd pain and constipation for 2 weeks. No BM for 2 weeks. Was dc 1 week ago for the same. Has nonbloody vomit. No weakness, chest pain, dyspnea. No fever, cough. Pt. has adnexal mass and ascites. Suppose to fu with [facility]. Past Medical History Reviewed: Nursing Documentation, Vital Signs Vital Signs: Last Vital Signs Temp 98.1 F 05/24/17 20:04 Pulse 95 H 05/24/17 20:04 Resp 16 05/24/17 20:04 BP 113/76 05/24/17 20:04 Pulse Ox 99 05/24/17 22:00 - Medical History PMH: Asthma, Hepatitis (C, Symptoms are not improving with lactulose), Hyperthyroidism, Hypothyroidism Denies: HIV, Chronic Kidney Disease Other PMH: ascites and adnexal mass - Family History Family History: States: Unknown Family Hx - Living Arrangements Living Arrangements: With Family - Social History Current smoker - smoking cessation education provided: No Alcohol: None Drugs: Denies - Home Medications Home Medications: Ambulatory Orders Medication Instructions Recorded Levothyroxine [Synthroid] 25 mcg PO DAILY 03/09/17 Docusate [Colace] 100 mg PO DAILY PRN 05/08/17 Furosemide [Lasix] 40 mg PO DAILY 05/08/17 Spironolactone [Aldactone] 100 mg PO DAILY 05/08/17 Sulfamethoxazole/Trimethoprim 1 tab PO DAILY 05/08/17 [Bactrim DS Tab] Lactulose [Enulose] 30 ml PO DAILY 05/18/17 Bisacodyl [Dulcolax] 5 mg PO DAILY #30 05/21/17 Levothyroxine [Synthroid] 50 mcg PO DAILY@0630 #30 tab 05/21/17 Polyethylene Glycol 3350 [Miralax] 17 gm PO QID #30 packet 05/21/17 - Allergies Allergies/Adverse Reactions: Allergies Allergy/AdvReac Type Severity Reaction Status Date / Time No Known Allergies Allergy Verified 05/08/17 10:32 Review of Systems ROS Statement: Except As Marked, All Systems Reviewed And Found Negative Gastrointestinal: Positive for: Nausea, Vomiting, Abdominal Pain Physical Exam - Reviewed Nursing Documentation Reviewed: Yes Vital Signs Reviewed: Yes - Physical Exam Appears: Positive for: Non-toxic, No Acute Distress Head Exam: Positive for: ATRAUMATIC, NORMAL INSPECTION, NORMOCEPHALIC Skin: Positive for: Normal Color, Warm, DRY Eye Exam: Positive for: EOMI, Normal appearance, PERRL ENT: Positive for: Normal ENT Inspection Neck: Positive for: Normal, Painless ROM Cardiovascular/Chest: Positive for: Regular Rate, Rhythm Respiratory: Positive for: CNT, Normal Breath Sounds Gastrointestinal/Abdominal: Positive for: Bowel Sounds, Soft, Tenderness (mild diffuse), Distended (mild). Negative for: Guarding Back: Positive for: Normal Inspection. Negative for: L CVA Tenderness, R CVA Tenderness Extremity: Positive for: Normal ROM. Negative for: Tenderness, Pedal Edema Neurologic/Psych: Positive for: Alert, Oriented - Laboratory Results Result Diagrams: 05/24/17 21:05 05/24/17 21:05 Interpretation Of Abn Labs: bun 25 - ECG O2 Sat by Pulse Oximetry: 99 Pulse Ox Interpretation: Normal - Radiology X-Ray: Interpreted by [facility] Interpretation: Other (Bowel Obstruction) - Progress ED Course And Treament: 2152: Stable. Will need admit for possible bowel obstruction. Spoke with [facility] resident. Will admit. Will fu on CT. 2017: Spoke with residential caregiver. Will see pt. and speak with Dr. Jimenez. Disposition - Clinical Impression Clinical Impression: Bowel obstruction - Patient ED Disposition Is Patient to be Admitted: Yes Counseled Patient/Family Regarding: Studies Performed, Diagnosis - Disposition Disposition Time: 21:53 Condition: STABLE
[2017-05-24 21:19] LABS: BASO # 0.1 K/uL (0.0-0.2); BASO % 0.5 % (0.0-2.0); EOS # 0.1 K/uL (0.0-0.7); EOS % 1.1 % (0.0-4.0); HEMOGLOBIN 14.9 g/dL (12.0-16.0); LYMPH # 2.3 K/uL (1.0-4.3); LYMPH % 22.4 % (20.0-40.0); MEAN CELL VOLUME 86.2 fl (81.0-99.0); MEAN CORPUSCULAR HEMOGLOBIN 29.2 pg (27.0-31.0); MEAN CORPUSCULAR HGB CONC 33.9 g/dL (33.0-37.0); MEAN PLATELET VOLUME 8.1 fl (7.2-11.7); MONO # 1.4 K/uL (0.0-0.8); MONO % 13.8 % (0.0-10.0); NEUT # 6.3 K/uL (1.8-7.0); NEUT % 62.2 % (50.0-75.0); RBC 5.12 Mil/uL (3.80-5.20); WHITE BLOOD COUNT 10.1 K/uL (4.8-10.8)
[2017-05-24 21:32] LABS: ALB/GLOB RATIO 1.1 (1.0-2.1); ALBUMIN 3.9 g/dL (3.5-5.0); ALT/SGPT 50 U/L (9-52); AST/SGOT 54 U/L (14-36); BLOOD UREA NITROGEN 25 mg/dl (7-17); GFR AFRICAN-AMERICAN > 60; GFR NON-AFRICAN AMERICAN > 60; LIPASE 214 U/L (23-300)
[2017-05-24] MEDS ORDERED: Iohexol 240 (50 ml) PO ONE (21:49)
[2017-05-24] MEDS ORDERED: Iohexol 300 100 ML IJ ONE (22:10)
[2017-05-24] MEDS ORDERED: Sodium Chloride 0.9% 50 ML IV ONE (22:11)
[2017-05-24] MEDS ORDERED: Iohexol 240 (50 ml) ONE (22:15)
--- NOTE | 2017-05-24 23:46 | CT ---
EXAM: CT Abdomen and Pelvis With Intravenous Contrast CLINICAL HISTORY: 56 years old, female; Pain and condition or disease; Ascites; Abdominal pain; Generalized; Patient HX: HX of hep c. HX of ir drainage abd paracentesis; Additional info: Obstruction eval TECHNIQUE: Axial computed tomography images of the abdomen and pelvis with intravenous contrast. This CT exam was performed using one or more of the following dose reduction techniques: automated exposure control, adjustment of the mA and/or kV according to patient size, and/or use of iterative reconstruction technique. Coronal and sagittal reformatted images were created and reviewed. CONTRAST: 90 mL of [id number] administered intravenously. COMPARISON: CT - ABD PELVIS PO IV CONTRAST 05/18/2017 10:44:52 AM FINDINGS: Granuloma left lung base. Nodular contour to liver again noted. Relative prominence of the left lobe of the liver are compared to the right. Recanalization of the paraumbilical vein. The spleen, pancreas and adrenal glands demonstrate no acute abnormalities. The kidneys are symmetric with no evidence of hydronephrosis. 4.5 cm left renal cyst. The aorta is unremarkable. No evidence of small bowel obstruction. The colon is severely dilated, right colon measuring up to approximately 8 cm in dimension. Significant retained fecal material in the colon. Rectal sigmoid colon is relatively collapsed with notable focus of transition, question underlying lesion, however, appearance is similar to available prior study. Persistent moderate ascites, similar in appearance to available prior study. Again noted is evidence of nodular omental thickening/omental caking, most notable anteriorly in the left upper quadrant. Again noted is a complex cystic lesion involving the left adnexa measuring approximately 7 x 4.9 cm with a peripheral calcification. Cystic lesion also identified involving the right adnexa measuring approximately 4 cm in maximal dimension. Difficult to discern separate ovaries and uterus. IMPRESSION: Colon is severely dilated, right colon measuring up to approximately 8 cm in dimension. Significant retained fecal material in the colon. Rectal sigmoid colon is relatively collapsed with notable focus of transition, question underlying lesion causing obstruction. Appearance is similar to available prior study. Again noted is a complex cystic lesion involving the left adnexa measuring approximately 7 x 4.9 cm with a peripheral calcification. Cystic lesion also identified involving the right adnexa measuring approximately 4 cm in maximal dimension. Difficult to discern separate ovaries and uterus. Again noted is evidence of nodular omental thickening/omental caking, most notable anteriorly in the left upper quadrant. Again, question metastatic ovarian cancer. Nodular contour to liver again noted. Relative prominence of the left lobe of the liver are compared to the right. Recanalization of the paraumbilical vein. Correlate for cirrhosis.
--- NOTE | 2017-05-25 00:09 | CP.PCM.CON ---
History of Present Illness - History of Present Illness History of Present Illness: SURGERY CONSULT NOTE FOR DR. RIGGINS 56F presents to [facility] with abdominal pain and constipation. Patient has been having this problem for weeks - months and was recently discharged from [facility] after admission for same symptoms. She states pain is associated with nausea/ vomiting following food in take, denies fevers or chills. She was followed by GI on last admission and it was recommended she follow up at [facility] for adnexal mass. Patient can not remember last real bowel movement and states she feels like she has not passed gas in 2 weeks. She and family at bedside states her abdomen is much more distended. PMH: HepC, Esophageal varices, Hypothyroid PSH: no abdominal surgeries, has add multiple paracentesis recently this year Social: denies tobacco, alcohol, illicit drugs Allergies: NKDA Past Patient History - Infectious Disease Hx of Infectious Diseases: None - Past Medical History & Family History Past Medical History?: Yes - Past Social History Smoking Status: Never Smoked - CARDIAC Hx Cardiac Disorders: No - PULMONARY Hx Asthma: Yes - NEUROLOGICAL Hx Neurological Disorder: No - HEENT Hx HEENT Problems: No - RENAL Hx Chronic Kidney Disease: No - ENDOCRINE/METABOLIC Hx Hyperthyroidism: Yes Hx Hypothyroidism: Yes - HEMATOLOGICAL/ONCOLOGICAL Hx Human Immunodeficiency Virus (HIV): No - INTEGUMENTARY Hx Dermatological Problems: No - MUSCULOSKELETAL/RHEUMATOLOGICAL Hx Musculoskeletal Disorders: No Hx Falls: No - GASTROINTESTINAL Hx Gastrointestinal Disorders: Yes Hx Esophageal Varices: Yes Other/Comment: ascites - GENITOURINARY/GYNECOLOGICAL Hx Genitourinary Disorders: No - PSYCHIATRIC Hx Psychophysiologic Disorder: No Hx Substance Use: No - SURGICAL HISTORY Hx Surgeries: No - ANESTHESIA Hx Anesthesia: No Meds Allergies/Adverse Reactions: Allergies Allergy/AdvReac Type Severity Reaction Status Date / Time No Known Allergies Allergy Verified 05/08/17 10:32 - Medications Medications: Current Medications Sodium Chloride (Sodium Chloride 0.9%) 500 mls @ 100 mls/hr IV .Q5H STA Stop: 05/25/17 01:24 Physical Exam - Constitutional Appears: Cachectic - Head Exam Head Exam: ATRAUMATIC - Eye Exam Eye Exam: EOMI, PERRL - Respiratory Exam Respiratory Exam: Clear to Auscultation Bilateral, NORMAL BREATHING PATTERN - Cardiovascular Exam Cardiovascular Exam: REGULAR RHYTHM, +S1, +S2 - GI/Abdominal Exam GI & Abdominal Exam: Distended, Normal Bowel Sounds, Soft, Tenderness. absent: Firm, Guarding, Rebound, Rigid Additional comments: distended like balloon, epigastric pain on palpation - Extremities Exam Extremities exam: Negative for: pedal edema, tenderness - Neurological Exam Neurological exam: Alert, Oriented x3 - Skin Skin Exam: Dry, Intact, Normal Color, Warm Results - Vital Signs Recent Vital Signs: Last Vital Signs Temp 98.1 F 05/24/17 20:04 Pulse 95 H 05/24/17 20:04 Resp 16 05/24/17 20:04 BP 113/76 05/24/17 20:04 Pulse Ox 99 05/24/17 22:17 - Labs Result Diagrams: 05/24/17 21:05 05/24/17 21:05 Assessment & Plan - Assessment and Plan (Free Text) Assessment: 56F with colonic obstruction 2/[address]: distended colon with transition point in adnexal region, with adnexal mass, right colon measuring 8cm Plan: - NPO, IVF - Will attempt bedside AMENA - CBC/CMP - Recommend Gynecolgy/oncology/GI consult Further recs discuss with Dr. Tony Ramirez, PGY2
[2017-05-25] MEDS ORDERED: Potassium Ch 20mEq in D5-1/2NS 1,000 ML IV SCH (00:15)
--- NOTE | 2017-05-25 00:52 | CP.PCM.HP ---
History of Present Illness - History of Present Illness History of Present Illness: 56 y/o F with PMH including Hypothyroidism, Cirrhosis secondary to Hepatitis C and undetermined complex adnexal mass presented to ED for evaluation of progressive abdominal pain and constipation. Patient was recently admitted with similar complaints and received serial enemas with slight improvement after producing small volume BM. She was discharged 4 days ago with miralax and dulcolax which she has been taking daily however she has not been able to pass a BM. She also feels as though she has not passed any flatus since her discharge. Patient currently reports diffuse abdominal pain, decreased appetite and reports intermittent nausea with one episode of non-bloody emesis one day prior to assessment. She denies fevers, chills, chest pain or sob. A complex adnexal mass measuring 7x4.9cm was detected during prior admission which was suspicious for malignancy but patient has not yet been able to establish care with [facility] as directed. PMD: Dr Tomas, [facility] Gastroenterology: Dr Ospina Present on Admission - Present on Admission Any Indicators Present on Admission: No History of DVT/PE: No History of Uncontrolled Diabetes: No Urinary Catheter: No Decubitus Ulcer Present: No Review of Systems - Constitutional Constitutional: absent: Chills, Fever - Cardiovascular Cardiovascular: absent: Chest Pain, Dyspnea - Gastrointestinal Gastrointestinal: Abdominal Pain, Bloating, Constipation, Nausea, Vomiting. absent: Coffee Ground Emesis, Hematemesis Past Patient History - Infectious Disease Hx of Infectious Diseases: None - Past Medical History & Family History Past Medical History?: Yes - Past Social History Smoking Status: Never Smoked Alcohol: None Drugs: Denies Home Situation {Lives}: With Family - CARDIAC Hx Cardiac Disorders: No - PULMONARY Hx Asthma: Yes - NEUROLOGICAL Hx Neurological Disorder: No - HEENT Hx HEENT Problems: No - RENAL Hx Chronic Kidney Disease: No - ENDOCRINE/METABOLIC Hx Hypothyroidism: Yes - HEMATOLOGICAL/ONCOLOGICAL Hx Cirrhosis: Yes Hx Hepatitis C: Yes Hx Human Immunodeficiency Virus (HIV): No - INTEGUMENTARY Hx Dermatological Problems: No - MUSCULOSKELETAL/RHEUMATOLOGICAL Hx Musculoskeletal Disorders: No Hx Falls: No - GASTROINTESTINAL Hx Gastrointestinal Disorders: Yes Hx Constipation: Yes Hx Esophageal Varices: Yes Other/Comment: ascites - GENITOURINARY/GYNECOLOGICAL Hx Genitourinary Disorders: Yes (Suspicious adnexal mass) - PSYCHIATRIC Hx Psychophysiologic Disorder: No Hx Substance Use: No - SURGICAL HISTORY Hx Surgeries: No - ANESTHESIA Hx Anesthesia: No Meds Allergies/Adverse Reactions: Allergies Allergy/AdvReac Type Severity Reaction Status Date / Time No Known Allergies Allergy Verified 05/08/17 10:32 Physical Exam - Constitutional Appears: Other (Uncomfortable) - Head Exam Head Exam: ATRAUMATIC, NORMAL INSPECTION, NORMOCEPHALIC - Eye Exam Eye Exam: EOMI, PERRL - ENT Exam ENT Exam: Mucous Membranes Moist - Respiratory Exam Respiratory Exam: Clear to Auscultation Bilateral, NORMAL BREATHING PATTERN. absent: Rhonchi, Wheezes, Respiratory Distress - Cardiovascular Exam Cardiovascular Exam: REGULAR RHYTHM, RRR, +S1, +S2 - GI/Abdominal Exam GI & Abdominal Exam: Distended (Marked distension ), Hyperactive Bowel Sounds, Tenderness (Diffuse). absent: Guarding, Rebound - Extremities Exam Extremities exam: Positive for: normal capillary refill. Negative for: calf tenderness, pedal edema - Neurological Exam Neurological exam: Alert, Oriented x3 - Skin Skin Exam: Dry, Warm Results - Vital Signs Recent Vital Signs: Last Vital Signs Temp 98.1 F 05/24/17 20:04 Pulse 95 H 05/24/17 20:04 Resp 16 05/24/17 20:04 BP 113/76 05/24/17 20:04 Pulse Ox 99 05/24/17 22:17 - Labs Result Diagrams: 05/24/17 21:05 05/24/17 21:05 Assessment & Plan - Assessment and Plan (Free Text) Assessment: 56 y/o F with PMH including Hypothyroidism, Cirrhosis secondary to Hepatitis C and undetermined complex adnexal mass presented to ED for evaluation of progressive abdominal pain, abdominal distension and constipation. Plan: Abdominal Distension/Constipation -CT abdomen performed. Preliminary reading detects a severely dilated right colon measuring up to 8cm with significant retained fecal material in the colon -Possibly related to underlying cystic lesion involving the left adnexa, causing obstruction -Symptoms not improved with miralax, dulcolax -No evidence of small bowel obstruction and NGT unlikely to be beneficial at this time -Patient made NPO -Zofran 4mg IV PRN for nausea/vomiting -IVF started -General surgery consult requested who will attempt bedside AMENA -Will also consult GI Complex adnexal mass -CT abdomen detects a complex cystic left adnexal mass measuring 7cm x 4.9cm and a cystic lesion involving the right adnexa measuring 4cm -CA 125 elevated at 228 -CEA wnl at 1.2 Hypothyroidism -Last TSH: 26.9 on 05/20/17 -Levothyroxine recently increased from 25mcg daily to 50mcg daily on 05/21/17 Cirrhosis secondary to Hepatitis C -S/P IR guided paracentesis of 2.5L straw colored fluid on 05/18/17 -HCV Genotype 3, Viral load 1,[id number] on 02/10/17 -Fibrosure performed on 02/26/17 detects Fibrosis stage F2 DVT Prophylaxis -SCDs for now
[2017-05-25 06:39] LABS: BLOOD UREA NITROGEN 20 mg/dl (7-17); CALCIUM 8.3 mg/dL (8.4-10.2); GFR AFRICAN-AMERICAN > 60; GFR NON-AFRICAN AMERICAN > 60
[2017-05-25 06:56] LABS: INR 1.3 (0.9-1.2)
[2017-05-25] MEDS ORDERED: Potassium CL 10 MEQ/50 ML 50 ML IVPB SCH (08:00)
[2017-05-25] MEDS: Sodium Chloride 0.9% 1,000 ML IV SCH ×3 (08:44→20:43)
--- NOTE | 2017-05-25 09:01 | RAD ---
PROCEDURE: Radiographs of the chest and abdomen (obstructive series) HISTORY: pain COMPARISON: Comparison is made to previous study dated 05/18/2017 TECHNIQUE: AP radiograph of the chest, with upright and supine radiographs of the abdomen. FINDINGS: CHEST: Lungs: No evidence of new infiltrate or consolidation in the lungs Cardiovascular: Normal size heart. No pulmonary vascular congestion. Pleura: No pleural fluid. No pneumothorax. Other findings: None. ABDOMEN AND PELVIS: Bowel: Distended large bowel loops are again noted. Mildly dilated small bowel loops at the mid abdomen. Findings likely represent bowel ileus Free air: None. Bones: Unremarkable. Other findings: None. IMPRESSION: Re- demonstration of distended large bowel may represent constipation and bowel ileus. No evidence of acute pathology in the lungs. No evidence of free air in the abdomen.
--- NOTE | 2017-05-25 10:42 | CP.PCM.CON ---
<Hiwot Moreno - Last Filed: 05/25/17 16:56> History of Present Illness - History of Present Illness History of Present Illness: GI Fellow PGY4 Consult Note This is a 56yF with PMHx significant for decompensated HCV cirrhosis [Treatment naive, genotype 3, Viral load (02/10/17) 1,378,544] with prior episodes of hepatic encephalopathy, ascites and SBP on po Bactrim. Pt was just discharged from the hospital on 05/21/17 with ascites s/p paracentesis with 2.5L peritoneal fluid removed, no SBP. During her recent visit, pt had constipation and no BM despite enemas, lactulose, aggressive bowel regimen, pt was found to have a high TSH and ovarian mass with omental thickening consider malignant neoplasm. Increased size of complex adenexal lesion 7x4.9cm r/o ovarian neoplasm. Constipation was multifactorial and plan for colonoscopy as an outpt was scheduled. Pt was seen by ELASTIC TAPE INSERTER and told to followup outpt for further evaluation of ovarian adenexal mass. Pt now presenting to ER with complaints of abdominal distention and no BM/flatus for 2weeks. In the ER, pt had a CTA/P done which showed dilated colon 8cm with fecal retention and concern for underlying malignancy causing possible obstruction. ROS: A 12pt ROS was obtained and was negative except as above. PMHx: As stated in HPI PSHx: Denies FHx: Discussed with patient and denies any significant family history SHx: Denies EtOH, tobacco or illicit drug use Past Patient History - Infectious Disease Hx of Infectious Diseases: None - Past Medical History & Family History Past Medical History?: Yes - Past Social History Smoking Status: Never Smoked Alcohol: None Drugs: Denies Home Situation {Lives}: With Family - CARDIAC Hx Cardiac Disorders: No - PULMONARY Hx Asthma: Yes - NEUROLOGICAL Hx Neurological Disorder: No - HEENT Hx HEENT Problems: No - RENAL Hx Chronic Kidney Disease: No - ENDOCRINE/METABOLIC Hx Hypothyroidism: Yes - HEMATOLOGICAL/ONCOLOGICAL Hx Cirrhosis: Yes Hx Hepatitis C: Yes Hx Human Immunodeficiency Virus (HIV): No - INTEGUMENTARY Hx Dermatological Problems: No - MUSCULOSKELETAL/RHEUMATOLOGICAL Hx Musculoskeletal Disorders: No Hx Falls: No - GASTROINTESTINAL Hx Gastrointestinal Disorders: Yes Hx Constipation: Yes Hx Esophageal Varices: Yes Other/Comment: ascites - GENITOURINARY/GYNECOLOGICAL Hx Genitourinary Disorders: Yes (Suspicious adnexal mass) - PSYCHIATRIC Hx Psychophysiologic Disorder: No Hx Substance Use: No - SURGICAL HISTORY Hx Surgeries: No - ANESTHESIA Hx Anesthesia: No Meds Allergies/Adverse Reactions: Allergies Allergy/AdvReac Type Severity Reaction Status Date / Time No Known Allergies Allergy Verified 05/08/17 10:32 - Medications Medications: Current Medications Potassium Chloride/Dextrose/Sod Cl (Potassium Chl 20 Meq In D5-1/2ns) 1,000 mls @ 80 mls/hr IV .[id number] BRANDIN Stop: 05/26/17 00:17 Last Admin: 05/25/17 01:00 Dose: 80 mls/hr Sodium Chloride (Sodium Chloride 0.9%) 1,000 mls @ 100 mls/hr IV .Q10H BRANDIN Stop: 05/26/17 07:48 Last Admin: 05/25/17 08:44 Dose: 100 mls/hr Potassium Chloride (Potassium Cl 10meq/50ml Sterile Water) 50 mls @ 50 mls/hr IV Q1 BRANDIN Stop: 05/26/17 11:01 Ondansetron HCl (Zofran Inj) 4 mg IVP Q6 PRN PRN Reason: Nausea/Vomiting Physical Exam - Constitutional Appears: Toxic, Older Than Stated Age, Chronically Ill - Head Exam Head Exam: ATRAUMATIC, NORMAL INSPECTION, NORMOCEPHALIC - Eye Exam Eye Exam: EOMI, PERRL, Scleral icterus Pupil Exam: PERRL - ENT Exam ENT Exam: Mucous Membranes Moist, Normal Exam - Neck Exam Neck exam: Positive for: Full Rom, Normal Inspection, Tenderness - Respiratory Exam Respiratory Exam: Decreased Breath Sounds, NORMAL BREATHING PATTERN - Cardiovascular Exam Cardiovascular Exam: RRR, +S1, +S2 - GI/Abdominal Exam GI & Abdominal Exam: Distended, Hypoactive Bowel Sounds, Soft, Tenderness - Rectal Exam Rectal Exam: Deferred - Extremities Exam Extremities exam: Positive for: full ROM, normal inspection - Back Exam Back exam: NORMAL INSPECTION - Neurological Exam Neurological exam: Alert, Oriented x3 - Psychiatric Exam Psychiatric exam: Normal Affect, Normal Mood - Skin Skin Exam: Dry, Intact, Warm Results - Vital Signs Recent Vital Signs: Last Vital Signs Temp 98.8 F 05/25/17 08:09 Pulse 76 05/25/17 08:09 Resp 20 05/25/17 08:09 BP 117/78 05/25/17 08:09 Pulse Ox 97 05/25/17 08:09 - Labs Result Diagrams: 05/24/17 21:05 05/25/17 09:15 Labs: Laboratory Results - last 24 hr 05/25/17 05/25/17 05/25/17 05:50 05:50 05:50 PT 13.0 INR 1.3 H Sodium 130 L Potassium 3.0 L Chloride 95 L Carbon Dioxide 27 Anion Gap 11 BUN 20 H Creatinine 0.7 Est GFR ( Amer) > 60 Est GFR (Non-Af Amer) > 60 Random Glucose 136 H Calcium 8.3 L Free T4 1.22 TSH 3rd Generation 30.10 H 05/25/17 09:15 PT INR Sodium Potassium 3.5 L Chloride Carbon Dioxide Anion Gap BUN Creatinine Est GFR ( Amer) Est GFR (Non-Af Amer) Random Glucose Calcium Free T4 TSH 3rd Generation Assessment & Plan - Assessment and Plan (Free Text) Assessment: This is a 56yF with hx of Cirrhosis from HCV, ascites with SBP, hepatic encephalopathy pw co of no BM in 2weeks 1. Dilated Large Bowel 2. Constipation with large fecal retention 3. Adenexal Mass with omental caking likely causing obstruction 4. Hypothyroidism 5. Decompensated cirrhosis 2/2 chronic HCV infection MELD 9, Child Spencer Class B 6. Ascites, hx SBP Plan: -Recommend IR consult for ovarian mass biopsy -Recommend Oncology evaluation for further recommendations -Constipation and large bowel dilation likely from obstruction by the adenexal mass and omental caking -Will order Abdominal Xray to r/o SBO -Continue supportive care with IVFs, pain medication, anti-emetics -Encourage bowel regimen with Lactulose -No significant ascites at this time, no plan for paracentesis -MELD 9, Child Class B-Abdominal surgery amber-operative mortality 30% -Case discussed with primary team, will continue to follow closely <Mary Kate Ospina MD - Last Filed: 05/25/17 17:21> Meds - Medications Medications: Current Medications Potassium Chloride/Dextrose/Sod Cl (Potassium Chl 20 Meq In D5-1/2ns) 1,000 mls @ 80 mls/hr IV .[id number] BRANDIN Stop: 05/26/17 00:17 Last Admin: 05/25/17 01:00 Dose: 80 mls/hr Sodium Chloride (Sodium Chloride 0.9%) 1,000 mls @ 100 mls/hr IV .Q10H BRANDIN Stop: 05/26/17 07:48 Last Admin: 05/25/17 08:44 Dose: 100 mls/hr Potassium Chloride (Potassium Cl 10meq/50ml Sterile Water) 50 mls @ 50 mls/hr IV Q1 BRANDIN Stop: 05/26/17 11:01 Last Admin: 05/25/17 13:55 Dose: 50 mls/hr Ondansetron HCl (Zofran Inj) 4 mg IVP Q6 PRN PRN Reason: Nausea/Vomiting Results - Vital Signs Recent Vital Signs: Last Vital Signs Temp 97.9 F 05/25/17 16:00 Pulse 75 05/25/17 16:00 Resp 20 05/25/17 16:00 BP 123/80 05/25/17 16:00 Pulse Ox 95 05/25/17 16:00 - Labs Result Diagrams: 05/24/17 21:05 05/25/17 09:15 Labs: Laboratory Results - last 24 hr 05/25/17 05/25/17 05/25/17 05:50 05:50 05:50 PT 13.0 INR 1.3 H Sodium 130 L Potassium 3.0 L Chloride 95 L Carbon Dioxide 27 Anion Gap 11 BUN 20 H Creatinine 0.7 Est GFR ( Amer) > 60 Est GFR (Non-Af Amer) > 60 Random Glucose 136 H Calcium 8.3 L Free T4 1.22 TSH 3rd Generation 30.10 H 05/25/17 09:15 PT INR Sodium Potassium 3.5 L Chloride Carbon Dioxide Anion Gap BUN Creatinine Est GFR ( Amer) Est GFR (Non-Af Amer) Random Glucose Calcium Free T4 TSH 3rd Generation Attending/Attestation - Attestation I have personally seen and examined this patient.: Yes I have fully participated in the care of the patient.: Yes I have reviewed all pertinent clinical information: Yes Notes (Text): 05/25/17 17:16 Patient seen with GI fellow this am on rounds. Patient known to me from previous admissions and clinic visits. In a nutshell this is a 56 yr old welsh F with hx of HCV cirrhosis treatment naive decompensated with ascites and SBP, hepatic encephalopathy presenting with bowel obstruction. Dilated transverse colon on imaging with recto sigmoid obstruction likely due to omental caking and adnexal mass. Concern for ovarian malignancy with mets ? Tissue diagnosis not done yet but needs relief from colonic obstruction. Current MELD 9 with portal hypertension. Needs either surgical ileostomy/ colostomy for colonic obstruction or rectal stent. [facility] does not have colonic stent and needs to be ordered. Will await surgical options. Appreciate oncology recommendations. Surgical risk of 30% with Lurdes Spencer B. If goes to OR for colostomy, adnexal tissue biopsy may be a consideration for palliative chemotherapy. Discussed with primary team in detail and oncologist
[2017-05-25] MEDS: Potassium CL 10 MEQ/50 ML 50 ML IV SCH ×3 (11:33→13:55)
--- NOTE | 2017-05-25 15:33 | CP.PCM.PN ---
Objective - Vital Signs/Intake and Output Vital Signs (last 24 hours): Temp Pulse Resp BP Pulse Ox 98.8 F 76 20 117/78 97 05/25/17 08:09 05/25/17 08:09 05/25/17 08:09 05/25/17 08:09 05/25/17 08:09 - Medications Medications: Current Medications Potassium Chloride/Dextrose/Sod Cl (Potassium Chl 20 Meq In D5-1/2ns) 1,000 mls @ 80 mls/hr IV .[id number] BRANDIN Stop: 05/26/17 00:17 Last Admin: 05/25/17 01:00 Dose: 80 mls/hr Sodium Chloride (Sodium Chloride 0.9%) 1,000 mls @ 100 mls/hr IV .Q10H BRANDIN Stop: 05/26/17 07:48 Last Admin: 05/25/17 08:44 Dose: 100 mls/hr Potassium Chloride (Potassium Cl 10meq/50ml Sterile Water) 50 mls @ 50 mls/hr IV Q1 BRANDIN Stop: 05/26/17 11:01 Last Admin: 05/25/17 12:53 Dose: 50 mls/hr Ondansetron HCl (Zofran Inj) 4 mg IVP Q6 PRN PRN Reason: Nausea/Vomiting - Labs Labs: 05/25/17 09:15 PT 13.0 Seconds (9.8-13.1) 05/25/17 05:50 INR 1.3 (0.9-1.2) H 05/25/17 05:50
[2017-05-25] MEDS ORDERED: Lidocaine 1% Inj (20ml) ONE (15:54)
[2017-05-25] MEDS ORDERED: metroNIDAZOLE 500mg/100ml NS 0 ML IVPB ONE (15:54)
[2017-05-25] MEDS ORDERED: Bupivacaine 0.5% Inj(30mL) ONE (15:54)
--- NOTE | 2017-05-25 16:58 | CP.PCM.CON ---
History of Present Illness - History of Present Illness History of Present Illness: Oncology Consult Referred by Saritha Ospina for evaluation of adenxal mass HPI- Ms Blake is 56 y/o F from [place] who has h/o Hep C with liver cirrhosis , ascites and hepatic encephalopathy, hypothyroid who was admitted now with abdominal distension and bowel obstruction. During her recent hospital stay, she was found to have complex adnexal mass with omental caking and was referred for outpatient Marketing Operations Intern-Onc but she did not follow up. She complains of pain mostly in epigastric area. She has lost weight though difficult to quantify. She also has h/o ascites from liver cirrhosis and required drainage. Peritoneal fluid cytology in February 2017 was negative for malignant cells. CT A/P now shows severely dilated colon with b/l adnexal masses and omental thickening. CA125 was 228. Has shortness of breath with exertion and overall feels tired. Denies bleeding. ROS: A 12pt ROS was obtained and was negative except as above. FHx: Not contributory SHx: Denies EtOH, tobacco or illicit drug use. She lives with her and three children. Review of Systems - Review of Systems All systems: reviewed and no additional remarkable complaints except Review of Systems: as in HPI Past Patient History - Infectious Disease Hx of Infectious Diseases: None - Past Medical History & Family History Past Medical History?: Yes - Past Social History Smoking Status: Never Smoked Alcohol: None Drugs: Denies Home Situation {Lives}: With Family - CARDIAC Hx Cardiac Disorders: No - PULMONARY Hx Asthma: Yes - NEUROLOGICAL Hx Neurological Disorder: No - HEENT Hx HEENT Problems: No - RENAL Hx Chronic Kidney Disease: No - ENDOCRINE/METABOLIC Hx Hypothyroidism: Yes - HEMATOLOGICAL/ONCOLOGICAL Hx Cirrhosis: Yes Hx Hepatitis C: Yes Hx Human Immunodeficiency Virus (HIV): No - INTEGUMENTARY Hx Dermatological Problems: No - MUSCULOSKELETAL/RHEUMATOLOGICAL Hx Musculoskeletal Disorders: No Hx Falls: No - GASTROINTESTINAL Hx Gastrointestinal Disorders: Yes Hx Constipation: Yes Hx Esophageal Varices: Yes Other/Comment: ascites - GENITOURINARY/GYNECOLOGICAL Hx Genitourinary Disorders: Yes (Suspicious adnexal mass) - PSYCHIATRIC Hx Psychophysiologic Disorder: No Hx Substance Use: No - SURGICAL HISTORY Hx Surgeries: No - ANESTHESIA Hx Anesthesia: No Meds Allergies/Adverse Reactions: Allergies Allergy/AdvReac Type Severity Reaction Status Date / Time No Known Allergies Allergy Verified 05/08/17 10:32 - Medications Medications: Current Medications Potassium Chloride/Dextrose/Sod Cl (Potassium Chl 20 Meq In D5-1/2ns) 1,000 mls @ 80 mls/hr IV .[id number] BRANDIN Stop: 05/26/17 00:17 Last Admin: 05/25/17 01:00 Dose: 80 mls/hr Sodium Chloride (Sodium Chloride 0.9%) 1,000 mls @ 100 mls/hr IV .Q10H BRANDIN Stop: 05/26/17 07:48 Last Admin: 05/25/17 08:44 Dose: 100 mls/hr Potassium Chloride (Potassium Cl 10meq/50ml Sterile Water) 50 mls @ 50 mls/hr IV Q1 BRANDIN Stop: 05/26/17 11:01 Last Admin: 05/25/17 13:55 Dose: 50 mls/hr Ondansetron HCl (Zofran Inj) 4 mg IVP Q6 PRN PRN Reason: Nausea/Vomiting Physical Exam - Head Exam Head Exam: ATRAUMATIC, NORMAL INSPECTION - Eye Exam Eye Exam: EOMI, PERRL - ENT Exam ENT Exam: Mucous Membranes Moist - Neck Exam Neck exam: Negative for: Lymphadenopathy - Respiratory Exam Respiratory Exam: Clear to Auscultation Bilateral - Cardiovascular Exam Cardiovascular Exam: REGULAR RHYTHM - GI/Abdominal Exam GI & Abdominal Exam: Distended, Soft. absent: Tenderness - Extremities Exam Extremities exam: Negative for: pedal edema - Neurological Exam Neurological exam: Alert, Oriented x3 Results - Vital Signs Recent Vital Signs: Last Vital Signs Temp 97.9 F 05/25/17 16:00 Pulse 75 05/25/17 16:00 Resp 20 05/25/17 16:00 BP 123/80 05/25/17 16:00 Pulse Ox 95 05/25/17 16:00 - Labs Result Diagrams: 05/24/17 21:05 05/25/17 09:15 Labs: Laboratory Results - last 24 hr 05/25/17 05/25/17 05/25/17 05:50 05:50 05:50 PT 13.0 INR 1.3 H Sodium 130 L Potassium 3.0 L Chloride 95 L Carbon Dioxide 27 Anion Gap 11 BUN 20 H Creatinine 0.7 Est GFR ( Amer) > 60 Est GFR (Non-Af Amer) > 60 Random Glucose 136 H Calcium 8.3 L Free T4 1.22 TSH 3rd Generation 30.10 H 05/25/17 09:15 PT INR Sodium Potassium 3.5 L Chloride Carbon Dioxide Anion Gap BUN Creatinine Est GFR ( Amer) Est GFR (Non-Af Amer) Random Glucose Calcium Free T4 TSH 3rd Generation Assessment & Plan - Assessment and Plan (Free Text) Assessment: Adnexal mass with Omental involvement- suspicious for PHARMACY INFORMATICS MANAGER malignancy (?Ovarian) Bowel obstruction due to extrinsic compression Hep C with Cirrhosis Imaging findings show high suspicion for Ovarian or other PHARMACY INFORMATICS MANAGER malignancy. She has at least stage III disease. We should get CT Chest (with contrast) once clinically stable to complete staging. She needs palliative surgery to relieve bowel obstruction. Will discuss with GI and surgery. She is a high risk patient for surgery due to underlying liver cirrhosis and high risk of bowel perforation. She will need tissue diagnosis. Overall, her management will be complicated due to underlying liver cirrhosis. If ovarian cancer is confirmed, we could give her few cycles of cantwell based chemotherapy and then possibly consider debulking in future. Will follow up with you. Thank you for this interesting consult Bro Rodrigues MD - Date & Time Date: 05/25/17 Time: 16:58
[2017-05-25] MEDS ORDERED: Succinylcholine 200 mg/10 ml Inj IV ONE (17:08)
[2017-05-25] MEDS ORDERED: Propofol 10 mg/ml Inj (20 ML) ONE (17:08)
[2017-05-25] MEDS ORDERED: Lactated Ringer's 1,000 ML IV ONE (17:11)
[2017-05-25] MEDS ORDERED: ePHEDrine 50 mg/ml Inj ONE (17:26)
[2017-05-25] MEDS ORDERED: Liquid Adhesive TOP ONE (18:10)
--- NOTE | 2017-05-25 18:33 | PCM.SURG1 ---
Surgeon's Initial Post Op Note - Surgeon's Notes Surgeon: Tony Quality Systems Manager: Melissa PGY3, Imbrescyuliana Type of Anesthesia: General Endo Pre-Operative Diagnosis: Colonic obstruction 2/2 adenexal mass Operative Findings: ascites, peritoneal seeding Post-Operative Diagnosis: same Operation Performed: sigmoid blow hole colostomy Specimen/Specimens Removed: omentum, mesentery Estimated Blood Loss: EBL {In ML}: 25 Blood Products Given: N/A Drains Used: Ostomy Device Post-Op Condition: Good Date of Surgery/Procedure: 05/25/17 Time of Surgery/Procedure: 18:33
[2017-05-25] MEDS ORDERED: HYDROmorphone 0.5 mg/0.5 ml ISec IVP PRN (18:34)
--- NOTE | 2017-05-25 19:26 | CP.PCM.PN ---
Subjective - Date & Time of Evaluation Date of Evaluation: 05/25/17 Time of Evaluation: 19:22 - Subjective Subjective: Patient seen in the post-anesthesia recovery room s/p Colostomy. Pt. tolerated procedure well. Pt. with no complaints at this time. Pt. lethargic but oriented to place and person. Patient able to answer questions without difficulty. Objective - Vital Signs/Intake and Output Vital Signs (last 24 hours): Temp Pulse Resp BP Pulse Ox 98.2 F 99 H 18 120/81 100 05/25/17 19:10 05/25/17 19:10 05/25/17 19:10 05/25/17 19:10 05/25/17 19:10 Intake and Output: 05/25/17 05/26/17 18:59 06:59 Intake Total 550 Balance 550 - Medications Medications: Current Medications Hydromorphone HCl (Dilaudid) 0.25 mg IVP Q5M PRN PRN Reason: Pain, moderate (4-7) Hydromorphone HCl (Dilaudid) 0.5 mg IVP Q4 PRN PRN Reason: Pain, moderate (4-7) Sodium Chloride (Sodium Chloride 0.9%) 1,000 mls @ 100 mls/hr IV .Q10H BRANDIN Stop: 05/26/17 07:48 Last Admin: 05/25/17 08:44 Dose: 100 mls/hr Ondansetron HCl (Zofran Inj) 4 mg IVP Q6 PRN PRN Reason: Nausea/Vomiting - Labs Labs: 05/25/17 09:15 PT 13.0 Seconds (9.8-13.1) 05/25/17 05:50 INR 1.3 (0.9-1.2) H 05/25/17 05:50 - Constitutional Appears: Non-toxic, No Acute Distress - Respiratory Exam Respiratory Exam: Clear to Ausculation Bilateral, NORMAL BREATHING PATTERN - Cardiovascular Exam Cardiovascular Exam: REGULAR RHYTHM, +S1, +S2 - GI/Abdominal Exam GI & Abdominal Exam: Hyperactive Bowel Sounds Additional comments: Colostomy in place Left upper quadrant draining fecal matter. - Extremities Exam Extremities Exam: Normal Capillary Refill. absent: Pedal Edema Assessment and Plan - Assessment and Plan (Free Text) Assessment: 56 y.o. female with Large bowel obstruction s/p Colostomy without complications 1- NPO for now 2- Will resume diet in the a.m. 3- Dilaudid 0.5mg I.V. PRN 4- Surgery on board - inpatient appreciated 5- CBC and BMP in the a.m.
[2017-05-25] MEDS ORDERED: Sodium Chloride 0.9% 500 ML IV ONE ×2 (19:55)
[2017-05-25] MEDS: HYDROmorphone 0.5 mg/0.5 ml ISec IVP PRN (20:37)
[2017-05-26] MEDS: Sodium Chloride 0.9% 1,000 ML IV SCH (04:01)
[2017-05-26] MEDS: HYDROmorphone 0.5 mg/0.5 ml ISec IVP PRN ×2 (04:21→11:43)
[2017-05-26 07:39] LABS: HEMOGLOBIN 14.2 g/dL (12.0-16.0); MEAN CELL VOLUME 86.5 fl (81.0-99.0); MEAN CORPUSCULAR HEMOGLOBIN 29.1 pg (27.0-31.0); MEAN CORPUSCULAR HGB CONC 33.7 g/dL (33.0-37.0); RBC 4.89 Mil/uL (3.80-5.20); RED CELL DISTRIBUTION WIDTH 15.3 % (11.5-14.5); WHITE BLOOD COUNT 6.9 K/uL (4.8-10.8)
[2017-05-26 07:43] LABS: BLOOD UREA NITROGEN 17 mg/dl (7-17); CALCIUM 7.9 mg/dL (8.4-10.2); GFR AFRICAN-AMERICAN > 60; GFR NON-AFRICAN AMERICAN > 60
--- NOTE | 2017-05-26 10:22 | CP.PCM.PN ---
<Jose Stafford - Last Filed: 05/26/17 10:41> Subjective - Date & Time of Evaluation Date of Evaluation: 05/26/17 Time of Evaluation: 09:30 - Subjective Subjective: PGY5 GI Fellow Progress Note Patient seen and examined bedside this morning. Persian woodwork teacher used during interaction. The patient continues to complain of diffuse abdominal tenderness/ pain. She has been passing stool/gas to ostomy. Denies any fever, chills. 12 system ROS performed and negative except where stated. Objective - Vital Signs/Intake and Output Vital Signs (last 24 hours): Temp Pulse Resp BP Pulse Ox 98.5 F 117 H 20 98/66 L 93 L 05/26/17 07:33 05/26/17 07:33 05/26/17 07:33 05/26/17 07:33 05/26/17 07:33 - Medications Medications: Current Medications Heparin Sodium (Porcine) (Heparin) 5,000 units SC Q12 BRANDIN PRN Reason: Protocol Hydromorphone HCl (Dilaudid) 0.25 mg IVP Q5M PRN PRN Reason: Pain, moderate (4-7) Last Admin: 05/25/17 19:25 Dose: 0.25 mg Hydromorphone HCl (Dilaudid) 0.5 mg IVP Q4 PRN PRN Reason: Pain, moderate (4-7) Last Admin: 05/26/17 04:21 Dose: 0.5 mg Ondansetron HCl (Zofran Inj) 4 mg IVP Q6 PRN PRN Reason: Nausea/Vomiting - Labs Labs: 05/26/17 05:30 05/26/17 05:30 PT 13.0 Seconds (9.8-13.1) 05/25/17 05:50 INR 1.3 (0.9-1.2) H 05/25/17 05:50 - Constitutional Appears: Non-toxic, No Acute Distress - Eye Exam Eye Exam: EOMI, PERRL - ENT Exam ENT Exam: Mucous Membranes Moist - Respiratory Exam Respiratory Exam: Clear to Ausculation Bilateral. absent: Rales, Rhonchi, Wheezes - Cardiovascular Exam Cardiovascular Exam: RRR, +S1, +S2 - GI/Abdominal Exam GI & Abdominal Exam: Distended, Soft, Tenderness (diffuse), Normal Bowel Sounds. absent: Firm, Guarding, Rigid, Organomegaly Additional comments: RLQ ostomy present, liquid stool and gas in bag - Extremities Exam Extremities Exam: Normal Inspection. absent: Pedal Edema - Neurological Exam Neurological Exam: Alert, Awake, Oriented x3 - Psychiatric Exam Psychiatric exam: Normal Affect, Normal Mood - Skin Skin Exam: Dry, Warm Assessment and Plan - Assessment and Plan (Free Text) Assessment: Patient is a 56yo Persian speaking female with PMHx significant for decompensated HCV cirrhosis [Treatment naive, GT 3, Viral load (02/10/17) 1,378,544] with prior episodes of ascites/SBP and known small esophageal varices, who presented to the ED with persistent constipation without BM for 2 weeks. -Colonic obstruction -Pelvic mass with omental involvement -Decompensated cirrhosis 2/2 chronic HCV infection -HCV infection, treatment naive -H/O SBP Plan: -Patient noted during surgery to have peritoneal seeding, suspect from pelvic lesion -The patient had a sigmoid colostomy placed which has stool output today -Recommend Miralax 17g PO BID along with Lactulose 30mg PO QD, titrate to 2-3BM/ day -Resume patient's SBP ppx with Bactrim DS 1 tab PO QD -Resume diuretic therapy with Lasix 40mg PO QD, Aldactone 100mg PO QD to prevent worsening ascites -Oncology following, pt needs tissue dx -Pt requires Soaking Room Operator-onc consult/recs -2g low Na diet <Xavier Burger - Last Filed: 05/26/17 10:51> Objective - Vital Signs/Intake and Output Vital Signs (last 24 hours): Temp Pulse Resp BP Pulse Ox 98.5 F 117 H 20 98/66 L 93 L 05/26/17 07:33 05/26/17 07:33 05/26/17 07:33 05/26/17 07:33 05/26/17 07:33 - Medications Medications: Current Medications Furosemide (Lasix) 40 mg PO DAILY [facility] Heparin Sodium (Porcine) (Heparin) 5,000 units SC Q12 BRANDIN PRN Reason: Protocol Hydromorphone HCl (Dilaudid) 0.25 mg IVP Q5M PRN PRN Reason: Pain, moderate (4-7) Last Admin: 05/25/17 19:25 Dose: 0.25 mg Hydromorphone HCl (Dilaudid) 0.5 mg IVP Q4 PRN PRN Reason: Pain, moderate (4-7) Last Admin: 05/26/17 04:21 Dose: 0.5 mg Lactulose (Enulose) 30 gm PO DAILY [facility] Ondansetron HCl (Zofran Inj) 4 mg IVP Q6 PRN PRN Reason: Nausea/Vomiting Polyethylene Glycol (Miralax) 17 gm PO BID [facility] Spironolactone (Aldactone) 100 mg PO DAILY [facility] Trimethoprim/Sulfamethoxazole (Bactrim Ds Tab) 1 tab PO DAILY BRANDIN - Labs Labs: 05/26/17 05:30 05/26/17 05:30 PT 13.0 Seconds (9.8-13.1) 05/25/17 05:50 INR 1.3 (0.9-1.2) H 05/25/17 05:50 Attending/Attestation - Attestation I have personally seen and examined this patient.: Yes I have fully participated in the care of the patient.: Yes I have reviewed all pertinent clinical information, including history, physical exam and plan: Yes Notes (Text): 05/26/17 10:48 56 year old female with h/o hcv cirrhosis, decompensated, now admitted with 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 1. Malignant colonic obstruction 2. HCV cirrhosis Plan: -supportive care post op -had colostomy last night -liquid diet / bowel regimen with miralax -hydration -appreciate surgical recs -monitor for decompensation -still no histological diagnosis -most likely ovarian malignancy
--- NOTE | 2017-05-26 12:00 | CP.PCM.PN ---
Subjective - Date & Time of Evaluation Date of Evaluation: 05/26/17 Time of Evaluation: 10:00 - Subjective Subjective: Pt. seen at bedside awake in no distress. Pt. with no complaints at this time. Pt. tolerating liquids. Pt. passing gas. overnight uneventful. On ROS. pt. denies any headache, chest pain, shortness of breath, fever, chills, or limb pain. Objective - Vital Signs/Intake and Output Vital Signs (last 24 hours): Temp Pulse Resp BP Pulse Ox 97.6 F 109 H 18 101/70 98 05/26/17 11:35 05/26/17 11:35 05/26/17 11:35 05/26/17 11:35 05/26/17 11:35 - Medications Medications: Current Medications Furosemide (Lasix) 40 mg PO DAILY [facility] Last Admin: 05/26/17 11:32 Dose: 40 mg Heparin Sodium (Porcine) (Heparin) 5,000 units SC Q12 [facility] PRN Reason: Protocol Last Admin: 05/26/17 11:31 Dose: 5,000 units Hydromorphone HCl (Dilaudid) 0.25 mg IVP Q5M PRN PRN Reason: Pain, moderate (4-7) Last Admin: 05/25/17 19:25 Dose: 0.25 mg Hydromorphone HCl (Dilaudid) 0.5 mg IVP Q4 PRN PRN Reason: Pain, moderate (4-7) Last Admin: 05/26/17 11:43 Dose: 0.5 mg Lactulose (Enulose) 30 gm PO DAILY [facility] Ondansetron HCl (Zofran Inj) 4 mg IVP Q6 PRN PRN Reason: Nausea/Vomiting Polyethylene Glycol (Miralax) 17 gm PO BID [facility] Spironolactone (Aldactone) 100 mg PO DAILY [facility] Trimethoprim/Sulfamethoxazole (Bactrim Ds Tab) 1 tab PO DAILY [facility] - Labs Labs: 05/26/17 05:30 05/26/17 05:30 PT 13.0 Seconds (9.8-13.1) 05/25/17 05:50 INR 1.3 (0.9-1.2) H 05/25/17 05:50 - Constitutional Appears: Non-toxic, No Acute Distress - Eye Exam Eye Exam: absent: Scleral icterus - Neck Exam Neck Exam: Full ROM - Respiratory Exam Respiratory Exam: Clear to Ausculation Bilateral, NORMAL BREATHING PATTERN - Cardiovascular Exam Cardiovascular Exam: REGULAR RHYTHM, +S1, +S2 - GI/Abdominal Exam GI & Abdominal Exam: Soft, Tenderness, Hyperactive Bowel Sounds Additional comments: [place] draining fecal matter area around ostomy tube clean dry intact - Neurological Exam Neurological Exam: Alert, Awake, Oriented x3 - Psychiatric Exam Psychiatric exam: Normal Affect, Normal Mood Assessment and Plan - Assessment and Plan (Free Text) Assessment: 56 y/o F with PMH including Hypothyroidism, Cirrhosis secondary to Hepatitis C and undetermined complex adnexal mass presented to ED for evaluation of progressive abdominal pain, abdominal distension and constipation. Plan: Abdominal Distension/Constipation- s/p Colostomy POD #1 -Liquid diet for now -Zofran 4mg IV PRN for nausea/vomiting -GI- Dr. Ospina on board Complex adnexal mass -CT abdomen detects a complex cystic left adnexal mass measuring 7cm x 4.9cm and a cystic lesion involving the right adnexa measuring 4cm -CA 125 > 200, HE4 elevated > 400 -CEA wnl at 1.2 -[facility]-Oncology follow up at [facility] - Appointment made for June 01, at [address] Nayely Brooke - Senia Zavaleta [facility]-Oncology Office [phone] DVT - Lovenox 40mg sc Hypothyroidism -Last TSH: 26.9 on 05/20/17 -Levothyroxine recently increased from 25mcg daily to 50mcg daily on 05/21/17 Cirrhosis secondary to Hepatitis C - chronic -S/P IR guided paracentesis of 2.5L straw colored fluid on 05/18/17 -HCV Genotype 3, Viral load 1,[id number] on 02/10/17 -Fibrosure performed on 02/26/17 detects Fibrosis stage F2 -GI Dr. Ospina on board. DVT Prophylaxis -SCDs for now
[2017-05-26] MEDS: Tmp-Smz 800 mg-160 mg DS Tab PO SCH (12:29)
--- NOTE | 2017-05-26 14:15 | CP.PCM.PN ---
Subjective - Date & Time of Evaluation Date of Evaluation: 05/26/17 Time of Evaluation: 07:00 - Subjective Subjective: GENERAL SURGERY PROGRESS NOTE FOR DR. RIGGINS Patient seen and examined at bedside. She is reports abdominal pain. She only had a little bit of the CLD so far but denies nausea or vomiting. She ambulated to the bathroom with the nurse. Objective - Vital Signs/Intake and Output Vital Signs (last 24 hours): Temp Pulse Resp BP Pulse Ox 97.6 F 109 H 18 101/70 98 05/26/17 11:35 05/26/17 11:35 05/26/17 11:35 05/26/17 11:35 05/26/17 11:35 - Medications Medications: Current Medications Furosemide (Lasix) 40 mg PO DAILY [facility] Last Admin: 05/26/17 11:32 Dose: 40 mg Heparin Sodium (Porcine) (Heparin) 5,000 units SC Q12 [facility] PRN Reason: Protocol Last Admin: 05/26/17 11:31 Dose: 5,000 units Hydromorphone HCl (Dilaudid) 0.25 mg IVP Q5M PRN PRN Reason: Pain, moderate (4-7) Last Admin: 05/25/17 19:25 Dose: 0.25 mg Hydromorphone HCl (Dilaudid) 0.5 mg IVP Q4 PRN PRN Reason: Pain, moderate (4-7) Last Admin: 05/26/17 11:43 Dose: 0.5 mg Lactulose (Enulose) 30 gm PO DAILY [facility] Ondansetron HCl (Zofran Inj) 4 mg IVP Q6 PRN PRN Reason: Nausea/Vomiting Polyethylene Glycol (Miralax) 17 gm PO BID [facility] Spironolactone (Aldactone) 100 mg PO DAILY [facility] Last Admin: 05/26/17 12:29 Dose: 100 mg Trimethoprim/Sulfamethoxazole (Bactrim Ds Tab) 1 tab PO DAILY [facility] Last Admin: 05/26/17 12:29 Dose: 1 tab - Labs Labs: 05/26/17 05:30 05/26/17 05:30 PT 13.0 Seconds (9.8-13.1) 05/25/17 05:50 INR 1.3 (0.9-1.2) H 05/25/17 05:50 - Constitutional Appears: Non-toxic, No Acute Distress - Head Exam Head Exam: ATRAUMATIC, NORMAL INSPECTION - Eye Exam Eye Exam: EOMI, Normal appearance - Respiratory Exam Respiratory Exam: NORMAL BREATHING PATTERN. absent: Respiratory Distress - Cardiovascular Exam Cardiovascular Exam: +S1, +S2 - GI/Abdominal Exam GI & Abdominal Exam: Soft, Tenderness (mild tenderness around incision). absent : Distended, Firm, Guarding, Rigid Additional comments: Colostomy in place with moderate amount of liquid brown stool - Neurological Exam Neurological Exam: Alert, Awake, Oriented x3 - Psychiatric Exam Psychiatric exam: Normal Affect, Normal Mood - Skin Skin Exam: Dry, Normal Color, Warm Assessment and Plan - Assessment and Plan (Free Text) Assessment: 56yo F with PMHx of Hep C cirrhosis, SBP with colonic obstruction secondary to adnexal mass now s/p sigmoid blow hole colostomy, POD#1 - Afebrile, mild tachycardia - Will FU path results - Heparin prophylaxis started - Colostomy functioning well - GI started her on Lactulose and Miralax - On diuretics for her ascites - Discussed plan with Dr. Tony Gonzales PGY-3
[2017-05-26] MEDS: POLYETHYLENE GLYCOL 3350 17 GM/Dose PACKET PO SCH (16:08)
[2017-05-26] MEDS ORDERED: Sodium Chloride 0.9% 1,000 ML IV SCH (18:30)
[2017-05-26] MEDS ORDERED: Morphine 4 MG/ML VIAL IVP PRN (20:18)
[2017-05-27 07:30] LABS: BLOOD UREA NITROGEN 23 mg/dl (7-17); CALCIUM 8.1 mg/dL (8.4-10.2); GFR AFRICAN-AMERICAN > 60; GFR NON-AFRICAN AMERICAN > 60
[2017-05-27 07:32] LABS: BASO % 0.1 % (0.0-2.0); HEMOGLOBIN 12.5 g/dL (12.0-16.0); LYMPH # 1.1 K/uL (1.0-4.3); LYMPH % 12.6 % (20.0-40.0); MEAN CELL VOLUME 86.4 fl (81.0-99.0); MEAN CORPUSCULAR HEMOGLOBIN 29.5 pg (27.0-31.0); MEAN CORPUSCULAR HGB CONC 34.1 g/dL (33.0-37.0); MEAN PLATELET VOLUME 8.5 fl (7.2-11.7); MONO # 0.7 K/uL (0.0-0.8); MONO % 8.4 % (0.0-10.0); NEUT % 78.9 % (50.0-75.0); RBC 4.24 Mil/uL (3.80-5.20); RED CELL DISTRIBUTION WIDTH 15.4 % (11.5-14.5); WHITE BLOOD COUNT 8.8 K/uL (4.8-10.8)
--- NOTE | 2017-05-27 07:52 | CP.PCM.PN ---
Subjective - Date & Time of Evaluation Date of Evaluation: 05/27/17 Time of Evaluation: 07:48 - Subjective Subjective: General Surgery - Dr. Jimenez Pt S&E. AJ. Pt complains of abdominal pain poorly controlled, advised will review pain med regimen. She is tolerating small amount of liquid diet. She deneis any N/V, F/C, SOb/Cp. Colostomy w/ moderate amount soft brown stool Objective - Vital Signs/Intake and Output Vital Signs (last 24 hours): Temp Pulse Resp BP Pulse Ox 98.1 F 115 H 18 90/58 L 100 05/27/17 07:35 05/27/17 07:35 05/27/17 07:35 05/27/17 07:35 05/27/17 07:35 - Medications Medications: Current Medications Furosemide (Lasix) 40 mg PO DAILY [facility] Last Admin: 05/26/17 11:32 Dose: 40 mg Heparin Sodium (Porcine) (Heparin) 5,000 units SC Q12 [facility] PRN Reason: Protocol Last Admin: 05/26/17 22:14 Dose: 5,000 units Hydromorphone HCl (Dilaudid) 0.25 mg IVP Q5M PRN PRN Reason: Pain, moderate (4-7) Last Admin: 05/25/17 19:25 Dose: 0.25 mg Hydromorphone HCl (Dilaudid) 0.5 mg IVP Q4 PRN PRN Reason: Pain, moderate (4-7) Last Admin: 05/26/17 11:43 Dose: 0.5 mg Sodium Chloride (Sodium Chloride 0.9%) 1,000 mls @ 70 mls/hr IV .[id number] [facility] Stop: 05/27/17 18:27 Last Admin: 05/26/17 18:31 Dose: 70 mls/hr Potassium Chloride/Dextrose/Sod Cl (D5-Ns1l+40meq Kcl) 1,000 mls @ 80 mls/hr IV .[id number] [facility] Stop: 05/28/17 07:47 Ketorolac Tromethamine (Toradol) 30 mg IVP Q6 [facility] Stop: 05/29/17 10:01 Lactulose (Enulose) 30 gm PO DAILY [facility] Ondansetron HCl (Zofran Inj) 4 mg IVP Q6 PRN PRN Reason: Nausea/Vomiting Polyethylene Glycol (Miralax) 17 gm PO BID [facility] Last Admin: 05/26/17 16:08 Dose: 17 gm Spironolactone (Aldactone) 100 mg PO DAILY [facility] Last Admin: 05/26/17 12:29 Dose: 100 mg Trimethoprim/Sulfamethoxazole (Bactrim Ds Tab) 1 tab PO DAILY [facility] Last Admin: 05/26/17 12:29 Dose: 1 tab - Labs Labs: 05/26/17 05:30 05/27/17 05:30 PT 13.0 Seconds (9.8-13.1) 05/25/17 05:50 INR 1.3 (0.9-1.2) H 05/25/17 05:50 - Constitutional Appears: No Acute Distress - Head Exam Head Exam: ATRAUMATIC, NORMAL INSPECTION, NORMOCEPHALIC - Eye Exam Eye Exam: Normal appearance - ENT Exam ENT Exam: Mucous Membranes Dry - Respiratory Exam Respiratory Exam: NORMAL BREATHING PATTERN. absent: Respiratory Distress - GI/Abdominal Exam GI & Abdominal Exam: Soft, Tenderness (appropriately). absent: Distended, Firm , Guarding, Rigid, Rebound Additional comments: colostomy pink, soft brown stool - Neurological Exam Neurological Exam: Alert, Oriented x3 - Psychiatric Exam Psychiatric exam: Normal Affect, Normal Mood - Skin Skin Exam: Dry, Intact Assessment and Plan - Assessment and Plan (Free Text) Assessment: 56yo F w LBO 2/2 adnexal mass, s/p sigmoid blow hole colostomy, POD#2 - Continue CLD for now, advance slowly as tolerated - IVF - Toradol brandin and Dilaudid PRN for pain - DVT px - Encourage OOB and Incentive Spirometer DW Dr. Tony Case PGy3
[2017-05-27] MEDS: Tmp-Smz 800 mg-160 mg DS Tab PO SCH (08:57)
[2017-05-27] MEDS: POLYETHYLENE GLYCOL 3350 17 GM/Dose PACKET PO SCH ×4 (08:59→17:11)
[2017-05-27] MEDS: Potassium Chl 40 mEq in D5-NS 1,000 ML IV SCH ×2 (09:40→21:30)
--- NOTE | 2017-05-27 13:37 | OP ---
PROCEDURE DATE: 05/25/2017 SURGEON: Dr. Capo Jimenez MD SPORTS AGENT: Dr. Torres and Dr. Post. PREOPERATIVE DIAGNOSIS: Colonic obstruction. POSTOPERATIVE DIAGNOSES: Colonic obstruction and malignant peritonitis . PROCEDURE: Sigmoid colostomy and biopsy of peritoneal metastases. DESCRIPTION OF OPERATION: With the patient in the supine position, under adequate general anesthesia, the abdomen was prepped and draped in the usual sterile manner. A transverse incision was made in the left lower quadrant taken down through the subcutaneous tissue and the left external oblique fascia was incised. The muscle was split to expose the peritoneum. The peritoneum was grasped and elevated and the peritoneum was excised. Approximately 1 liter of acidic fluid was suctioned and the small bowel initially was visualized and noted to be mildly dilated, but without any evidence of acute obstruction. The sigmoid colon was then identified and a segment delivered into the wound. There was noted to be peritoneal seeding with nodules of approximately 2 mm to 3 mm in size throughout the peritoneum and primarily near the mesenteric border of multiple loops of bowel. A segment of sigmoid was freed and noted to be deliverable into the area where the colostomy was to be constructed. A segment of omentum which contained implants was delivered into the wound. It was clamped, divided and ligated with 3-0 Vicryl ties and specimen was taken. Additional specimens were taken from the bowel mesentery. The sigmoid was delivered up into the wound and the fascial opening medial and lateral to the sigmoid were closed with [id number] sutures of 0-Vicryl and the skin was also partially closed, medial and lateral using subcuticular sutures of 4-0 Monocryl and glue. The ostomy was then matured primarily opening the antimesenteric aspect of the colon and suturing a full thickness of the colon to the full thickness of the skin to create a blowhole type colostomy. A red rubber catheter was passed proximally to confirm that gas and stool were in communication with the ostomy as the sigmoid itself was not remarkably dilated and gas and liquid stool were returned. A colostomy appliance was applied. The patient tolerated the procedure well and transferred to the recovery room in stable condition. ESTIMATED BLOOD LOSS: For the procedure was 20 mL. Capo Jimenez MD MTDD
--- NOTE | 2017-05-27 14:08 | CP.PCM.PN ---
Subjective - Date & Time of Evaluation Date of Evaluation: 05/27/17 Time of Evaluation: 14:07 - Subjective Subjective: RFV: CIrrhosis S: COpious stool from ostomy. No bleeding. Still distended but improved. No bleeding. Tolerating liquids. Objective - Vital Signs/Intake and Output Vital Signs (last 24 hours): Temp Pulse Resp BP Pulse Ox 98.1 F 115 H 18 90/58 L 100 05/27/17 07:35 05/27/17 07:35 05/27/17 07:35 05/27/17 07:35 05/27/17 07:35 - Medications Medications: Current Medications Furosemide (Lasix) 40 mg PO DAILY [facility] Last Admin: 05/26/17 11:32 Dose: 40 mg Heparin Sodium (Porcine) (Heparin) 5,000 units SC Q12 [facility] PRN Reason: Protocol Last Admin: 05/27/17 08:58 Dose: 5,000 units Hydromorphone HCl (Dilaudid) 0.25 mg IVP Q5M PRN PRN Reason: Pain, moderate (4-7) Last Admin: 05/25/17 19:25 Dose: 0.25 mg Hydromorphone HCl (Dilaudid) 0.5 mg IVP Q4 PRN PRN Reason: Pain, moderate (4-7) Last Admin: 05/26/17 11:43 Dose: 0.5 mg Sodium Chloride (Sodium Chloride 0.9%) 1,000 mls @ 70 mls/hr IV .[id number] [facility] Stop: 05/27/17 18:27 Last Admin: 05/26/17 18:31 Dose: 70 mls/hr Potassium Chloride/Dextrose/Sod Cl (D5-Ns1l+40meq Kcl) 1,000 mls @ 80 mls/hr IV .[id number] [facility] Stop: 05/28/17 07:47 Last Admin: 05/27/17 09:40 Dose: 80 mls/hr Ketorolac Tromethamine (Toradol) 30 mg IVP Q6 [facility] Stop: 05/29/17 10:01 Last Admin: 05/27/17 09:39 Dose: 30 mg Lactulose (Enulose) 30 gm PO DAILY [facility] Ondansetron HCl (Zofran Inj) 4 mg IVP Q6 PRN PRN Reason: Nausea/Vomiting Polyethylene Glycol (Miralax) 17 gm PO BID [facility] Last Admin: 05/27/17 10:06 Dose: 17 gm Spironolactone (Aldactone) 100 mg PO DAILY [facility] Last Admin: 05/27/17 08:57 Dose: 100 mg Trimethoprim/Sulfamethoxazole (Bactrim Ds Tab) 1 tab PO DAILY [facility] Last Admin: 05/27/17 08:57 Dose: 1 tab - Labs Labs: 05/27/17 05:30 05/27/17 05:30 PT 13.0 Seconds (9.8-13.1) 05/25/17 05:50 INR 1.3 (0.9-1.2) H 05/25/17 05:50 - Constitutional Appears: Cachectic, Chronically Ill - Head Exam Head Exam: ATRAUMATIC, NORMOCEPHALIC - Eye Exam Pupil Exam: PERRL - Respiratory Exam Respiratory Exam: NORMAL BREATHING PATTERN - Cardiovascular Exam Cardiovascular Exam: +S1, +S2 - GI/Abdominal Exam GI & Abdominal Exam: Distended, Soft - Neurological Exam Neurological Exam: Alert, Oriented x3 - Skin Skin Exam: Dry, Warm Assessment and Plan - Assessment and Plan (Free Text) Assessment: 56 year old female with h/o hcv cirrhosis, decompensated, now admitted with 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 1. Malignant colonic obstruction 2. 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
[2017-05-27] MEDS: Lactulose 10 gm/15 ml Syrup PO SCH (15:00)
--- NOTE | 2017-05-27 15:26 | CP.PCM.PN ---
Subjective - Date & Time of Evaluation Date of Evaluation: 05/27/17 Time of Evaluation: 09:20 - Subjective Subjective: Pt. seen at bedside lying down and awake. Pt. with no complaints at this time. Pt. with no overnight events. Pt. tolerating po liquids. Pt. still reports abdominal pain but states improving. On ROS. denies any headache, shortness of breath, chest pain, or abdominal pain. Objective - Vital Signs/Intake and Output Vital Signs (last 24 hours): Temp Pulse Resp BP Pulse Ox 98.1 F 115 H 18 90/58 L 100 05/27/17 07:35 05/27/17 07:35 05/27/17 07:35 05/27/17 07:35 05/27/17 07:35 - Medications Medications: Current Medications Furosemide (Lasix) 40 mg PO DAILY [facility] Last Admin: 05/26/17 11:32 Dose: 40 mg Heparin Sodium (Porcine) (Heparin) 5,000 units SC Q12 [facility] PRN Reason: Protocol Last Admin: 05/27/17 08:58 Dose: 5,000 units Potassium Chloride/Dextrose/Sod Cl (D5-Ns1l+40meq Kcl) 1,000 mls @ 80 mls/hr IV .[id number] [facility] Stop: 05/28/17 07:47 Last Admin: 05/27/17 09:40 Dose: 80 mls/hr Lactulose (Enulose) 30 gm PO DAILY [facility] Morphine Sulfate (Morphine) 2 mg IVP Q6 PRN PRN Reason: Pain, severe (8-10) Ondansetron HCl (Zofran Inj) 4 mg IVP Q6 PRN PRN Reason: Nausea/Vomiting Polyethylene Glycol (Miralax) 17 gm PO BID [facility] Last Admin: 05/27/17 10:06 Dose: 17 gm Spironolactone (Aldactone) 100 mg PO DAILY [facility] Last Admin: 05/27/17 08:57 Dose: 100 mg Trimethoprim/Sulfamethoxazole (Bactrim Ds Tab) 1 tab PO DAILY [facility] Last Admin: 05/27/17 08:57 Dose: 1 tab - Labs Labs: 05/27/17 05:30 05/27/17 05:30 PT 13.0 Seconds (9.8-13.1) 05/25/17 05:50 INR 1.3 (0.9-1.2) H 05/25/17 05:50 - Constitutional Appears: Non-toxic, No Acute Distress, Other (Underweight ) - Eye Exam Eye Exam: absent: Scleral icterus - ENT Exam ENT Exam: Mucous Membranes Moist - Respiratory Exam Respiratory Exam: Clear to Ausculation Bilateral, NORMAL BREATHING PATTERN - Cardiovascular Exam Cardiovascular Exam: REGULAR RHYTHM, +S1, +S2 - GI/Abdominal Exam GI & Abdominal Exam: Distended (Distended but improving ), Soft, Tenderness ( Moderate ), Hyperactive Bowel Sounds Additional comments: Colostomy in place with fecal output noted - Extremities Exam Extremities Exam: Normal Inspection. absent: Pedal Edema - Neurological Exam Neurological Exam: Alert, Awake, Oriented x3 - Psychiatric Exam Additional comments: Sad Assessment and Plan - Assessment and Plan (Free Text) Assessment: 56 y/o F with PMH including Hypothyroidism, Cirrhosis secondary to Hepatitis C and undetermined complex adnexal mass presented to ED for evaluation of progressive abdominal pain, abdominal distension and constipation. Plan: Abdominal Distension/Constipation- s/p Colostomy POD #2 -Continue Liquid diet for now, Continue Miralax, Pt. refusing Lactulose -Zofran 4mg IV PRN for nausea/vomiting -GI- Dr. Ospina on board -Surgery Dr. Jimenez on board Complex adnexal mass -CT abdomen detects a complex cystic left adnexal mass measuring 7cm x 4.9cm and a cystic lesion involving the right adnexa measuring 4cm -CA 125 > 200, HE4 elevated > 400 -CEA wnl at 1.2 -Dial [place]-Oncology follow up at [facility] - Appointment made for June 01, at [address] Nayely Brooke -Morphine and Toradol PRN for pain - Senia Zavaleta Dial [place]- Oncology Office [phone] Hypothyroidism -Last TSH: 26.9, TSH 30.10 on 05/25 -Will increase Levothyroxine to 75mcg from 50mcg Cirrhosis secondary to Hepatitis C - chronic -S/P IR guided paracentesis of 2.5L straw colored fluid on 05/18/17 -HCV Genotype 3, Viral load 1,378,544 on 02/10/17 -Fibrosure performed on 02/26/17 detects Fibrosis stage F2 -GI Dr. Ospina on board. DVT Prophylaxis - Heparin 5000 units sc Q12 Diet -Clear liquids for now -Maintaance fluids -Will advance as tolerated
[2017-05-28 05:55] LABS: BASO % 0.1 % (0.0-2.0); HEMOGLOBIN 12.2 g/dL (12.0-16.0); LYMPH # 0.8 K/uL (1.0-4.3); LYMPH % 9.4 % (20.0-40.0); MEAN CELL VOLUME 87.4 fl (81.0-99.0); MEAN CORPUSCULAR HEMOGLOBIN 29.5 pg (27.0-31.0); MEAN CORPUSCULAR HGB CONC 33.7 g/dL (33.0-37.0); MEAN PLATELET VOLUME 8.5 fl (7.2-11.7); MONO # 0.5 K/uL (0.0-0.8); MONO % 6.1 % (0.0-10.0); NEUT # 7.4 K/uL (1.8-7.0); NEUT % 84.4 % (50.0-75.0); PLATELET COUNT 165 K/uL (130-400); RBC 4.13 Mil/uL (3.80-5.20); RED CELL DISTRIBUTION WIDTH 15.5 % (11.5-14.5); WHITE BLOOD COUNT 8.8 K/uL (4.8-10.8)
[2017-05-28 06:01] LABS: BLOOD UREA NITROGEN 26 mg/dl (7-17); CALCIUM 8.1 mg/dL (8.4-10.2); GFR AFRICAN-AMERICAN > 60; GFR NON-AFRICAN AMERICAN > 60
[2017-05-28] MEDS: Levothyroxine 75 MCG TAB PO SCH (06:39)
[2017-05-28 08:06] LABS: LYMPHOCYTE 12 % (20-50); METAMYELOCYTE 3 % (0-0); MONOCYTE 5 % (0-10); MYELOCYTE 1 % (0-0); NEUTROPHIL 79 % (42-75); PLATELET ESTIMATE NORMAL (NORMAL); TOTAL CELLS COUNTED 100
[2017-05-28 08:08] LABS: ANISOCYTOSIS SLIGHT
--- NOTE | 2017-05-28 08:14 | CP.PCM.PN ---
Subjective - Date & Time of Evaluation Date of Evaluation: 05/28/17 Time of Evaluation: 08:11 - Subjective Subjective: Surgery: Dr. Jimenez Pt seen and examined. Resting comfortably in bed. States that pain is improved. She is tolerating CLD. Does not want diet advanced. No N/V. Objective - Vital Signs/Intake and Output Vital Signs (last 24 hours): Temp Pulse Resp BP Pulse Ox 97.6 F 68 20 97/63 L 96 05/28/17 07:43 05/28/17 07:43 05/28/17 07:43 05/28/17 07:43 05/28/17 07:43 - Medications Medications: Current Medications Furosemide (Lasix) 40 mg PO DAILY [facility] Last Admin: 05/27/17 09:00 Dose: Not Given Heparin Sodium (Porcine) (Heparin) 5,000 units SC Q12 [facility] PRN Reason: Protocol Last Admin: 05/27/17 21:31 Dose: 5,000 units Sodium Chloride (Sodium Chloride 0.9%) 1,000 mls @ 50 mls/hr IV .Q20H [facility] Stop: 05/29/17 08:07 Lactulose (Enulose) 30 gm PO DAILY [facility] Last Admin: 05/27/17 15:00 Dose: Not Given Levothyroxine Sodium (Synthroid) 75 mcg PO DAILY@0630 [facility] Last Admin: 05/28/17 06:39 Dose: 75 mcg Morphine Sulfate (Morphine) 2 mg IVP Q6 PRN PRN Reason: Pain, severe (8-10) Ondansetron HCl (Zofran Inj) 4 mg IVP Q6 PRN PRN Reason: Nausea/Vomiting Polyethylene Glycol (Miralax) 17 gm PO BID [facility] Last Admin: 05/27/17 17:11 Dose: 17 gm Spironolactone (Aldactone) 100 mg PO DAILY [facility] Last Admin: 05/27/17 08:57 Dose: 100 mg Trimethoprim/Sulfamethoxazole (Bactrim Ds Tab) 1 tab PO DAILY [facility] Last Admin: 05/27/17 08:57 Dose: 1 tab - Labs Labs: 05/28/17 05:00 05/28/17 05:00 PT 13.0 Seconds (9.8-13.1) 05/25/17 05:50 INR 1.3 (0.9-1.2) H 05/25/17 05:50 - Constitutional Appears: Non-toxic, No Acute Distress, Older Than Stated Age, Chronically Ill - Head Exam Head Exam: ATRAUMATIC, NORMOCEPHALIC - Eye Exam Eye Exam: EOMI - ENT Exam ENT Exam: Mucous Membranes Moist - Neck Exam Neck Exam: Full ROM - Respiratory Exam Respiratory Exam: NORMAL BREATHING PATTERN. absent: Accessory Muscle Use, Respiratory Distress - GI/Abdominal Exam GI & Abdominal Exam: Distended, Soft. absent: Firm, Guarding, Rigid, Tenderness Additional comments: stoma pink and patent - Neurological Exam Neurological Exam: Alert, Awake, Oriented x3 Assessment and Plan - Assessment and Plan (Free Text) Assessment: 56F w. distal colonic obstruction, s/p sigmoid blow hole, POD#3 -Stoma: large amount of loose stool output, unable to quantify 2/2 leakage -F/U path -c/w CLD -pain management -IS use -d/w attending Lilianaitis PGY3
[2017-05-28] MEDS ORDERED: Sodium Chloride 0.9% 1,000 ML IV SCH (08:15)
--- NOTE | 2017-05-28 08:41 | CP.PCM.PN ---
<JoshHiwot - Last Filed: 05/28/17 14:13> Subjective - Date & Time of Evaluation Date of Evaluation: 05/28/17 Time of Evaluation: 08:15 - Subjective Subjective: GI Fellow PGY4 Progress Note Pt seen and evaluated at bedside, pt reports feeling better this am with mild abdominal discomfort around colostomy site. Pt tolerating liquid diet with no nausea or vomiting. Pt reports leakage of stool from colostomy site. Pt still refusing lactulose, reports nausea/vomiting but agreeable to taking miralax. Had an extensive conversation with pt about current medical condition and the reason for colostomy, obstruction and ovarian mass-pt has poor insight but was better able to understand reason for surgical intervention and further medical decisions pending biopsy of ovarian mass. ROS: A 12pt ROS was obtained and was negative except as above. Objective - Vital Signs/Intake and Output Vital Signs (last 24 hours): Temp Pulse Resp BP Pulse Ox 97.6 F 68 20 97/63 L 96 05/28/17 07:43 05/28/17 07:43 05/28/17 07:43 05/28/17 07:43 05/28/17 07:43 - Medications Medications: Current Medications Furosemide (Lasix) 40 mg PO DAILY [facility] Last Admin: 05/27/17 09:00 Dose: Not Given Heparin Sodium (Porcine) (Heparin) 5,000 units SC Q12 [facility] PRN Reason: Protocol Last Admin: 05/27/17 21:31 Dose: 5,000 units Sodium Chloride (Sodium Chloride 0.9%) 1,000 mls @ 50 mls/hr IV .Q20H [facility] Stop: 05/29/17 08:07 Lactulose (Enulose) 30 gm PO DAILY [facility] Last Admin: 05/27/17 15:00 Dose: Not Given Levothyroxine Sodium (Synthroid) 75 mcg PO DAILY@0630 [facility] Last Admin: 05/28/17 06:39 Dose: 75 mcg Morphine Sulfate (Morphine) 2 mg IVP Q6 PRN PRN Reason: Pain, severe (8-10) Ondansetron HCl (Zofran Inj) 4 mg IVP Q6 PRN PRN Reason: Nausea/Vomiting Polyethylene Glycol (Miralax) 17 gm PO DAILY [facility] Spironolactone (Aldactone) 100 mg PO DAILY [facility] Last Admin: 05/27/17 08:57 Dose: 100 mg Trimethoprim/Sulfamethoxazole (Bactrim Ds Tab) 1 tab PO DAILY [facility] Last Admin: 05/27/17 08:57 Dose: 1 tab - Labs Labs: 05/28/17 05:00 05/28/17 05:00 PT 13.0 Seconds (9.8-13.1) 05/25/17 05:50 INR 1.3 (0.9-1.2) H 05/25/17 05:50 - Constitutional Appears: Non-toxic, No Acute Distress, Older Than Stated Age, Chronically Ill - Head Exam Head Exam: ATRAUMATIC, NORMAL INSPECTION, NORMOCEPHALIC - Eye Exam Eye Exam: EOMI, Normal appearance, PERRL Pupil Exam: PERRL - ENT Exam ENT Exam: Mucous Membranes Moist, Normal Exam - Neck Exam Neck Exam: Full ROM, Normal Inspection - Respiratory Exam Respiratory Exam: Decreased Breath Sounds, NORMAL BREATHING PATTERN - Cardiovascular Exam Cardiovascular Exam: RRR - GI/Abdominal Exam GI & Abdominal Exam: Soft, Tenderness, Normal Bowel Sounds. absent: Guarding, Rigid - Rectal Exam Rectal Exam: Deferred - Extremities Exam Extremities Exam: Full ROM, Normal Inspection. absent: Pedal Edema - Back Exam Back Exam: NORMAL INSPECTION - Neurological Exam Neurological Exam: Alert, Awake, Oriented x3 - Psychiatric Exam Psychiatric exam: Normal Affect, Normal Mood - Skin Skin Exam: Dry, Intact, Normal Color, Warm Assessment and Plan - Assessment and Plan (Free Text) Assessment: This is a 56yF with hx of Cirrhosis from HCV, ascites with SBP, hepatic encephalopathy pw co of no BM in 2weeks. 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 1. Colonic obstruction s/p sigmoid colostomy 2. Adenexal Mass with omental caking causing obstruction 3. Hypothyroidism 4. Decompensated cirrhosis 2/2 chronic HCV infection 5. Ascites, hx SBP Plan: -Sigmoid colostomy with liquid stool output, will dc lactulose since pt refusing and decrease miralax to daily -Continue liquid diet, advance per surgery -Continue post-op supportive care -Continue treatment for cirrhosis with furosemide, spironolactone and prophylactic bactrim for hx SBP, doing fine at the moment -Pt to fu at [facility] for [employer] ONC and ovarian biopsy, likely ovarian malignancy -Discussed with pt current medical therapy and further plan of care -Will continue to follow pt closely <Mary Kate Ospina MD - Last Filed: 05/28/17 14:35> Objective - Vital Signs/Intake and Output Vital Signs (last 24 hours): Temp Pulse Resp BP Pulse Ox 97.6 F 68 20 97/63 L 96 05/28/17 07:43 05/28/17 07:43 05/28/17 07:43 05/28/17 07:43 05/28/17 07:43 - Medications Medications: Current Medications Furosemide (Lasix) 40 mg PO DAILY [facility] Last Admin: 05/27/17 09:00 Dose: Not Given Heparin Sodium (Porcine) (Heparin) 5,000 units SC Q12 [facility] PRN Reason: Protocol Last Admin: 05/28/17 08:46 Dose: 5,000 units Lactulose (Enulose) 30 gm PO DAILY [facility] Last Admin: 05/28/17 08:46 Dose: Not Given Levothyroxine Sodium (Synthroid) 75 mcg PO DAILY@0630 [facility] Last Admin: 05/28/17 06:39 Dose: 75 mcg Morphine Sulfate (Morphine) 2 mg IVP Q6 PRN PRN Reason: Pain, severe (8-10) Ondansetron HCl (Zofran Inj) 4 mg IVP Q6 PRN PRN Reason: Nausea/Vomiting Polyethylene Glycol (Miralax) 17 gm PO DAILY [facility] Last Admin: 05/28/17 08:47 Dose: 17 gm Spironolactone (Aldactone) 100 mg PO DAILY [facility] Last Admin: 05/28/17 08:45 Dose: 100 mg Trimethoprim/Sulfamethoxazole (Bactrim Ds Tab) 1 tab PO DAILY [facility] Last Admin: 05/28/17 08:45 Dose: 1 tab - Labs Labs: 05/28/17 05:00 05/28/17 05:00 PT 13.0 Seconds (9.8-13.1) 05/25/17 05:50 INR 1.3 (0.9-1.2) H 05/25/17 05:50 Attending/Attestation - Attestation I have personally seen and examined this patient.: Yes I have fully participated in the care of the patient.: Yes I have reviewed all pertinent clinical information, including history, physical exam and plan: Yes Notes (Text): 05/28/17 14:31 Patient seen with GI fellow at bedside. 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 Liquid diet as per surgery. Follow with Gynae oncology for further treatment for adnexal mass.
[2017-05-28] MEDS: Tmp-Smz 800 mg-160 mg DS Tab PO SCH (08:45)
[2017-05-28] MEDS: Lactulose 10 gm/15 ml Syrup PO SCH (08:46)
[2017-05-28] MEDS ORDERED: Enoxaparin 40 mg Syringe SC SCH (09:00)
[2017-05-28] MEDS ORDERED: POLYETHYLENE GLYCOL 3350 17 GM/Dose PACKET PO SCH (09:00)
[2017-05-28] MEDS ORDERED: Lactulose 10 gm/15 ml Syrup PO SCH (09:00)
--- NOTE | 2017-05-28 11:34 | CP.PCM.PN ---
Subjective - Date & Time of Evaluation Date of Evaluation: 05/28/17 Time of Evaluation: 09:00 - Subjective Subjective: Pt. seen today standing next to bed. Pt. with no complaints at this time. Pt. with no overnight events. Pt. tolerating po liquids. Pt. denies vomiting. Pt. states had a bowel movement in addition to colostomy drainage. Pt. still reports abdominal pain well controlled. On ROS. denies any headache, shortness of breath, chest pain, fever, chills, or abdominal pain. Objective - Vital Signs/Intake and Output Vital Signs (last 24 hours): Temp Pulse Resp BP Pulse Ox 97.6 F 68 20 97/63 L 96 05/28/17 07:43 05/28/17 07:43 05/28/17 07:43 05/28/17 07:43 05/28/17 07:43 - Medications Medications: Current Medications Furosemide (Lasix) 40 mg PO DAILY [facility] Last Admin: 05/27/17 09:00 Dose: Not Given Heparin Sodium (Porcine) (Heparin) 5,000 units SC Q12 [facility] PRN Reason: Protocol Last Admin: 05/28/17 08:46 Dose: 5,000 units Sodium Chloride (Sodium Chloride 0.9%) 1,000 mls @ 50 mls/hr IV .Q20H [facility] Stop: 05/29/17 08:07 Last Admin: 05/28/17 09:22 Dose: 50 mls/hr Lactulose (Enulose) 30 gm PO DAILY [facility] Last Admin: 05/28/17 08:46 Dose: Not Given Levothyroxine Sodium (Synthroid) 75 mcg PO DAILY@0630 [facility] Last Admin: 05/28/17 06:39 Dose: 75 mcg Morphine Sulfate (Morphine) 2 mg IVP Q6 PRN PRN Reason: Pain, severe (8-10) Ondansetron HCl (Zofran Inj) 4 mg IVP Q6 PRN PRN Reason: Nausea/Vomiting Polyethylene Glycol (Miralax) 17 gm PO DAILY [facility] Last Admin: 05/28/17 08:47 Dose: 17 gm Spironolactone (Aldactone) 100 mg PO DAILY [facility] Last Admin: 05/28/17 08:45 Dose: 100 mg Trimethoprim/Sulfamethoxazole (Bactrim Ds Tab) 1 tab PO DAILY [facility] Last Admin: 05/28/17 08:45 Dose: 1 tab - Labs Labs: 05/28/17 05:00 05/28/17 05:00 PT 13.0 Seconds (9.8-13.1) 05/25/17 05:50 INR 1.3 (0.9-1.2) H 05/25/17 05:50 - Constitutional Appears: Non-toxic, No Acute Distress - Eye Exam Eye Exam: Normal appearance. absent: Scleral icterus - Respiratory Exam Respiratory Exam: Clear to Ausculation Bilateral, NORMAL BREATHING PATTERN - Cardiovascular Exam Cardiovascular Exam: REGULAR RHYTHM, +S1, +S2 - GI/Abdominal Exam GI & Abdominal Exam: Distended (Improving ), Tenderness (Improving compared to yesterday ), Hyperactive Bowel Sounds Additional comments: Colostomy bag with stool noted - Extremities Exam Extremities Exam: Normal Inspection. absent: Calf Tenderness - Neurological Exam Neurological Exam: Alert, Awake, Oriented x3 - Psychiatric Exam Psychiatric exam: Normal Affect, Normal Mood Assessment and Plan - Assessment and Plan (Free Text) Assessment: 56 y/o F with PMH including Hypothyroidism, Cirrhosis secondary to Hepatitis C and undetermined complex adnexal mass presented to ED for evaluation of progressive abdominal pain, abdominal distension and constipation. Plan: Abdominal Distension/Constipation/Large bowel obstruction- s/p Colostomy POD #3 -Discontinue Lactulose -Continue Miralax -Zofran 4mg IV PRN for nausea/vomiting -GI- Dr. Ospina on board -Surgery Dr. Jimenez on board Complex adnexal mass -CT abdomen detects a complex cystic left adnexal mass measuring 7cm x 4.9cm and a cystic lesion involving the right adnexa measuring 4cm -CA 125 > 200, HE4 elevated > 400 -CEA wnl at 1.2 -[employer]-Oncology follow up at [facility] - Appointment made for June 01, at [address] Nayely Brooke -Morphine and Toradol PRN for pain - Senia Zavaleta [employer]- Oncology Office [phone] Hypothyroidism -Last TSH: 26.9, TSH 30.10 on 05/25 -Continue Levothyroxine 75mcg Cirrhosis secondary to Hepatitis C - chronic -S/P IR guided paracentesis of 2.5L straw colored fluid on 05/18/17 -HCV Genotype 3, Viral load 1,[id number] on 02/10/17 -Fibrosure performed on 02/26/17 detects Fibrosis stage F2 -GI Dr. Ospina on board. DVT Prophylaxis - Heparin 5000 units sc Q12 Diet -GI Ovid/low fiber 2gram Na+ diet -D/C fluids
--- NOTE | 2017-05-28 16:52 | CP.PCM.PN ---
Subjective - Date & Time of Evaluation Date of Evaluation: 05/28/17 Time of Evaluation: 16:47 - Subjective Subjective: She underwent palliative colostomy and did well. She complains of mild abdominal pain. She did pass stools rectally as well. Denies nausea/ vomiting. Had low gd temperature today. Objective - Vital Signs/Intake and Output Vital Signs (last 24 hours): Temp Pulse Resp BP Pulse Ox 100 F H 97 H 20 97/66 L 98 05/28/17 16:08 05/28/17 16:08 05/28/17 16:08 05/28/17 16:08 05/28/17 16:08 - Medications Medications: Current Medications Furosemide (Lasix) 40 mg PO DAILY [facility] Last Admin: 05/28/17 15:49 Dose: 40 mg Heparin Sodium (Porcine) (Heparin) 5,000 units SC Q12 [facility] PRN Reason: Protocol Last Admin: 05/28/17 08:46 Dose: 5,000 units Lactulose (Enulose) 30 gm PO DAILY [facility] Last Admin: 05/28/17 08:46 Dose: Not Given Levothyroxine Sodium (Synthroid) 75 mcg PO DAILY@0630 [facility] Last Admin: 05/28/17 06:39 Dose: 75 mcg Lidocaine (Lidoderm) 2 ea TD DAILY [facility] Morphine Sulfate (Morphine) 2 mg IVP Q6 PRN PRN Reason: Pain, severe (8-10) Ondansetron HCl (Zofran Inj) 4 mg IVP Q6 PRN PRN Reason: Nausea/Vomiting Polyethylene Glycol (Miralax) 17 gm PO DAILY [facility] Last Admin: 05/28/17 08:47 Dose: 17 gm Spironolactone (Aldactone) 100 mg PO DAILY [facility] Last Admin: 05/28/17 08:45 Dose: 100 mg Trimethoprim/Sulfamethoxazole (Bactrim Ds Tab) 1 tab PO DAILY [facility] Last Admin: 05/28/17 08:45 Dose: 1 tab - Labs Labs: 05/28/17 05:00 05/28/17 05:00 PT 13.0 Seconds (9.8-13.1) 05/25/17 05:50 INR 1.3 (0.9-1.2) H 05/25/17 05:50 - Head Exam Head Exam: ATRAUMATIC, NORMAL INSPECTION - Eye Exam Eye Exam: EOMI, PERRL - ENT Exam ENT Exam: Mucous Membranes Moist - Respiratory Exam Respiratory Exam: Clear to Ausculation Bilateral - Cardiovascular Exam Cardiovascular Exam: REGULAR RHYTHM - GI/Abdominal Exam GI & Abdominal Exam: Soft. absent: Tenderness Additional comments: colostomy+ with brown stools - Extremities Exam Extremities Exam: absent: Pedal Edema - Neurological Exam Neurological Exam: Alert, Oriented x3 Assessment and Plan - Assessment and Plan (Free Text) Assessment: Adnexal mass with Omental involvement- suspicious for [employer] SUPERVISOR malignancy (?Ovarian) Bowel obstruction due to extrinsic compression Hep C with Cirrhosis s/p palliative colostomy to relieve obstruction. Awaiting final pathology from ometal biopsy. She is scheduled to see EXTENSION SUPERVISOR-ONC, Dr. Brooke on 06/01. We could discuss the option of giving neoadjuvant chemotherapy for few cycles before proceeding with surgery vs upfront surgery followed by chemotherapy. She can follow up with me as outpatient once stable. Bro Rodrigues MD
[2017-05-28] MEDS: Lidocaine 5% Patch TD SCH (17:20)
[2017-05-29] MEDS: Morphine 4 MG/ML VIAL IVP PRN (03:05)
[2017-05-29] MEDS: Levothyroxine 75 MCG TAB PO SCH (07:11)
--- NOTE | 2017-05-29 07:21 | CP.PCM.PN ---
<Hiwot Moreno - Last Filed: 05/29/17 07:23> Subjective - Date & Time of Evaluation Date of Evaluation: 05/29/17 Time of Evaluation: 06:45 - Subjective Subjective: GI Fellow PGY4 Progress Note Pt seen and evaluated at bedside, pt with moderate abdominal pain diffusely and around colostomy site. Pt tolerating diet with no nausea or vomiting. Pt reports alot of liquid stool from colostomy site. ROS: A 12pt ROS was obtained and was negative except as above. Objective - Vital Signs/Intake and Output Vital Signs (last 24 hours): Temp Pulse Resp BP Pulse Ox 99.4 F 91 H 17 98/63 L 98 05/29/17 00:04 05/29/17 00:04 05/29/17 00:04 05/29/17 00:04 05/29/17 00:04 - Medications Medications: Current Medications Furosemide (Lasix) 40 mg PO DAILY [facility] Last Admin: 05/28/17 15:49 Dose: 40 mg Heparin Sodium (Porcine) (Heparin) 5,000 units SC Q12 [facility] PRN Reason: Protocol Last Admin: 05/28/17 21:16 Dose: 5,000 units Levothyroxine Sodium (Synthroid) 75 mcg PO DAILY@0630 [facility] Last Admin: 05/29/17 07:11 Dose: 75 mcg Lidocaine (Lidoderm) 2 ea TD DAILY [facility] Last Admin: 05/28/17 17:20 Dose: 2 ea Morphine Sulfate (Morphine) 2 mg IVP Q6 PRN PRN Reason: Pain, severe (8-10) Last Admin: 05/29/17 03:05 Dose: 2 mg Ondansetron HCl (Zofran Inj) 4 mg IVP Q6 PRN PRN Reason: Nausea/Vomiting Spironolactone (Aldactone) 100 mg PO DAILY [facility] Last Admin: 05/28/17 08:45 Dose: 100 mg Trimethoprim/Sulfamethoxazole (Bactrim Ds Tab) 1 tab PO DAILY [facility] Last Admin: 05/28/17 08:45 Dose: 1 tab - Labs Labs: 05/28/17 05:00 05/28/17 05:00 PT 13.0 Seconds (9.8-13.1) 05/25/17 05:50 INR 1.3 (0.9-1.2) H 08/04/17 05:50 - Constitutional Appears: Non-toxic, No Acute Distress, Older Than Stated Age, Cachectic - Head Exam Head Exam: ATRAUMATIC, NORMAL INSPECTION, NORMOCEPHALIC - Eye Exam Eye Exam: EOMI, Normal appearance, PERRL Pupil Exam: PERRL - ENT Exam ENT Exam: Mucous Membranes Moist, Normal Exam - Neck Exam Neck Exam: Normal Inspection - Respiratory Exam Respiratory Exam: Decreased Breath Sounds, NORMAL BREATHING PATTERN - Cardiovascular Exam Cardiovascular Exam: RRR, +S1, +S2 - GI/Abdominal Exam GI & Abdominal Exam: Distended, Soft, Tenderness, Normal Bowel Sounds Additional comments: Abdomen more distended than yesterday, moderate TTP diffusely around colostomy site - Rectal Exam Rectal Exam: Deferred - Extremities Exam Extremities Exam: Full ROM, Normal Inspection. absent: Pedal Edema - Back Exam Back Exam: NORMAL INSPECTION - Neurological Exam Neurological Exam: Alert, Awake, Oriented x3 - Psychiatric Exam Psychiatric exam: Normal Affect, Normal Mood - Skin Skin Exam: Dry, Intact, Normal Color, Warm Assessment and Plan - Assessment and Plan (Free Text) Assessment: This is a 56yF with hx of Cirrhosis from HCV, ascites with SBP, hepatic encephalopathy pw co of no BM in 2weeks. 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 1. Colonic obstruction s/p sigmoid colostomy 2. Adenexal Mass with omental caking causing obstruction 3. Hypothyroidism 4. Decompensated cirrhosis 2/2 chronic HCV infection 5. Ascites, hx SBP Plan: -Sigmoid colostomy with liquid stool output, will dc miralax -Continue diet as tolerated, low sodium, high calorie -Continue post-op supportive care -Continue treatment for cirrhosis with furosemide, spironolactone and prophylactic bactrim for hx SBP, doing fine at the moment -Pt to fu at [facility] for [employer] GR[employer]ER ONC on Sunday with further plans for possible chemotherapy and surgery -Waiting on omental seeding biopsy but will need tissue sample of ovarian mass, likely ovarian malignancy -Discussed with pt current medical therapy and further plan of care -Will continue to follow pt closely <Mary Kate Ospina MD - Last Filed: 05/29/17 15:11> Objective - Vital Signs/Intake and Output Vital Signs (last 24 hours): Temp Pulse Resp BP Pulse Ox 100.6 F H 98 H 20 102/67 97 05/29/17 14:33 05/29/17 14:33 05/29/17 14:33 05/29/17 14:33 05/29/17 14:33 - Medications Medications: Current Medications Furosemide (Lasix) 40 mg PO DAILY [facility] Last Admin: 05/29/17 10:07 Dose: 40 mg Heparin Sodium (Porcine) (Heparin) 5,000 units SC Q12 [facility] PRN Reason: Protocol Last Admin: 05/29/17 10:07 Dose: 5,000 units Levothyroxine Sodium (Synthroid) 75 mcg PO DAILY@0630 [facility] Last Admin: 05/29/17 07:11 Dose: 75 mcg Lidocaine (Lidoderm) 2 ea TD DAILY [facility] Last Admin: 05/29/17 10:07 Dose: 2 ea Morphine Sulfate (Morphine) 2 mg IVP Q6 PRN PRN Reason: Pain, severe (8-10) Last Admin: 05/29/17 03:05 Dose: 2 mg Ondansetron HCl (Zofran Inj) 4 mg IVP Q6 PRN PRN Reason: Nausea/Vomiting Spironolactone (Aldactone) 100 mg PO DAILY [facility] Last Admin: 05/29/17 10:06 Dose: 100 mg Trimethoprim/Sulfamethoxazole (Bactrim Ds Tab) 1 tab PO DAILY [facility] Last Admin: 05/29/17 10:06 Dose: 1 tab - Labs Labs: 05/28/17 05:00 05/28/17 05:00 PT 13.8 Seconds (9.8-13.1) H 05/29/17 10:50 INR 1.3 (0.9-1.2) H 05/29/17 10:50 Attending/Attestation - Attestation I have personally seen and examined this patient.: Yes I have fully participated in the care of the patient.: Yes I have reviewed all pertinent clinical information, including history, physical exam and plan: Yes Notes (Text): 05/29/17 15:10 Patient seen with GI fellow at bedside. This is a 56 year old female with h/o hcv cirrhosis, treatment naive genotype 3, decompensated in setting of ascites and SBP, now admitted with malignant colonic obstruction due to likely pelvic malignancy, s/p urgent colostomy with good output. Diet as per surgery. Follow with Gynae oncology for further treatment for adnexal mass. Follow surgical pathology. Will benefit from asctic fluid tap and continuing diuretics.
--- NOTE | 2017-05-29 07:38 | CP.PCM.PN ---
Subjective - Date & Time of Evaluation Date of Evaluation: 05/29/17 Time of Evaluation: 06:50 - Subjective Subjective: General Surgery Progress Note for Dr. Jimenez Patient seen and examined at bedside. No acute event overnight. Patient resting comfortably in bed. Patient states pain has improved. She is tolerating CLD and would like to try more. Denies fever/chills, cp, cob, palpitations, nausea/ vomiting. Objective - Vital Signs/Intake and Output Vital Signs (last 24 hours): Temp Pulse Resp BP Pulse Ox 99.4 F 91 H 17 98/63 L 98 05/29/17 00:04 05/29/17 00:04 05/29/17 00:04 05/29/17 00:04 05/29/17 00:04 - Medications Medications: Current Medications Furosemide (Lasix) 40 mg PO DAILY [facility] Last Admin: 05/28/17 15:49 Dose: 40 mg Heparin Sodium (Porcine) (Heparin) 5,000 units SC Q12 [facility] PRN Reason: Protocol Last Admin: 05/28/17 21:16 Dose: 5,000 units Levothyroxine Sodium (Synthroid) 75 mcg PO DAILY@0630 [facility] Last Admin: 05/29/17 07:11 Dose: 75 mcg Lidocaine (Lidoderm) 2 ea TD DAILY [facility] Last Admin: 05/28/17 17:20 Dose: 2 ea Morphine Sulfate (Morphine) 2 mg IVP Q6 PRN PRN Reason: Pain, severe (8-10) Last Admin: 05/29/17 03:05 Dose: 2 mg Ondansetron HCl (Zofran Inj) 4 mg IVP Q6 PRN PRN Reason: Nausea/Vomiting Spironolactone (Aldactone) 100 mg PO DAILY [facility] Last Admin: 05/28/17 08:45 Dose: 100 mg Trimethoprim/Sulfamethoxazole (Bactrim Ds Tab) 1 tab PO DAILY [facility] Last Admin: 05/28/17 08:45 Dose: 1 tab - Labs Labs: 05/28/17 05:00 05/28/17 05:00 PT 13.0 Seconds (9.8-13.1) 05/25/17 05:50 INR 1.3 (0.9-1.2) H 05/25/17 05:50 - Constitutional Appears: Non-toxic, No Acute Distress, Chronically Ill - Head Exam Head Exam: ATRAUMATIC, NORMOCEPHALIC - Eye Exam Eye Exam: EOMI - Respiratory Exam Respiratory Exam: NORMAL BREATHING PATTERN - Cardiovascular Exam Cardiovascular Exam: REGULAR RHYTHM - GI/Abdominal Exam GI & Abdominal Exam: Distended, Soft, Tenderness. absent: Firm, Guarding, Rigid , Rebound Additional comments: stoma pink and patent - Neurological Exam Neurological Exam: Alert, Awake - Psychiatric Exam Psychiatric exam: Normal Affect, Normal Mood - Skin Skin Exam: Dry, Intact, Warm Assessment and Plan - Assessment and Plan (Free Text) Plan: 56 F with distal colonic obstruction, s/p sigmoid blow hole, POD#4 -F/U path -Advance to FLD -pain management -Incentive Spirometry -Will DW Dr. Tony Post PGY1
--- NOTE | 2017-05-29 08:26 | CP.PCM.PN ---
Subjective - Date & Time of Evaluation Date of Evaluation: 05/29/17 Time of Evaluation: 08:00 - Subjective Subjective: Pt. seen today lying in bed. Pt. with no complaints at this time. Pt. with no overnight events. Pt. tolerating regular diet. Pt. denies vomiting. Pt. continues to have bowel movement in addition to colostomy drainage. Pt. reports abdominal pain well controlled. On ROS. denies any headache, shortness of breath , chest pain, fever, chills, or abdominal pain. Objective - Vital Signs/Intake and Output Vital Signs (last 24 hours): Temp Pulse Resp BP Pulse Ox 97.2 F L 90 20 103/70 99 05/29/17 08:10 05/29/17 08:10 05/29/17 08:10 05/29/17 08:10 05/29/17 08:10 - Medications Medications: Current Medications Furosemide (Lasix) 40 mg PO DAILY [facility] Last Admin: 05/28/17 15:49 Dose: 40 mg Heparin Sodium (Porcine) (Heparin) 5,000 units SC Q12 [facility] PRN Reason: Protocol Last Admin: 05/28/17 21:16 Dose: 5,000 units Levothyroxine Sodium (Synthroid) 75 mcg PO DAILY@0630 [facility] Last Admin: 05/29/17 07:11 Dose: 75 mcg Lidocaine (Lidoderm) 2 ea TD DAILY [facility] Last Admin: 05/28/17 17:20 Dose: 2 ea Morphine Sulfate (Morphine) 2 mg IVP Q6 PRN PRN Reason: Pain, severe (8-10) Last Admin: 05/29/17 03:05 Dose: 2 mg Ondansetron HCl (Zofran Inj) 4 mg IVP Q6 PRN PRN Reason: Nausea/Vomiting Spironolactone (Aldactone) 100 mg PO DAILY [facility] Last Admin: 05/28/17 08:45 Dose: 100 mg Trimethoprim/Sulfamethoxazole (Bactrim Ds Tab) 1 tab PO DAILY [facility] Last Admin: 05/28/17 08:45 Dose: 1 tab - Labs Labs: 05/28/17 05:00 05/28/17 05:00 PT 13.0 Seconds (9.8-13.1) 05/25/17 05:50 INR 1.3 (0.9-1.2) H 05/25/17 05:50 - Constitutional Appears: Non-toxic, No Acute Distress, Other (underweight) - Eye Exam Eye Exam: absent: Scleral icterus - ENT Exam ENT Exam: Mucous Membranes Moist - Neck Exam Neck Exam: Normal Inspection - Respiratory Exam Respiratory Exam: Clear to Ausculation Bilateral, NORMAL BREATHING PATTERN - Cardiovascular Exam Cardiovascular Exam: REGULAR RHYTHM, +S1, +S2 - GI/Abdominal Exam GI & Abdominal Exam: Distended. absent: Tenderness Additional comments: Colostomy in place draining stool - Extremities Exam Extremities Exam: Normal Inspection. absent: Calf Tenderness - Neurological Exam Neurological Exam: Alert, Awake, Oriented x3 - Psychiatric Exam Psychiatric exam: Normal Affect, Normal Mood Assessment and Plan - Assessment and Plan (Free Text) Assessment: 56 y/o F with PMHx including Hypothyroidism, Cirrhosis secondary to Hepatitis C and undetermined complex adnexal mass presented to ED for evaluation of progressive abdominal pain, abdominal distension and constipation. Plan: Abdominal Distension/Constipation/Large bowel obstruction- s/p Colostomy POD #4 Improving -Discontinue Lactulose -Discontinue Miralax -Zofran 4mg IV PRN for nausea/vomiting -GI- Dr. Ospina on board -Surgery Dr. Jimenez on board Complex adnexal mass -CT abdomen detects a complex cystic left adnexal mass measuring 7cm x 4.9cm and a cystic lesion involving the right adnexa measuring 4cm -CA 125 > 200, HE4 elevated > 400 -CEA wnl at 1.2 -Lpn Rn Hospice-Oncology follow up at [facility] - Appointment made for June 01, at [address] Nayely Brooke -Morphine and Toradol PRN for pain - Senia Zavlaeta Lpn Rn Hospice- Oncology Office [phone] Hypothyroidism -Last TSH: 26.9, TSH 30.10 on 05/25 -Continue Levothyroxine 75mcg Cirrhosis secondary to Hepatitis C - chronic -S/P IR guided paracentesis of 2.5L straw colored fluid on 05/18/17 -HCV Genotype 3, Viral load 1,378,544 on 02/10/17 -Fibrosure performed on 02/26/17 detects Fibrosis stage F2 -GI Dr. Ospina on board. Weakness/Denconditoning -PT/OT DVT Prophylaxis - Heparin 5000 units sc Q12 Diet -GI [place]/low fiber 2gram Na+ diet
[2017-05-29] MEDS: Tmp-Smz 800 mg-160 mg DS Tab PO SCH (10:06)
[2017-05-29] MEDS: Lidocaine 5% Patch TD SCH (10:07)
[2017-05-29 11:16] LABS: INR 1.3 (0.9-1.2); PROTHROMBIN TIME 13.8 Seconds (9.8-13.1)
[2017-05-29] MEDS ORDERED: Lidocaine 1% Inj (20ml) ONE (14:01)
[2017-05-29 14:35] LABS: BODY FLUID TYPE PERITONEAL/ASCITES
--- NOTE | 2017-05-29 14:51 | PCM.SURG1 ---
Surgeon's Initial Post Op Note - Surgeon's Notes Surgeon: Jr Arango MD Flame Annealing Machine Operator: NONE Type of Anesthesia: Local Pre-Operative Diagnosis: Ascites, Operative Findings: US showed moderate amount of ascites Post-Operative Diagnosis: Ascites, Operation Performed: US guided paracentesis. Specimen/Specimens Removed: 2 liters of slight serosanguinous fluid Estimated Blood Loss: EBL {In ML}: 0 Blood Products Given: N/A Drains Used: No Drains Post-Op Condition: Fair Date of Surgery/Procedure: 05/29/17 Time of Surgery/Procedure: 14:40
[2017-05-29 16:21] LABS: BF GROSS APPEARANCE BLOODY (CLEAR)
[2017-05-29 16:26] LABS: BODY FLUID MONO/MACROPHAGE 21 % (0-0); BODY FLUID TOTAL COUNT 100 (0-0)
[2017-05-29] MEDS: Albumin Human 25% (12.5 gm/50 ml) IV ONE (16:34)
[2017-05-30] MEDS: Levothyroxine 75 MCG TAB PO SCH (06:25)
[2017-05-30] MEDS ORDERED: Albumin Human 25% (12.5 gm/50 ml) IV ONE ×3 (07:10→09:30)
--- NOTE | 2017-05-30 09:01 | CP.PCM.PN ---
Subjective - Date & Time of Evaluation Date of Evaluation: 05/30/17 Time of Evaluation: 08:59 - Subjective Subjective: Surgery: Dr. Jimenez Pt seen and examined. Resting comfortably in bed. Pt underwent parancentesis yesterday. She states that her pain is improved. She is tolerating diet. No N/ V. No F/C. Objective - Vital Signs/Intake and Output Vital Signs (last 24 hours): Temp Pulse Resp BP Pulse Ox 99.2 F 92 H 18 101/67 97 05/30/17 07:25 05/30/17 07:25 05/30/17 07:25 05/30/17 07:25 05/30/17 07:25 - Medications Medications: Current Medications Albumin Human (Albumin Human 25% (12.5 Gm/50 Ml)) 50 gm IV ONCE ONE Stop: 05/30/17 08:33 Cefotaxime Sodium (Claforan) 2 gm IV Q8 [facility] Furosemide (Lasix) 40 mg PO DAILY [facility] Last Admin: 05/29/17 10:07 Dose: 40 mg Heparin Sodium (Porcine) (Heparin) 5,000 units SC Q12 [facility] PRN Reason: Protocol Last Admin: 05/29/17 21:28 Dose: 5,000 units Levothyroxine Sodium (Synthroid) 75 mcg PO DAILY@0630 [facility] Last Admin: 05/30/17 06:25 Dose: 75 mcg Lidocaine (Lidoderm) 2 ea TD DAILY [facility] Last Admin: 05/29/17 10:07 Dose: 2 ea Morphine Sulfate (Morphine) 2 mg IVP Q6 PRN PRN Reason: Pain, severe (8-10) Last Admin: 05/29/17 03:05 Dose: 2 mg Ondansetron HCl (Zofran Inj) 4 mg IVP Q6 PRN PRN Reason: Nausea/Vomiting Spironolactone (Aldactone) 100 mg PO DAILY [facility] Last Admin: 05/29/17 10:06 Dose: 100 mg Trimethoprim/Sulfamethoxazole (Bactrim Ds Tab) 1 tab PO DAILY [facility] Last Admin: 05/29/17 10:06 Dose: 1 tab - Labs Labs: 05/28/17 05:00 05/28/17 05:00 PT 13.8 Seconds (9.8-13.1) H 05/29/17 10:50 INR 1.3 (0.9-1.2) H 05/29/17 10:50 - Constitutional Appears: Non-toxic, No Acute Distress - Head Exam Head Exam: ATRAUMATIC, NORMOCEPHALIC - Eye Exam Eye Exam: EOMI. absent: Scleral icterus - ENT Exam ENT Exam: Mucous Membranes Moist, Normal External Ear Exam - Neck Exam Neck Exam: Full ROM - Respiratory Exam Respiratory Exam: NORMAL BREATHING PATTERN. absent: Accessory Muscle Use, Respiratory Distress - GI/Abdominal Exam GI & Abdominal Exam: Distended, Soft. absent: Firm, Guarding, Rigid, Tenderness , Rebound Additional comments: L side stoma pink and patent w. stool output - Extremities Exam Extremities Exam: absent: Calf Tenderness, Pedal Edema - Neurological Exam Neurological Exam: Alert, Awake, Oriented x3 Assessment and Plan - Assessment and Plan (Free Text) Assessment: 56F w. distal colonic obstruction, s/p sigmoid blowhole colostomy, POD#5 -Monitor stool output -F/U on path results -c/w current medical management -d/w attending Zemaitis PGY3
[2017-05-30 09:34] LABS: HEMOGLOBIN 12.5 g/dL (12.0-16.0); MEAN CELL VOLUME 85.9 fl (81.0-99.0); MEAN CORPUSCULAR HEMOGLOBIN 28.5 pg (27.0-31.0); MEAN CORPUSCULAR HGB CONC 33.2 g/dL (33.0-37.0); RBC 4.4 Mil/uL (3.80-5.20); RED CELL DISTRIBUTION WIDTH 15.6 % (11.5-14.5); WHITE BLOOD COUNT 11.6 K/uL (4.8-10.8)
[2017-05-30 09:44] LABS: ALB/GLOB RATIO 0.9 (1.0-2.1); ALBUMIN 2.8 g/dL (3.5-5.0); ALT/SGPT 31 U/L (9-52); AST/SGOT 34 U/L (14-36); BLOOD UREA NITROGEN 18 mg/dl (7-17); CALCIUM 7.9 mg/dL (8.4-10.2); GFR AFRICAN-AMERICAN > 60; GFR NON-AFRICAN AMERICAN > 60
[2017-05-30] MEDS: Lidocaine 5% Patch TD SCH (10:26)
[2017-05-30] MEDS: Albumin Human 25% (12.5 gm/50 ml) IV ONE ×9 (10:30→22:51)
--- NOTE | 2017-05-30 11:28 | CP.PCM.PN ---
<Hiwot Moreno - Last Filed: 05/30/17 11:31> Subjective - Date & Time of Evaluation Date of Evaluation: 05/30/17 Time of Evaluation: 07:00 - Subjective Subjective: GI Fellow PGY4 Progress Note Pt seen and evaluated at bedside, pt with moderate abdominal pain around colostomy site. Pt tolerating diet with no nausea or vomiting. Pt denies fevers or chills. ROS: A 12pt ROS was obtained and was negative except as above. Objective - Vital Signs/Intake and Output Vital Signs (last 24 hours): Temp Pulse Resp BP Pulse Ox 99.2 F 92 H 18 101/67 97 05/30/17 07:25 05/30/17 07:25 05/30/17 07:25 05/30/17 10:25 05/30/17 07:25 - Medications Medications: Current Medications Furosemide (Lasix) 40 mg PO DAILY [facility] Last Admin: 05/30/17 10:25 Dose: 40 mg Heparin Sodium (Porcine) (Heparin) 5,000 units SC Q12 [facility] PRN Reason: Protocol Last Admin: 05/30/17 10:25 Dose: 5,000 units Ceftriaxone Sodium 1 gm/ (Sodium Chloride) 100 mls @ 100 mls/hr IVPB DAILY [facility] Last Admin: 05/30/17 10:26 Dose: 100 mls/hr Levothyroxine Sodium (Synthroid) 75 mcg PO DAILY@0630 [facility] Last Admin: 05/30/17 06:25 Dose: 75 mcg Lidocaine (Lidoderm) 2 ea TD DAILY [facility] Last Admin: 05/30/17 10:26 Dose: 2 ea Morphine Sulfate (Morphine) 2 mg IVP Q6 PRN PRN Reason: Pain, severe (8-10) Last Admin: 05/29/17 03:05 Dose: 2 mg Ondansetron HCl (Zofran Inj) 4 mg IVP Q6 PRN PRN Reason: Nausea/Vomiting Spironolactone (Aldactone) 100 mg PO DAILY [facility] Last Admin: 05/30/17 10:24 Dose: 100 mg - Labs Labs: 05/30/17 09:00 05/30/17 09:00 PT 13.8 Seconds (9.8-13.1) H 05/29/17 10:50 INR 1.3 (0.9-1.2) H 05/29/17 10:50 - Constitutional Appears: No Acute Distress, Older Than Stated Age, Cachectic - Head Exam Head Exam: ATRAUMATIC, NORMAL INSPECTION, NORMOCEPHALIC - Eye Exam Eye Exam: EOMI, Normal appearance, PERRL Pupil Exam: PERRL - ENT Exam ENT Exam: Mucous Membranes Moist, Normal Exam - Neck Exam Neck Exam: Normal Inspection - Respiratory Exam Respiratory Exam: Decreased Breath Sounds, NORMAL BREATHING PATTERN - Cardiovascular Exam Cardiovascular Exam: RRR, +S1, +S2 - GI/Abdominal Exam GI & Abdominal Exam: Distended, Soft, Tenderness, Normal Bowel Sounds Additional comments: colostomy with liquid brown stool and gas - Rectal Exam Rectal Exam: Deferred - Extremities Exam Extremities Exam: Full ROM, Normal Inspection - Back Exam Back Exam: NORMAL INSPECTION - Neurological Exam Neurological Exam: Alert, Awake, Oriented x3 - Psychiatric Exam Psychiatric exam: Normal Affect, Normal Mood - Skin Skin Exam: Dry, Intact, Normal Color, Warm Assessment and Plan - Assessment and Plan (Free Text) Assessment: This is a 56yF with hx of Cirrhosis from HCV, ascites with SBP, hepatic encephalopathy pw co of no BM in 2weeks. 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 1. Colonic obstruction s/p sigmoid colostomy 2. Adenexal Mass with omental caking causing obstruction 3. Hypothyroidism 4. Decompensated cirrhosis 2/2 chronic HCV infection 5. Ascites, hx SBP 6. Current secondary SBP likely from malignancy: PMN 1,880 Plan: -Sigmoid colostomy with liquid stool output -Continue treatment for cirrhosis with furosemide, spironolactone -Ascites s/p paracentesis with SBP- start IV Rocephin daily and stop bactrim -Abx treatment for SBP, currently started on Rocephin and will need to be switched to po ciprofloxacin 500mg bid for total 7day course, and then can be started on prophylaxis with ciprofloxacin 500mg/daily -Ordered IV Albumin 1.5g/kg today and then next dose of IV albumin 1g/kg on Day 3. -Monitor renal function with labs in am -Pt to fu at [facility] for [facility] on Sunday with further plans for possible chemotherapy and surgery -Waiting on omental seeding biopsy but will need tissue sample of ovarian mass, likely ovarian malignancy -Continue diet as tolerated, low sodium, high calorie -Continue post-op supportive care -Discussed with primary team current plan of care -Will continue to follow pt closely <Mary Kate Ospina MD - Last Filed: 05/30/17 12:21> Objective - Vital Signs/Intake and Output Vital Signs (last 24 hours): Temp Pulse Resp BP Pulse Ox 99.2 F 92 H 18 101/67 97 05/30/17 07:25 05/30/17 07:25 05/30/17 07:25 05/30/17 10:25 05/30/17 07:25 - Medications Medications: Current Medications Furosemide (Lasix) 40 mg PO DAILY [facility] Last Admin: 05/30/17 10:25 Dose: 40 mg Heparin Sodium (Porcine) (Heparin) 5,000 units SC Q12 [facility] PRN Reason: Protocol Last Admin: 05/30/17 10:25 Dose: 5,000 units Ceftriaxone Sodium 1 gm/ (Sodium Chloride) 100 mls @ 100 mls/hr IVPB DAILY [facility] Last Admin: 05/30/17 10:26 Dose: 100 mls/hr Levothyroxine Sodium (Synthroid) 75 mcg PO DAILY@0630 [facility] Last Admin: 05/30/17 06:25 Dose: 75 mcg Lidocaine (Lidoderm) 2 ea TD DAILY [facility] Last Admin: 05/30/17 10:26 Dose: 2 ea Morphine Sulfate (Morphine) 2 mg IVP Q6 PRN PRN Reason: Pain, severe (8-10) Last Admin: 05/29/17 03:05 Dose: 2 mg Ondansetron HCl (Zofran Inj) 4 mg IVP Q6 PRN PRN Reason: Nausea/Vomiting Spironolactone (Aldactone) 100 mg PO DAILY [facility] Last Admin: 05/30/17 10:24 Dose: 100 mg - Labs Labs: 05/30/17 09:00 05/30/17 09:00 PT 13.8 Seconds (9.8-13.1) H 05/29/17 10:50 INR 1.3 (0.9-1.2) H 05/29/17 10:50 Attending/Attestation - Attestation I have personally seen and examined this patient.: Yes I have fully participated in the care of the patient.: Yes I have reviewed all pertinent clinical information, including history, physical exam and plan: Yes Notes (Text): 05/30/17 12:16 Patient seen with GI fellow at bedside. Resident and son at bedside. Interview conducted in [place]o. 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 Diet as per surgery. Follow with [facility] oncology for further treatment for adnexal mass. Follow surgical pathology of omental tissue. Ascitic tap fluid positive for peritonitis with high WBC count likely secondary due to malignancy. Will hold bactrim and start cephalosporin IV. Needs albumin 1.5 gm/kg on day- 1 of SBP and 1gm/kg day 3 of SBP. Will need lifelong antibiotic prophylaxis upon discharge. Grim prognosis. Continue low dose diuretics and watch electrolytes closely. Please do daily labs as patient has high output colostomy and on diuretics.
--- NOTE | 2017-05-30 16:46 | CP.PCM.PN ---
Subjective - Date & Time of Evaluation Date of Evaluation: 05/30/17 Time of Evaluation: 09:00 - Subjective Subjective: Pt. seen today lying in bed. Pt. reports moderate abdominal pain but getting better after parcentecis after yesterday. Pt. with no overnight events. Pt. tolerating regular diet. Pt. denies vomiting. Pt. continues to have bowel movement in addition to colostomy drainage. On ROS. denies any headache, shortness of breath, chest pain, fever, chills, or abdominal pain. Objective - Vital Signs/Intake and Output Vital Signs (last 24 hours): Temp Pulse Resp BP Pulse Ox 98.2 F 97 H 20 100/68 97 05/30/17 16:27 05/30/17 16:27 05/30/17 16:27 05/30/17 16:27 05/30/17 16:27 - Medications Medications: Current Medications Furosemide (Lasix) 40 mg PO DAILY [facility] Last Admin: 05/30/17 10:25 Dose: 40 mg Heparin Sodium (Porcine) (Heparin) 5,000 units SC Q12 [facility] PRN Reason: Protocol Last Admin: 05/30/17 10:25 Dose: 5,000 units Ceftriaxone Sodium 1 gm/ (Sodium Chloride) 100 mls @ 100 mls/hr IVPB DAILY [facility] Last Admin: 05/30/17 10:26 Dose: 100 mls/hr Levothyroxine Sodium (Synthroid) 75 mcg PO DAILY@0630 [facility] Last Admin: 05/30/17 06:25 Dose: 75 mcg Lidocaine (Lidoderm) 2 ea TD DAILY [facility] Last Admin: 05/30/17 10:26 Dose: 2 ea Morphine Sulfate (Morphine) 2 mg IVP Q6 PRN PRN Reason: Pain, severe (8-10) Last Admin: 05/29/17 03:05 Dose: 2 mg Ondansetron HCl (Zofran Inj) 4 mg IVP Q6 PRN PRN Reason: Nausea/Vomiting Spironolactone (Aldactone) 100 mg PO DAILY [facility] Last Admin: 05/30/17 10:24 Dose: 100 mg - Labs Labs: 05/30/17 09:00 05/30/17 09:00 PT 13.8 Seconds (9.8-13.1) H 05/29/17 10:50 INR 1.3 (0.9-1.2) H 05/29/17 10:50 - Constitutional Appears: Non-toxic, No Acute Distress - Eye Exam Eye Exam: absent: Scleral icterus - ENT Exam ENT Exam: Mucous Membranes Moist - Respiratory Exam Respiratory Exam: Clear to Ausculation Bilateral, NORMAL BREATHING PATTERN - Cardiovascular Exam Cardiovascular Exam: REGULAR RHYTHM, +S1, +S2 - GI/Abdominal Exam GI & Abdominal Exam: Distended, Tenderness Additional comments: Colostomy in place - Neurological Exam Neurological Exam: Alert, Awake, Oriented x3 Assessment and Plan - Assessment and Plan (Free Text) Assessment: 56 y/o F with PMHx including Hypothyroidism, Cirrhosis secondary to Hepatitis C and undetermined complex adnexal mass presented to ED for evaluation of progressive abdominal pain, abdominal distension and constipation. Plan: Abdominal Distension/Constipation/Large bowel obstruction- s/p Colostomy POD #5 Stable -Zofran 4mg IV PRN for nausea/vomiting -GI- Dr. Ospina on board -Surgery Dr. Jimenez on board Complex adnexal mass -CT abdomen detects a complex cystic left adnexal mass measuring 7cm x 4.9cm and a cystic lesion involving the right adnexa measuring 4cm -CA 125 > 200, HE4 elevated > 400 -CEA wnl at 1.2 -Railcar Switcher-Oncology follow up at [facility] - Appointment made for June 01, at [address] Nayely Brooke -Morphine and Toradol PRN for pain - Senia Zavaleta Railcar Switcher- Oncology Office [phone] Spontaneous Bacterial Peritonitis- Peritoneal fluid analysis elevated Neurtrophils 1- Rocephin 1gram I.V. Day #1 Hypothyroidism -Last TSH: 26.9, TSH 30.10 on 05/25 -Continue Levothyroxine 75mcg Cirrhosis secondary to Hepatitis C - chronic -S/P IR guided paracentesis of 2.5L straw colored fluid on 05/18/17 -HCV Genotype 3, Viral load 1,378,544 on 02/10/17 -Fibrosure performed on 02/26/17 detects Fibrosis stage F2 -GI Dr. Ospina on board. Weakness/Denconditoning -PT/OT DVT Prophylaxis - Heparin 5000 units sc Q12 Diet -GI [place]/low fiber 2gram Na+ diet
[2017-05-31] MEDS: Levothyroxine 75 MCG TAB PO SCH (07:03)
--- NOTE | 2017-05-31 07:49 | CP.PCM.PN ---
<Hiwot Moreno - Last Filed: 05/31/17 07:50> Subjective - Date & Time of Evaluation Date of Evaluation: 05/31/17 Time of Evaluation: 07:00 - Subjective Subjective: GI Fellow PGY4 Progress Note Pt seen and evaluated at bedside, reports feeling better this morning with liquid stool through colostomy site. Pt tolerating diet with no nausea or vomiting. Pt denies fevers or chills. Pt does have moderate abdominal pain on the left side of the colostomy site. ROS: A 12pt ROS was obtained and was negative except as above. Objective - Vital Signs/Intake and Output Vital Signs (last 24 hours): Temp Pulse Resp BP Pulse Ox 98.8 F 90 18 93/63 L 99 05/31/17 07:29 05/31/17 07:29 05/31/17 07:29 05/31/17 07:29 05/31/17 07:29 - Medications Medications: Current Medications Furosemide (Lasix) 40 mg PO DAILY [facility] Last Admin: 05/30/17 10:25 Dose: 40 mg Heparin Sodium (Porcine) (Heparin) 5,000 units SC Q12 [facility] PRN Reason: Protocol Last Admin: 05/30/17 20:38 Dose: 5,000 units Ceftriaxone Sodium 1 gm/ (Sodium Chloride) 100 mls @ 100 mls/hr IVPB DAILY [facility] Last Admin: 05/30/17 10:26 Dose: 100 mls/hr Levothyroxine Sodium (Synthroid) 75 mcg PO DAILY@0630 [facility] Last Admin: 05/31/17 07:03 Dose: 75 mcg Lidocaine (Lidoderm) 2 ea TD DAILY [facility] Last Admin: 05/30/17 10:26 Dose: 2 ea Morphine Sulfate (Morphine) 2 mg IVP Q6 PRN PRN Reason: Pain, severe (8-10) Last Admin: 05/29/17 03:05 Dose: 2 mg Ondansetron HCl (Zofran Inj) 4 mg IVP Q6 PRN PRN Reason: Nausea/Vomiting Spironolactone (Aldactone) 100 mg PO DAILY [facility] Last Admin: 05/30/17 10:24 Dose: 100 mg - Labs Labs: 05/30/17 09:00 05/30/17 09:00 PT 13.8 Seconds (9.8-13.1) H 08/08/17 10:50 INR 1.3 (0.9-1.2) H 05/29/17 10:50 - Constitutional Appears: No Acute Distress, Cachectic, Chronically Ill - Head Exam Head Exam: ATRAUMATIC, NORMAL INSPECTION, NORMOCEPHALIC - Eye Exam Eye Exam: EOMI, Normal appearance, PERRL - ENT Exam ENT Exam: Mucous Membranes Moist, Normal Exam - Neck Exam Neck Exam: Full ROM, Normal Inspection - Respiratory Exam Respiratory Exam: NORMAL BREATHING PATTERN - Cardiovascular Exam Cardiovascular Exam: RRR, +S1, +S2 - GI/Abdominal Exam GI & Abdominal Exam: Distended, Soft, Tenderness, Normal Bowel Sounds Additional comments: colostomy bag, abdominal wall around colostomy site is warm, erythema and TTP - Rectal Exam Rectal Exam: Deferred - Extremities Exam Extremities Exam: Full ROM, Normal Inspection. absent: Pedal Edema - Back Exam Back Exam: NORMAL INSPECTION - Neurological Exam Neurological Exam: Alert, Awake, Oriented x3 - Psychiatric Exam Psychiatric exam: Normal Affect, Normal Mood - Skin Skin Exam: Dry, Intact, Normal Color, Warm Assessment and Plan - Assessment and Plan (Free Text) Assessment: This is a 56yF with hx of Cirrhosis from HCV, ascites with SBP, hepatic encephalopathy pw co of no BM in 2weeks. 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 1. Colonic obstruction s/p sigmoid colostomy 2. Adenexal Mass with omental caking causing obstruction 3. Hypothyroidism 4. Decompensated cirrhosis 2/2 chronic HCV infection 5. Ascites, hx SBP 6. Current secondary SBP likely from malignancy: PMN 1,880 Plan: -Sigmoid colostomy with liquid stool output -Continue treatment for cirrhosis with furosemide, spironolactone -Ascites s/p paracentesis with SBP- start IV Rocephin daily and stop bactrim -Abx treatment for SBP, currently started on Rocephin and will need to be switched to po ciprofloxacin 500mg bid for total 7day course, and then can be started on prophylaxis with ciprofloxacin 500mg/daily -Pt needs next dose of IV Albumin 1g/kg tomorrow -Pt to fu at [facility] for [facility] ON[facility] on Sunday with further plans for possible chemotherapy and surgery -Waiting on omental seeding biopsy but will need tissue sample of ovarian mass, likely ovarian malignancy -Pt should be discharged tomorrow after receiving IV Albumin to follow up with her appointment at [facility] in the afternoon. Also, pt will need script for SBP txt with abx and SBP prophylaxis abx-Will discuss with primary team -Will continue to follow pt closely <Mary Kate Ospina MD - Last Filed: 05/31/17 17:28> Objective - Vital Signs/Intake and Output Vital Signs (last 24 hours): Temp Pulse Resp BP Pulse Ox 98.8 F 90 18 93/63 L 99 05/31/17 07:29 05/31/17 07:29 05/31/17 07:29 05/31/17 10:00 05/31/17 07:29 - Medications Medications: Current Medications Albumin Human (Albumin Human 25% (12.5 Gm/50 Ml)) 12.5 gm IV Q1 [facility] Stop: 06/01/17 08:01 Furosemide (Lasix) 40 mg PO DAILY [facility] Last Admin: 05/31/17 10:00 Dose: 40 mg Heparin Sodium (Porcine) (Heparin) 5,000 units SC Q12 [facility] PRN Reason: Protocol Last Admin: 05/31/17 09:59 Dose: 5,000 units Ceftriaxone Sodium 1 gm/ (Sodium Chloride) 100 mls @ 100 mls/hr IVPB DAILY [facility] Last Admin: 05/31/17 10:02 Dose: 100 mls/hr Levothyroxine Sodium (Synthroid) 75 mcg PO DAILY@0630 [facility] Last Admin: 05/31/17 07:03 Dose: 75 mcg Lidocaine (Lidoderm) 2 ea TD DAILY [facility] Last Admin: 05/31/17 10:01 Dose: 2 ea Lidocaine (Lidoderm) 2 ea TD ONCE [facility] Stop: 05/31/17 23:59 Morphine Sulfate (Morphine) 2 mg IVP Q6 PRN PRN Reason: Pain, severe (8-10) Last Admin: 05/31/17 13:07 Dose: 2 mg Morphine Sulfate (Morphine) 2 mg IVP Q6 PRN PRN Reason: Pain, moderate (4-7) Ondansetron HCl (Zofran Inj) 4 mg IVP Q6 PRN PRN Reason: Nausea/Vomiting Spironolactone (Aldactone) 100 mg PO DAILY [facility] Last Admin: 05/31/17 09:59 Dose: 100 mg - Labs Labs: 05/31/17 12:35 05/31/17 12:35 PT 13.8 Seconds (9.8-13.1) H 05/29/17 10:50 INR 1.3 (0.9-1.2) H 05/29/17 10:50 Attending/Attestation - Attestation I have personally seen and examined this patient.: Yes I have fully participated in the care of the patient.: Yes I have reviewed all pertinent clinical information, including history, physical exam and plan: Yes Notes (Text): 05/31/17 17:21 Patient seen with GI fellow at bedside. Resident and son at bedside. Interview conducted in japanese. 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 Diet as per surgery. Today has left colostomy pain and rebound. Will order Ct abdomen to rule out abscess/ seroma and surgical follow up. Follow with [facility] oncology for further treatment for adnexal mass. Follow surgical pathology of omental tissue. Ascitic tap fluid positive for peritonitis with high WBC count likely secondary due to malignancy. Will hold bactrim and start cephalosporin IV. Needs albumin 1.5 gm/ kg on day- 1 of SBP and 1gm/kg day 3 of SBP. Will need lifelong antibiotic prophylaxis upon discharge. Grim prognosis. Continue low dose diuretics and watch electrolytes closely. Please do daily labs as patient has high output colostomy and on diuretics.
--- NOTE | 2017-05-31 09:19 | US ---
Date of Procedure: 05/29/2017 PROCEDURE: Ultrasound-guided paracentesis, CPT 84634 Medications: 7 cc 1% Lidocaine HISTORY: Ascites, abdominal pain TECHNIQUE: Following informed consent , the patient was placed supine on the stretcher and the site was marked. A limited abdominal ultrasound was performed that showed a large amount of intra-abdominal fluid. Procedural time out was called and the Pt's abdomen was marked and prepped and draped in the usual sterile fashion. Ultrasound-guided large volume paracentesis performed. A total of 2 liters of slight serosanguinous fluid was removed without complication. IMPRESSION: Ultrasound-guided paracentesis.
[2017-05-31] MEDS: Lidocaine 5% Patch TD SCH (10:01)
--- NOTE | 2017-05-31 11:52 | CP.PCM.PN ---
Subjective - Date & Time of Evaluation Date of Evaluation: 05/31/17 Time of Evaluation: 09:00 - Subjective Subjective: Pt. seen today lying in bed. Pt. reports abdominal pain slightly worse today. Pt. with no overnight events. Pt. tolerating diet. Pt. denies nausea or vomiting. Pt. continues to have bowel movement in addition to colostomy drainage. On ROS. denies any headache, shortness of breath, chest pain, fever, or chills. Objective - Vital Signs/Intake and Output Vital Signs (last 24 hours): Temp Pulse Resp BP Pulse Ox 98.8 F 90 18 93/63 L 99 05/31/17 07:29 05/31/17 07:29 05/31/17 07:29 05/31/17 10:00 05/31/17 07:29 - Medications Medications: Current Medications Albumin Human (Albumin Human 25% (12.5 Gm/50 Ml)) 12.5 gm IV Q1 [facility] Stop: 06/01/17 08:01 Furosemide (Lasix) 40 mg PO DAILY [facility] Last Admin: 05/31/17 10:00 Dose: 40 mg Heparin Sodium (Porcine) (Heparin) 5,000 units SC Q12 [facility] PRN Reason: Protocol Last Admin: 05/31/17 09:59 Dose: 5,000 units Ceftriaxone Sodium 1 gm/ (Sodium Chloride) 100 mls @ 100 mls/hr IVPB DAILY [facility] Last Admin: 05/31/17 10:02 Dose: 100 mls/hr Levothyroxine Sodium (Synthroid) 75 mcg PO DAILY@0630 [facility] Last Admin: 05/31/17 07:03 Dose: 75 mcg Lidocaine (Lidoderm) 2 ea TD DAILY [facility] Last Admin: 05/31/17 10:01 Dose: 2 ea Morphine Sulfate (Morphine) 2 mg IVP Q6 PRN PRN Reason: Pain, severe (8-10) Last Admin: 05/29/17 03:05 Dose: 2 mg Ondansetron HCl (Zofran Inj) 4 mg IVP Q6 PRN PRN Reason: Nausea/Vomiting Spironolactone (Aldactone) 100 mg PO DAILY [facility] Last Admin: 05/31/17 09:59 Dose: 100 mg - Labs Labs: 05/30/17 09:00 05/30/17 09:00 PT 13.8 Seconds (9.8-13.1) H 05/29/17 10:50 INR 1.3 (0.9-1.2) H 05/29/17 10:50 - Constitutional Appears: No Acute Distress (Appearrs weak) - Eye Exam Eye Exam: absent: Scleral icterus - Respiratory Exam Respiratory Exam: Clear to Ausculation Bilateral, NORMAL BREATHING PATTERN - Cardiovascular Exam Cardiovascular Exam: REGULAR RHYTHM, +S1, +S2 - GI/Abdominal Exam GI & Abdominal Exam: Tenderness (left upper quadrant, erythema and induration noted), Hyperactive Bowel Sounds Additional comments: Colostomy draining watery stool - Extremities Exam Extremities Exam: Normal Inspection. absent: Calf Tenderness - Neurological Exam Neurological Exam: Alert, Awake - Psychiatric Exam Psychiatric exam: Normal Affect, Normal Mood Assessment and Plan - Assessment and Plan (Free Text) Assessment: 56 y/o F with PMHx including Hypothyroidism, Cirrhosis secondary to Hepatitis C and undetermined complex adnexal mass presented to ED for evaluation of progressive abdominal pain, abdominal distension and constipation. Plan: Abdominal Distension/Constipation/Large bowel obstruction- s/p Colostomy POD #6 Stable -Zofran 4mg IV PRN for nausea/vomiting -GI- Dr. Ospina on board -Surgery Dr. Jimenez on board -Erythema noted around colostomy- CT abdomen/US pending Complex adnexal mass -CT abdomen detects a complex cystic left adnexal mass measuring 7cm x 4.9cm and a cystic lesion involving the right adnexa measuring 4cm -CA 125 > 200, HE4 elevated > 400 -CEA wnl at 1.2 -Fur Grader-Oncology follow up at [facility] - Appointment rescheduled for June 06, at [address] Nayely Brooke -Morphine and Toradol PRN for pain - Senia Zavaleta Fur Grader- Oncology Office [phone] Spontaneous Bacterial Peritonitis- Peritoneal fluid analysis elevated Neurtrophils 1- Rocephin 1gram I.V. Day #2 Hypothyroidism -Last TSH: 26.9, TSH 30.10 on 05/25 -Continue Levothyroxine 75mcg Cirrhosis secondary to Hepatitis C - chronic -MELD Score = 9 -S/P IR guided paracentesis of 2.5L straw colored fluid on 05/18/17 -HCV Genotype 3, Viral load 1,378,544 on 02/10/17 -Fibrosure performed on 02/26/17 detects Fibrosis stage F2 -GI Dr. Ospina on board. Weakness/Denconditoning -PT/OT DVT Prophylaxis - Heparin 5000 units sc Q12 Diet -GI [place]/low fiber 2gram Na+ diet
[2017-05-31 12:59] LABS: BLOOD UREA NITROGEN 15 mg/dl (7-17); CALCIUM 8.2 mg/dL (8.4-10.2); GFR AFRICAN-AMERICAN > 60; GFR NON-AFRICAN AMERICAN > 60; HEMOGLOBIN 10.7 g/dL (12.0-16.0); MEAN CELL VOLUME 85.1 fl (81.0-99.0); MEAN CORPUSCULAR HEMOGLOBIN 29.1 pg (27.0-31.0); MEAN CORPUSCULAR HGB CONC 34.2 g/dL (33.0-37.0); RBC 3.69 Mil/uL (3.80-5.20); WHITE BLOOD COUNT 6.4 K/uL (4.8-10.8)
[2017-05-31] MEDS ORDERED: Lidocaine 5% Patch TD SCH (13:00)
[2017-05-31] MEDS: Morphine 4 MG/ML VIAL IVP PRN (13:07)
--- NOTE | 2017-05-31 13:55 | CP.PCM.PN ---
Subjective - Date & Time of Evaluation Date of Evaluation: 05/31/17 Time of Evaluation: 13:51 - Subjective Subjective: Surgery for Dr. Jimenez Pt s&e. KUMAR. Denies F/C?N/V/D/CP/SOB. Ostomy functioning. c/o LLQ pain. + amb. tolerating diet. Objective - Vital Signs/Intake and Output Vital Signs (last 24 hours): Temp Pulse Resp BP Pulse Ox 98.8 F 90 18 93/63 L 99 05/31/17 07:29 05/31/17 07:29 05/31/17 07:29 05/31/17 10:00 05/31/17 07:29 - Medications Medications: Current Medications Albumin Human (Albumin Human 25% (12.5 Gm/50 Ml)) 12.5 gm IV Q1 [facility] Stop: 06/01/17 08:01 Furosemide (Lasix) 40 mg PO DAILY [facility] Last Admin: 05/31/17 10:00 Dose: 40 mg Heparin Sodium (Porcine) (Heparin) 5,000 units SC Q12 [facility] PRN Reason: Protocol Last Admin: 05/31/17 09:59 Dose: 5,000 units Ceftriaxone Sodium 1 gm/ (Sodium Chloride) 100 mls @ 100 mls/hr IVPB DAILY [facility] Last Admin: 05/31/17 10:02 Dose: 100 mls/hr Levothyroxine Sodium (Synthroid) 75 mcg PO DAILY@0630 [facility] Last Admin: 05/31/17 07:03 Dose: 75 mcg Lidocaine (Lidoderm) 2 ea TD DAILY [facility] Last Admin: 05/31/17 10:01 Dose: 2 ea Lidocaine (Lidoderm) 2 ea TD ONCE [facility] Stop: 05/31/17 23:59 Morphine Sulfate (Morphine) 2 mg IVP Q6 PRN PRN Reason: Pain, severe (8-10) Last Admin: 05/31/17 13:07 Dose: 2 mg Morphine Sulfate (Morphine) 2 mg IVP Q6 PRN PRN Reason: Pain, moderate (4-7) Ondansetron HCl (Zofran Inj) 4 mg IVP Q6 PRN PRN Reason: Nausea/Vomiting Spironolactone (Aldactone) 100 mg PO DAILY [facility] Last Admin: 05/31/17 09:59 Dose: 100 mg - Labs Labs: 05/31/17 12:35 05/31/17 12:35 PT 13.8 Seconds (9.8-13.1) H 05/29/17 10:50 INR 1.3 (0.9-1.2) H 05/29/17 10:50 - Constitutional Appears: No Acute Distress - Head Exam Head Exam: ATRAUMATIC, NORMAL INSPECTION, NORMOCEPHALIC - Eye Exam Eye Exam: EOMI, Normal appearance, PERRL Pupil Exam: NORMAL ACCOMODATION, PERRL - ENT Exam ENT Exam: Mucous Membranes Moist, Normal Exam - Neck Exam Neck Exam: Full ROM, Normal Inspection. absent: Lymphadenopathy - Respiratory Exam Respiratory Exam: Clear to Ausculation Bilateral, NORMAL BREATHING PATTERN - Cardiovascular Exam Cardiovascular Exam: REGULAR RHYTHM, +S1, +S2. absent: Murmur - GI/Abdominal Exam GI & Abdominal Exam: Distended, Soft, Tenderness, Normal Bowel Sounds. absent: Firm, Guarding, Rigid, Mass, Organomegaly, Pulsatile Mass, Rebound Additional comments: Stoma in place. Gas and liquid present. Adjancent to stoma right to the stoma is indurated 10cm. TTP. No fluctuant. Hyperpigmented. - Exam Exam: NORMAL INSPECTION - Extremities Exam Extremities Exam: Full ROM, Normal Capillary Refill, Normal Inspection - Back Exam Back Exam: NORMAL INSPECTION - Neurological Exam Neurological Exam: Alert, Awake, CN II-XII Intact, Normal Gait, Oriented x3 - Psychiatric Exam Psychiatric exam: Normal Affect, Normal Mood - Skin Skin Exam: Dry, Intact, Warm Assessment and Plan - Assessment and Plan (Free Text) Assessment: 56F w. distal colonic obstruction, s/p sigmoid blowhole colostomy, POD#6 -F/U US of abd for seroma/abscess on L abd -Monitor stool output -F/U on path results -c/w current medical management -d/w attending
[2017-05-31] MEDS ORDERED: Iohexol 240 (50 ml) PO ONE (16:40)
--- NOTE | 2017-05-31 17:50 | US ---
PROCEDURE: Soft tissue ultrasound HISTORY: Left lower abdominal wall cellulitis COMPARISON: 05/24/2017 CT abdomen and pelvis. Relevant interventional procedure(s): May 31, 2017. Paracentesis with recovery of 2 L of fluid. TECHNIQUE: Standard protocol for this study/examination. FINDINGS: Residual free fluid in the right lower quadrant status post thoracentesis. Incidental finding(s): Simple cyst left kidney a finding confirmed on prior CT Cutaneous, subcutaneous edema corresponding to the area of interest anterior abdominal wall to the left of the midline. IMPRESSION: Cutaneous and subcutaneous edema left lower quadrant/abdomen. No associated drainable collection or other pathologic process.
[2017-05-31] MEDS ORDERED: Sodium Chloride 0.9% 50 ML IV ONE (19:05)
[2017-05-31] MEDS ORDERED: Iohexol 300 100 ML IJ ONE (19:05)
--- NOTE | 2017-05-31 22:00 | CT ---
EXAM: CT Abdomen and Pelvis With Intravenous Contrast CLINICAL HISTORY: 56 years old, female; Signs and symptoms; Other: Bowel obstruction; Patient HX: Hep c. Cirrhosis; Additional info: Cellulitis around colostomy site TECHNIQUE: Axial computed tomography images of the abdomen and pelvis with intravenous contrast. Coronal and sagittal reformatted images were created and reviewed. CONTRAST: 90 mL of [id number] administered intravenously. EXAM DATE/TIME: 05/31/2017 11:53 AM COMPARISON: CT - ABD PELVIS IV CONTRAST ONLY 05/24/2017 10:20:16 PM FINDINGS: Lower thorax: Heart size is normal. There is a small hiatal hernia. There is a small right pleural effusion with right lower lobe airspace disease. There is a left lower lobe granuloma. There is scarring at both lung bases. There is atelectasis in the right middle lobe. ABDOMEN: Liver: Hepatic contours are nodular. Gallbladder and bile ducts: Gallbladder is partially distended. Common bile duct is unremarkable. Pancreas: Pancreas is mildly atrophic. Spleen: Spleen is mildly enlarged. Adrenals: Adrenals Kidneys and ureters: There is a right renal cyst. Kidneys and ureters are otherwise unremarkable. Stomach and bowel: Stomach is almost empty. Rotation is normal. There is no small bowel obstruction. There is mild small bowel wall fold in wall thickening. There is contrast throughout the small bowel and in the colon. There is diffuse colonic wall thickening. There is a diverting colostomy in the distal transverse colon. There is descending and proximal sigmoid colon wall thickening. There is a focal masslike lesion in the mid sigmoid. Appendix: See stomach and bowel PELVIS: Bladder: Bladder is partially distended. Partially distended bladder is unremarkable. Reproductive: Uterus is unremarkable. There are bilateral cystic adnexal masses. Left adnexal mass measures approximately 5.8 x 6.5 x 7.5 cm. Right adnexal mass measures approximately 3.4 x 4.4 x 2.8 cm. ABDOMEN and PELVIS: Intraperitoneal space: There is a large amount of ascites in the abdomen and pelvis. Omental caking continues to be identified. Bones/joints: unremarkable Soft tissues: There is a small umbilical hernia. There is extensive air in the left abdominal wall. There is edema in the muscular layer of the left abdominal wall. Vasculature: Aorta and inferior vena cava are unremarkable. There is recanalization of the umbilical vein. Lymph nodes: unremarkable IMPRESSION: Interval creation of diverting transverse colon colostomy; extensive emphysema in the left abdominal wall; diffuse colonic wall thickening consistent with colitis; small bowel fold and wall thickening suggesting enteritis; cirrhosis with varices and mild splenomegaly; possible obstructing sigmoid lesion; bilateral cystic adnexal masses benign versus malignant Additional findings as described above.
[2017-06-01] MEDS: Morphine 4 MG/ML VIAL IVP PRN (00:26)
[2017-06-01] MEDS: Albumin Human 25% (12.5 gm/50 ml) IV SCH ×6 (02:33→08:38)
[2017-06-01] MEDS: Levothyroxine 75 MCG TAB PO SCH (05:46)
[2017-06-01 07:24] LABS: HEMOGLOBIN 9.8 g/dL (12.0-16.0); MEAN CELL VOLUME 85.1 fl (81.0-99.0); MEAN CORPUSCULAR HEMOGLOBIN 29.4 pg (27.0-31.0); MEAN CORPUSCULAR HGB CONC 34.6 g/dL (33.0-37.0); RBC 3.33 Mil/uL (3.80-5.20); WHITE BLOOD COUNT 5.4 K/uL (4.8-10.8)
[2017-06-01 07:30] LABS: BLOOD UREA NITROGEN 14 mg/dl (7-17); CALCIUM 8.7 mg/dL (8.4-10.2); GFR AFRICAN-AMERICAN > 60; GFR NON-AFRICAN AMERICAN > 60
--- NOTE | 2017-06-01 07:41 | CP.PCM.PN ---
<Blanquita Shaw - Last Filed: 06/01/17 10:22> Objective - Vital Signs/Intake and Output Vital Signs (last 24 hours): Temp Pulse Resp BP Pulse Ox 98.8 F 98 H 20 92/54 L 99 06/01/17 07:39 06/01/17 07:39 06/01/17 07:39 06/01/17 09:43 06/01/17 07:39 Intake and Output: 06/01/17 06/01/17 06:59 18:59 Intake Total 200 Balance 200 - Medications Medications: Current Medications Furosemide (Lasix) 40 mg PO DAILY [facility] Last Admin: 06/01/17 09:43 Dose: Not Given Heparin Sodium (Porcine) (Heparin) 5,000 units SC Q12 [facility] PRN Reason: Protocol Last Admin: 06/01/17 09:44 Dose: 5,000 units Ceftriaxone Sodium 1 gm/ (Sodium Chloride) 100 mls @ 100 mls/hr IVPB DAILY [facility] Last Admin: 06/01/17 08:33 Dose: 100 mls/hr Levothyroxine Sodium (Synthroid) 75 mcg PO DAILY@0630 [facility] Last Admin: 06/01/17 05:46 Dose: 75 mcg Lidocaine (Lidoderm) 2 ea TD DAILY [facility] Last Admin: 06/01/17 09:53 Dose: 2 ea Morphine Sulfate (Morphine) 2 mg IVP Q6 PRN PRN Reason: Pain, severe (8-10) Last Admin: 06/01/17 00:26 Dose: 2 mg Morphine Sulfate (Morphine) 2 mg IVP Q6 PRN PRN Reason: Pain, moderate (4-7) Ondansetron HCl (Zofran Inj) 4 mg IVP Q6 PRN PRN Reason: Nausea/Vomiting Spironolactone (Aldactone) 100 mg PO DAILY [facility] Last Admin: 06/01/17 09:41 Dose: 100 mg - Labs Labs: 06/01/17 06:35 06/01/17 06:35 PT 13.8 Seconds (9.8-13.1) H 05/29/17 10:50 INR 1.3 (0.9-1.2) H 05/29/17 10:50 <Hiwot Moreno - Last Filed: 06/01/17 10:24> Subjective - Date & Time of Evaluation Date of Evaluation: 06/01/17 Time of Evaluation: 06:55 - Subjective Subjective: GI Fellow PGY4 Progress Note Pt seen and evaluated at bedside, reports abdominal pain on the left side of the colostomy site is better after lidocaine patch ordered by primary team. Pt reports feeling very weak this morning even though says she has good appetite. Pt is having brown soft stool output in colostomy. Pt tolerated IV Albumin infusion overnight. ROS: A 12pt ROS was obtained and was negative except as above. Objective - Vital Signs/Intake and Output Vital Signs (last 24 hours): Temp Pulse Resp BP Pulse Ox 99.1 F 98 H 20 106/73 99 06/01/17 01:06 06/01/17 01:06 06/01/17 01:06 06/01/17 01:06 06/01/17 01:06 - Medications Medications: Current Medications Albumin Human (Albumin Human 25% (12.5 Gm/50 Ml)) 12.5 gm IV Q1 [facility] Stop: 06/01/17 08:01 Last Admin: 06/01/17 06:37 Dose: 12.5 gm Furosemide (Lasix) 40 mg PO DAILY [facility] Last Admin: 05/31/17 21:13 Dose: Not Given Heparin Sodium (Porcine) (Heparin) 5,000 units SC Q12 [facility] PRN Reason: Protocol Last Admin: 05/31/17 21:50 Dose: 5,000 units Ceftriaxone Sodium 1 gm/ (Sodium Chloride) 100 mls @ 100 mls/hr IVPB DAILY [facility] Last Admin: 05/31/17 10:02 Dose: 100 mls/hr Levothyroxine Sodium (Synthroid) 75 mcg PO DAILY@0630 [facility] Last Admin: 06/01/17 05:46 Dose: 75 mcg Lidocaine (Lidoderm) 2 ea TD DAILY [facility] Last Admin: 05/31/17 10:01 Dose: 2 ea Morphine Sulfate (Morphine) 2 mg IVP Q6 PRN PRN Reason: Pain, severe (8-10) Last Admin: 06/01/17 00:26 Dose: 2 mg Morphine Sulfate (Morphine) 2 mg IVP Q6 PRN PRN Reason: Pain, moderate (4-7) Ondansetron HCl (Zofran Inj) 4 mg IVP Q6 PRN PRN Reason: Nausea/Vomiting Spironolactone (Aldactone) 100 mg PO DAILY [facility] Last Admin: 05/31/17 09:59 Dose: 100 mg - Labs Labs: 05/31/17 12:35 06/01/17 06:35 PT 13.8 Seconds (9.8-13.1) H 05/29/17 10:50 INR 1.3 (0.9-1.2) H 05/29/17 10:50 - Constitutional Appears: Older Than Stated Age, Cachectic, Chronically Ill - Head Exam Head Exam: ATRAUMATIC, NORMAL INSPECTION, NORMOCEPHALIC - Eye Exam Eye Exam: EOMI, Normal appearance, PERRL Pupil Exam: PERRL - ENT Exam ENT Exam: Mucous Membranes Moist, Normal Exam - Neck Exam Neck Exam: Full ROM, Normal Inspection - Respiratory Exam Respiratory Exam: Decreased Breath Sounds, NORMAL BREATHING PATTERN - Cardiovascular Exam Cardiovascular Exam: RRR, +S1, +S2 - GI/Abdominal Exam GI & Abdominal Exam: Distended, Soft, Tenderness, Normal Bowel Sounds - Rectal Exam Rectal Exam: Deferred - Extremities Exam Extremities Exam: Full ROM, Normal Inspection - Back Exam Back Exam: NORMAL INSPECTION - Neurological Exam Neurological Exam: Alert, Awake, Oriented x3 - Psychiatric Exam Psychiatric exam: Normal Affect, Normal Mood - Skin Skin Exam: Dry, Intact, Normal Color, Warm Additional comments: Left abdominal wall erythema, TTP, warm to touch, no fluctuance appreciated Assessment and Plan - Assessment and Plan (Free Text) Assessment: This is a 56yF with hx of Cirrhosis from HCV, ascites with SBP, hepatic encephalopathy pw co of no BM in 2weeks. 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 1. Colonic obstruction s/p sigmoid colostomy 2. Adenexal Mass with omental caking causing obstruction 3. Hypothyroidism 4. Decompensated cirrhosis 2/2 chronic HCV infection 5. Ascites, hx SBP 6. Current secondary SBP likely from malignancy: PMN 1,880 7. Left abdominal wall cellulites Plan: -Sigmoid colostomy with stool output -Continue treatment for cirrhosis with furosemide, spironolactone. Renal function wnl -Ascites s/p paracentesis with SBP- continue IV Rocephin and stop bactrim indefinitely -Abx treatment for SBP, currently on Rocephin and will need to be switched to po ciprofloxacin 500mg bid for total 7day course, and then will be started on life long prophylaxis with ciprofloxacin 500mg/daily -Pt received complete dose of IV Albumin 1g/kg today -Left abdominal wall cellulites/subcutaneous emphysema, no abscess on imaging- Per surgery likely post-surgical, no additional abx/procedures -Pt to fu at [facility] for [employer] ATTEND[employer] ONC today for further plans for possible chemotherapy and surgery -Waiting on omental seeding biopsy, will need tissue sample of ovarian mass, likely ovarian malignancy -Pt needs script for SBP txt with abx ciprofloxacin 500mg bid for 4days and then life long SBP prophylaxis with ciprofloxacin 500mg daily -Plan discussed with Attending Physician and Primary team. <aMry Kate Ospina MD - Last Filed: 06/01/17 11:42> Objective - Vital Signs/Intake and Output Vital Signs (last 24 hours): Temp Pulse Resp BP Pulse Ox 98.8 F 98 H 20 92/54 L 99 06/01/17 07:39 06/01/17 07:39 06/01/17 07:39 06/01/17 09:43 06/01/17 07:39 Intake and Output: 06/01/17 06/01/17 06:59 18:59 Intake Total 200 Balance 200 - Medications Medications: Current Medications Furosemide (Lasix) 40 mg PO DAILY [facility] Last Admin: 06/01/17 09:43 Dose: Not Given Ceftriaxone Sodium 1 gm/ (Sodium Chloride) 100 mls @ 100 mls/hr IVPB DAILY [facility] Last Admin: 06/01/17 08:33 Dose: 100 mls/hr Levothyroxine Sodium (Synthroid) 75 mcg PO DAILY@0630 [facility] Last Admin: 06/01/17 05:46 Dose: 75 mcg Lidocaine (Lidoderm) 2 ea TD DAILY [facility] Last Admin: 06/01/17 09:53 Dose: 2 ea Morphine Sulfate (Morphine) 2 mg IVP Q6 PRN PRN Reason: Pain, severe (8-10) Last Admin: 06/01/17 00:26 Dose: 2 mg Morphine Sulfate (Morphine) 2 mg IVP Q6 PRN PRN Reason: Pain, moderate (4-7) Ondansetron HCl (Zofran Inj) 4 mg IVP Q6 PRN PRN Reason: Nausea/Vomiting Spironolactone (Aldactone) 100 mg PO DAILY [facility] Last Admin: 06/01/17 09:41 Dose: 100 mg - Labs Labs: 06/01/17 06:35 06/01/17 06:35 PT 13.8 Seconds (9.8-13.1) H 05/29/17 10:50 INR 1.3 (0.9-1.2) H 05/29/17 10:50 Attending/Attestation - Attestation I have personally seen and examined this patient.: Yes I have fully participated in the care of the patient.: Yes I have reviewed all pertinent clinical information, including history, physical exam and plan: Yes Notes (Text): 06/01/17 11:33 Patient seen with GI fellow at bedside. Interview conducted in japanese. 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 Today has left colostomy pain and rebound. CT abdomen reviewed . Follow with [facility]yn[facility] oncology for further treatment for adnexal mass. Follow surgical pathology of omental tissue. Ascitic tap fluid positive for peritonitis with high WBC count likely secondary due to malignancy. Completed day 1 and day 3 of albumin infusion for HRS prophylaxis. On day 3 of IV antibiotics. May transition to po antibiotics if getting discharged. Will need lifelong antibiotic prophylaxis upon discharge. Grim prognosis. Continue low dose diuretics and watch electrolytes closely. Please do daily labs as patient has high output colostomy and on diuretics. Diet as tolerated, low sodium
--- NOTE | 2017-06-01 07:58 | CP.PCM.PN ---
Subjective - Date & Time of Evaluation Date of Evaluation: 06/01/17 Time of Evaluation: 07:55 - Subjective Subjective: Surgery: Dr. Jimenez Pt seen and examined. Resting comfortably in bed. Abd pain is improved compared to yesterday. Pt is tolerating diet. No N/V. Stoma has loose output. Objective - Vital Signs/Intake and Output Vital Signs (last 24 hours): Temp Pulse Resp BP Pulse Ox 98.8 F 98 H 20 92/54 L 99 06/01/17 07:39 06/01/17 07:39 06/01/17 07:39 06/01/17 07:39 06/01/17 07:39 - Medications Medications: Current Medications Albumin Human (Albumin Human 25% (12.5 Gm/50 Ml)) 12.5 gm IV Q1 [facility] Stop: 06/01/17 08:01 Last Admin: 06/01/17 06:37 Dose: 12.5 gm Furosemide (Lasix) 40 mg PO DAILY [facility] Last Admin: 05/31/17 21:13 Dose: Not Given Heparin Sodium (Porcine) (Heparin) 5,000 units SC Q12 [facility] PRN Reason: Protocol Last Admin: 05/31/17 21:50 Dose: 5,000 units Ceftriaxone Sodium 1 gm/ (Sodium Chloride) 100 mls @ 100 mls/hr IVPB DAILY [facility] Last Admin: 05/31/17 10:02 Dose: 100 mls/hr Levothyroxine Sodium (Synthroid) 75 mcg PO DAILY@0630 [facility] Last Admin: 06/01/17 05:46 Dose: 75 mcg Lidocaine (Lidoderm) 2 ea TD DAILY [facility] Last Admin: 05/31/17 10:01 Dose: 2 ea Morphine Sulfate (Morphine) 2 mg IVP Q6 PRN PRN Reason: Pain, severe (8-10) Last Admin: 06/01/17 00:26 Dose: 2 mg Morphine Sulfate (Morphine) 2 mg IVP Q6 PRN PRN Reason: Pain, moderate (4-7) Ondansetron HCl (Zofran Inj) 4 mg IVP Q6 PRN PRN Reason: Nausea/Vomiting Spironolactone (Aldactone) 100 mg PO DAILY [facility] Last Admin: 05/31/17 09:59 Dose: 100 mg - Labs Labs: 06/01/17 06:35 06/01/17 06:35 PT 13.8 Seconds (9.8-13.1) H 05/29/17 10:50 INR 1.3 (0.9-1.2) H 05/29/17 10:50 - Constitutional Appears: Non-toxic, No Acute Distress, Chronically Ill - Head Exam Head Exam: ATRAUMATIC, NORMOCEPHALIC - Eye Exam Eye Exam: EOMI. absent: Scleral icterus - ENT Exam ENT Exam: Mucous Membranes Moist - Neck Exam Neck Exam: Full ROM - Respiratory Exam Respiratory Exam: NORMAL BREATHING PATTERN. absent: Accessory Muscle Use, Respiratory Distress - Cardiovascular Exam Cardiovascular Exam: REGULAR RHYTHM - GI/Abdominal Exam GI & Abdominal Exam: Distended, Soft, Tenderness (LLQ, amber-stomal, + induratation, no fluctuance). absent: Firm, Guarding, Rigid Additional comments: Stoma pink and patent - Extremities Exam Extremities Exam: absent: Calf Tenderness, Pedal Edema - Neurological Exam Neurological Exam: Alert, Awake Assessment and Plan - Assessment and Plan (Free Text) Assessment: 56F w. distal colonic obstruction, s/p sigmoid blowhole colostomy, POD#7 -Abd pain / CT: LLQ extensive subq emphysema -d/w Dr. Jimenez, subq emphysema likely mechanical from prior procedure, no need for abx or additional procedures -Pt is clear for surgical standpoint for D/C so pt can follow up at [facility] -will follow up with pathology and get path slides so pt can bring it to brand marketing manager/ onc appointment -d/w attending Melissa PGY3
[2017-06-01] MEDS: Lidocaine 5% Patch TD SCH (09:53)
--- NOTE | 2017-06-01 10:00 | CP.PCM.PN ---
Subjective - Date & Time of Evaluation Date of Evaluation: 06/01/17 Time of Evaluation: 08:15 - Subjective Subjective: Pt. seen today lying in bed sitting upright and smiling. Pt. reports abdominal pain much better today. Pt. with no overnight events. Pt. tolerating diet. Pt. denies nausea or vomiting. Pt. continues to have bowel movement in addition to colostomy drainage. On ROS. denies any headache, shortness of breath, chest pain , fever, or chills. Objective - Vital Signs/Intake and Output Vital Signs (last 24 hours): Temp Pulse Resp BP Pulse Ox 98.8 F 98 H 20 92/54 L 99 06/01/17 07:39 06/01/17 07:39 06/01/17 07:39 06/01/17 09:43 06/01/17 07:39 - Medications Medications: Current Medications Furosemide (Lasix) 40 mg PO DAILY [facility] Last Admin: 06/01/17 09:43 Dose: Not Given Heparin Sodium (Porcine) (Heparin) 5,000 units SC Q12 [facility] PRN Reason: Protocol Last Admin: 06/01/17 09:44 Dose: 5,000 units Ceftriaxone Sodium 1 gm/ (Sodium Chloride) 100 mls @ 100 mls/hr IVPB DAILY [facility] Last Admin: 06/01/17 08:33 Dose: 100 mls/hr Levothyroxine Sodium (Synthroid) 75 mcg PO DAILY@0630 [facility] Last Admin: 06/01/17 05:46 Dose: 75 mcg Lidocaine (Lidoderm) 2 ea TD DAILY [facility] Last Admin: 06/01/17 09:53 Dose: 2 ea Morphine Sulfate (Morphine) 2 mg IVP Q6 PRN PRN Reason: Pain, severe (8-10) Last Admin: 06/01/17 00:26 Dose: 2 mg Morphine Sulfate (Morphine) 2 mg IVP Q6 PRN PRN Reason: Pain, moderate (4-7) Ondansetron HCl (Zofran Inj) 4 mg IVP Q6 PRN PRN Reason: Nausea/Vomiting Spironolactone (Aldactone) 100 mg PO DAILY [facility] Last Admin: 06/01/17 09:41 Dose: 100 mg - Labs Labs: 06/01/17 06:35 06/01/17 06:35 PT 13.8 Seconds (9.8-13.1) H 05/29/17 10:50 INR 1.3 (0.9-1.2) H 05/29/17 10:50 - Constitutional Appears: Non-toxic, No Acute Distress - Eye Exam Eye Exam: absent: Scleral icterus - ENT Exam ENT Exam: Mucous Membranes Moist - Respiratory Exam Respiratory Exam: Clear to Ausculation Bilateral, NORMAL BREATHING PATTERN - Cardiovascular Exam Cardiovascular Exam: REGULAR RHYTHM, +S1, +S2 - GI/Abdominal Exam GI & Abdominal Exam: Tenderness (Mild Tenderness Left upper quadrant improving since yesterday, Erythema near colostomy signifcantally improved ) - Extremities Exam Extremities Exam: Normal Inspection. absent: Calf Tenderness - Neurological Exam Neurological Exam: Alert, Awake, Oriented x3 - Psychiatric Exam Additional comments: Pleasant affect today. Assessment and Plan - Assessment and Plan (Free Text) Assessment: 56 y/o F with PMHx including Hypothyroidism, Cirrhosis secondary to Hepatitis C and undetermined complex adnexal mass presented to ED for evaluation of progressive abdominal pain, abdominal distension and constipation. Plan: Abdominal Distension/Constipation/Large bowel obstruction- s/p Colostomy POD #7 Stable -Erythema noted around colostomy-Resolving, continue current management as per surgery -Zofran 4mg IV PRN for nausea/vomiting -GI- Dr. Ospina on board- input appreciated -Surgery Dr. Jimenez on board- input appreciated Spontaneous Bacterial Peritonitis- Peritoneal fluid analysis elevated Neurtrophils 1-Rocephin 1gram I.V. Day #3 2-Peritoneal cultures positive for E.coli sensitive to Rocephin will continue Rocephin Complex adnexal mass- likely ovarian malignancy given elevated tumor markers -CT abdomen detects a complex cystic left adnexal mass measuring 7cm x 4.9cm and a cystic lesion involving the right adnexa measuring 4cm -CA 125 > 200, HE4 elevated > 400 -CEA wnl at 1.2 -Manufacturing Technician-Oncology follow up at [facility] - Appointment rescheduled for June 06, at [address] Nayely Brooke -Morphine and Toradol PRN for pain - Senia Zavaleta Manufacturing Technician- Oncology Office [phone] Hypothyroidism -Last TSH: 26.9, TSH 30.10 on 05/25 -Continue Levothyroxine 75mcg Cirrhosis secondary to Hepatitis C - chronic -MELD Score = 9 -S/P IR guided paracentesis of 2.5L straw colored fluid on 05/18/17 -HCV Genotype 3, Viral load 1,378,544 on 02/10/17 -Fibrosure performed on 02/26/17 detects Fibrosis stage F2 -Will consider anti-viral medications as an out patient as per GI -GI Dr. Ospina on board- input appreciated Anemia 9.8.3 - Thrombocytopenia Platelet 109 1-Stop Heparin 5000 units 2-Repeat CBC in a.m. 3-Iron studies 4-FOBT Weakness/Denconditoning -PT/OT DVT Prophylaxis -Stop Heparin 5000 units sc Q12 -Repeat CBC in a.m. -SCD and encourage ambulation Diet -[facility] [place]/low fiber 2gram Na+ diet
[2017-06-02] MEDS: Levothyroxine 75 MCG TAB PO SCH (06:37)
[2017-06-02 08:36] LABS: HEMOGLOBIN 10.7 g/dL (12.0-16.0); MEAN CELL VOLUME 86.1 fl (81.0-99.0); MEAN CORPUSCULAR HEMOGLOBIN 28.9 pg (27.0-31.0); MEAN CORPUSCULAR HGB CONC 33.5 g/dL (33.0-37.0); RBC 3.71 Mil/uL (3.80-5.20); RED CELL DISTRIBUTION WIDTH 15.3 % (11.5-14.5); WHITE BLOOD COUNT 7.8 K/uL (4.8-10.8)
[2017-06-02 08:46] LABS: BLOOD UREA NITROGEN 14 mg/dl (7-17); CALCIUM 8.7 mg/dL (8.4-10.2); GFR AFRICAN-AMERICAN > 60; GFR NON-AFRICAN AMERICAN > 60
[2017-06-02] MEDS: Lidocaine 5% Patch TD SCH (08:46)
[2017-06-02 08:55] LABS: IRON 24 ug/dL (37-170)
[2017-06-02 09:04] LABS: % IRON SATURATION 12 % (20-55); TOTAL IRON BINDING CAPACITY 193 ug/dL (250-450)
--- NOTE | 2017-06-02 09:06 | CP.PCM.PN ---
Subjective - Date & Time of Evaluation Date of Evaluation: 06/02/17 Time of Evaluation: 08:59 - Subjective Subjective: Patient seen and examined, resting in bed comfortably. No acute events overnight, she continues to endorse pain to left of colostomy site, 8/10 intensity. She otherwise denies nausea, vomiting, fever/chills. Tolerating PO diet without difficulty, presence of soft brown stool in ostomy bag. 12 point review of systems performed, negative aside from mentioned above. Objective - Vital Signs/Intake and Output Vital Signs (last 24 hours): Temp Pulse Resp BP Pulse Ox 98.4 F 88 20 99/67 L 100 06/02/17 08:27 06/02/17 08:27 06/02/17 08:27 06/02/17 08:44 06/02/17 08:27 - Medications Medications: Current Medications Furosemide (Lasix) 40 mg PO DAILY [facility] Last Admin: 06/02/17 08:44 Dose: 40 mg Ceftriaxone Sodium 1 gm/ (Sodium Chloride) 100 mls @ 100 mls/hr IVPB DAILY [facility] Last Admin: 06/02/17 08:45 Dose: 100 mls/hr Levothyroxine Sodium (Synthroid) 75 mcg PO DAILY@0630 [facility] Last Admin: 06/02/17 06:37 Dose: 75 mcg Lidocaine (Lidoderm) 2 ea TD DAILY [facility] Last Admin: 06/02/17 08:46 Dose: 2 ea Morphine Sulfate (Morphine) 2 mg IVP Q6 PRN PRN Reason: Pain, moderate (4-7) Ondansetron HCl (Zofran Inj) 4 mg IVP Q6 PRN PRN Reason: Nausea/Vomiting Spironolactone (Aldactone) 100 mg PO DAILY [facility] Last Admin: 06/02/17 08:44 Dose: 100 mg - Labs Labs: 06/02/17 06:00 06/02/17 06:00 PT 13.8 Seconds (9.8-13.1) H 05/29/17 10:50 INR 1.3 (0.9-1.2) H 05/29/17 10:50 - Constitutional Appears: Non-toxic, No Acute Distress - Head Exam Head Exam: NORMAL INSPECTION - Eye Exam Eye Exam: EOMI, Normal appearance - ENT Exam ENT Exam: Mucous Membranes Moist - Respiratory Exam Respiratory Exam: Clear to Ausculation Bilateral - Cardiovascular Exam Cardiovascular Exam: REGULAR RHYTHM, +S1, +S2 - GI/Abdominal Exam GI & Abdominal Exam: Soft, Tenderness, Normal Bowel Sounds Additional comments: LLQ colostomy with soft brown stool in bag tenderness to palpation to left of ostomy site, no rebound/guarding - Extremities Exam Extremities Exam: Normal Inspection - Skin Skin Exam: Dry, Intact, Normal Color, Warm Assessment and Plan - Assessment and Plan (Free Text) Assessment: HCV decompensated cirrhosis Ascites, +SBP Bowel obstruction likely secondary to VP DIRECTOR OF CREATIVE STRATEGY malignancy s/p colostomy Plan: - Continue with antibiotic therapy, patient will require lifelong therapy with PO regimen following hospital discharge - Continue with diuretic therapy, monitor electrolytes - Low sodium diet as tolerated - Follow up surgical recommendations - Awaiting ascitic fluid cytology results as well as omental biopsy results - Patient to follow up at [facility] with [employer]ATE[employer]/oncology team for ongoing management - Renal function stable, s/p albumin therapy on day 1 and 3 for adjunct therapy in SBP - No further planned GI interventions, will sign off case. Please reconsult as necessary, thank you.
[2017-06-02] MEDS ORDERED: Morphine 4 MG/ML VIAL IVP PRN (09:15)
[2017-06-02 09:20] LABS: FERRITIN 83.4 ng/mL
--- NOTE | 2017-06-02 11:06 | CP.PCM.PN ---
Subjective - Date & Time of Evaluation Date of Evaluation: 06/02/17 Time of Evaluation: 11:04 - Subjective Subjective: Surgery Pt s&e. KUMAR. Ostomy working. Pain improved.Denies F/C?N/V/D/CP/SOB. Tolerating diet Objective - Vital Signs/Intake and Output Vital Signs (last 24 hours): Temp Pulse Resp BP Pulse Ox 98.4 F 88 20 99/67 L 100 06/02/17 08:27 06/02/17 08:27 06/02/17 08:27 06/02/17 08:44 06/02/17 08:27 - Medications Medications: Current Medications Furosemide (Lasix) 40 mg PO DAILY [facility] Last Admin: 06/02/17 08:44 Dose: 40 mg Ceftriaxone Sodium 1 gm/ (Sodium Chloride) 100 mls @ 100 mls/hr IVPB DAILY [facility] Last Admin: 06/02/17 08:45 Dose: 100 mls/hr Levothyroxine Sodium (Synthroid) 75 mcg PO DAILY@0630 [facility] Last Admin: 06/02/17 06:37 Dose: 75 mcg Lidocaine (Lidoderm) 2 ea TD DAILY [facility] Last Admin: 06/02/17 08:46 Dose: 2 ea Morphine Sulfate (Morphine) 2 mg IVP Q6 PRN PRN Reason: Pain, moderate (4-7) Ondansetron HCl (Zofran Inj) 4 mg IVP Q6 PRN PRN Reason: Nausea/Vomiting Spironolactone (Aldactone) 100 mg PO DAILY [facility] Last Admin: 06/02/17 08:44 Dose: 100 mg - Labs Labs: 06/02/17 06:00 06/02/17 06:00 PT 13.8 Seconds (9.8-13.1) H 05/29/17 10:50 INR 1.3 (0.9-1.2) H 05/29/17 10:50 - Constitutional Appears: No Acute Distress, Cachectic, Chronically Ill - Head Exam Head Exam: ATRAUMATIC, NORMAL INSPECTION, NORMOCEPHALIC - Eye Exam Eye Exam: EOMI, Normal appearance, PERRL Pupil Exam: NORMAL ACCOMODATION, PERRL - ENT Exam ENT Exam: Mucous Membranes Moist, Normal Exam - Neck Exam Neck Exam: Full ROM, Normal Inspection. absent: Lymphadenopathy - Respiratory Exam Respiratory Exam: Clear to Ausculation Bilateral, NORMAL BREATHING PATTERN - Cardiovascular Exam Cardiovascular Exam: REGULAR RHYTHM, +S1, +S2. absent: Murmur - GI/Abdominal Exam GI & Abdominal Exam: Distended, Soft, Tenderness. absent: Firm, Guarding, Rigid , Pulsatile Mass, Rebound Additional comments: Ostomy functioning. GAs and liquid present - Extremities Exam Extremities Exam: Full ROM, Normal Capillary Refill, Normal Inspection. absent : Joint Swelling, Pedal Edema - Back Exam Back Exam: NORMAL INSPECTION - Neurological Exam Neurological Exam: Alert, Awake, CN II-XII Intact, Oriented x3 - Psychiatric Exam Psychiatric exam: Normal Affect, Normal Mood - Skin Skin Exam: Dry, Intact, Normal Color, Warm Assessment and Plan - Assessment and Plan (Free Text) Assessment: 56F w. distal colonic obstruction, s/p sigmoid blowhole colostomy, POD#8 -Abd pain / CT: LLQ extensive subq emphysema -d/w Dr. Jimenez, subq emphysema likely mechanical from prior procedure, no need for abx or additional procedures -Pt is clear for surgical standpoint for D/C so pt can follow up at [facility] -will follow up with pathology and get path slides so pt can bring it to train controller/ onc appointment -d/w attending
--- NOTE | 2017-06-02 13:47 | CP.PCM.PN ---
Subjective - Date & Time of Evaluation Date of Evaluation: 06/02/17 Time of Evaluation: 08:00 - Subjective Subjective: Pt. seen today lying in bed sleeping awakes to voice, appears sad compared to yesterday. Abdominal pain continues to improve. Pt. with no overnight events. Pt. tolerating PO diet. Pt. denies nausea or vomiting. Pt. continues to have bowel movement in addition to colostomy drainage. On ROS. denies any headache, shortness of breath, chest pain, fever, or chills. Objective - Vital Signs/Intake and Output Vital Signs (last 24 hours): Temp Pulse Resp BP Pulse Ox 98.4 F 88 20 99/67 L 100 06/02/17 08:27 06/02/17 08:27 06/02/17 08:27 06/02/17 08:44 06/02/17 08:27 Intake and Output: 06/02/17 06/02/17 06:59 18:59 Intake Total 150 Output Total 100 Balance 50 - Medications Medications: Current Medications Furosemide (Lasix) 40 mg PO DAILY [facility] Last Admin: 06/02/17 08:44 Dose: 40 mg Ceftriaxone Sodium 1 gm/ (Sodium Chloride) 100 mls @ 100 mls/hr IVPB DAILY [facility] Last Admin: 06/02/17 08:45 Dose: 100 mls/hr Levothyroxine Sodium (Synthroid) 75 mcg PO DAILY@0630 [facility] Last Admin: 06/02/17 06:37 Dose: 75 mcg Lidocaine (Lidoderm) 2 ea TD DAILY [facility] Last Admin: 06/02/17 08:46 Dose: 2 ea Morphine Sulfate (Morphine) 2 mg IVP Q6 PRN PRN Reason: Pain, moderate (4-7) Ondansetron HCl (Zofran Inj) 4 mg IVP Q6 PRN PRN Reason: Nausea/Vomiting Spironolactone (Aldactone) 100 mg PO DAILY [facility] Last Admin: 06/02/17 08:44 Dose: 100 mg - Labs Labs: 06/02/17 06:00 06/02/17 06:00 PT 13.8 Seconds (9.8-13.1) H 05/29/17 10:50 INR 1.3 (0.9-1.2) H 05/29/17 10:50 - Constitutional Appears: Non-toxic, No Acute Distress, Cachectic - Eye Exam Eye Exam: absent: Scleral icterus - Neck Exam Neck Exam: Full ROM - Respiratory Exam Respiratory Exam: Clear to Ausculation Bilateral, NORMAL BREATHING PATTERN - Cardiovascular Exam Cardiovascular Exam: REGULAR RHYTHM, +S1, +S2 - GI/Abdominal Exam GI & Abdominal Exam: Tenderness (moderate area of tenderness left upper quadrant , colostomy in place ), Hyperactive Bowel Sounds - Extremities Exam Extremities Exam: Normal Inspection. absent: Calf Tenderness - Neurological Exam Neurological Exam: Alert, Awake, Oriented x3 - Psychiatric Exam Psychiatric exam: Normal Affect Additional comments: Appears sad Assessment and Plan - Assessment and Plan (Free Text) Assessment: 56 y/o F with PMHx including Hypothyroidism, Cirrhosis secondary to Hepatitis C and undetermined complex adnexal mass presented to ED for evaluation of progressive abdominal pain, abdominal distension and constipation. Plan: Abdominal Distension/Constipation/Large bowel obstruction- s/p Colostomy POD #8 Stable -Erythema and subcutaneous swelling noted in the LUQ near colostomy- continues to Improve -Zofran 4mg IV PRN for nausea/vomiting -Morphine 2mg IV PRN -GI- Dr. Ospina on board- input appreciated- Cleared for discharge when medically stable -Surgery Dr. Jimenez on board- input appreciated- Cleared for discharge when medically stable Spontaneous Bacterial Peritonitis- Peritoneal fluid analysis elevated Neutrophils 1-Rocephin 1gram I.V. 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 Nayely Zavaleta [employer] Machine Operator-Oncology Office [phone] Hypothyroidism -Last TSH: 26.9, TSH 30.10 on 05/25 -Continue Levothyroxine 75mcg Cirrhosis secondary to Hepatitis C - chronic -MELD Score = 9 -S/P IR guided paracentesis of 2.5L straw colored fluid on 05/18/17 -HCV Genotype 3, Viral load 1,378,544 on 02/10/17 -Fibrosure performed on 02/26/17 detects Fibrosis stage F2 -Will consider anti-viral medications as an outpatient with GI Anemia Improving 10.7/31.9 - Thrombocytopenia Platelet 144 1-Consider I.V. Venofer 2-Start Iron PO 3-FeSol 325mg PO TID Weakness/Denconditoning -PT/OT DVT Prophylaxis -SCD and encourage ambulation Diet -GI [place]/low fiber 2gram Na+ diet
[2017-06-03] MEDS: Levothyroxine 75 MCG TAB PO SCH (05:37)
[2017-06-03 08:07] LABS: HEMOGLOBIN 11.2 g/dL (12.0-16.0); MEAN CORPUSCULAR HEMOGLOBIN 29.1 pg (27.0-31.0); MEAN CORPUSCULAR HGB CONC 33.9 g/dL (33.0-37.0); RBC 3.84 Mil/uL (3.80-5.20); RED CELL DISTRIBUTION WIDTH 15.8 % (11.5-14.5)
[2017-06-03] MEDS: Ferrous Sulfate 300 mg/5 mL Liq UD PO SCH ×3 (08:28→16:57)
[2017-06-03] MEDS: Lidocaine 5% Patch TD SCH (08:29)
[2017-06-03 08:37] LABS: BLOOD UREA NITROGEN 18 mg/dl (7-17); CALCIUM 8.7 mg/dL (8.4-10.2); GFR AFRICAN-AMERICAN > 60; GFR NON-AFRICAN AMERICAN > 60
--- NOTE | 2017-06-03 09:14 | CP.PCM.PN ---
Subjective - Date & Time of Evaluation Date of Evaluation: 06/03/17 Time of Evaluation: 06:50 - Subjective Subjective: General Surgery Progress Note for Dr. Jimenez Patient seen and examined at bedside. No acute event overnight. Patient resting in bed comfortably. She still complaining of mild abd pain in LLQ. Ostomy working properly draining soft brown stool. She is tolerating dioet. Denies fever/chills, cp, sob, palpitations, n/v/d. Objective - Vital Signs/Intake and Output Vital Signs (last 24 hours): Temp Pulse Resp BP Pulse Ox 98.6 F 92 H 18 93/60 L 97 06/03/17 01:00 06/03/17 01:00 06/03/17 01:00 06/03/17 08:29 06/03/17 01:00 - Medications Medications: Current Medications Ferrous Sulfate (Feosol Liq) 300 mg PO TID [facility] Last Admin: 06/03/17 08:28 Dose: 300 mg Furosemide (Lasix) 40 mg PO DAILY [facility] Last Admin: 06/03/17 08:29 Dose: Not Given Ceftriaxone Sodium 1 gm/ (Sodium Chloride) 100 mls @ 100 mls/hr IVPB DAILY [facility] Last Admin: 06/03/17 08:27 Dose: 100 mls/hr Levothyroxine Sodium (Synthroid) 75 mcg PO DAILY@0630 [facility] Last Admin: 06/03/17 05:37 Dose: 75 mcg Lidocaine (Lidoderm) 2 ea TD DAILY [facility] Last Admin: 06/03/17 08:29 Dose: 2 ea Morphine Sulfate (Morphine) 2 mg IVP Q6 PRN PRN Reason: Pain, moderate (4-7) Ondansetron HCl (Zofran Inj) 4 mg IVP Q6 PRN PRN Reason: Nausea/Vomiting Spironolactone (Aldactone) 100 mg PO DAILY [facility] Last Admin: 06/03/17 08:28 Dose: 100 mg - Labs Labs: 06/03/17 06:00 06/02/17 06:00 PT 13.8 Seconds (9.8-13.1) H 05/29/17 10:50 INR 1.3 (0.9-1.2) H 05/29/17 10:50 - Constitutional Appears: No Acute Distress, Chronically Ill - Head Exam Head Exam: ATRAUMATIC, NORMOCEPHALIC - Eye Exam Eye Exam: Normal appearance - ENT Exam ENT Exam: Mucous Membranes Moist - Neck Exam Neck Exam: Full ROM - Respiratory Exam Respiratory Exam: NORMAL BREATHING PATTERN - Cardiovascular Exam Cardiovascular Exam: REGULAR RHYTHM - GI/Abdominal Exam GI & Abdominal Exam: Distended, Soft, Tenderness (mild, LLQ). absent: Firm, Guarding, Rigid, Rebound Additional comments: Ostomy pink, patent and draining soft brown stool. Gas and liquid also present - Extremities Exam Extremities Exam: absent: Calf Tenderness - Back Exam Back Exam: absent: CVA tenderness (L), CVA tenderness (R) - Neurological Exam Neurological Exam: Alert, Awake, Oriented x3 - Psychiatric Exam Psychiatric exam: Normal Affect, Normal Mood - Skin Skin Exam: Dry, Intact, Normal Color Assessment and Plan - Assessment and Plan (Free Text) Plan: 56 F with distal colonic obstruction, s/p sigmoid blowhole colostomy, POD#9 -Abd pain / CT: LLQ extensive subq emphysema: as per Dr. Jimenez, subq emphysema likely mechanical from prior procedure, no need for abx or additional procedures -Clear from surgical standpoint for D/C for follow up at [facility] -will follow up with pathology and get path slides for obstetrician gynecologist/onc appointment -Will ROS Post PGY1
--- NOTE | 2017-06-03 13:16 | CP.PCM.PN ---
Subjective - Date & Time of Evaluation Date of Evaluation: 06/03/17 Time of Evaluation: 08:30 - Subjective Subjective: Pt. seen this a.m. wit son at bedside. Pt. with no complaints at this time. Overnight uneventful. Pain well controlled. On ROS, pt. denies any headache, chest pain, dyspnea, fever, or chills. Pt. does state that has been ambulating down the hallway and back and but still feels weak. Objective - Vital Signs/Intake and Output Vital Signs (last 24 hours): Temp Pulse Resp BP Pulse Ox 98.6 F 92 H 18 93/60 L 97 06/03/17 01:00 06/03/17 01:00 06/03/17 01:00 06/03/17 08:29 06/03/17 01:00 Intake and Output: 06/03/17 06/03/17 06:59 18:59 Intake Total 100 Balance 100 - Medications Medications: Current Medications Ferrous Sulfate (Feosol Liq) 300 mg PO TID [facility] Last Admin: 06/03/17 12:47 Dose: Not Given Furosemide (Lasix) 40 mg PO DAILY [facility] Last Admin: 06/03/17 08:29 Dose: Not Given Ceftriaxone Sodium 1 gm/ (Sodium Chloride) 100 mls @ 100 mls/hr IVPB DAILY [facility] Last Admin: 06/03/17 08:27 Dose: 100 mls/hr Levothyroxine Sodium (Synthroid) 75 mcg PO DAILY@0630 [facility] Last Admin: 06/03/17 05:37 Dose: 75 mcg Lidocaine (Lidoderm) 2 ea TD DAILY [facility] Last Admin: 06/03/17 08:29 Dose: 2 ea Morphine Sulfate (Morphine) 2 mg IVP Q6 PRN PRN Reason: Pain, moderate (4-7) Ondansetron HCl (Zofran Inj) 4 mg IVP Q6 PRN PRN Reason: Nausea/Vomiting Spironolactone (Aldactone) 100 mg PO DAILY [facility] Last Admin: 06/03/17 08:28 Dose: 100 mg - Labs Labs: 06/03/17 06:00 06/03/17 05:30 PT 13.8 Seconds (9.8-13.1) H 05/29/17 10:50 INR 1.3 (0.9-1.2) H 05/29/17 10:50 - Constitutional Appears: Non-toxic, Cachectic - Eye Exam Eye Exam: Normal appearance. absent: Scleral icterus - Respiratory Exam Respiratory Exam: Clear to Ausculation Bilateral, NORMAL BREATHING PATTERN - Cardiovascular Exam Cardiovascular Exam: REGULAR RHYTHM, +S1, +S2 - GI/Abdominal Exam GI & Abdominal Exam: Soft, Tenderness Additional comments: Mild tenderness Left upper quadrant but improving - Extremities Exam Extremities Exam: Normal Capillary Refill. absent: Tenderness - Neurological Exam Neurological Exam: Alert, Awake, Oriented x3 - Psychiatric Exam Psychiatric exam: Normal Affect, Normal Mood Assessment and Plan - Assessment and Plan (Free Text) Assessment: 56 y/o F with PMHx including Hypothyroidism, Cirrhosis secondary to Hepatitis C and undetermined complex adnexal mass presented to ED for evaluation of progressive abdominal pain, abdominal distension and constipation. Plan: Abdominal Distension/Constipation/Large bowel obstruction- s/p Colostomy POD #9 Stable -Morphine 2mg IV PRN -Add Percocet PO for pain control -Zofran PRN -GI- Dr. Ospina on board- input appreciated- Cleared for discharge when medically stable -Surgery Dr. Jimenez on board- input appreciated- Cleared for discharge when medically stable Spontaneous Bacterial Peritonitis- Peritoneal fluid analysis elevated Neutrophils- Resolving 1-Rocephin 1gram I.V. 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 - Appointment rescheduled for June 06, at [address] Nayely Zavaleta Dental Office Receptionist-Oncology Office [phone] Hypothyroidism -Last TSH: 26.9, TSH 30.10 on 05/25 -Continue Levothyroxine 75mcg Cirrhosis secondary to Hepatitis C - chronic -MELD Score = 9 -Management as outpatient Anemia Improving 11.2 - Resolving after Heparin D/C Thrombocytopenia Platelet 180 1-Consider I.V. Venofer 2-Start Iron PO 3-FeSol 325mg PO TID Weakness/Denconditoning -PT/OT- needs re-evaluation by PT/OT for discharge planning to home DVT Prophylaxis -SCD and encourage ambulation Diet -GI [place]/low fiber 2gram Na+ diet
[2017-06-03] MEDS ORDERED: oxyCODONE 5 mg Immediate Release Tab PO PRN (17:31)
[2017-06-03] MEDS: oxyCODONE 10 mg Immediate Release Tab PO PRN (21:02)
[2017-06-03 23:58] VITALS: RESP 20
[2017-06-04] MEDS: Levothyroxine 75 MCG TAB PO SCH (05:40)
--- NOTE | 2017-06-04 07:22 | CP.PCM.PN ---
Subjective - Date & Time of Evaluation Date of Evaluation: 06/04/17 Time of Evaluation: 07:20 - Subjective Subjective: Surgery: Dr. Jimenez Pt seen and examined. Resting comfortably in bed. Still has pain in LLQ. Unchanged. Tolerating diet. no N/V. Objective - Vital Signs/Intake and Output Vital Signs (last 24 hours): Temp Pulse Resp BP Pulse Ox 98.6 F 88 20 97/64 L 99 06/03/17 23:57 06/03/17 23:57 06/03/17 23:57 06/03/17 23:57 06/03/17 23:57 - Medications Medications: Current Medications Ciprofloxacin (Cipro) 500 mg PO DAILY [facility] Ferrous Sulfate (Feosol Liq) 300 mg PO TID [facility] Last Admin: 06/03/17 16:57 Dose: Not Given Furosemide (Lasix) 40 mg PO DAILY [facility] Last Admin: 06/03/17 08:29 Dose: Not Given Levothyroxine Sodium (Synthroid) 75 mcg PO DAILY@0630 [facility] Last Admin: 06/04/17 05:40 Dose: 75 mcg Lidocaine (Lidoderm) 2 ea TD DAILY [facility] Last Admin: 06/03/17 08:29 Dose: 2 ea Morphine Sulfate (Morphine) 2 mg IVP Q6 PRN PRN Reason: Pain, moderate (4-7) Ondansetron HCl (Zofran Inj) 4 mg IVP Q6 PRN PRN Reason: Nausea/Vomiting Oxycodone HCl (Oxycodone Immediate Release Tab) 5 mg PO Q6 PRN PRN Reason: Pain, moderate (4-7) Last Admin: 06/04/17 06:30 Dose: 5 mg Oxycodone HCl (Oxycodone Immediate Release Tab) 10 mg PO Q6 PRN PRN Reason: Pain, severe (8-10) Last Admin: 06/03/17 21:02 Dose: 10 mg Spironolactone (Aldactone) 100 mg PO DAILY [facility] Last Admin: 06/03/17 08:28 Dose: 100 mg - Labs Labs: 06/03/17 06:00 06/03/17 05:30 PT 13.8 Seconds (9.8-13.1) H 05/29/17 10:50 INR 1.3 (0.9-1.2) H 08/08/17 10:50 - Constitutional Appears: Non-toxic, No Acute Distress, Chronically Ill - Head Exam Head Exam: ATRAUMATIC, NORMOCEPHALIC - Eye Exam Eye Exam: EOMI. absent: Scleral icterus - ENT Exam ENT Exam: Mucous Membranes Moist - Neck Exam Neck Exam: Full ROM - Respiratory Exam Respiratory Exam: NORMAL BREATHING PATTERN. absent: Accessory Muscle Use, Respiratory Distress - GI/Abdominal Exam GI & Abdominal Exam: Distended, Soft, Tenderness (amber-stomal). absent: Firm, Guarding, Rebound Additional comments: stoma: [place], patent, loose stool output - Neurological Exam Neurological Exam: Alert, Awake, Oriented x3 Assessment and Plan - Assessment and Plan (Free Text) Assessment: 56 F with distal colonic obstruction, s/p sigmoid blowhole colostomy, POD#10 -Abd pain / CT: LLQ extensive subq emphysema: as per Dr. 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
[2017-06-04] MEDS: Lidocaine 5% Patch TD SCH (08:32)
[2017-06-04] MEDS: Ferrous Sulfate 300 mg/5 mL Liq UD PO SCH (08:40)
[2017-06-04] MEDS: oxyCODONE 10 mg Immediate Release Tab PO PRN (08:51)
--- NOTE | 2017-06-04 10:12 | CP.PCM.PN ---
Objective - Vital Signs/Intake and Output Vital Signs (last 24 hours): Temp Pulse Resp BP Pulse Ox 98.3 F 87 20 91/56 L 97 06/04/17 07:26 06/04/17 07:26 06/04/17 07:26 06/04/17 08:40 06/04/17 07:26 - Medications Medications: Current Medications Ciprofloxacin (Cipro) 500 mg PO DAILY [facility] Last Admin: 06/04/17 08:40 Dose: 500 mg Ferrous Sulfate (Feosol Liq) 300 mg PO TID [facility] Last Admin: 06/04/17 08:40 Dose: 300 mg Furosemide (Lasix) 40 mg PO DAILY [facility] Last Admin: 06/04/17 08:40 Dose: Not Given Levothyroxine Sodium (Synthroid) 75 mcg PO DAILY@0630 [facility] Last Admin: 06/04/17 05:40 Dose: 75 mcg Lidocaine (Lidoderm) 2 ea TD DAILY [facility] Last Admin: 06/04/17 08:32 Dose: 2 ea Morphine Sulfate (Morphine) 2 mg IVP Q6 PRN PRN Reason: Pain, moderate (4-7) Ondansetron HCl (Zofran Inj) 4 mg IVP Q6 PRN PRN Reason: Nausea/Vomiting Oxycodone HCl (Oxycodone Immediate Release Tab) 5 mg PO Q6 PRN PRN Reason: Pain, moderate (4-7) Last Admin: 06/04/17 06:30 Dose: 5 mg Oxycodone HCl (Oxycodone Immediate Release Tab) 10 mg PO Q6 PRN PRN Reason: Pain, severe (8-10) Last Admin: 06/04/17 08:51 Dose: 10 mg Spironolactone (Aldactone) 100 mg PO DAILY [facility] Last Admin: 06/04/17 08:39 Dose: 100 mg - Labs Labs: 06/03/17 06:00 06/03/17 05:30 PT 13.8 Seconds (9.8-13.1) H 05/29/17 10:50 INR 1.3 (0.9-1.2) H 05/29/17 10:50
[2017-06-04 15:54] VITALS: BP 94/63; PULSE 84; TEMP 98.6; O2SAT 98
--- NOTE | 2017-06-04 16:59 | CP.PCM.DIS ---
Provider - Provider Date of Admission: 05/24/17 22:04 Attending physician: Ivelisse Ramon MD Hospital Course - Lab Results Lab Results: Micro Results 05/29/17 14:15 Ascitic Fluid Gram Stain - Final 05/29/17 14:15 Ascitic Fluid Body Fluid Culture - Final Escherichia Coli Most Recent Lab Values WBC 9.0 K/uL (4.8-10.8) 06/03/17 06:00 RBC 3.84 Mil/uL (3.80-5.20) 06/03/17 06:00 Hgb 11.2 g/dL (12.0-16.0) L 06/03/17 06:00 Hct 33.0 % (34.0-47.0) L 06/03/17 06:00 MCV 86.0 fl (81.0-99.0) 06/03/17 06:00 MCH 29.1 pg (27.0-31.0) 06/03/17 06:00 MCHC 33.9 g/dL (33.0-37.0) 06/03/17 06:00 RDW 15.8 % (11.5-14.5) H 06/03/17 06:00 Plt Count 180 K/uL (130-400) 06/03/17 06:00 MPV 8.5 fl (7.2-11.7) 05/28/17 05:00 Neut % (Auto) 84.4 % (50.0-75.0) H 05/28/17 05:00 Lymph % (Auto) 9.4 % (20.0-40.0) L 05/28/17 05:00 [place] % (Auto) 6.1 % (0.0-10.0) 05/28/17 05:00 Eos % (Auto) 0.0 % (0.0-4.0) 05/28/17 05:00 Baso % (Auto) 0.1 % (0.0-2.0) 05/28/17 05:00 Neut # 7.4 K/uL (1.8-7.0) H 05/28/17 05:00 Lymph # 0.8 K/uL (1.0-4.3) L 05/28/17 05:00 [place] # 0.5 K/uL (0.0-0.8) 05/28/17 05:00 Eos # 0.0 K/uL (0.0-0.7) 05/28/17 05:00 Baso # 0.0 K/uL (0.0-0.2) 05/28/17 05:00 Neutrophils % (Manual) 79 % (42-75) H 05/28/17 05:00 Lymphocytes % (Manual) 12 % (20-50) L 05/28/17 05:00 Monocytes % (Manual) 5 % (0-10) 05/28/17 05:00 Metamyelocytes % 3 % (0-0) H 05/28/17 05:00 Myelocytes % 1 % (0-0) H 05/28/17 05:00 Platelet Estimate Normal (NORMAL) 05/28/17 05:00 Anisocytosis (manual) Slight 05/28/17 05:00 PT 13.8 Seconds (9.8-13.1) H 05/29/17 10:50 INR 1.3 (0.9-1.2) H 05/29/17 10:50 Sodium 135 mmol/l (132-148) 06/03/17 05:30 Potassium 3.9 MMOL/L (3.6-5.0) 06/03/17 05:30 Chloride 99 mmol/L (98-107) 06/03/17 05:30 Carbon Dioxide 26 mmol/L (22-30) 06/03/17 05:30 Anion Gap 14 (10-20) 06/03/17 05:30 BUN 18 mg/dl (7-17) H 06/03/17 05:30 Creatinine 0.6 mg/dL (0.7-1.2) L 06/03/17 05:30 Est GFR ( Amer) > 60 06/03/17 05:30 Est GFR (Non-Af Amer) > 60 06/03/17 05:30 Random Glucose 129 mg/dL (65-105) H 06/03/17 05:30 Calcium 8.7 mg/dL (8.4-10.2) 06/03/17 05:30 Iron 24 ug/dL (37-170) L 06/02/17 06:00 TIBC 193 ug/dL (250-450) L 06/02/17 06:00 % Saturation 12 % (20-55) L 06/02/17 06:00 Ferritin 83.4 ng/mL 06/02/17 06:00 Total Bilirubin 1.0 mg/dl (0.2-1.3) 05/30/17 09:00 AST 34 U/L (14-36) 05/30/17 09:00 ALT 31 U/L (9-52) 05/30/17 09:00 Alkaline Phosphatase 74 U/L (38-126) 05/30/17 09:00 Total Protein 5.9 G/DL (6.3-8.2) L 05/30/17 09:00 Albumin 2.8 g/dL (3.5-5.0) L D 05/30/17 09:00 Globulin 3.1 gm/dL (2.2-3.9) 05/30/17 09:00 Albumin/Globulin Ratio 0.9 (1.0-2.1) L 05/30/17 09:00 Lipase 214 U/L (23-300) 05/24/17 21:05 Free T4 1.22 ng/dL (0.78-2.19) 05/25/17 05:50 Free T3 pg/mL 2.76 pg/mL (2.77-5.27) L 05/25/17 05:50 TSH 3rd Generation 30.10 mIU/ML (0.46-4.68) H 05/25/17 05:50 Fluid Source Peritoneal/ascites 05/29/17 14:15 Fluid Appearance Bloody (CLEAR) 05/29/17 14:15 Fluid WBC 4047.0 /mm3 (0.0-300.0) H 05/29/17 14:15 Fluid RBC 38437.0 /mm3 (0.0-0.0) H 05/29/17 14:15 Fluid Tot Cell Count 100 (0-0) H 05/29/17 14:15 Fluid Neutrophils 49.0 % (0-0) H 05/29/17 14:15 Fluid Lymphocytes 30.0 % (0-0) H 05/29/17 14:15 Fld Monocyte/Macrophag 21 % (0-0) H 05/29/17 14:15 Fluid Comment Cloudy 05/29/17 14:15 Stool Occult Blood Positive (NEGATIVE) H 06/03/17 22:04 Discharge Exam - Head Exam Head Exam: ATRAUMATIC, NORMOCEPHALIC Discharge Plan - Discharge Medications Prescriptions: Ciprofloxacin [Cipro] 500 mg PO DAILY #30 tab Furosemide [Lasix] 40 mg PO DAILY #30 tab Levothyroxine [Synthroid] 75 mcg PO DAILY@0630 #30 tab Ondansetron ODT [Zofran ODT] 4 mg PO Q6 PRN #30 odt PRN Reason: Nausea/Vomiting Spironolactone [Aldactone] 100 mg PO DAILY #30 Spironolactone [Aldactone] 100 mg PO DAILY #30 tab - Follow Up Plan Condition: STABLE Disposition: HOME/ ROUTINE Instructions: Colostomy Care (DC), Low Fiber Diet (GEN) Additional Instructions: Sunday 1p.m. on June 06 [address] Nayely Brooke on june 06 @ 1pm Senia Zavaleta Janitor And Cleaner-Oncology office [phone] Sunday 11a.m. on June 08 [address] Rodrigues [address] [place] [address] [address], [place] [address]
== END 2017-06-04 18:08 | disposition home health service (06) | DRG 585 ==
LOC: H.ER 19:56 → H.ERHOLD 22:04 → H.MEDSURG1 05-25 00:40
PROVIDERS: ADMIT Family Medicine Geriatric Medicine; ATTEND Family Medicine Geriatric Medicine
PROC: 0D1N0Z4 Bypass Sigmoid Colon to Cutaneous, Open Approach (ICD-10-PCS; principal; 2017-05-25 16:00)
PROC: 0W9G3ZX Drainage of Peritoneal Cavity, Percutaneous Approach, Diagnostic (ICD-10-PCS; 2017-05-29)
DX: K65.2 Spontaneous bacterial peritonitis (principal); K72.90 Hepatic failure, unspecified without coma; K56.69 Other intestinal obstruction; C78.6 Secondary malignant neoplasm of retroperitoneum and peritoneum; R18.8 Other ascites; K76.6 Portal hypertension; K74.60 Unspecified cirrhosis of liver; B18.2 Chronic viral hepatitis C; K56.41 Fecal impaction; B96.20 Unspecified Escherichia coli [E. coli] as the cause of diseases classified elsewhere; T81.82XA Emphysema (subcutaneous) resulting from a procedure, initial encounter; E03.9 Hypothyroidism, unspecified; N83.9 Noninflammatory disorder of ovary, fallopian tube and broad ligament, unspecified; J45.909 Unspecified asthma, uncomplicated

== ENCOUNTER 2017-07-02 11:52 | Inpatient (IN) | payer SELFPAY ==
--- NOTE | 2017-07-02 12:30 | ED PDOC ---
HPI: Abdomen Time Seen by Provider: 07/02/17 12:16 Chief Complaint (Nursing): Abdominal Pain Chief Complaint (Provider): Abd pain History Per: Patient Additional Complaint(s): 56 yo female, PMH of Hep C and Stage 3 Ovarian CA, presents to ED with complaint sof abdominal pain and distention. Insole Taper spoke to Dr. Tomas, [facility], who reports Pt needs to be admitted to undergo paracentesis by IR. Orders discussed. No fever or chills, no nausea or vomiting, no diarrhea or constipation. No chest pain or SOB Past Medical History Reviewed: Historical Data, Nursing Documentation, Vital Signs Vital Signs: Last Vital Signs Temp 98 F 07/02/17 12:01 Pulse 108 H 07/02/17 12:01 Resp 20 07/02/17 12:01 BP 146/102 H 07/02/17 12:01 Pulse Ox 98 07/02/17 12:01 - Medical History PMH: Asthma, Hepatitis (C, Symptoms are not improving with lactulose), Hyperthyroidism, Hypothyroidism Denies: HIV, Chronic Kidney Disease Other PMH: Ovaraian CA - Family History Family History: States: Unknown Family Hx - Living Arrangements Living Arrangements: With Family - Social History Current smoker - smoking cessation education provided: No Alcohol: None Drugs: Denies - Home Medications Home Medications: Ambulatory Orders Medication Instructions Recorded Ciprofloxacin [Cipro] 500 mg PO DAILY #30 tab 06/04/17 Furosemide [Lasix] 40 mg PO DAILY #30 tab 06/04/17 Levothyroxine [Synthroid] 75 mcg PO DAILY@0630 #30 tab 06/04/17 Ondansetron ODT [Zofran ODT] 4 mg PO Q6 PRN #30 odt 06/04/17 Spironolactone [Aldactone] 100 mg PO DAILY #30 06/04/17 Spironolactone [Aldactone] 100 mg PO DAILY #30 tab 06/04/17 - Allergies Allergies/Adverse Reactions: Allergies Allergy/AdvReac Type Severity Reaction Status Date / Time No Known Allergies Allergy Verified 05/08/17 10:32 Review of Systems ROS Statement: Except As Marked, All Systems Reviewed And Found Negative Gastrointestinal: Positive for: Abdominal Pain Physical Exam - Reviewed Nursing Documentation Reviewed: Yes Vital Signs Reviewed: Yes - Physical Exam Appears: Positive for: Non-toxic, No Acute Distress, Uncomfortable Head Exam: Positive for: ATRAUMATIC, NORMAL INSPECTION, NORMOCEPHALIC Skin: Positive for: Normal Color, Warm, DRY Eye Exam: Positive for: EOMI, Normal appearance, PERRL ENT: Positive for: Normal ENT Inspection Neck: Positive for: Normal, Painless ROM Cardiovascular/Chest: Positive for: Regular Rate, Rhythm Respiratory: Positive for: CNT, Normal Breath Sounds Gastrointestinal/Abdominal: Positive for: Bowel Sounds, Soft, Tenderness, Distended, Asicites Back: Positive for: Normal Inspection Extremity: Positive for: Normal ROM Neurologic/Psych: Positive for: Alert, Oriented - ECG O2 Sat by Pulse Oximetry: 98 Medical Decision Making Medical Decision Making: Ordered placed. FP team at bedside. Arrangements made for admission Disposition - Clinical Impression Clinical Impression: Hepatic cirrhosis due to chronic hepatitis C infection, Ascites, Abdominal pain - Patient ED Disposition Is Patient to be Admitted: Yes - Disposition Disposition Time: 12:37 Condition: STABLE Forms: [facility] (Kyr[place]z) - POA Present On Arrival: None
[2017-07-02 13:20] LABS: BASO % 0.1 % (0.0-2.0); EOS # 0.2 K/uL (0.0-0.7); EOS % 1.7 % (0.0-4.0); HEMATOCRIT 29.3 % (34.0-47.0); LYMPH # 0.9 K/uL (1.0-4.3); LYMPH % 8.7 % (20.0-40.0); MEAN CELL VOLUME 86.9 fl (81.0-99.0); MEAN CORPUSCULAR HEMOGLOBIN 28.7 pg (27.0-31.0); MEAN CORPUSCULAR HGB CONC 33.1 g/dL (33.0-37.0); MEAN PLATELET VOLUME 7.3 fl (7.2-11.7); MONO # 0.9 K/uL (0.0-0.8); MONO % 7.9 % (0.0-10.0); NEUT # 8.8 K/uL (1.8-7.0); NEUT % 81.6 % (50.0-75.0); PLATELET COUNT 175 K/uL (130-400); RED CELL DISTRIBUTION WIDTH 17.6 % (11.5-14.5); WHITE BLOOD COUNT 10.8 K/uL (4.8-10.8)
[2017-07-02 13:21] LABS: ALB/GLOB RATIO 0.7 (1.0-2.1); ALKALINE PHOSPHATASE 153 U/L (38-126); ALT/SGPT 53 U/L (9-52); AMYLASE 174 U/L (30-110); AST/SGOT 113 U/L (14-36); BILIRUBIN,TOTAL 0.7 mg/dl (0.2-1.3); BLOOD UREA NITROGEN 14 mg/dl (7-17); CALCIUM 8.1 mg/dL (8.4-10.2); CARBON DIOXIDE 20 mmol/L (22-30); CHLORIDE 112 mmol/L (98-107); GFR AFRICAN-AMERICAN 33; GLUCOSE,RANDOM 136 mg/dL (65-105); LIPASE 286 U/L (23-300); SODIUM 143 mmol/l (132-148); TOTAL PROTEIN 6.4 G/DL (6.3-8.2)
[2017-07-02 13:23] LABS: POTASSIUM 3.3 MMOL/L (3.6-5.0)
[2017-07-02] MEDS ORDERED: Potassium Chloride 20 mEq ER Tab PO ONE ×3 (13:44→18:47)
[2017-07-02 14:29] LABS: EOSINOPHIL 4 % (0-7); NEUTROPHIL 85 % (42-75); TOTAL CELLS COUNTED 100
--- NOTE | 2017-07-02 14:47 | RAD ---
PROCEDURE: CHEST RADIOGRAPH, 1 VIEW HISTORY: abdominal pain COMPARISON: None available. FINDINGS: LUNGS: Clear. PLEURA: Question small right pleural effusion. CARDIOVASCULAR: Normal. OSSEOUS STRUCTURES: No significant abnormalities. VISUALIZED UPPER ABDOMEN: Normal. OTHER FINDINGS: Right MediPort catheter in place. IMPRESSION: Small right pleural effusion suspected.
[2017-07-02 15:26] LABS: RBC URINE 5 /hpf (0-3); RENAL EPITHELIAL 1 /hpf (0-3); URINE BACTERIA RARE (<OCC); URINE BILIRUBIN NEGATIVE (NEGATIVE); URINE BLOOD SMALL (NEGATIVE); URINE COLOR STRAW (YELLOW); URINE GLUCOSE (UA) NEG (Normal); URINE KETONE NEGATIVE (NEGATIVE); URINE LEUKOCYTE ESTERASE LARGE Leu/uL (Negative); URINE PROTEIN NEGATIVE (NEGATIVE); URINE UROBILINOGEN 0.2-1.0 mg/dL (0.2-1.0); WBC URINE 21 /hpf (0-5)
--- NOTE | 2017-07-02 16:57 | CP.PCM.HP ---
History of Present Illness - History of Present Illness History of Present Illness: 56 y/o F with a PMHx of chronic hepatitis C, ascitis, hypothyroidism, s/p colostomy and abdominal paracentesis, and serous papillary ovarian carcinoma admitted for severe diffuse abdominal pain that began last night and rapidly aggravated this morning. Pt feels weak and in severe whole body pain. Last bowel movement this morning. Pt's daughter reports last abdominal tab was performed on 06/25/17 with complete relief of pain. Pt was hospitalized at [facility] in [place], [place] since 06/08/17 until 06/26/17 where pt received several abdominal tabs. Pt denies fever, SOB, urinary complaints new change in bowel movement. Home medications: -Augmentin 500-125 PO 1 tab daily -Docusate 200 mg PO BID -Hydromorphine 4mg PO, 1/2 tab Q4H PRN -Levothyroxine 50 mcg PO DAILY@0630 #30 tab -Ondansetron ODT 4 mg PO Q6 PRN -Sennosides-Docusate 8.6-50mg PO Q8H [facility] PMHx: Chronic hepatitis C, Hypothyroidism and serous papillary ovarian carcinoma PSHx: Abdominal paracentesis and Colostomy. FHx: Non-Contributory. SHx: Pt is a smoker, NO EtOH or recreational drugs. ER course: - Morphine 2 mg IVP STAT -CXR: small right pleural effusion suspected. -EKG. -Potassium Chloride (k-dur) 20 meq PO once. Present on Admission - Present on Admission Any Indicators Present on Admission: No History of DVT/PE: No History of Uncontrolled Diabetes: No Review of Systems - Review of Systems Review of Systems: As per HPI. Past Patient History - Infectious Disease Hx of Infectious Diseases: None - Past Medical History & Family History Past Medical History?: Yes - Past Social History Alcohol: None Drugs: Denies - CARDIAC Hx Cardiac Disorders: No - PULMONARY Hx Asthma: Yes - NEUROLOGICAL Hx Neurological Disorder: No Other/Comment: brain cancer - HEENT Hx HEENT Problems: No - RENAL Hx Chronic Kidney Disease: No - ENDOCRINE/METABOLIC Hx Hyperthyroidism: Yes Hx Hypothyroidism: Yes - HEMATOLOGICAL/ONCOLOGICAL Hx Human Immunodeficiency Virus (HIV): No - INTEGUMENTARY Hx Dermatological Problems: No - MUSCULOSKELETAL/RHEUMATOLOGICAL Hx Musculoskeletal Disorders: No Hx Falls: No - GASTROINTESTINAL Hx Gastrointestinal Disorders: Yes Hx Constipation: Yes - GENITOURINARY/GYNECOLOGICAL Hx Genitourinary Disorders: Yes (Suspicious adnexal mass) Hx Ovarian Cancer: Yes - PSYCHIATRIC Hx Psychophysiologic Disorder: No Hx Substance Use: No - SURGICAL HISTORY Hx Surgeries: No - ANESTHESIA Hx Anesthesia: Yes Hx Anesthesia Reactions: No Meds Allergies/Adverse Reactions: Allergies Allergy/AdvReac Type Severity Reaction Status Date / Time No Known Allergies Allergy Verified 05/08/17 10:32 Physical Exam - Constitutional Appears: In Acute Distress, Cachectic - Eye Exam Eye Exam: EOMI, Normal appearance - ENT Exam ENT Exam: Mucous Membranes Dry - Neck Exam Neck exam: Positive for: Full Rom - Respiratory Exam Respiratory Exam: absent: Clear to Auscultation Bilateral Additional comments: Presence of bi-basilar crackles. - Cardiovascular Exam Cardiovascular Exam: REGULAR RHYTHM - GI/Abdominal Exam GI & Abdominal Exam: Distended, Guarding, Tenderness. absent: Normal Bowel Sounds Additional comments: Bilateral Lower Extremities: presence of 2+ edema below level of knees. Results - Vital Signs Recent Vital Signs: Last Vital Signs Temp 97.7 F 07/02/17 16:10 Pulse 98 H 07/02/17 16:10 Resp 20 07/02/17 16:10 BP 138/76 07/02/17 16:10 Pulse Ox 100 07/02/17 16:10 - Labs Result Diagrams: 07/02/17 13:00 07/02/17 13:00 Labs: Laboratory Results - last 24 hr 07/02/17 07/02/17 07/02/17 13:00 13:00 15:03 WBC 10.8 RBC 3.37 L Hgb 9.7 L Hct 29.3 L MCV 86.9 MCH 28.7 MCHC 33.1 RDW 17.6 H Plt Count 175 MPV 7.3 Neut % (Auto) 81.6 H Lymph % (Auto) 8.7 L [place] % (Auto) 7.9 Eos % (Auto) 1.7 Baso % (Auto) 0.1 Neut # 8.8 H Lymph # 0.9 L [place] # 0.9 H Eos # 0.2 Baso # 0.0 Neutrophils % (Manual) 85 H Lymphocytes % (Manual) 6 L Monocytes % (Manual) 5 Eosinophils % (Manual) 4 Platelet Estimate Normal Hypochromasia (manual) Moderate Anisocytosis (manual) Slight Tear Drop Cells Slight Ovalocytes Slight Schistocytes Slight Sodium 143 Potassium 3.3 L Chloride 112 H Carbon Dioxide 20 L Anion Gap 14 BUN 14 Creatinine 1.9 H Est GFR ( Amer) 33 Est GFR (Non-Af Amer) 27 Random Glucose 136 H Calcium 8.1 L Total Bilirubin 0.7 AST 113 H ALT 53 H D Alkaline Phosphatase 153 H Troponin I < 0.0120 Total Protein 6.4 Albumin 2.6 L Globulin 3.8 Albumin/Globulin Ratio 0.7 L Amylase 174 H Lipase 286 Urine Color Straw Urine Clarity Slighty-cloudy Urine pH 6.[address] 1.006 Urine Protein Negative Urine Glucose (UA) Neg Urine Ketones Negative Urine Blood Small Urine Nitrate Negative Urine Bilirubin Negative Urine Urobilinogen 0.2-1.0 Ur Leukocyte Esterase Large Urine RBC (Auto) 5 H Urine Microscopic WBC 21 H Ur Squamous Epith Cells 2 Ur Renal Epithelial Cell 1 Urine Bacteria Rare Assessment & Plan - Assessment and Plan (Free Text) Assessment: 56 y/o F with PMHx including Hypothyroidism, Cirrhosis secondary to Hepatitis C infection and Serous papillary ovarian carcinoma admitted for severe abdominal pain adl distension. Plan: 1. Abdominal pain and distension -2/2 Ascitic fluid accumulation due to hep C. -IR consult. -Hydromorphone 1mg IVP Q6H PRN. -Toradol 30mg IVP Q6H PRN. -Resume Lasix 40 mg IV. -Start Ciprofloxacin 500 mg PO daily. -f/u CBC, BMP and coagulation profile. 2. Papillary serous ovarian carcinoma. - Pt not a candidate for chemotherapy. 3. Chronic Hepatitis C -HCV Genotype 3. 4. Hypothyroidism -Levothyroxine to 50mcg daily. 5. Hypokalemia -K-dur 10 mEq provided in ED. -f/u BMP. 6. Acute Kidney Injury - Creatinine 1.9 - CrCl: 31 - Renal diet initiated. 7. DVT Prophylaxis -SCDs. -Enoxaparin 40mg SC daily. - Date & Time Date: 07/02/17 Time: 05:00
[2017-07-02] MEDS: Amoxicillin-Clav 500-125 mg Tab PO SCH (20:29)
[2017-07-03 06:53] LABS: HEMATOCRIT 30.1 % (34.0-47.0); MEAN CELL VOLUME 86.6 fl (81.0-99.0); MEAN CORPUSCULAR HEMOGLOBIN 28.5 pg (27.0-31.0); WHITE BLOOD COUNT 9.4 K/uL (4.8-10.8)
[2017-07-03 07:07] LABS: CALCIUM 8.2 mg/dL (8.4-10.2); POTASSIUM 3.7 MMOL/L (3.6-5.0)
[2017-07-03 07:11] LABS: PARTIAL THROMBOPLASTIN TIME 37.5 Seconds (25.6-37.1)
[2017-07-03] MEDS: Levothyroxine 50 MCG TAB PO SCH (07:12)
[2017-07-03] MEDS: Amoxicillin-Clav 500-125 mg Tab PO SCH ×2 (07:13→21:34)
--- NOTE | 2017-07-03 08:55 | CARD ---
APPROVED REPORT EKG Measurement Heart [id number] NE 124P42 [id number] <Conclusion> Normal sinus rhythm Nonspecific T wave abnormality Abnormal ECG
[2017-07-03] MEDS ORDERED: Ciprofloxacin 400mg/200ml D5W 400 MG/200 ML BAG IVPB SCH (09:00)
[2017-07-03] MEDS: Enoxaparin 40 mg Syringe SC SCH (09:02)
--- NOTE | 2017-07-03 10:15 | CP.PCM.PN ---
Subjective - Date & Time of Evaluation Date of Evaluation: 07/03/17 Time of Evaluation: 10:06 - Subjective Subjective: Family meeting held with Patient's daughter and son. Pt. gave permission to talk with son and daughter and designate daughter as healthcare proxy. Present during the Family meeting Dr. Ramon and myself Dr. Carmel Tomas. Discussed with son and daughter patient diagnosis and prognosis for Stage III ovarian carcinoma. The risks and benefits of chemotherapy explained. Daughter and son agreeable to DNR/DNI status given patient is not an ideal candidate for chemotherapy given high risk of complications. Pt. was previously seen by [facility] at [facility] with Dr. Nayely Brooke and recommended Home Hospice given the patient multiple co-morbid conditions Hepatitis C with ascitis , Thrombocytopenia, and Renal insufficiency. Son and daughter verbalized understanding of what the prognosis is and agreeable to DNR/DNI and home hospice. Objective - Vital Signs/Intake and Output Vital Signs (last 24 hours): Temp Pulse Resp BP Pulse Ox 97.7 F 100 H 20 145/87 98 07/03/17 08:17 07/03/17 08:17 07/03/17 08:17 07/03/17 08:17 07/03/17 08:17 - Medications Medications: Current Medications Amoxicillin/Clavulanate Potassium (Augmentin 500 Mg-125 Mg Tab) 1 tab PO Q12H [facility] Last Admin: 07/03/17 07:13 Dose: 1 tab Ciprofloxacin (Cipro) 500 mg PO DAILY [facility] Last Admin: 07/03/17 09:07 Dose: 500 mg Docusate Sodium (Colace) 100 mg PO DAILY [facility] Last Admin: 07/03/17 09:10 Dose: 100 mg Enoxaparin Sodium (Lovenox) 40 mg SC DAILY [facility] PRN Reason: Protocol Hydromorphone HCl (Dilaudid) 1 mg IVP Q6H PRN PRN Reason: Pain, severe (8-10) Last Admin: 07/02/17 19:08 Dose: 1 mg Ketorolac Tromethamine (Toradol) 30 mg IVP Q6 PRN PRN Reason: Pain, Mild (1-3) Levothyroxine Sodium (Synthroid) 50 mcg PO DAILY@0630 [facility] Last Admin: 07/03/17 07:12 Dose: 50 mcg Morphine Sulfate (Morphine) 2 mg IVP Q6 PRN PRN Reason: Pain, moderate (4-7) Last Admin: 07/03/17 06:02 Dose: 2 mg Ondansetron HCl (Zofran Inj) 4 mg IVP Q6 PRN PRN Reason: Nausea/Vomiting Last Admin: 07/02/17 20:38 Dose: 4 mg Sennosides (Senokot Tab) 8.6 mg PO HS [facility] Last Admin: 07/02/17 22:22 Dose: 8.6 mg - Labs Labs: 07/03/17 05:30 07/03/17 05:30 PT 15.8 Seconds (9.8-13.1) H 07/03/17 05:30 INR 1.5 (0.9-1.2) H 07/03/17 05:30 APTT 37.5 Seconds (25.6-37.1) H 07/03/17 05:30
--- NOTE | 2017-07-03 13:52 | CP.PCM.PN ---
Subjective - Date & Time of Evaluation Date of Evaluation: 07/03/17 Time of Evaluation: 09:00 - Subjective Subjective: 56 y/o F examined at bedside. Pt in severe diffuse body pain. Pain has mildly improved w/ IV medication. Colostomy bag, clean with small feces present. Dr Ramon and Dr Whitfield discussed Hospice with family. IR on board, waiting for procedure. DNR/DNI was decided. Pt afebrile and NPO diet. Objective - Vital Signs/Intake and Output Vital Signs (last 24 hours): Temp Pulse Resp BP Pulse Ox 97.7 F 100 H 20 145/87 98 07/03/17 08:17 07/03/17 08:17 07/03/17 08:17 07/03/17 08:17 07/03/17 08:17 - Medications Medications: Current Medications Amoxicillin/Clavulanate Potassium (Augmentin 500 Mg-125 Mg Tab) 1 tab PO Q12H [facility] Last Admin: 07/03/17 07:13 Dose: 1 tab Ciprofloxacin (Cipro) 500 mg PO DAILY [facility] Last Admin: 07/03/17 09:07 Dose: 500 mg Docusate Sodium (Colace) 100 mg PO DAILY [facility] Last Admin: 07/03/17 09:10 Dose: 100 mg Enoxaparin Sodium (Lovenox) 40 mg SC DAILY [facility] PRN Reason: Protocol Levothyroxine Sodium (Synthroid) 50 mcg PO DAILY@0630 [facility] Last Admin: 07/03/17 07:12 Dose: 50 mcg Morphine Sulfate (Morphine) 2 mg IVP Q4 [facility] Ondansetron HCl (Zofran Inj) 4 mg IVP Q6 PRN PRN Reason: Nausea/Vomiting Last Admin: 07/02/17 20:38 Dose: 4 mg Sennosides (Senokot Tab) 8.6 mg PO HS [facility] Last Admin: 07/02/17 22:22 Dose: 8.6 mg - Labs Labs: 07/03/17 05:30 07/03/17 05:30 PT 15.8 Seconds (9.8-13.1) H 07/03/17 05:30 INR 1.5 (0.9-1.2) H 07/03/17 05:30 APTT 37.5 Seconds (25.6-37.1) H 07/03/17 05:30 - Constitutional Appears: In Acute Distress - Head Exam Head Exam: NORMAL INSPECTION - Eye Exam Eye Exam: EOMI - ENT Exam ENT Exam: Mucous Membranes Dry - Neck Exam Neck Exam: Full ROM - Respiratory Exam Respiratory Exam: Decreased Breath Sounds, Rales. absent: Wheezes - Cardiovascular Exam Cardiovascular Exam: +S1, +S2 Additional comments: Bilateral lower extremities: presence of bilateral edema. Assessment and Plan - Assessment and Plan (Free Text) Plan: 56 y/o F with PMHx including Hypothyroidism, Cirrhosis secondary to Hepatitis C infection and Serous Papillary Ovarian Carcinoma admitted for severe abdominal pain adl distension. 1. Abdominal pain and distension -2/2 Ascitic fluid accumulation due to hep C. -IR on board: paracentesis vs catheter procedures. -Hydromorphone 1mg IVP Q6H PRN. -Toradol 30mg IVP Q6H PRN. -Lasix 40 mg IV. -Start Ciprofloxacin 500 mg PO daily. -f/u IR recommendations. 2. Papillary serous ovarian carcinoma. - Pt not a candidate for chemotherapy. 3. Chronic Hepatitis C -HCV Genotype 3. 4. Hypothyroidism -Levothyroxine to 50mcg daily. 5. Hypokalemia -K-dur 10 mEq provided in ED. -f/u BMP. 6. Acute Kidney Injury - Creatinine 1.8 (today) - CrCl: 33 (today) - Renal diet initiated. 7. DVT Prophylaxis -SCDs. -Enoxaparin 40mg SC daily.
[2017-07-03] MEDS ORDERED: Lidocaine 1% Inj (20ml) ONE (14:13)
--- NOTE | 2017-07-03 14:54 | PCM.SURG1 ---
Surgeon's Initial Post Op Note - Surgeon's Notes Surgeon: Jr Arango MD Dcs Engineer: NONE Type of Anesthesia: Local Pre-Operative Diagnosis: Ascites Operative Findings: US showed a large amount of ascites Post-Operative Diagnosis: Ascites Operation Performed: US guided paracentesis. Specimen/Specimens Removed: 5200 cc of clear yellow fluid Estimated Blood Loss: EBL {In ML}: 0 Blood Products Given: N/A Drains Used: No Drains Post-Op Condition: Fair Date of Surgery/Procedure: 07/03/17 Time of Surgery/Procedure: 14:50
[2017-07-04] MEDS: Levothyroxine 50 MCG TAB PO SCH (06:09)
[2017-07-04] MEDS: Amoxicillin-Clav 500-125 mg Tab PO SCH ×2 (06:09→18:29)
[2017-07-04 07:22] LABS: CALCIUM 7.9 mg/dL (8.4-10.2); POTASSIUM 3.6 MMOL/L (3.6-5.0)
[2017-07-04] MEDS: Enoxaparin 40 mg Syringe SC SCH (10:11)
--- NOTE | 2017-07-04 13:25 | US ---
Date of Procedure: 07/03/2017 PROCEDURE: Ultrasound-guided paracentesis, CPT 17625 Medications: 7 cc 1% Lidocaine HISTORY: Ascites, abdominal pain TECHNIQUE: Following informed consent , the patient was placed supine on the stretcher and the site was marked. A limited abdominal ultrasound was performed that showed a large amount of intra-abdominal fluid. Procedural time out was called and the Pt's abdomen was marked and prepped and draped in the usual sterile fashion. Ultrasound-guided large volume paracentesis performed. A total of 5.2 liters of straw colored fluid was removed without complication. IMPRESSION: Ultrasound-guided large volume paracentesis.
--- NOTE | 2017-07-04 14:02 | CP.PCM.PN ---
Subjective - Date & Time of Evaluation Date of Evaluation: 07/04/17 Time of Evaluation: 07:15 - Subjective Subjective: 56 y/o F examined at bedside. Pt lying on bed. Pt complaints of RUQ abdominal pain, localized to area where paracentesis was performed yesterday. Pt denies fever, CP, SOB or urinary complaints. Objective - Vital Signs/Intake and Output Vital Signs (last 24 hours): Temp Pulse Resp BP Pulse Ox 98.1 F 96 H 20 131/72 97 07/04/17 08:04 07/04/17 08:04 07/04/17 08:04 07/04/17 08:04 07/04/17 08:04 - Medications Medications: Current Medications Amoxicillin/Clavulanate Potassium (Augmentin 500 Mg-125 Mg Tab) [address] [facility] Last Admin: 07/04/17 06:09 Dose: 1 tab Ciprofloxacin (Cipro) [address] [facility] Last Admin: 07/04/17 10:14 Dose: 500 mg Docusate Sodium (Colace) [address] [facility] Last Admin: 07/04/17 10:12 Dose: 100 mg Levothyroxine Sodium (Synthroid) 50 mcg PO DAILY@0630 [facility] Last Admin: 07/04/17 06:09 Dose: 50 mcg Morphine Sulfate (Morphine) [address] [facility] Ondansetron HCl (Zofran Inj) 4 mg IVP Q6 PRN PRN Reason: Nausea/Vomiting Last Admin: 07/04/17 02:53 Dose: 4 mg Sennosides (Senokot Tab) 8.[address] [facility] Last Admin: 07/03/17 21:35 Dose: 8.6 mg - Labs Labs: 07/04/17 06:00 PT 15.8 Seconds (9.8-13.1) H 07/03/17 05:30 INR 1.5 (0.9-1.2) H 07/03/17 05:30 APTT 37.5 Seconds (25.6-37.1) H 07/03/17 05:30 - Constitutional Appears: Well, Non-toxic - Head Exam Head Exam: ATRAUMATIC, NORMAL INSPECTION, NORMOCEPHALIC - Eye Exam Eye Exam: EOMI, Normal appearance - ENT Exam ENT Exam: Mucous Membranes Dry - Neck Exam Neck Exam: Full ROM - Respiratory Exam Respiratory Exam: NORMAL BREATHING PATTERN. 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 Plan: 1. Abdominal pain and distension -2/2 Ascitic fluid accumulation due to hep C. -US guided paracentesis performed yesterday 5200 cc of clear yellow fluid was extracted. -IR on board. -Morphine 2mg IVP decreased from Q4H to Q8H. -Augmentin 500-125 PO 1 tab Q12H -Ciprofloxacin 500 mg PO daily. -Zofran 4mg IVP PRN. -f/u IR recommendations. -Hospice discussed with family. Arrangements being made. 2. Papillary serous ovarian carcinoma. - Pt not a candidate for chemotherapy. 3. Chronic Hepatitis C -HCV Genotype 3. 4. Hypothyroidism -Levothyroxine to 50mcg daily. 5. Hypokalemia -K 3.6 - WNL, today. -f/u BMP. 6. Acute Kidney Injury - Creatinine 1.5 (today) - CrCl: 39 (today) - Renal diet. 7. DVT Prophylaxis -SCDs. -Stop Enoxaparin 40mg SC due to abnormal coagulation profile and pt's susceptibility to bleed.
--- NOTE | 2017-07-04 15:24 | CP.PCM.PCO ---
Assessment/Plan - Assessment and Plan (Free Text) Assessment: Patient seen by [facility] Consider placement of peritoneal drainage catheter. Await SW/hospice input pt is much more comfortable today
[2017-07-04] MEDS: Lidocaine 5% Patch TD SCH (18:14)
[2017-07-05] MEDS: Levothyroxine 50 MCG TAB PO SCH (06:36)
[2017-07-05] MEDS: Amoxicillin-Clav 500-125 mg Tab PO SCH (06:36)
[2017-07-05] MEDS: Lidocaine 5% Patch TD SCH (11:36)
--- NOTE | 2017-07-05 12:37 | CP.PCM.DIS ---
Provider - Provider Date of Admission: 07/03/17 11:57 Attending physician: Ivelisse Ramon MD Primary care physician: PMD: Dr Whitfield at [facility]. Consults: Interventional Radiologist: Jr Jones. Time Spent in preparation of Discharge (in minutes): 30 Hospital Course - Lab Results Lab Results: Most Recent Lab Values WBC 9.4 K/uL (4.8-10.8) 07/03/17 05:30 RBC 3.48 Mil/uL (3.80-5.20) L 07/03/17 05:30 Hgb 9.9 g/dL (12.0-16.0) L 07/03/17 05:30 Hct 30.1 % (34.0-47.0) L 07/03/17 05:30 MCV 86.6 fl (81.0-99.0) 07/03/17 05:30 MCH 28.5 pg (27.0-31.0) 07/03/17 05:30 MCHC 33.0 g/dL (33.0-37.0) 07/03/17 05:30 RDW 17.0 % (11.5-14.5) H 07/03/17 05:30 Plt Count 183 K/uL (130-400) 07/03/17 05:30 MPV 7.3 fl (7.2-11.7) 07/02/17 13:00 Neut % (Auto) 81.6 % (50.0-75.0) H 07/02/17 13:00 Lymph % (Auto) 8.7 % (20.0-40.0) L 07/02/17 13:00 [place] % (Auto) 7.9 % (0.0-10.0) 07/02/17 13:00 Eos % (Auto) 1.7 % (0.0-4.0) 07/02/17 13:00 Baso % (Auto) 0.1 % (0.0-2.0) 07/02/17 13:00 Neut # 8.8 K/uL (1.8-7.0) H 07/02/17 13:00 Lymph # 0.9 K/uL (1.0-4.3) L 07/02/17 13:00 [place] # 0.9 K/uL (0.0-0.8) H 07/02/17 13:00 Eos # 0.2 K/uL (0.0-0.7) 07/02/17 13:00 Baso # 0.0 K/uL (0.0-0.2) 07/02/17 13:00 Neutrophils % (Manual) 85 % (42-75) H 07/02/17 13:00 Lymphocytes % (Manual) 6 % (20-50) L 07/02/17 13:00 Monocytes % (Manual) 5 % (0-10) 07/02/17 13:00 Eosinophils % (Manual) 4 % (0-7) 07/02/17 13:00 Platelet Estimate Normal (NORMAL) 07/02/17 13:00 Hypochromasia (manual) Moderate 07/02/17 13:00 Anisocytosis (manual) Slight 07/02/17 13:00 Tear Drop Cells Slight 07/02/17 13:00 Ovalocytes Slight 07/02/17 13:00 Schistocytes Slight 07/02/17 13:00 PT 15.8 Seconds (9.8-13.1) H 07/03/17 05:30 INR 1.5 (0.9-1.2) H 07/03/17 05:30 APTT 37.5 Seconds (25.6-37.1) H 07/03/17 05:30 Sodium 144 mmol/l (132-148) 07/04/17 06:00 Potassium 3.6 MMOL/L (3.6-5.0) 07/04/17 06:00 Chloride 112 mmol/L (98-107) H 07/04/17 06:00 Carbon Dioxide 23 mmol/L (22-30) 07/04/17 06:00 Anion Gap 13 (10-20) 07/04/17 06:00 BUN 13 mg/dl (7-17) 07/04/17 06:00 Creatinine 1.5 mg/dL (0.7-1.2) H 07/04/17 06:00 Est GFR ( Amer) 43 07/04/17 06:00 Est GFR (Non-Af Amer) 36 07/04/17 06:00 Random Glucose 102 mg/dL (65-105) 07/04/17 06:00 Calcium 7.9 mg/dL (8.4-10.2) L 07/04/17 06:00 Total Bilirubin 0.7 mg/dl (0.2-1.3) 07/02/17 13:00 AST 113 U/L (14-36) H 07/02/17 13:00 ALT 53 U/L (9-52) H D 07/02/17 13:00 Alkaline Phosphatase 153 U/L (38-126) H 07/02/17 13:00 Troponin I < 0.0120 ng/mL (0.00-0.120) 07/02/17 13:00 Total Protein 6.4 G/DL (6.3-8.2) 07/02/17 13:00 Albumin 2.6 g/dL (3.5-5.0) L 07/02/17 13:00 Globulin 3.8 gm/dL (2.2-3.9) 07/02/17 13:00 Albumin/Globulin Ratio 0.7 (1.0-2.1) L 07/02/17 13:00 Amylase 174 U/L (30-110) H 07/02/17 13:00 Lipase 286 U/L (23-300) 07/02/17 13:00 Urine Color Straw (YELLOW) 07/02/17 15:03 Urine Clarity Slighty-cloudy (Clear) 07/02/17 15:03 Urine pH 6.0 (5.0-8.0) 07/02/17 15:03 Ur Specific [place] 1.006 (1.003-1.030) 07/02/17 15:03 Urine Protein Negative mg/dL (NEGATIVE) 07/02/17 15:03 Urine Glucose (UA) Neg mg/dL (Normal) 07/02/17 15:03 Urine Ketones Negative mg/dL (NEGATIVE) 07/02/17 15:03 Urine Blood Small (NEGATIVE) 07/02/17 15:03 Urine Nitrate Negative (NEGATIVE) 07/02/17 15:03 Urine Bilirubin Negative (NEGATIVE) 07/02/17 15:03 Urine Urobilinogen 0.2-1.0 mg/dL (0.2-1.0) 07/02/17 15:03 Ur Leukocyte Esterase Large [place]/uL (Negative) 07/02/17 15:03 Urine RBC (Auto) 5 /hpf (0-3) H 07/02/17 15:03 Urine Microscopic WBC 21 /hpf (0-5) H 07/02/17 15:03 Ur Squamous Epith Cells 2 /hpf (0-5) 07/02/17 15:03 Ur Renal Epithelial Cell 1 /hpf (0-3) 07/02/17 15:03 Urine Bacteria Rare (<OCC) 07/02/17 15:03 - Hospital Course Hospital Course: -56 y/o F with a PMHx of chronic hepatitis C, ascitis, hypothyroidism, colostomy , abdominal paracentesis, and serous papillary ovarian carcinoma admitted for severe diffuse abdominal pain and distension. Abdominal US-guided paracentesis performed on 07/03, 5200cc of clear yellow fluid extracted. Pain was managed with IV Morphine 2mg. -Pt discharged stable, to home/hospice. Pt instructed to continue home medications: Augmentin 500-125 PO 1 tab daily Docusate 200 mg PO BID Levothyroxine 50 mcg PO DAILY Ondansetron ODT 4 mg PO Q6 PRN Sennosides-Docusate 8.6-50mg PO Q8H -Ciprofloxacin 500mg PO DAILY was added to medication list at hospital for SBP prophylaxis. -Pt is scheduled for peritoneal drainage catheter placement on July 17, 2017 at this hospital. - Date & Time of H&P Date of H&P: 07/02/17 Time of H&P: 16:33 Discharge Exam - Head Exam Head Exam: ATRAUMATIC, NORMAL INSPECTION, NORMOCEPHALIC - Eye Exam Eye Exam: Normal appearance - ENT Exam ENT Exam: Mucous Membranes Dry - Neck Exam Neck exam: Full Rom - Respiratory Exam Respiratory Exam: NORMAL BREATHING PATTERN, UNREMARKABLE. absent: Chest Wall Tenderness, Clear to PA & Lateral - Cardiovascular Exam Cardiovascular Exam: REGULAR RHYTHM - GI/Abdominal Exam GI & Abdominal Exam: Distended (Ascitic fluid accumulation. ), Hyperactive Bowel Sounds, Soft Discharge Plan - Discharge Medications Prescriptions: Ciprofloxacin [Cipro] 500 mg PO DAILY #30 tab - Follow Up Plan Condition: STABLE Disposition: HOSPICE - HOME Instructions: Acute Abdominal Pain (DC), Acute Abdominal Pain (GEN), Abdominal Paracentesis (DC), Ascites (GEN) Additional Instructions: -Continue with home medications as prescribed. Augmentin 500-125 PO 1 tab daily Docusate 200 mg PO twice daily Levothyroxine 50 mcg PO DAILY Ondansetron ODT 4 mg PO Q6 as needed Sennosides-Docusate 8.6-50mg PO every 8 hours. Hydromorphine 4mg PO, 1/2 tab every 4 hours. ( NEEDED) Ciprofloxacin 500mg PO DAILY. -Pt scheduled on SundayJul 07 at 1pm for peritoneal drainage catheter placement. -Return to ER if fever, severe abdominal pain and distension.
[2017-07-05 16:15] VITALS: BP 137/87; PULSE 93; RESP 20; TEMP 98.2; O2SAT 96
== END 2017-07-05 16:18 | disposition hospice, home (50) | DRG 557 ==
LOC: H.ER 11:52 → H.ERHOLD 12:31 → H.MEDSURG1 15:38 → OBSVTOIN 07-03 11:57
PROVIDERS: ADMIT Family Medicine Geriatric Medicine; ATTEND Family Medicine Geriatric Medicine
PROC: 0W9G3ZZ Drainage of Peritoneal Cavity, Percutaneous Approach (ICD-10-PCS; principal; 2017-07-03)
DX: B18.2 Chronic viral hepatitis C (principal); N17.9 Acute kidney failure, unspecified; D69.6 Thrombocytopenia, unspecified; R18.8 Other ascites; C56.9 Malignant neoplasm of unspecified ovary; K74.60 Unspecified cirrhosis of liver; E05.90 Thyrotoxicosis, unspecified without thyrotoxic crisis or storm; E87.6 Hypokalemia; E03.9 Hypothyroidism, unspecified; F17.200 Nicotine dependence, unspecified, uncomplicated; J45.909 Unspecified asthma, uncomplicated; Z66 Do not resuscitate; Z93.3 Colostomy status; K59.00 Constipation, unspecified

== ENCOUNTER 2017-07-17 11:57 | Day surgery (SDC) | payer SELFPAY ==
[2017-07-17 12:31] VITALS: BMI 20.4
[2017-07-17] MEDS ORDERED: Midazolam 2 MG/2 ML VIAL ONE ×2 (13:43→14:37)
[2017-07-17] MEDS ORDERED: Lidocaine 1% Inj (20ml) ONE (13:51)
[2017-07-17] MEDS ORDERED: ceFAZolin 2 GM in Sodium Chloride 0.9% 100 ML IVPB ONE (14:33)
--- NOTE | 2017-07-17 14:51 | PCM.SURG1 ---
Surgeon's Initial Post Op Note - Surgeon's Notes Surgeon: Jr Arango MD Independent Driver: NONE Type of Anesthesia: IV Sedation Pre-Operative Diagnosis: Refractroy malignant ascites Operative Findings: US showed a large amount of ascites Post-Operative Diagnosis: Refractory malignant ascites Operation Performed: Placement of an indwelling peritoneal drainage catheter. Specimen/Specimens Removed: 4 liters Estimated Blood Loss: EBL {In ML}: 4 Blood Products Given: N/A Drains Used: No Drains Post-Op Condition: Poor Date of Surgery/Procedure: 07/17/17 Time of Surgery/Procedure: 15:35
--- NOTE | 2017-07-17 14:53 | CP.SDSHP ---
Same Day Surgery H & P - History Proposed Procedure: Placement of a peritoneal drainage catheter Pre-Op Diagnosis: Malignant ascites - Allergies Allergies: Allergies No Known Allergies Allergy (Verified 05/08/17 10:32) - Physical Exam Vital Signs: Vital Signs 07/17/17 07/17/17 07/17/17 12:20 12:28 14:35 Temperature 98 F 96.6 F L Pulse Rate 89 89 80 Respiratory 18 16 Rate Blood Pressure 138/80 141/92 H O2 Sat by Pulse 97 Oximetry Mental Status: Alert & Oriented x3 Neuro: WNL Heart: WNL Lungs: WNL - {Optional Preform as Required} Abdomen: Other (distended) - Impression Impression: Pt with malignant ascites and is on hospice care. She is referred for placement of a peritoneal drainage catheter for refractory ascites. Plan placement of an indwelling peritoneal drainage catheter and paracentesis. Informed consent obtained. Pt. Evaluated Today:Candidate for Anesthesia & Procedure: Yes (ASA 4 Malampati 3) - Date & Time Date: 07/17/17 Time: 14:20 Short Stay Discharge - Short Stay Discharge Admitting Diagnosis/Reason for Visit: R18.0
[2017-07-17] MEDS ORDERED: Lactated Ringer's 1,000 ML IV ONE (15:41)
--- NOTE | 2017-07-17 16:44 | NM ---
PROCEDURE: Date of procedure: 07/17/2017 Procedure: 1. Placement of a peritoneal drainage catheter 2. Peritoneal drainage through the catheter. Medications: The patient received IV sedation administered by anesthesiologist, 10 cc lidocaine 1% HISTORY: malignant ascites TECHNIQUE: Following informed consent procedure time-out, patient is placed prone on the CT table and non contrast CT was performed which showed a large ascites. The patient's abdomen was prepped and draped in the usual sterile fashion. After the skin was anesthetized with 10cc 1% lidocaine and sedated by anesthesiologist, a needle was advanced into the peritoneal space. The needle was exchanged for a guidewire. The peritoneal drainage catheter was tunneled under the skin. The catheter was then advanced through the peel-away sheath into the peritoneal space. The catheter secured to patient's skin and attached to a drainage bottle. Follow-up xray showed towards a peritoneal drainage catheter with tip of catheter within the pelvis. 4 liters of ascites was removed. IMPRESSION: Placement of an indwelling peritoneal drainage catheter for malignant ascites.
[2017-07-17 16:50] VITALS: RESP 18
[2017-07-17] MEDS ORDERED: Oxycodone/Acetaminophen 5/325 mg Tab PO ONE ×2 (17:08→17:20)
[2017-07-17 17:21] VITALS: TEMP 97.4
[2017-07-17 17:51] VITALS: BP 116/78; PULSE 80; O2SAT 98
== END 2017-07-17 18:09 | disposition home or self-care (01) ==
LOC: H.OPSURG 11:57
PROVIDERS: ATTEND Family Medicine Geriatric Medicine
DX: C56.9 Malignant neoplasm of unspecified ovary (principal); R18.0 Malignant ascites; J45.909 Unspecified asthma, uncomplicated; E03.9 Hypothyroidism, unspecified; K73.8 Other chronic hepatitis, not elsewhere classified
CPT/HCPCS: 49418; J0690; J2250; J3010; J7120